=== PATIENT | female | born 1985 | race Caucasian/White ===

== ENCOUNTER 2018-07-31 02:51 | Emergency (ER) | payer MEDICAID, SELFPAY ==
[2018-07-31] VITALS (81 sets, daily range): BP systolic 95–158; BP diastolic 58–122; PULSE 67–118; RESP 7–23; TEMP 36.3; O2SAT 89–100
[2018-07-31] MEDS: Normal Saline Flush 10 ML SYR IVP (03:05)
[2018-07-31] MEDS: Normal Saline 1,000 ML 1000 ML IV (03:05)
[2018-07-31] MEDS: Ondansetron 4 MG/2 ML VIAL (03:06)
--- NOTE | 2018-07-31 03:06 | W.ED.GENAD ---
Discharge Plan Disposition Patient Disposition: HOME Condition: Good Discharge Details Chief Complaint: AMS/LOC Clinical Impression: Opiate overdose, Polysubstance abuse Reason For Visit: SANDRA Primary Care Provider: Alex Hong ED Provider: Stuart Hines Home Meds and New Rx's Prescriptions: Continued Nexplanon 68 mg Implant 1 implant SUBDERMAL ONCE RF: 0 Discharge Instructions Additional Instructions: Avoid drugs in the future. Rest and stay hydrated today. Follow-up with primary care next week as needed. Return to ED for any problems or concerns. Referrals: Alex Hong MD [Primary Care Provider] - Discharge Data Discharge Date/Time-TO BE ENTERED AT DEPARTURE: 07/31/18 13:21 Medical Decision Making <Adan Guerra MD - Last Filed: 07/31/18 19:58> Patient arrives status post unresponsive event with minimal respirations. She responded to Narcan is now awake and alert but does appear intoxicated. Admits to alcohol and marijuana. Denies other drug use by saying she does not recall. IV established here by nursing staff using ultrasound guidance. Patient started on a fluid bolus. Laboratory studies sent. Urine drug screen ordered. Will observe over the next few hours. 7:30 AM -patient laboratory studies significant for white count of 19 and a glucose of 277. Both, I suspect are related to stress reaction/adrenaline taylor from her near experience. Alcohol level actually only 47. Drug screen positive for cocaine, opiates, marijuana. Tylenol and aspirin negative. Around 5 AM patient required a half dose of Narcan IV for somnolence and decreased respiratory rat. Currently easily aroused and stays awake. Normal vital signs. Still complaining of significant nausea and dizziness although is drinking water. We will continue fluids for another couple of hours and plan on discharge home. She continues to denies drug use saying she does not remember anything. No suicidal intent. Signed over to Dr. Hines pending observation/discharge. Lab Data Lab results reviewed: Yes I reviewed the patient's lab results. ECG Data Attestation: I personally reviewed and interpreted this ECG (s) as follows: Prior ECG tracings: not available for review Interpretation: Sinus tachycardia at 117. Normal intervals and axis. Fair amount of artifact. Nonspecific ST changes but no acute depression or elevation. <Stuart Hines MD - Last Filed: 07/31/18 12:58> Received signout from Dr. Guerra. Patient observed over 4 hours time and slowly woke up and was appropriate. She is ambulatory, ate a lunch tray, and subsequent discharge in the company of her mother per HPI <Adan Guerra MD - Last Filed: 07/31/18 19:58> General Mode of arrival: EMS. Date/Time Provider Initiated Documentation: 07/31/18 03:05. Limitations to Documentation: no limitations. Information obtained by: patient and EMS. HPI Narrative: Patient presents to ED by ambulance status post unresponsive event. Family called EMS for unresponsive person not breathing. Dispatch instructed family to do CPR. EMS arrived on scene. They did not know whether compressions were done or just [id number] breathing. She was unresponsive with a radial pulse but no respiratory effort. She was given intranasal Narcan and woke up. They were unable to obtain access. She arrives here awake and alert complaining of nausea. She admits to drinking and using pot but denies other drugs. States that she does not recall using anything else. She does have a prior history of drug abuse. Related Data Home Medications Medication Instructions Recorded Confirmed Nexplanon 1 implant SUBDERMAL ONCE 07/31/18 07/31/18 Allergies Allergy/AdvReac Type Severity Reaction Status Date / Time No Known Allergies Allergy Unverified 09/26/17 21:48 Review of Systems <Adan Guerra MD - Last Filed: 07/31/18 19:58> Review of Systems Unobtainable due to mental status [facility] <Adan Guerra MD - Last Filed: 07/31/18 19:58> Medical History Abnormal Pap/HPV Depression affecting Hepatitis C antibody positive in blood Methadone maintenance therapy patient Substance abuse Tobacco use disorder Surgical History Cervical Procedure Social History Smoking/Tobacco Use Status: Current every day Exam <Adan Guerra MD - Last Filed: 07/31/18 19:58> Const General: cooperative, no acute distress and intoxicated appearing Orientation: alert and awake HENMT Head: normocephalic and atraumatic Neck Neck: trachea midline and supple Chest Chest: normal palpation of entire chest wall Resp Effort & Inspection: normal respiratory effort Auscultation: clear to auscultation bilaterally Cardio Rate: regular rate Rhythm: regular rhythm Heart Sounds: S1 normal and S2 normal Pulses: normal peripheral pulses GI Palpation: soft, not firm and nontender Skin General skin exam: no rashes or lesions noted and no erythema Neuro General: alert, awake, no focal motor deficits and CN's II-XI intact bilaterally Extrem General: no clubbing, cyanosis or edema Sign Out <Adan Guerra MD - Last Filed: 07/31/18 19:58> Sign Out Data: Sign Out Comment: Discussed with Dr. Hines who will reassess and plan discharge. Last updated by Adan Guerra MD at 07/31/18 08:06
[2018-07-31 03:18] LABS: Abs Immature Grans 0.07 k/cumm (0.0-0.09); Absolute Basophil Count 0.04 k/cumm (0.0-0.2); Absolute Eosinophil Count 0.02 k/cumm (0.0-0.7); Absolute Lymphocyte Count 2.93 k/cumm (1.2-3.4); Absolute Monocyte Count 0.84 k/cumm (0.11-0.7); Absolute Neutrophil Count 15.24 k/cumm (1.2-6.7); Basophils % 0.2; Eosinophils % 0.1; HCT 43.4 % (36.0-46.0); HGB 15.6 g/dL (12.0-15.5); Immature Grans % 0.4; Lymphocytes % 15.3; Mean Corp. HGB Concentration 35.9 g/dL (32.0-36.0); Mean Corpuscular Volume 86.3 fL (80-95); Mean Platelet Volume 11.1 fL (8.0-11.0); Monocytes % 4.4; Neutrophils % 79.6; Platelet Count 358 x1000/uL (130-400); RBC 5.03 m/cumm (4.00-5.20); RBC Distribution Width 12.5 % (11.7-14.6); White Blood Cell Count 19.14 k/cumm (4.4-10.8)
[2018-07-31 03:30] LABS: ALT 33 U/L (12-78); AST 23 U/L (15-37); Alkaline Phosphatase 88 U/L (46-116); Anion Gap 15.9 mmol/L (3-11); BUN 11 mg/dL (7-18); Bilirubin, Total 0.1 mg/dL (0.2-1.0); CO2 22.1 mmol/L (21.0-32.0); CREATININE 0.94 mg/dL (0.55-1.02); Calcium 8.1 mg/dL (8.5-10.1); Chloride 102 mmol/L (98-107); ETHANOL BLOOD 47.4 mg/dL (<3); Glucose 277 mg/dL (70-100); Magnesium 1.9 mg/dL (1.8-2.4); Potassium 3.3 mmol/L (3.5-5.1); Sodium 140 mmol/L (136-145); Total Protein 7.5 g/dL (6.4-8.2)
[2018-07-31 03:35] LABS: *AMPHETAMINES SCREEN URINE Negative (Negative); *BARBITURATES SCREEN URINE Negative (Negative); *BENZODIAZEPINES SCREEN URINE Negative (Negative); Cannabinoids THC POSITIVE (Negative); Cocaine Screen,Urine POSITIVE (Negative); METHADONE URINE SCREEN Negative (Negative); OPIATES URINE SCREEN POSITIVE (Negative)
[2018-07-31 03:36] LABS: Tricyclic Antidepressants Negative (Negative)
[2018-07-31 03:59] LABS: Acetaminophen < 2 ug/mL (10-30)
[2018-07-31] MEDS: Normal Saline 1,000 ML 200 ML IV (04:10)
[2018-07-31] MEDS: Naloxone 0.4 MG/ML VIAL (05:43)
--- NOTE | 2018-07-31 07:04 | NUR.NOTE ---
Nursing Note: Assisted patient oob to commode, pt with unsteady gait. voided without difficulty.Report from Kristina MURO. Pt requesting po liquid. no acute distress, will continue to monitor.
--- NOTE | 2018-07-31 07:28 | NUR.NOTE ---
Nursing Note: This RN and Charlie in room speaking with patient. Pt awake to soft voice, does not remember much of last night she states. c/o nmild nausea and dizziness but able to take po fluids without difficulty. will continue to rest for now.
--- NOTE | 2018-07-31 07:42 | NUR.NOTE ---
Nursing Note: Resp rate 8-10 sleeping and 14-16 while awake. appears in no acute distress
--- NOTE | 2018-07-31 08:30 | NUR.NOTE ---
Nursing Note:Assited patient to commode, HR increases to 110's when oob. titrated oxygen down to 0.5L, sat 90-93%, pt placed back on 1.5L NC. Remains easily aroused to voice. Will continue to monitor for a few more hours.
--- NOTE | 2018-07-31 09:31 | NUR.NOTE ---
Nursing Note: Pt talking on phone, will continue to monitor vital signs.
--- NOTE | 2018-07-31 09:51 | NUR.NOTE ---
Nursing Note: Pt still requring oxygen to keep sats > 90%, updated patient that her PCP is aware she will not make her appt. toast and gingerale ordered per request. will continue to monitor.
--- NOTE | 2018-07-31 10:53 | NUR.NOTE ---
Nursing Note: No changes, continues to require oxygen. tolerated toast with butter and jelly. on/off sleeping and getting oob to commode. RR remain 7-10 while sleeping and greater than 14 while awake. no acute changes, will continue to monitor.
== END 2018-07-31 13:21 | disposition home or self-care (01) ==
PROVIDERS: Emergency Medicine; Emergency Provider Emergency Medicine; PCP Family Medicine
DX: T40.601A Poisoning by unspecified narcotics, accidental (unintentional), initial encounter (principal); F14.19 Cocaine abuse with unspecified cocaine-induced disorder; F12.19 Cannabis abuse with unspecified cannabis-induced disorder; F10.120 Alcohol abuse with intoxication, uncomplicated; Y90.2 Blood alcohol level of 40-59 mg/100 ml; R11.0 Nausea; R42 Dizziness and giddiness
CPT/HCPCS: 36415; 80053; 80307; 81025; 96361; 96374; 96375; 99284; 80320; 80329; 83735; 84703; 85025; 99285; J2310; J2405

== ENCOUNTER 2018-09-02 01:16 | Outpatient (CLI) | payer MEDICAID, SELFPAY ==
[2018-09-02] MEDS: Omnipaque 350 MG/ML 100 ML BTL IJ (09:56)
[2018-09-02] MEDS: Omnipaque 350 MG/ML 50 ML BTL PO (09:57)
[2018-09-02] MEDS: Breeza Beverage 473 ML BTL PO (09:57)
--- NOTE | 2018-09-02 10:00 | DI.CT_ITS ---
SYMPTOM/DIAGNOSIS: GENERALIZED ABD PAIN, N/V/D, IBS R10.84 CT ABDOMEN AND PELVIS: Comparison is made with 13 May 2017. Images were performed from the lung bases through the ischial tuberosities after IV and oral contrast. The lung bases are clear. The heart size is normal. The liver, gallbladder, spleen, pancreas, adrenals and kidneys as well as uterus, ovaries and urinary bladder are unremarkable. There is no bowel dilatation or inflammatory change. The appendix appears normal. There is a normal quantity of stool. No adenopathy, free air or free fluid is seen in the abdomen or pelvis. IMPRESSION: Negative CT of the abdomen and pelvis. No bowel inflammation is demonstrated.
== END 2018-09-02 01:36 ==
PROVIDERS: PCP Family Medicine; Visit Provider Nurse Practitioner Family
DX: R10.84 Generalized abdominal pain (principal); R11.2 Nausea with vomiting, unspecified; R19.7 Diarrhea, unspecified
CPT/HCPCS: 80053; 82784; 83516; 83690; 74177; 82150; 84439; 84443; 85025; J3490; Q9967

== ENCOUNTER 2018-09-03 12:37 | Outpatient (CLI) | payer MEDICAID, SELFPAY ==
[2018-09-03 13:49] LABS: Abs Immature Grans 0.02 k/cumm (0.0-0.09); Absolute Basophil Count 0.01 k/cumm (0.0-0.2); Absolute Eosinophil Count 0.07 k/cumm (0.0-0.7); Absolute Lymphocyte Count 4.05 k/cumm (1.2-3.4); Basophils % 0.1; Eosinophils % 0.6; HCT 45.5 % (36.0-46.0); HGB 16.2 g/dL (12.0-15.5); Immature Grans % 0.2; Lymphocytes % 36.1; Mean Corp. HGB Concentration 35.6 g/dL (32.0-36.0); Mean Corpuscular Hemoglobin 29.8 pg (27.0-33.0); Mean Corpuscular Volume 83.8 fL (80-95); Mean Platelet Volume 11.2 fL (8.0-11.0); Monocytes % 6.1; Neutrophils % 56.9; Platelet Count 211 x1000/uL (130-400); RBC 5.43 m/cumm (4.00-5.20); RBC Distribution Width 12.5 % (11.7-14.6); White Blood Cell Count 11.23 k/cumm (4.4-10.8)
[2018-09-03 14:00] LABS: Absolute Monocyte Count 0.69 k/cumm (0.11-0.7); Absolute Neutrophil Count 6.39 k/cumm (1.2-6.7)
[2018-09-03 14:25] LABS: ALT 20 U/L (12-78); AST 15 U/L (15-37); Albumin 4.1 g/dL (3.4-5.0); Alkaline Phosphatase 91 U/L (46-116); Amylase 58 U/L (25-115); Anion Gap 11.4 mmol/L (3-11); BUN 13 mg/dL (7-18); Bilirubin, Total 0.5 mg/dL (0.2-1.0); CO2 26.6 mmol/L (21.0-32.0); CREATININE 0.67 mg/dL (0.55-1.02); Calcium 9.3 mg/dL (8.5-10.1); Chloride 103 mmol/L (98-107); FREE T4 1.08 ng/dL (0.76-1.46); Glucose 86 mg/dL (70-100); Lipase 124 U/L (73-393); Potassium 3.7 mmol/L (3.5-5.1); Sodium 141 mmol/L (136-145); TSH 1.85 uIU/mL (0.358-3.74); Total Protein 7.4 g/dL (6.4-8.2)
[2018-09-05 10:28] LABS: IgA 114 mg/dL (85-499); Interpretation SEE COMMENTS; Tissue Transglutaminase IgA <1.2 U/mL (<4.0)
== END 2018-09-03 12:57 ==
PROVIDERS: PCP Family Medicine; Visit Provider Nurse Practitioner Family
DX: R10.84 Generalized abdominal pain (principal)
CPT/HCPCS: 36415; 80053; 82784; 83516; 83690; 82150; 84439; 84443; 85025

== ENCOUNTER 2018-09-27 09:07 | Emergency (ER) | payer MEDICAID, SELFPAY ==
[2018-09-27] VITALS (24 sets, daily range): BP systolic 116–170; BP diastolic 71–96; PULSE 101–162; RESP 16; TEMP 37–37.7; O2SAT 92–97
[2018-09-27 09:27] LABS: Bilirubin Small (Negative); Blood Negative (Negative); Clarity Sl Cloudy; Glucose Negative (Negative); Ketones Trace mg/dL (Negative); Leukocyte Esterase Moderate (Negative); Nitrite Negative (Negative); Urobilinogen 0.2 EU/dL (Up TO 0.2); pH 7.5 (5-8)
[2018-09-27 09:36] LABS: Bacteria Moderate HPF (Negative); C & S Indicated? No/Sq. Contamination; Casts Negative LPF (Negative); Crystals Negative HPF (Negative); Epithelial Cells Many HPF (Negative); Mucus Negative (Negative); RBC Negative (0-2)
--- NOTE | 2018-09-27 09:39 | W.ED.GENAD ---
Discharge Plan Disposition Patient Disposition: HOME Condition: Improving Discharge Details Chief Complaint: Nausea/Vomit/Diar Clinical Impression: Acute dehydration Primary Care Provider: Alex Hong ED Provider: Stuart Hines Home Meds and New Rx's Prescriptions: New ondansetron HCl [Zofran] 4 mg tablet 4 mg PO QID PRN (Reason: Nausea) Qty: 10 RF: 0 Continued omeprazole magnesium [Acid [employer] (omeprazole)] 20 mg capsule,delayed release(DR/EC) 20 mg PO DAILY Qty: 90 RF: 0 Nexplanon 68 mg Implant 1 implant SUBDERMAL ONCE RF: 0 Discharge Instructions Instructions: Dehydration (ED) Additional Instructions: Home to rest today. Small, frequent sips of fluids to maintain hydration. Continue your regular medications. Continue with your plans to follow-up for outpatient consultation. May use Zofran, as prescribed, as needed for nausea. Return for worsening or any acute concern Medical Decision Making 32-year-old female who has struggled with intermittent episodes of cyclic vomiting over weeks to months time since being released from prison in May. She has pre-standing outpatient follow-up plans for upper endoscopy and has had a recent imaging and laboratory. This included CT scan of the abdomen and pelvis on September 02 which was unremarkable. She arrives afebrile, tachycardic, dehydrated in appearance. Differential diagnosis includes cyclic vomiting, gastritis, consideration of pancreatitis. Given her clinical level of dehydration she is at risk for left foot abnormalities as well. IV access obtained, screening labs obtained, patient given fluid bolus x2L. She has previous leukocytosis which is somewhat improved today with white count of 14. Lipase and TSH are reassuring. After antiemetics and fluid, the patient had correction of her pulse. She may have a component of cyclic vomiting results in the profound dehydration. Do not find indication to pursue further workup at this time. WIll offer antiemeticfs for home, she is to continue with prearranged outpatient consultations. Note: Patient stated her insurance had lapsed and would begin again on Saturday. Discussed with case management and patient dispensed Zofran tablets for home. Lab Data Lab results reviewed: Yes I reviewed the patient's lab results. Laboratory Results - last 24 hr 09/27/18 09/27/18 09/27/18 09:21 09:45 09:49 WBC RBC Hgb Hct MCV MCH MCHC RDW Plt Count MPV Immature Gran % Neutrophils % Lymphocytes % Monocytes % Eosinophils % Basophils % Absolute Neutrophils Absolute Lymphocytes Absolute Monocytes Absolute Eosinophils Absolute Basophils Sodium 140 Potassium 3.7 Chloride 101 Carbon Dioxide 27.5 Anion Gap 11.5 H BUN 17 Creatinine 0.94 Estimated GFR/1.73 m2 >= 60.00 Glucose 184 H Calcium 8.8 Magnesium Cancelled Cancelled Total Bilirubin 0.3 AST 17 ALT 24 Alkaline Phosphatase 83 Total Protein 8.3 H Albumin 3.9 Lipase 83 TSH 1.48 Urine Color Yellow Urine Clarity Sl cloudy Urine pH 7.5 Ur Specific [place] 1.020 Urine Protein 30 H Urine Ketones Trace H Urine Blood Negative Urine Nitrite Negative Urine Bilirubin Small H Urine Urobilinogen 0.2 Ur Leukocyte Esterase Moderate H Urine RBC Negative Urine WBC 10-20 Ur Epithelial Cells Many Urine Crystals Negative Urine Bacteria Moderate Urine Casts Negative Urine Mucus Negative Ur Culture Indicated? No/sq. contamination Urine Glucose Negative 09/27/18 09/27/18 09/27/18 09:49 09:49 09:50 WBC 14.13 H RBC 5.83 H Hgb 17.2 H Hct 48.6 H MCV 83.4 MCH 29.5 MCHC 35.4 RDW 13.2 Plt Count 322 D MPV 11.0 Immature Gran % 0.2 Neutrophils % 78.8 Lymphocytes % 16.3 Monocytes % 4.0 Eosinophils % 0.3 Basophils % 0.4 Absolute Neutrophils 11.13 H Absolute Lymphocytes 2.30 Absolute Monocytes 0.57 Absolute Eosinophils 0.04 Absolute Basophils 0.06 Sodium Potassium Chloride Carbon Dioxide Anion Gap BUN Creatinine Estimated GFR/1.73 m2 Glucose Calcium Magnesium Total Bilirubin AST ALT Alkaline Phosphatase Total Protein Albumin Lipase Cancelled TSH Cancelled Urine Color Urine Clarity Urine pH Ur Specific [place] Urine Protein Urine Ketones Urine Blood Urine Nitrite Urine Bilirubin Urine Urobilinogen Ur Leukocyte Esterase Urine RBC Urine WBC Ur Epithelial Cells Urine Crystals Urine Bacteria Urine Casts Urine Mucus Ur Culture Indicated? Urine Glucose HPI General Mode of arrival: ambulatory. Date/Time Provider Initiated Documentation: 09/27/18 09:28. Limitations to Documentation: no limitations. Information obtained by: patient. History of Present Illness 32 year old F presents to the emergency department with the chief complaint of Nausea, vomiting, recurrent over weeks, described as moderate, Quality is described as constant, and is localized to the abdomen. Patient abdomen. Patient started experiencing this week(s) and it has been intermittent. No relieving factors improve symptom(s), Eating worsens symptoms . Patient notes no other symptoms. and loss of appetite. Patient did receive the following treatments prior to arrival, none Related Data Home Medications Medication Instructions Recorded Confirmed Nexplanon 1 implant SUBDERMAL ONCE 07/31/18 09/27/18 omeprazole magnesium 20 mg 20 mg PO DAILY #90 cap 08/28/18 09/27/18 capsule,delayed release ondansetron HCl [Zofran] 4 mg PO QID PRN #10 tab 09/27/18 Previous Rx's Medication Instructions Recorded omeprazole magnesium 20 mg 20 mg PO DAILY #90 cap 08/28/18 capsule,delayed release ondansetron HCl [Zofran] 4 mg PO QID PRN #10 tab 09/27/18 Allergies Allergy/AdvReac Type Severity Reaction Status Date / Time No Known Allergies Allergy Unverified 09/27/18 09:20 General Stated Complaint: Nausea/Vomit/Diar [place]: 2 Review of Systems Review of Systems 8 systems reviewed and otherwise negative. Denies recent drug use. No fever PFSH Medical History Abnormal Pap/HPV Depression affecting Hepatitis C antibody positive in blood Methadone maintenance therapy patient Substance abuse Tobacco use disorder Surgical History Cervical Procedure Social History Smoking and Tabacco status: Current every day Exam Narrative Exam Narrative: GEN: awake, alert, oriented 3. Pleasant, well groomed, interactive. HEAD: Normocephalic, atraumatic ENT: Mucous membranes dry, oropharynx unremarkable, External ear exam unremarkable EYES: PERRL, EOMI NECK: Full ROM, no TRIPP, no menigismus CHEST/RESP: Nontender, clear to auscultation bilateral, no wheeze/rhonchi/rales CARDIOVASCULAR: Regular and tachycardic, no murmur, rub lory. 2+ Rad pulse bilateral ABDOMEN: Soft, nontender, no mass. +Bowel sounds EXT: Full ROM, no edema, no rash Neuro: Grossly normal neurologic exam, conversant, interactive. Psych: Speech fluent, thoughts congruent, affect normal Course Vital Signs Temperature 37 C 09/27/18 09:14 Pulse 162 H 09/27/18 09:14 Respiratory Rate 16 09/27/18 09:14 Blood Pressure 151/96 H 09/27/18 09:14 Pulse Oximetry 93 L 09/27/18 09:14 Temperature 37 C 09/27/18 09:14 Temperature Source Skin 09/27/18 09:14 Pulse 162 H 09/27/18 09:14 Respiratory Rate 16 09/27/18 09:14 Respiratory Effort 09/27/18 09:14 Blood Pressure 151/96 H 09/27/18 09:14 Blood Pressure Position Sitting 09/27/18 09:14 Pulse Oximetry 93 L 09/27/18 09:14 Oxygen Delivery Method Room Air 09/27/18 09:14 Oxygen Flow Rate 0 09/27/18 09:14 Pain Level 7 09/27/18 09:14 Lab/Test Results Lab/Test Results: Laboratory Tests Range/Units 09/27/18 09:21 Urine Color (Yellow) Yellow Urine Clarity Sl cloudy Urine pH (5-8) 7.5 Ur Specific [place] (1.005-1.025) 1.020 Urine Protein (Negative) mg/dL 30 H Urine Ketones (Negative) mg/dL Trace H Urine Blood (Negative) Negative Urine Nitrite (Negative) Negative Urine Bilirubin (Negative) Small H Urine Urobilinogen (Up TO 0.2) EU/dL 0.2 Ur Leukocyte Esterase (Negative) Moderate H Urine RBC (0-2) Negative Urine WBC (0-5) HPF 10-20 Ur Epithelial Cells (Negative) HPF Many Urine Crystals (Negative) HPF Negative Urine Bacteria (Negative) HPF Moderate Urine Casts (Negative) LPF Negative Urine Mucus (Negative) Negative Ur Culture Indicated? No/sq. contamination Urine Glucose (Negative) mg/dL Negative
--- NOTE | 2018-09-27 09:43 | ED.GENADUL_ITS ---
Discharge Plan Disposition Patient Disposition: HOME Condition: Improving Discharge Details Chief Complaint: Nausea/Vomit/Diar Clinical Impression: Acute dehydration Primary Care Provider: Alex Hong ED Provider: Stuart Hines Home Meds and New Rx's Prescriptions: New ondansetron HCl [Zofran] 4 mg tablet 4 mg PO QID PRN (Reason: Nausea) Qty: 10 RF: 0 Continued omeprazole magnesium [Acid [employer] (omeprazole)] 20 mg capsule,delayed release(DR/EC) 20 mg PO DAILY Qty: 90 RF: 0 Nexplanon 68 mg Implant 1 implant SUBDERMAL ONCE RF: 0 Discharge Instructions Instructions: Dehydration (ED) Additional Instructions: Home to rest today. Small, frequent sips of fluids to maintain hydration. Continue your regular medications. Continue with your plans to follow-up for outpatient consultation. May use Zofran, as prescribed, as needed for nausea. Return for worsening or any acute concern Medical Decision Making 32-year-old female who has struggled with intermittent episodes of cyclic vomiting over weeks to months time since being released from senior care in May. She has pre-standing outpatient follow-up plans for upper endoscopy and has had a recent imaging and laboratory. This included CT scan of the abdomen and pelvis on September 02 which was unremarkable. She arrives afebrile, tachycardic, dehydrated in appearance. Differential diagnosis includes cyclic vomiting, gastritis, consideration of pancreatitis. Given her clinical level of dehydration she is at risk for left foot abnormalities as well. IV access obtained, screening labs obtained, patient given fluid bolus x2L. She has previous leukocytosis which is somewhat improved today with white count of 14. Lipase and TSH are reassuring. After antiemetics and fluid, the patient had correction of her pulse. She may have a component of cyclic vomiting results in the profound dehydration. Do not find indication to pursue further workup at this time. WIll offer antiemeticfs for home, she is to continue with prearranged outpatient consultations. Note: Patient stated her insurance had lapsed and would begin again on Saturday. Discussed with case management and patient dispensed Zofran tablets for home. Lab Data Lab results reviewed: Yes I reviewed the patient's lab results. Laboratory Results - last 24 hr 09/27/18 09/27/18 09/27/18 09:21 09:45 09:49 WBC RBC Hgb Hct MCV MCH MCHC RDW Plt Count MPV Immature Gran % Neutrophils % Lymphocytes % Monocytes % Eosinophils % Basophils % Absolute Neutrophils Absolute Lymphocytes Absolute Monocytes Absolute Eosinophils Absolute Basophils Sodium 140 Potassium 3.7 Chloride 101 Carbon Dioxide 27.5 Anion Gap 11.5 H BUN 17 Creatinine 0.94 Estimated GFR/1.73 m2 >= 60.00 Glucose 184 H Calcium 8.8 Magnesium Cancelled Cancelled Total Bilirubin 0.3 AST 17 ALT 24 Alkaline Phosphatase 83 Total Protein 8.3 H Albumin 3.9 Lipase 83 TSH 1.48 Urine Color Yellow Urine Clarity Sl cloudy Urine pH 7.5 Ur Specific [place] 1.020 Urine Protein 30 H Urine Ketones Trace H Urine Blood Negative Urine Nitrite Negative Urine Bilirubin Small H Urine Urobilinogen 0.2 Ur Leukocyte Esterase Moderate H Urine RBC Negative Urine WBC 10-20 Ur Epithelial Cells Many Urine Crystals Negative Urine Bacteria Moderate Urine Casts Negative Urine Mucus Negative Ur Culture Indicated? No/sq. contamination Urine Glucose Negative 09/27/18 09/27/18 09/27/18 09:49 09:49 09:50 WBC 14.13 H RBC 5.83 H Hgb 17.2 H Hct 48.6 H MCV 83.4 MCH 29.5 MCHC 35.4 RDW 13.2 Plt Count 322 D MPV 11.0 Immature Gran % 0.2 Neutrophils % 78.8 Lymphocytes % 16.3 Monocytes % 4.0 Eosinophils % 0.3 Basophils % 0.4 Absolute Neutrophils 11.13 H Absolute Lymphocytes 2.30 Absolute Monocytes 0.57 Absolute Eosinophils 0.04 Absolute Basophils 0.06 Sodium Potassium Chloride Carbon Dioxide Anion Gap BUN Creatinine Estimated GFR/1.73 m2 Glucose Calcium Magnesium Total Bilirubin AST ALT Alkaline Phosphatase Total Protein Albumin Lipase Cancelled TSH Cancelled Urine Color Urine Clarity Urine pH Ur Specific [place] Urine Protein Urine Ketones Urine Blood Urine Nitrite Urine Bilirubin Urine Urobilinogen Ur Leukocyte Esterase Urine RBC Urine WBC Ur Epithelial Cells Urine Crystals Urine Bacteria Urine Casts Urine Mucus Ur Culture Indicated? Urine Glucose HPI General Mode of arrival: ambulatory . Date/Time Provider Initiated Documentation: 09/27/18 09:28 . Limitations to Documentation: no limitations . Information obtained by: patient . History of Present Illness 32 year old F presents to the emergency department with the chief complaint of Nausea, vomiting, recurrent over weeks, described as moderate, Quality is described as constant, and is localized to the abdomen. Patient abdomen. Patient started experiencing this week(s) and it has been intermittent. No relieving factors improve symptom(s), Eating worsens symptoms . Patient notes no other symptoms. and loss of appetite. Patient did receive the following treatments prior to arrival, none Related Data Home Medications Medication Instructions Recorded Confirmed Nexplanon 1 implant SUBDERMAL ONCE 07/31/18 09/27/18 omeprazole magnesium 20 mg 20 mg PO DAILY #90 cap 08/28/18 09/27/18 capsule,delayed release ondansetron HCl [Zofran] 4 mg PO QID PRN #10 tab 09/27/18 Previous Rx's Medication Instructions Recorded omeprazole magnesium 20 mg 20 mg PO DAILY #90 cap 08/28/18 capsule,delayed release ondansetron HCl [Zofran] 4 mg PO QID PRN #10 tab 09/27/18 Allergies Allergy/AdvReac Type Severity Reaction Status Date / Time No Known Allergies Allergy Unverified 09/27/18 09:20 General Stated Complaint: Nausea/Vomit/Diar [place]: 2 Review of Systems Review of Systems 8 systems reviewed and otherwise negative. Denies recent drug use. No fever PFSH Medical History Abnormal Pap/HPV Depression affecting Hepatitis C antibody positive in blood Methadone maintenance therapy patient Substance abuse Tobacco use disorder Surgical History Cervical Procedure Social History Smoking and Tabacco status: Current every day Exam Narrative Exam Narrative: GEN: awake, alert, oriented 3. Pleasant, well groomed, interactive. HEAD: Normocephalic, atraumatic ENT: Mucous membranes dry, oropharynx unremarkable, External ear exam unremarkable EYES: PERRL, EOMI NECK: Full ROM, no TRIPP, no menigismus CHEST/RESP: Nontender, clear to auscultation bilateral, no wheeze/rhonchi/rales CARDIOVASCULAR: Regular and tachycardic, no murmur, rub lory. 2+ Rad pulse bilateral ABDOMEN: Soft, nontender, no mass. +Bowel sounds EXT: Full ROM, no edema, no rash Neuro: Grossly normal neurologic exam, conversant, interactive. Psych: Speech fluent, thoughts congruent, affect normal Course Vital Signs Temperature 37 C 09/27/18 09:14 Pulse 162 H 09/27/18 09:14 Respiratory Rate 16 09/27/18 09:14 Blood Pressure 151/96 H 09/27/18 09:14 Pulse Oximetry 93 L 09/27/18 09:14 Temperature 37 C 09/27/18 09:14 Temperature Source Skin 09/27/18 09:14 Pulse 162 H 09/27/18 09:14 Respiratory Rate 16 09/27/18 09:14 Respiratory Effort 09/27/18 09:14 Blood Pressure 151/96 H 09/27/18 09:14 Blood Pressure Position Sitting 09/27/18 09:14 Pulse Oximetry 93 L 09/27/18 09:14 Oxygen Delivery Method Room Air 09/27/18 09:14 Oxygen Flow Rate 0 09/27/18 09:14 Pain Level 7 09/27/18 09:14 Lab/Test Results Lab/Test Results: Laboratory Tests Range/Units 09/27/18 09:21 Urine Color (Yellow) Yellow Urine Clarity Sl cloudy Urine pH (5-8) 7.5 Ur Specific [place] (1.005-1.025) 1.020 Urine Protein (Negative) mg/dL 30 H Urine Ketones (Negative) mg/dL Trace H Urine Blood (Negative) Negative Urine Nitrite (Negative) Negative Urine Bilirubin (Negative) Small H Urine Urobilinogen (Up TO 0.2) EU/dL 0.2 Ur Leukocyte Esterase (Negative) Moderate H Urine RBC (0-2) Negative Urine WBC (0-5) HPF 10-20 Ur Epithelial Cells (Negative) HPF Many Urine Crystals (Negative) HPF Negative Urine Bacteria (Negative) HPF Moderate Urine Casts (Negative) LPF Negative Urine Mucus (Negative) Negative Ur Culture Indicated? No/sq. contamination Urine Glucose (Negative) mg/dL Negative
[2018-09-27] MEDS: Ondansetron O.D.T. 4 MG TABEF (09:51)
[2018-09-27 10:05] LABS: Abs Immature Grans 0.03 k/cumm (0.0-0.09); Absolute Eosinophil Count 0.04 k/cumm (0.0-0.7); Basophils % 0.4; Eosinophils % 0.3; HCT 48.6 % (36.0-46.0); HGB 17.2 g/dL (12.0-15.5); Immature Grans % 0.2; Lymphocytes % 16.3; Mean Corp. HGB Concentration 35.4 g/dL (32.0-36.0); Mean Corpuscular Hemoglobin 29.5 pg (27.0-33.0); Mean Corpuscular Volume 83.4 fL (80-95); Neutrophils % 78.8; Platelet Count 322 x1000/uL (130-400); RBC 5.83 m/cumm (4.00-5.20); RBC Distribution Width 13.2 % (11.7-14.6); White Blood Cell Count 14.13 k/cumm (4.4-10.8)
[2018-09-27] MEDS: Lactated Ringers 1,000 ML 1000 ML IV ×2 (10:06→10:56)
[2018-09-27] MEDS: Pantoprazole 40 MG VIAL IVP (10:06)
[2018-09-27 10:11] LABS: Absolute Basophil Count 0.06 k/cumm (0.0-0.2); Absolute Monocyte Count 0.57 k/cumm (0.11-0.7); Absolute Neutrophil Count 11.13 k/cumm (1.2-6.7)
[2018-09-27 10:22] LABS: ALT 24 U/L (12-78); AST 17 U/L (15-37); Albumin 3.9 g/dL (3.4-5.0); Alkaline Phosphatase 83 U/L (46-116); Anion Gap 11.5 mmol/L (3-11); BUN 17 mg/dL (7-18); Bilirubin, Total 0.3 mg/dL (0.2-1.0); CO2 27.5 mmol/L (21.0-32.0); CREATININE 0.94 mg/dL (0.55-1.02); Chloride 101 mmol/L (98-107); Glucose 184 mg/dL (70-100); Lipase 83 U/L (73-393); Potassium 3.7 mmol/L (3.5-5.1); Sodium 140 mmol/L (136-145); TSH 1.48 uIU/mL (0.358-3.74); Total Protein 8.3 g/dL (6.4-8.2)
[2018-09-27 10:27] LABS: Calcium 8.8 mg/dL (8.5-10.1)
[2018-09-27] MEDS: LORazepam 2 MG/ML VIAL (10:57)
[2018-09-27] MEDS: Ondansetron 4 MG/2 ML VIAL (10:57)
[2018-09-27] MEDS: Ondansetron O.D.T. 4 MG TABEF 32 MG PO (12:23)
== END 2018-09-27 12:29 | disposition home or self-care (01) ==
PROVIDERS: Emergency Provider Emergency Medicine; PCP Family Medicine
DX: E86.0 Dehydration (principal); G43.A0 Cyclical vomiting, in migraine, not intractable
CPT/HCPCS: 80053; 83690; 99283; 81003; 81015; 83735; 84443; 85025; J2060; J2405

== ENCOUNTER 2018-10-10 07:59 | Day surgery (SDC) | payer MEDICAID, SELFPAY ==
[2018-10-10 08:09] VITALS: BP 129/91; PULSE 93; RESP 16; TEMP 35.8; O2SAT 94
[2018-10-10] MEDS: Lactated Ringers 1,000 ML 80 ML IV (08:33)
[2018-10-10] MEDS: Lidocaine 2% Viscous 15 ML CUP 20 ML PO (10:35)
--- NOTE | 2018-10-10 10:43 | STOM_PTH ---
PATIENT: Chencho Barrett LOC: [facility] U#:[id number] AGE/SX: 32/F ROOM: RE10/10/[address]: Salma Salgado : 1985 BED: DIS: 10/10/2018 SPEC #: [id number] RECD: 10/10/18 12:59 STATUS: MALIK BALL #: [id number] CASPER: 10/10/18 10:[address]: Salma Salgado DEPT: Surgical Specimen RECD BY: Nehal Lockett ENTERED: 10/10/18 13:02 SP TYPE: STOMACH OTHR DR: Alex Hong MD Tissues: 1 - BIOPSY BOWEL 2 - STOMACH BIOPSY 3 - STOMACH BIOPSY 4 - ESOPHAGUS BIOPSY 5 - ESOPHAGUS BIOPSY Procedures: GROSS AND MICRO LEVEL 4 Comments: [id number]
--- NOTE | 2018-10-10 10:53 | W.PM.DSUDISC ---
Discharge Plan Disposition Patient Disposition: HOME Condition: Good Discharge Details Reason For Visit: egd Attending Provider: Salma Salgado Primary Care Provider: Alex Hong Home Meds and New Rx's Prescriptions: New metoclopramide HCl [Reglan] 10 mg tablet 10 mg PO Q6H Qty: 90 RF: 2 scopolamine base 1 mg over 3 days patch 3 day 1 patch TD Q72H Qty: 10 RF: 0 Continued ondansetron HCl [Zofran] 4 mg tablet 4 mg PO QID PRN (Reason: Nausea) Qty: 10 RF: 0 Nexplanon 68 mg Implant 1 implant SUBDERMAL ONCE RF: 0 Discontinued omeprazole magnesium [Acid Hop Separator (omeprazole)] 20 mg capsule,delayed release(DR/EC) 20 mg PO DAILY Qty: 90 RF: 0 Discharge Instructions Additional Instructions: F/u w/ Dr. Salgado in 2 wks time Stand Alone Forms: DSU Post EGD Instructions, Kenn Eason (DSU) Activity:: Activity as Tolerated Shower/Bathe:: 24 hours Diet:: As Tolerated Discharge Orders Other Ambulatory Orders: US abdomen (Routine) Location: Determined by Patient Ordered By: Salma Salgado DS: Diagnosis Discharge Diagnosis (1) Opiate addiction: Status: Acute (2) Panic attack: Status: Acute (3) History of tobacco use: Status: Acute (4) Hepatitis C antibody test positive: Status: Acute (5) Intractable nausea and vomiting: Status: Acute
--- NOTE | 2018-10-10 11:01 | W.PM.ENDDOP ---
Date of service: 10/10/18 Time of Service: 11:01 Endoscopy Report DATE OF PROCEDURE: 10/10/18 PRE-OP DIAGNOSIS: intractible N/V POST-OP DIAGNOSIS: same PROCEDURE: EGD w/ Bx SURGEON: Salma Salgado ANESTHESIA: GETA ESTIMATED BLOOD LOSS: 2 PATHOLOGY: other COMPLICATIONS: None DISPOSITION: PACU INDICATIONS: see preop FINDINGS: normal. maybe some minimal bile reflux PROCEDURE DESCRIPTION: dictated
--- NOTE | 2018-10-10 11:04 | PDOC.DSDIS_ITS ---
Discharge Plan Disposition Patient Disposition: HOME Condition: Good Discharge Details Reason For Visit: egd Attending Provider: Salma Salgado Primary Care Provider: Alex Hong Home Meds and New Rx's Prescriptions: New metoclopramide HCl [Reglan] 10 mg tablet 10 mg PO Q6H Qty: 90 RF: 2 scopolamine base 1 mg over 3 days patch 3 day 1 patch TD Q72H Qty: 10 RF: 0 sucralfate [Carafate] 1 gram tablet 1 gm PO QACHS Qty: 120 RF: 8 Continued ondansetron HCl [Zofran] 4 mg tablet 4 mg PO QID PRN (Reason: Nausea) Qty: 10 RF: 0 Nexplanon 68 mg Implant 1 implant SUBDERMAL ONCE RF: 0 Discontinued omeprazole magnesium [Acid Industrial Truck Operator (omeprazole)] 20 mg capsule,delayed release(DR/EC) 20 mg PO DAILY Qty: 90 RF: 0 Discharge Instructions Additional Instructions: F/u w/ Dr. Salgado in 2 wks time Stand Alone Forms: DSU Post EGD Instructions, Kenn Eason (DSU) Activity:: Activity as Tolerated Shower/Bathe:: 24 hours Diet:: As Tolerated Discharge Orders Discharge Orders: Discharge Order (Routine); Ordered 10/10/18 Ordered By: Salma Salgado Other Ambulatory Orders: US abdomen (Routine) Location: Determined by Patient Ordered By: Salma Salgado
[2018-10-10 11:26] VITALS: BP 109/65; PULSE 85; RESP 16; TEMP 36.5; O2SAT 100
[2018-10-10] MEDS: Scopolamine 1 MG/3 DAYS PATCH TD (12:10)
--- NOTE | 2018-10-14 17:01 | ROE_ITS ---
DATE OF PROCEDURE: October 10, 2018 PREOPERATIVE DIAGNOSIS: Intractable nausea and vomiting. POSTOPERATIVE DIAGNOSIS: Intractable nausea and vomiting; minimal bile reflux. PROCEDURE: EGD with biopsy. SURGEON: Salma Salgado D.O. ANESTHESIA: MAC ESTIMATED BLOOD LOSS: <2 cc Biopsies were taken. Patient tolerated the procedure well without complication. HISTORY: Ms. Barrett is 42-year-old female seen at the request of Dr. Paige and is here today for EGD. Informed consent was obtained. I explained the risks and benefits of the procedure to include, but not limited to, bleeding, infection, perforation, aspiration, and complications from the anesthesia. PROCEDURE: The patient was brought to the Endoscopy Suite and placed in the left lateral decubitus position. IV sedation was administered per the Department of Anesthesia. The previously lubricated Olympus scope was easily inserted in the oropharynx and passed down the esophagus. There were no esophageal erosions, varices, diverticula, or stricture apparent. The scope was passed through the GE junction into the stomach. There was no hiatal hernia. The stomach appeared grossly normal. There were no signs of any gastritis. There were no anatomic abnormalities. There was minimal bile reflux. Antrum was freely patent. The scope was passed through into the first and second portions of the duodenum. There was no duodenitis. Biopsies were taken of the duodenal bulb, antrum, greater curvature of the GI junction, and the distal esophagus. All specimens were retrieved. There was no bleeding noted. Air was then removed. The patient tolerated the procedure well without complication. Transferred to the recovery room in stable condition.She will sent home with a scopolamine patch and a prescription for scopolamine. She had a CT scan in the Emergency Room which was unremarkable. We will obtain an ultrasound of the gallbladder for completeness. Her test was negative prior to getting the procedure. Essentially this was a normal EGD. cc: Alex Hong M.D.
== END 2018-10-10 12:15 | disposition home or self-care (01) ==
PROVIDERS: PCP Family Medicine; Visit Provider Surgery
PROC: 0DJ68ZZ Inspection of Stomach, Via Natural or Artificial Opening Endoscopic (ICD-10-PCS; CPT 43235; principal; 2018-10-10 08:30)
DX: R11.2 Nausea with vomiting, unspecified (principal); K31.89 Other diseases of stomach and duodenum; F17.210 Nicotine dependence, cigarettes, uncomplicated
CPT/HCPCS: 43239; 81025; 88305

== ENCOUNTER 2019-04-07 16:04 | Outpatient (REF) | payer MEDICAID, SELFPAY ==
--- NOTE | 2019-04-07 15:30 | PAPFT_PTH ---
PATIENT: Chencho Barrett LOC: [facility] U#:[id number] AGE/SX: 33/F ROOM: RE04/07/[address]: David Bauer MD : 1985 BED: DIS: 04/07/2019 SPEC #: [id number] RECD: 04/08/19 12:48 STATUS: FELICITATirso REQ #: [id number] CASPER: 04/07/19 15:[address]: David Bauer DEPT: [facility] Cytology RECD BY: Nehal Lockett ENTERED: 04/08/19 12:49 SP TYPE: PAPFT OTHR DR: Alex Hong MD Tissues: 1 - CX/ENDOCX FOR PAP SMEARS Procedures: PAP THIN PREP/UVM Screening Comments: [id number] (CHLAMYDIA/GC) (UNSATISFACTORY FOR EVALUATION)
[2019-04-09 13:09] LABS: Chlamydia Result Negative; GC Result Negative; Specimen Description SEE COMMENTS
== END 2019-04-07 16:24 ==
LOC: LBN 16:04
PROVIDERS: PCP Family Medicine; Visit Provider Obstetrics & Gynecology
DX: Z12.4 Encounter for screening for malignant neoplasm of cervix (principal); R87.612 Low grade squamous intraepithelial lesion on cytologic smear of cervix (LGSIL); R87.615 Unsatisfactory cytologic smear of cervix
CPT/HCPCS: 87491; 87591; 88142; 87624

== ENCOUNTER 2019-04-23 19:20 | Outpatient (REF) | payer MEDICAID, SELFPAY | END 2019-04-23 19:40 | LOC: LBN 19:20 | PROVIDERS: PCP Family Medicine; Visit Provider Obstetrics & Gynecology | DX: L73.2 Hidradenitis suppurativa (principal) | CPT/HCPCS: 87070; 87205 ==

== ENCOUNTER 2019-07-01 12:14 | Emergency (ER) | payer MEDICAID, SELFPAY ==
--- NOTE | 2019-07-01 12:20 | ED.GENADUL_ITS ---
Discharge Plan Disposition Patient Disposition: HOME Condition: Improving Discharge Details Chief Complaint: Chest/Rib Clinical Impression: Contusion of rib on left side Primary Care Provider: Alex Hong ED Provider: Bing Dougherty Home Meds and New Rx's Prescriptions: New lidocaine [Lidoderm] 5 % adhesive patch,medicated 1 patch TP DAILY PRN (Reason: pain) Qty: 15 RF: 0 methocarbamol 750 mg tablet 750 mg PO QID PRN (Reason: pain) Qty: 14 RF: 0 Continued spironolactone 50 mg tablet 50 mg PO DAILY Qty: 60 RF: 1 minocycline 50 mg capsule 50 mg PO DAILY Qty: 60 RF: 1 clindamycin HCl 150 mg capsule 150 mg PO BID Qty: 20 RF: 0 clindamycin phosphate 1 % gel 1 applic TP BID Qty: 60 RF: 1 methadone 10 mg/5 mL solution 85 mg PO DAILY RF: 0 paroxetine HCl 20 mg tablet 20 mg PO DAILY Qty: 30 RF: 2 ropinirole 1 mg tablet 1 mg PO QHS Qty: 30 RF: 1 Nexplanon 68 mg Implant 1 implant SUBDERMAL ONCE RF: 0 Discharge Instructions Instructions: Rib Contusion (ED) Additional Instructions: Alternate Tylenol and Motrin as needed and directed for pain. Alternate ice and heat to the affected area several times daily for 20 minutes at a time. Use the Lidoderm patch and muscle relaxers as needed and directed. Follow-up with your primary care doctor within the next week for reevaluation. Return to the emergency department if you develop any worsening or new concerning symptoms. Discharge Data Discharge Date/Time-TO BE ENTERED AT DEPARTURE: 07/01/19 13:56 Discharge Physician: Bing Dougherty Medical Decision Making 1230 -- 33-year-old female presents with left rib and chest pain for the past 9 days after fall downstairs. Patient states she fell down 15 stairs at home when she tripped over her cat approximately 2 weeks ago. She states that few days after she developed left rib and chest pain that is significantly tender to touch, worse with sniffing, sneezing, coughing or any movement of her bilateral arms, specifically her left arm. She denies any fever, shortness of breath, abdominal pain or vomiting. She quit smoking 3 months ago and does vape and admits to coughing with brown sputum occasionally. EKG done on arrival due to patient's complaint of chest pain. EKG notes a rate of 66, sinus with no acute ST-T wave ischemic changes. Patient has significant tenderness to palpation of her left anterior chest. She has full range of motion of her arms bilaterally but with significant reproducible pain in the left chest. She specifically denies any arm pain and states it is only in her left anterior ribs. Neurovascularly intact. Lungs clear. Any movement of patient on stretcher reproduces left chest pain. History and presentation not consistent with PE. Appears musculoskeletal. Will place a Lidoderm patch and give a IM Toradol and p.o. Valium. Will obtain a left ribs and PA lateral chest and reassess. test negative. 1340 --x-ray negative. Patient feels better after meds and feels good to go home. She is advised to continue Tylenol and Motrin, ice and heat. We will send with a prescription for methocarbamol and Lidoderm patch. Patient requested a note for the [facility] clinic stating she received valium today because she is taking methadone. She is advised to follow-up with her primary care doctor for reevaluation and to return here with any concerns. Medical Records Medical records reviewed: Yes I reviewed the patient's medical records. Imaging Data Radiologic Study: Radiologist's impression: XR RIBS LT W PA LAT CHEST CLINICAL HISTORY: s/p fall down stairs, r/o acute fracture TECHNIQUE: COMPARISON: CHEST 2 VIEWS PA,LAT from 12/08/2011 FINDINGS: PA and lateral views of the chest and 4 additional views of left ribs were obtained. Heart is not enlarged and the lungs are clear. No pleural effusion or pneumothorax seen. No rib abnormality is seen. IMPRESSION: ECG Data Attestation: I personally reviewed and interpreted this ECG (s) as follows: Interpretation: rate of 66, sinus, no acute ST elevation or depression. IN 156. QTc 427. QRS 94. HPI General Mode of arrival: ambulatory . Date/Time Provider Initiated Documentation: 07/01/19 12:19 . Limitations to Documentation: no limitations . Information obtained by: patient . History of Present Illness 33 year old F presents to the emergency department with the chief complaint of L chest/rib pain, with intensity rated at 8. Quality is described as aching and sharp, and is localized to the chest (L ribs). Patient reports radiation to back. Patient started experiencing this day(s) (9) and it has been constant. No relieving factors improve symptom(s), Movement worsens symptoms and Other factors that worsen symptoms (sniffing, sneezing, coughing, movement of arms, deep breath) . Patient notes cough (occasional brown sputum); denies confusion, diaphoresis, fever/chills, loss of appetite, malaise, nausea/vomiting, rash, seizure, shortness of breath, syncope and weakness. Patient did receive the following treatments prior to arrival, none and other (takes methadone every morning ) Related Data Home Medications Medication Instructions Recorded Confirmed Nexplanon 1 implant SUBDERMAL ONCE 07/31/18 04/23/19 clindamycin HCl 150 mg capsule 150 mg PO BID #20 cap 04/07/19 04/23/19 clindamycin phosphate 1 % topical 1 applic TP BID #60 gm 04/07/19 04/23/19 gel methadone 10 mg/5 mL oral solution 85 mg PO DAILY ml 04/16/19 04/23/19 minocycline 50 mg capsule 50 mg PO DAILY #60 cap 04/23/19 04/23/19 spironolactone 50 mg tablet 50 mg PO DAILY #60 tab 04/23/19 04/23/19 paroxetine HCl 20 mg tablet 20 mg PO DAILY #30 tab 05/01/19 05/01/19 ropinirole 1 mg tablet 1 mg PO QHS #30 tab 05/01/19 05/01/19 lidocaine [Lidoderm] 1 patch TP DAILY PRN #15 each 07/01/19 methocarbamol 750 mg PO QID PRN #14 tab 07/01/19 Previous Rx's Medication Instructions Recorded clindamycin HCl 150 mg capsule 150 mg PO BID #20 cap 04/07/19 clindamycin phosphate 1 % topical 1 applic TP BID #60 gm 04/07/19 gel minocycline 50 mg capsule 50 mg PO DAILY #60 cap 04/23/19 spironolactone 50 mg tablet 50 mg PO DAILY #60 tab 04/23/19 paroxetine HCl 20 mg tablet 20 mg PO DAILY #30 tab 05/01/19 ropinirole 1 mg tablet 1 mg PO QHS #30 tab 05/01/19 lidocaine [Lidoderm] 1 patch TP DAILY PRN #15 each 07/01/19 methocarbamol 750 mg PO QID PRN #14 tab 07/01/19 Allergies Allergy/AdvReac Type Severity Reaction Status Date / Time No Known Allergies Allergy Unverified 04/23/19 09:42 General L[place]ON: 2 Review of Systems All systems reviewed & are unremarkable except as noted in HPI and below Constitutional Constitutional: Reports as per HPI, Denies chills and Denies fever(s) Eyes Eyes: Denies blurry vision ENT Ears, Nose, Mouth, and Throat: Denies dizziness, Denies sore throat and Denies throat swelling Cardiovascular Cardiovascular: Reports chest pain and Denies dyspnea Respiratory Respiratory: Denies cough and Denies dyspnea Gastrointestinal Gastrointestinal: Denies abdominal pain, Denies diarrhea and Denies vomiting Genitourinary Genitourinary: Denies hematuria and Denies dysuria Musculoskeletal Musculoskeletal: Denies back pain, Denies numbness and Reports other (L rib pain) Integumentary/Breasts Skin/Breast: Denies lesions and Denies rash Neurologic Neurologic: Denies dizziness, Denies focal weakness and Denies numbness Allergic/Immunologic Allergic/Immunologic: Denies throat swelling [facility] Medical History Abnormal Pap/HPV Bacterial vaginosis (Inactive) Depression affecting Encounter for screening for bacterial sexually transmitted disease (Inactive) Folliculitis (Inactive 01/27/13) Hepatitis C antibody positive in blood Methadone maintenance therapy patient Substance abuse Supervision of normal (Inactive 11/11/14) Tobacco use disorder Tonsillitis (Inactive) Surgical History Cervical Procedure 11/2010 LEEP secondary to CIN11 Pathology of Bx HSIL/LSIL History of esophagogastroduodenoscopy (EGD) (Resolved ~10/2018) Social History Smoking/Tobacco Use Status: Current every day Smokeless tobacco user: other (vaping) Alcohol Intake: current Alcohol Intake frequency: a few times a week Drug use: Daily Substance use type: marijuana Details: On methadone Do you feel safe in your relationship?: Yes Exam Const General: cooperative, healthy appearing and no acute distress HENMT Head: normal to inspection Face and sinus: normal facial exam Eyes General: appearance normal, both eyes and all related structures EOM: EOM intact bilaterally Neck Neck: normal visual inspection and No submandibular swelling Lymphatic: no lymphadenopathy noted Chest Chest: normal inspection of the chest and no tenderness Chest/axillae images: 1. Significant tenderness to palpation. No step off, erythema, edema, ecchymoses, rash or lesions. Resp Effort & Inspection: normal respiratory effort and able to speak in complete sentences Auscultation: clear to auscultation bilaterally Cardio Rate: regular rate Rhythm: regular rhythm GI Inspection: normal to inspection Palpation: soft, not firm, not rigid and nontender Auscultation: normal bowel sounds Back/Spine/Pelvis Thoracic/Lumbar Spine: thoracic and lumbar spine normal to inspection Skin General skin exam: no rashes or lesions noted Neuro General: alert, awake and oriented x3 Cognition: normal cognition Speech: speech normal Motor: muscle tone normal throughout Sensory Exam: no sensory deficits noted Extrem General: normal to inspection, full ROM, normal capillary refill, no calf tenderness bilaterally and no edema Other: B/l radial pulses intact. Full ROM of b/l upper extremities. Reproducible pain in L chest with movement of R arm. Psych Appearance: grossly normal Mental Status: mental status grossly normal Speech and Movement: speech and movement normal Affect: normal affect
[2019-07-01 12:23] VITALS: BP 134/101; PULSE 76; RESP 13; TEMP 36; O2SAT 96
[2019-07-01] MEDS: diazePAM 5 MG TAB PO (12:53)
[2019-07-01] MEDS: Ketorolac 60 MG/2 ML VIAL IM (12:53)
[2019-07-01] MEDS: Lidocaine 5% Patch 1 PATCH TP (12:58)
--- NOTE | 2019-07-01 13:16 | DI.RAD_ITS ---
EXAM: XR RIBS LT W PA LAT CHEST CLINICAL HISTORY: s/p fall down stairs, r/o acute fracture TECHNIQUE: COMPARISON: CHEST 2 VIEWS PA,LAT from 12/08/2011 FINDINGS: PA and lateral views of the chest and 4 additional views of left ribs were obtained. Heart is not enlarged and the lungs are clear. No pleural effusion or pneumothorax seen. No rib abn ormality is seen. IMPRESSION:
== END 2019-07-01 13:56 | disposition home or self-care (01) ==
PROVIDERS: Emergency Provider Physician Assistant; PCP Family Medicine
DX: S20.212A Contusion of left front wall of thorax, initial encounter (principal); W10.8XXA Fall (on) (from) other stairs and steps, initial encounter
CPT/HCPCS: 81025; 93005; 96372; 99284; 71046; 71100; 93010; J1885

== ENCOUNTER 2020-10-26 10:05 | Emergency (ER) | payer MEDICAID, SELFPAY ==
[2020-10-26] VITALS (19 sets, daily range): BP systolic 101–134; BP diastolic 72–77; PULSE 57–77; RESP 6–19; TEMP 37.2; O2SAT 96–99
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
[2020-10-26 11:13] LABS: Abs Immature Grans 0.03 10^3/uL (0.0-0.06); Absolute Basophil Count 0.03 10^3/uL (0.0-0.2); Absolute Lymphocyte Count 2.85 10^3/uL (1.2-3.4); Absolute Neutrophil Count 5.68 10^3/uL (1.2-6.7); Basophils % 0.3; Eosinophils % 2.1; HGB 13.8 g/dL (11.2-15.7); Immature Grans % 0.3; Lymphocytes % 30.4; MCH 29.7 pg (27.0-33.0); MCHC 34.5 % (32.0-36.0); MCV 86.2 fL (80-95); MPV 10.7 fL (8.0-11.0); Monocytes % 6.4; Neutrophils % 60.5; Nucleated RBC 0 %; Platelet Count 226 10^3/uL (130-400); RBC 4.64 10^6/uL (3.93-5.22); RDW 13.2 % (11.7-14.6); RDW-SD 41.1 fL; WBC 9.39 10^3/uL (4.4-10.8)
--- NOTE | 2020-10-26 11:30 | DI.CT_ITS ---
EXAM: CT CHEST/ABD/PEL W CLINICAL HISTORY: pain r chest wall and abd pain and llq pain post. TECHNIQUE: Imaging Protocol: Axial computed tomography images with coronal and sagittal reformatted images were created and reviewed CONTRAST MATERIAL: Intravenous: Omnipaque 350 Contrast volume:100 ml Oral: None FINDINGS: CHEST: LUNGS: No infiltrates nor pleural effusions. No significant nodules.. MEDIASTINUM: There is no hilar nor mediastinal adenopathy. Partially visualized thyroid appears unrem arkable.Tissue in the anterior mediastinum is probably thymus remnant. No sternal fracture. No evid ence of mediastinal hematoma. CARDIAC: Heart size is normal. There is no pericardial effusion.Caliber of the thoracic aorta is wit hin normal limits. No evidence of significant aortic trauma. No dissection. OSSEOUS: No obvious fractures.. ABDOMEN: There is no ascites. LIVER: No evidence of a patent laceration nor other incidental findings in the liver. GALLBLADDER/BILIARY: No obvious gallbladder pathology. CBD is not dilated. PANCREAS: No evidence of pancreatic mass nor dilatation of the pancreatic duct. SPLEEN: Spleen size is normal. There is no evidence of splenic laceration nor perisplenic fluid. Sp lenic and portal veins are patent. ADRENALS: There are no significant adrenal masses. KIDNEYS: No significant renal trauma. No laceration or subcapsular hematoma. No streaking the perin ephric tissue.. No incidental cyst or calculi nor solid lesions. ABDOMINAL AORTA: Nominal aorta appears intact. LYMPH NODES: There is no retroperitoneal nor paraaortic adenopathy. ABDOMINAL WALL/GI: No evidence of significant anterior abdominal wall hernia. No evidence of mesente dionne nor bowel wall hematoma. There is some subcutaneous streaking over the left flank including a sm all nodule at this level. This measures 8 x 7 millimeters. PELVIS: LYMPH NODES: There is no intrapelvic nor inguinal adenopathy. GI: No evidence of appendicitis.No evidence of sigmoid diverticulitis. URINARY BLADDER: Not distended. No extravasation. REPRODUCTIVE: Slightly prominent right ovary. Left ovary unremarkable. Uterus age-appropriate. No free fluid in the pelvis. OSSEOUS: No significant osseous lesions. IMPRESSION: 1. There is increased density in the subcutaneous fat of the left flank. Given the trauma history th is is probably small hematoma. There is no evidence of abnormal fluid-blood within the peritoneal ca vity. Also no significant trauma sequelae in the chest. 2. No evidence of mesenteric nor bowel wall hematoma. No free air. Report called by myself to ER provider RADIATION DOSE DELIVERED: 1,349.51mGy.cm Total DLP DATA REPOSITORY: All CT scans at this facility are submitted to the National Radiology Data Registry (NRDR) Dose Index Registry (DIR) with the [employer] ([employer]). RADIATION OPTIMIZATION: All CT scans at this facility use at least one of these dose optimization te chniques: automated exposure control; mA and/or kV adjustment per patient size (includes targeted exa ms where dose is matched to clinical indication); or iterative reconstruction.
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
[2020-10-26 11:32] LABS: ALT 24 U/L (14-59); AST 17 U/L (15-37); Albumin 3.3 g/dL (3.4-5.0); Alkaline Phosphatase 85 U/L (46-116); Anion Gap 7.2 mmol/L (3-11); BUN 15 mg/dL (7-18); Bilirubin, Total 0.2 mg/dL (0.2-1.0); CO2 27.8 mmol/L (21.0-32.0); CREATININE 0.8 mg/dL (0.55-1.02); Calcium 8.5 mg/dL (8.5-10.1); Chloride 104 mmol/L (98-107); Glucose 109 mg/dL (74-106); Potassium 4.3 mmol/L (3.5-5.1); Sodium 139 mmol/L (136-145); Total Protein 6.9 g/dL (6.4-8.2)
[2020-10-26] MEDS: Omnipaque 350 MG/ML 100 ML BTL IJ (11:35)
[2020-10-26] MEDS: Normal Saline - Diluent 50 ML VIAL IV (11:36)
[2020-10-26] MEDS: fentaNYL 100 MCG/2 ML VIAL 50 MCG IVP (11:53)
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
--- NOTE | 2020-10-27 07:10 | NUR.NOTE ---
Nursing Note: Referral faxed to [facility] for follow up for nasal fx. Emma Cunha
== END 2020-10-26 12:27 | disposition home or self-care (01) ==
PROVIDERS: Emergency Provider Physician Assistant; PCP Nurse Practitioner
DX: S02.2XXA Fracture of nasal bones, initial encounter for closed fracture (principal); V89.2XXA Person injured in unspecified motor-vehicle accident, traffic, initial encounter; Z53.29 Procedure and treatment not carried out because of patient's decision for other reasons
CPT/HCPCS: 74177; 80053; 86850; 86900; 86901; 99285; 70450; 70486; 71260; 72125; 85025; 99283; J3010; J3490

== ENCOUNTER 2020-11-22 02:56 | Outpatient (CLI) | payer MEDICAID, SELFPAY ==
--- NOTE | 2020-11-22 08:15 | RT.EKG_ITS ---
APPROVED REPORT Exam: Resting ECG Patient Location: O HR:73 bpm ECG Measurements Heart Rate 73 AXIS AR 168 P 48 QRSd 96 QRS 81 QT 421 T 40 QTc 466 Conclusion Sinus rhythm...normal P axis, V-rate 60- 99 Normal Electrocardiogram
== END 2020-11-22 02:57 | disposition home or self-care (01) ==
PROVIDERS: PCP Nurse Practitioner; Visit Provider Family Medicine
DX: Z79.899 Other long term (current) drug therapy (principal)
CPT/HCPCS: 93005; 93010

== ENCOUNTER 2021-05-04 11:25 | Emergency (ER) | payer MEDICAID, SELFPAY ==
--- NOTE | 2021-05-04 11:30 | RT.EKG_ITS ---
APPROVED REPORT Exam: Resting ECG Reason for Exam: sob Patient Location: E HR:91 bpm ECG Measurements Heart Rate 91 AXIS IA 61 P 0 QRSd 106 QRS 54 QT 399 T 38 QTc 491 Conclusion Sinus rhythm...normal P axis, V-rate 60- 99 significant motion artifact, no obvious st elevation
[2021-05-04 11:35] VITALS: BP 142/124; PULSE 90; RESP 18; TEMP 36.5; O2SAT 95
--- NOTE | 2021-05-04 11:44 | ED.GENADUL_ITS ---
Discharge Plan Disposition Patient Disposition: HOME Condition: Stable Discharge Details Clinical Impression: Polysubstance abuse, Cough, Depression Primary Care Provider: Shweta Sykes ED Provider: Reynaldo Ceron Home Meds and New Rx's Prescriptions: Continued hydroxyzine HCl 50 mg tablet 50 mg PO BID PRN (Reason: itching) Qty: 10 RF: 0 Nexplanon 68 mg Implant 1 implant SUBDERMAL ONCE RF: 0 Discharge Instructions Instructions: Acute Cough (ED), Depression (ED), Polysubstance Abuse (ED) Additional Instructions: Laboratory values today do not reveal any obvious emergent process. No clear indication for antibiotic therapy. Please follow the instructions given to you by the [facility] human services team. They will be calling you tonight for a safety check. Please follow-up with your outpatient clinic tomorrow for your ongoing opiate withdrawal and need for therapy. Please watch for new or worsening symptoms and return to the ER for any concerns. Covid test was negative. Please treat your symptoms with [id number] medications as directed Medical Decision Making 35-year-old female presenting to the ER stating that she was kicked out of her methadone program approximately 2 weeks ago, has subsequently been drinking alcohol and taking benzodiazepines, feeling vaguely suicidal without a specific plan, complaining of opiate withdrawal, restlessness, anxious, nausea, vomiting, concern for dehydration, and now with URI-like symptoms, chest pressure and cough over the past few days. Clinically she is anxious but appears well, nontoxic, pulse in the 90s, afebrile, O2 sat 95% on room air and lungs are clear to auscultation. I will initiate a cardiac work-up given her complaint of shortness of breath and chest pressure including a D-dimer, no clear indication for neb treatment at this time. I will also obtain laboratory values for a medical screening exam so that psychiatric services can evaluate her once she is cleared. Currently she is without tachycardia, sweats, reproduce abdominal pain, etc., no clear severe withdrawal at this moment. Given that she last used methadone at least 2 weeks ago, low suspicion for acute narcotic withdrawal. Will obtain IV access and provide IV fluids as well as Zofran. We will also obtain a Covid swab. Laboratory values do not reveal any obvious emergent process. No evidence of severe infection, chest x-ray unremarkable. No clear indication for antibiotic therapy. D-dimer 309, no indication for CTA. Chemistries reveal glucose of 108 otherwise unremarkable, no electrolyte abnormality. Normal renal function. Magnesium 2.1 troponin less than 0.05. TSH 0.17 with a free T4 of 1.15. Covid negative Urinalysis without signs of infection or hematuria. Tox screen positive for methadone, benzodiazepines, cocaine and THC Medically cleared, mental health evaluation requested. Please see [facility] human services evaluation. Patient can be safely discharged, safety plan home with her mother and she will have a safety call this evening and follow-up with her new outpatient clinic tomorrow. Patient is comfortable with this plan and has no additional questions or concerns. She responded nicely to IV hydration and Zofran. Tolerating p.o. intake. No obvious signs of withdraw al under my care. No clear indication to initiate any other medication at this time. Standard discharge and return precautions provided. This documentation was generated using Minus dictation system, please disregard any oddities of phrase or misspellings. Medical Records Medical records reviewed: Yes I reviewed the patient's medical records. Imaging Data Radiologic Study: Attestation: I personally reviewed and interpreted this imaging study as follows: Imaging: X-Ray Radiologist's impression: XR PORTABLE CHEST AP CLINICAL HISTORY cp/sob TECHNIQUE 2D digital imaging was performed of the chest. [One image] was obtained. [An AP view] was obtained. COMPARISON [No exams were available for comparison] [] FINDINGS MEDIASTINUM: [Normal.] [] HEART: [Normal.] [] PULMONARY VASCULATURE: [Normal.] [] LUNGS: [Clear.] [] PLEURAL SPACE: [No pleural effusion or pneumothorax.] [] BONE:[Within normal limits for the patient's age.] [] OTHER FINDINGS:[Normal.] [] IMPRESSION [No acute pulmonary findings Lab Data Lab results reviewed: Yes I reviewed the patient's lab results. Labs: Laboratory Tests Range/Units 05/04/21 05/04/21 05/04/21 12:20 12:20 12:20 WBC (4.4-10.8) 10^3/uL RBC (3.93-5.22) 10^6/uL Hgb (11.2-15.7) g/dL Hct (36.0-46.0) % MCV (80-95) fL MCH (27.0-33.0) pg MCHC (32.0-36.0) % RDW (11.7-14.6) % Plt Count (130-400) 10^3/uL MPV (8.0-11.0) fL Immature Gran % Neutrophils % Lymphocytes % Monocytes % Eosinophils % Basophils % Nucleated RBC % % Absolute Neutrophils (1.2-6.7) 10^3/uL Absolute Lymphocytes (1.2-3.4) 10^3/uL Absolute Monocytes (0.1-0.8) 10^3/uL Absolute Eosinophils (0.0-0.7) 10^3/uL Absolute Basophils (0.0-0.2) 10^3/uL D-Dimer (<500) ng/mlFEU Sodium (136-145) mmol/L Potassium (3.5-5.1) mmol/L Chloride (98-107) mmol/L Carbon Dioxide (21.0-32.0) mmol/L Anion Gap (3-11) mmol/L BUN (7-18) mg/dL Creatinine (0.55-1.02) mg/dL Estimated GFR/1.73 m2 (mL/min/1.73m2) Glucose (74-106) mg/dL Calcium (8.5-10.1) mg/dL Magnesium (1.8-2.4) mg/dL Total Bilirubin (0.2-1.0) mg/dL AST (15-37) U/L ALT (14-59) U/L Alkaline Phosphatase (46-116) U/L Troponin I (<0.06) ng/mL Total Protein (6.4-8.2) g/dL Albumin (3.4-5.0) g/dL TSH (0.36-3.74) uIU/mL Free T4 (0.76-1.46) ng/dL Urine Color (Yellow) Yellow Urine Clarity (Clear) Sl Cloudy Urine pH (5-8) 7.0 Ur Specific [place] (1.005-1.025) 1.025 Urine Protein (Negative) mg/dL Negative Urine Ketones (Negative) mg/dL Negative Urine Blood (Negative) Small H Urine Nitrite (Negative) Negative Urine Bilirubin (Negative) Negative Urine Urobilinogen (Up TO 0.2) EU/dL 0.2 Ur Leukocyte Esterase (Negative) Negative Urine RBC (0-2) HPF 0-2 Urine WBC (0-5) HPF 0-2 Ur Epithelial Cells (Negative) HPF Many Urine Crystals (Negative) HPF Negative Urine Bacteria (Negative) HPF Moderate Urine Casts (Negative) LPF Negative Urine Mucus (Negative) Moderate Ur Culture Indicated? No/Sq. Contamination Urine Glucose (Negative) mg/dL Negative Urine Opiates Screen (Negative) Negative Urine Methadone Screen (Negative) Positive A Ur Barbiturates Screen (Negative) Negative Ur Tricyclics Screen (Negative) Negative Ur Amphetamines Screen (Negative) Negative U Benzodiazepines Scrn (Negative) Positive A Urine Cocaine Screen (Negative) Positive A Ur THC Screen (Negative) Positive A Ethyl Alcohol (<3) mg/dL COVID-19 Source Nasal/Nares SARS-CoV-2 (PCR) (Negative) Negative Range/Units 05/04/21 05/04/21 05/04/21 13:30 13:30 13:30 WBC (4.4-10.8) 10^3/uL 11.08 H RBC (3.93-5.22) 10^6/uL 5.05 Hgb (11.2-15.7) g/dL 14.6 Hct (36.0-46.0) % 42.1 MCV (80-95) fL 83.4 MCH (27.0-33.0) pg 28.9 MCHC (32.0-36.0) % 34.7 RDW (11.7-14.6) % 12.5 Plt Count (130-400) 10^3/uL 305 MPV (8.0-11.0) fL 10.7 Immature Gran % 0.3 Neutrophils % 77.4 Lymphocytes % 16.5 Monocytes % 5.1 Eosinophils % 0.5 Basophils % 0.2 Nucleated RBC % % 0 Absolute Neutrophils (1.2-6.7) 10^3/uL 8.58 H Absolute Lymphocytes (1.2-3.4) 10^3/uL 1.83 Absolute Monocytes (0.1-0.8) 10^3/uL 0.57 Absolute Eosinophils (0.0-0.7) 10^3/uL 0.06 Absolute Basophils (0.0-0.2) 10^3/uL 0.02 D-Dimer (<500) ng/mlFEU 309 Sodium (136-145) mmol/L 144 Potassium (3.5-5.1) mmol/L 4.0 Chloride (98-107) mmol/L 107 Carbon Dioxide (21.0-32.0) mmol/L 26.7 Anion Gap (3-11) mmol/L 10.3 BUN (7-18) mg/dL 8 Creatinine (0.55-1.02) mg/dL 0.7 Estimated GFR/1.73 m2 (mL/min/1.73m2) >= 60.00 Glucose (74-106) mg/dL 108 H Calcium (8.5-10.1) mg/dL 9.0 Magnesium (1.8-2.4) mg/dL Total Bilirubin (0.2-1.0) mg/dL 0.4 AST (15-37) U/L 16 ALT (14-59) U/L 20 Alkaline Phosphatase (46-116) U/L 85 Troponin I (<0.06) ng/mL Total Protein (6.4-8.2) g/dL 7.8 Albumin (3.4-5.0) g/dL 4.0 TSH (0.36-3.74) uIU/mL 0.17 L Free T4 (0.76-1.46) ng/dL 1.15 Urine Color (Yellow) Urine Clarity (Clear) Urine pH (5-8) Ur Specific [place] (1.005-1.025) Urine Protein (Negative) mg/dL Urine Ketones (Negative) mg/dL Urine Blood (Negative) Urine Nitrite (Negative) Urine Bilirubin (Negative) Urine Urobilinogen (Up TO 0.2) EU/dL Ur Leukocyte Esterase (Negative) Urine RBC (0-2) HPF Urine WBC (0-5) HPF Ur Epithelial Cells (Negative) HPF Urine Crystals (Negative) HPF Urine Bacteria (Negative) HPF Urine Casts (Negative) LPF Urine Mucus (Negative) Ur Culture Indicated? Urine Glucose (Negative) mg/dL Urine Opiates Screen (Negative) Urine Methadone Screen (Negative) Ur Barbiturates Screen (Negative) Ur Tricyclics Screen (Negative) Ur Amphetamines Screen (Negative) U Benzodiazepines Scrn (Negative) Urine Cocaine Screen (Negative) Ur THC Screen (Negative) Ethyl Alcohol (<3) mg/dL < 3.0 COVID-19 Source SARS-CoV-2 (PCR) (Negative) Range/Units 05/04/21 13:30 WBC (4.4-10.8) 10^3/uL RBC (3.93-5.22) 10^6/uL Hgb (11.2-15.7) g/dL Hct (36.0-46.0) % MCV (80-95) fL MCH (27.0-33.0) pg MCHC (32.0-36.0) % RDW (11.7-14.6) % Plt Count (130-400) 10^3/uL MPV (8.0-11.0) fL Immature Gran % Neutrophils % Lymphocytes % Monocytes % Eosinophils % Basophils % Nucleated RBC % % Absolute Neutrophils (1.2-6.7) 10^3/uL Absolute Lymphocytes (1.2-3.4) 10^3/uL Absolute Monocytes (0.1-0.8) 10^3/uL Absolute Eosinophils (0.0-0.7) 10^3/uL Absolute Basophils (0.0-0.2) 10^3/uL D-Dimer (<500) ng/mlFEU Sodium (136-145) mmol/L Potassium (3.5-5.1) mmol/L Chloride (98-107) mmol/L Carbon Dioxide (21.0-32.0) mmol/L Anion Gap (3-11) mmol/L BUN (7-18) mg/dL Creatinine (0.55-1.02) mg/dL Estimated GFR/1.73 m2 (mL/min/1.73m2) Glucose (74-106) mg/dL Calcium (8.5-10.1) mg/dL Magnesium (1.8-2.4) mg/dL 2.1 Total Bilirubin (0.2-1.0) mg/dL AST (15-37) U/L ALT (14-59) U/L Alkaline Phosphatase (46-116) U/L Troponin I (<0.06) ng/mL < 0.05 Total Protein (6.4-8.2) g/dL Albumin (3.4-5.0) g/dL TSH (0.36-3.74) uIU/mL Free T4 (0.76-1.46) ng/dL Urine Color (Yellow) Urine Clarity (Clear) Urine pH (5-8) Ur Specific [place] (1.005-1.025) Urine Protein (Negative) mg/dL Urine Ketones (Negative) mg/dL Urine Blood (Negative) Urine Nitrite (Negative) Urine Bilirubin (Negative) Urine Urobilinogen (Up TO 0.2) EU/dL Ur Leukocyte Esterase (Negative) Urine RBC (0-2) HPF Urine WBC (0-5) HPF Ur Epithelial Cells (Negative) HPF Urine Crystals (Negative) HPF Urine Bacteria (Negative) HPF Urine Casts (Negative) LPF Urine Mucus (Negative) Ur Culture Indicated? Urine Glucose (Negative) mg/dL Urine Opiates Screen (Negative) Urine Methadone Screen (Negative) Ur Barbiturates Screen (Negative) Ur Tricyclics Screen (Negative) Ur Amphetamines Screen (Negative) U Benzodiazepines Scrn (Negative) Urine Cocaine Screen (Negative) Ur THC Screen (Negative) Ethyl Alcohol (<3) mg/dL COVID-19 Source SARS-CoV-2 (PCR) (Negative) ECG Data Attestation: I personally reviewed and interpreted this ECG (s) as follows: Interpretation: Please see official report by Dr. Mcmahan. Sinus rhythm, ventricular of 91. No STEMI. HPI General Mode of arrival: ambulatory . Date/Time Provider Initiated Documentation: 05/04/21 11:26 . Limitations to Documentation: no limitations . Information obtained by: patient . HPI Narrative: This is a 35-year-old female, past medical history of anxiety, restless leg syndrome, insomnia, polysubstance abuse, depression, presents to the ER with multiple complaints, complaining of detox from methadone, nausea, vomiting, depression with vague SI, chest pain and shortness of breath, concern about Covid. Patient reports that she was on methadone for over 3-1/2 years but because of the recent , she failed a drug test at her clinic and tested positive for benzos. She states that she was on 160 mg, they decreased her to 80 mg and then back up to 160 and then she was kicked out between 2-3 weeks ago. She states that since that time she has been drinking a bottle of wine every night or 2 and taking upward of 4 mg of Klonopin daily. She states that she does not typically drink alcohol. She denies any other drug use currently. Patient reports nausea, vomiting, intermittent diffuse abdominal cramping, concern for dehydration. She also reports chest tightness, dry cough, shortness of breath for at least 4 days, denies obvious sick contacts but concerned that she could have Covid. She is not vaccinated. She denies pain or swelling in her legs. She does vape daily. Patient also reports that given everything that is going on in her life that she is feeling suicidal, but does not have a specific plan. Patient is unsure of the name of the program but states that she is entering a program tomorrow to initiate treatment for her methadone withdrawal. She denies headache, fever, neck pain, back pain, skin rash, numbness, tingling, weakness. Related Data Home Medications Medication Instructions Recorded Confirmed Nexplanon 1 implant SUBDERMAL ONCE 07/31/18 05/04/21 hydroxyzine HCl 50 mg tablet 50 mg PO BID PRN #10 tab 04/19/21 05/04/21 Previous Rx's Medication Instructions Recorded hydroxyzine HCl 50 mg tablet 50 mg PO BID PRN #10 tab 04/19/21 Allergies Allergy/AdvReac Type Severity Reaction Status Date / Time No Known Allergies Allergy Verified 05/04/21 11:38 General Stated Complaint: DrugWithdr/MAT [place]: 3 Review of Systems Constitutional Constitutional: Reports fatigue, Denies fever(s) and Denies headache(s) Eyes Eyes: Denies change in vision ENT Ears, Nose, Mouth, and Throat: Denies headache(s) and Denies neck pain Cardiovascular Cardiovascular: Reports chest pain and Reports dyspnea Respiratory Respiratory: Reports cough and Reports dyspnea Gastrointestinal Gastrointestinal: Reports abdominal pain, Denies diarrhea, Reports nausea and Reports vomiting Genitourinary Genitourinary: Denies dysuria Musculoskeletal Musculoskeletal: Denies back pain and Denies neck pain Integumentary/Breasts Skin/Breast: Denies rash Neurologic Neurologic: Denies headache(s) Psychiatric Psychiatric: Reports anxiety, Reports depression, Denies homicidal ideation and Reports suicidal ideation Endocrine Endocrine: Reports fatigue Hematologic/Lymphatic Hematologic/Lymphatic: Denies easy bleeding and Denies easy bruising [facility] Medical History Abnormal Pap/HPV Bacterial vaginosis Depression affecting Encounter for screening for bacterial sexually transmitted disease Folliculitis (01/27/13) Hepatitis C antibody positive in blood Methadone maintenance therapy patient Tapered rapidly when discontinued from 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 Pathology of Bx HSIL/LSIL History of esophagogastroduodenoscopy (EGD) (~10/2018) Social History Smoking/Tobacco Use Status: Current every day Tobacco Type: e-cigarettes Smokeless tobacco user: other (vaping) Smoking risk assessment performed?: Yes Alcohol Intake: current Alcohol Intake frequency: a few times a week Drug use: Daily Substance use type: marijuana Details: On methadone Do you feel safe at home: Yes Do you feel safe in your relationship?: Yes Exam Const General: cooperative, healthy appearing, comfortable, no acute distress and anxious Orientation: alert, awake and oriented x3 HENMT Head: normal to inspection, normocephalic and atraumatic Face and sinus: normal facial exam Mouth: moist mucous membranes Throat: posterior oropharynx normal Eyes General: appearance normal, both eyes and all related structures Conjunctivae: conjunctivae normal Neck Neck: normal visual inspection, full ROM, trachea midline, supple and nontender Resp Effort & Inspection: normal respiratory effort, able to speak in complete sentences and cough Quality of cough: dry (Mild) Auscultation: clear to auscultation bilaterally Cardio Rate: regular rate Rhythm: regular rhythm GI Inspection: normal to inspection Palpation: not firm, no guarding, no pulsatile masses and nontender Auscultation: normal bowel sounds Back/Spine/Pelvis Back: No back tenderness Skin General skin exam: no rashes or lesions noted Neuro General: patient alert, patient awake, moves all extremities and no focal motor deficits Cognition: normal cognition Speech: speech normal Gait: normal gait Motor: muscle tone normal throughout Sensory Exam: no sensory deficits noted Extrem General: normal to inspection, full ROM, capillary refill normal, no pedal edema and no calf tenderness Psych Appearance: grossly normal Mental Status: mental status grossly normal Speech and Movement: agitated Mood: anxious mood Affect: labile affect Attitude: cooperative Thought Process: normal Thought Content: suicidality Insight: fair Judgment: fair Course Vital Signs Vital signs: Vital Signs Temperature 36.5 C 05/04/21 11:35 Pulse 90 05/04/21 11:35 Respiratory Rate 18 05/04/21 11:35 Blood Pressure 142/124 H 05/04/21 11:35 Pulse Oximetry 95 05/04/21 11:35 Temperature 36.5 C 05/04/21 11:35 Temperature Source Temporal Artery Scan 05/04/21 11:35 Pulse 90 05/04/21 11:35 Respiratory Rate 18 05/04/21 11:35 Respiratory Effort Non-Labored 05/04/21 11:39 Blood Pressure 142/124 H 05/04/21 11:35 Pulse Oximetry 95 05/04/21 11:35 Oxygen Delivery Method Room Air 05/04/21 11:35 Oxygen Flow Rate 0 05/04/21 11:35 PAWSS Have you Been Recently Intoxicated or Drunk Within the Last 30 days?: No Have you Ever Experienced Previous Episodes of Alcohol Withdrawal?: Yes Have you ever Experienced Withdrawal Seizures?: No Have you ever Experienced Delirium Tremens(DT)s?: Yes Have you ever undergone Alcohol Rehabilitation Treatment (i.e, inpt ot outpatient treatment programs)?: Yes Have you ever Experienced Blackouts?: Yes Have you ever Combined Alcohol with other Downers within the last 90 days?: Yes Have you ever Combined Alcohol with any other Substance of Abuse during the last 90 days?: Yes Result: 6
--- NOTE | 2021-05-04 12:00 | DI.RAD_ITS ---
Exam(s) XR PORTABLE CHEST AP EXAM: XR PORTABLE CHEST AP CLINICAL HISTORY: cp/sob TECHNIQUE: 2D digital imaging was performed of the chest. One image was obtained. An AP view was ob tained. COMPARISON: No exams were available for comparison FINDINGS: MEDIASTINUM: Normal. HEART: Normal. PULMONARY VASCULATURE: Normal. LUNGS: Clear. PLEURAL SPACE: No pleural effusion or pneumothorax. BONE:Within normal limits for the patient's age. OTHER FINDINGS:Normal. IMPRESSION: No acute pulmonary findings. DATA REPOSITORY: RADIATION DOSE DELIVERED:
[2021-05-04 12:30] LABS: Bilirubin Negative (Negative); Blood Small (Negative); Clarity Sl Cloudy (Clear); Glucose Negative (Negative); Ketones Negative (Negative); Leukocyte Esterase Negative (Negative); Nitrite Negative (Negative); Specific Gravity 1.025 (1.005-1.025); Urobilinogen 0.2 EU/dL (Up TO 0.2)
[2021-05-04 12:42] LABS: Bacteria Moderate HPF (Negative); C & S Indicated? No/Sq. Contamination; Casts Negative LPF (Negative); Crystals Negative HPF (Negative); Epithelial Cells Many HPF (Negative); Mucus Moderate (Negative); RBC 0-2 HPF (0-2); WBC 0-2 HPF (0-5)
[2021-05-04 12:44] LABS: Source Nasal/Nares
[2021-05-04 13:03] LABS: *AMPHETAMINES SCREEN URINE Negative (Negative); *BARBITURATES SCREEN URINE Negative (Negative); *BENZODIAZEPINES SCREEN URINE Positive (Negative); Cannabinoids THC Positive (Negative); Cocaine Screen,Urine Positive (Negative); METHADONE URINE SCREEN Positive (Negative); OPIATES URINE SCREEN Negative (Negative)
[2021-05-04 13:11] LABS: Tricyclic Antidepressants Negative (Negative)
[2021-05-04 13:20] VITALS: BP 127/67; PULSE 69; RESP 16; O2SAT 94
[2021-05-04 13:41] LABS: Abs Immature Grans 0.03 10^3/uL (0.0-0.06); Absolute Basophil Count 0.02 10^3/uL (0.0-0.2); Absolute Eosinophil Count 0.06 10^3/uL (0.0-0.7); Absolute Lymphocyte Count 1.83 10^3/uL (1.2-3.4); Absolute Monocyte Count 0.57 10^3/uL (0.1-0.8); Basophils % 0.2; Eosinophils % 0.5; HCT 42.1 % (36.0-46.0); HGB 14.6 g/dL (11.2-15.7); Immature Grans % 0.3; Lymphocytes % 16.5; MCH 28.9 pg (27.0-33.0); MCHC 34.7 % (32.0-36.0); MCV 83.4 fL (80-95); MPV 10.7 fL (8.0-11.0); Monocytes % 5.1; Neutrophils % 77.4; Nucleated RBC 0 %; Platelet Count 305 10^3/uL (130-400); RBC 5.05 10^6/uL (3.93-5.22); RDW 12.5 % (11.7-14.6); WBC 11.08 10^3/uL (4.4-10.8)
[2021-05-04 13:42] LABS: Absolute Neutrophil Count 8.58 10^3/uL (1.2-6.7)
[2021-05-04 14:07] LABS: COVID-19 PCR Negative (Negative)
[2021-05-04 14:08] LABS: ALT 20 U/L (14-59); AST 16 U/L (15-37); Alkaline Phosphatase 85 U/L (46-116); Anion Gap 10.3 mmol/L (3-11); BUN 8 mg/dL (7-18); Bilirubin, Total 0.4 mg/dL (0.2-1.0); CO2 26.7 mmol/L (21.0-32.0); CREATININE 0.7 mg/dL (0.55-1.02); Chloride 107 mmol/L (98-107); Glucose 108 mg/dL (74-106); Sodium 144 mmol/L (136-145); TSH (W/Ref FT4) 0.17 uIU/mL (0.36-3.74); Total Protein 7.8 g/dL (6.4-8.2)
[2021-05-04 14:09] LABS: ETHANOL BLOOD < 3.0 mg/dL (<3)
[2021-05-04 14:13] LABS: Magnesium 2.1 mg/dL (1.8-2.4)
[2021-05-04 14:17] LABS: D-Dimer 309 ng/mlFEU (<500)
[2021-05-04 14:27] LABS: FREE T4 1.15 ng/dL (0.76-1.46); Troponin I < 0.05 ng/mL (<0.06)
[2021-05-04 16:09] VITALS: BP 127/67; PULSE 69; RESP 16; TEMP 36.5; O2SAT 94
== END 2021-05-04 16:09 | disposition home or self-care (01) ==
PROVIDERS: Emergency Provider Physician Assistant; PCP Nurse Practitioner
DX: R05 Cough (principal); F32.9 Major depressive disorder, single episode, unspecified; R06.02 Shortness of breath; F13.10 Sedative, hypnotic or anxiolytic abuse, uncomplicated; Z20.822 Contact with and (suspected) exposure to COVID-19
CPT/HCPCS: 80053; 80307; 87635; 93005; 99284; 71045; 80320; 81003; 81015; 83735; 84439; 84443; 84484; 85025; 85379; 93010; 99283

== ENCOUNTER 2021-05-23 01:31 | Outpatient (CLI) | payer MEDICAID, SELFPAY ==
--- NOTE | 2021-05-23 07:30 | DI.RAD_ITS ---
Exam(s) XR THORACIC SPINE COMPLETE EXAM: XR THORACIC SPINE COMPLETE CLINICAL HISTORY: THORACIC/LUMBAR BACK PAIN,m54.6. TECHNIQUE: 2D digital imaging was performed of the thoracic spine. Three views were obtained. AP, swimmer's and lateral views were obtained. COMPARISON: CR XR RIBS LT W PA LAT CHEST from 07/01/2019 CR XR PORTABLE CHEST AP from 05/04/2021 CR XR PORTABLE CHEST AP from 05/04/2021 FINDINGS: BONES: There is no acute fracture or destructive lesion. The vertebral bodies and posterior elements are unremarkable. Small endplate osteophytes are seen throughout the upper thoracic spine. There is m ild anterior wedging of the T5 vertebral body which is unchanged. DISKS:Alignment is within normal limits. Interverebral disc spaces are maintained. SOFT TISSUE: Visualized lungs are clear. IMPRESSION: Mild degenerative changes in the thoracic spine. DATA REPOSITORY: RADIATION DOSE DELIVERED:
--- NOTE | 2021-05-23 07:30 | DI.RAD_ITS ---
Exam(s) XR LUMBAR SPINE COMPLETE EXAM: XR LUMBAR SPINE COMPLETE CLINICAL HISTORY: LOWER BACK PAIN,m54.50. TECHNIQUE: 2D digital imaging was performed of the lumbar spine. Images were obtained. AP, later al, right oblique, left oblique and L5-S1 spot views were obtained. COMPARISON: CT CT CHEST/ABD/PEL W from 10/26/2020 CR XR PORTABLE CHEST AP from 05/04/2021 CR XR PORTABLE CHEST AP from 05/04/2021 FINDINGS: BONES: No fracture or destructive lesion. Vertebral bodies are unremarkable. No facet hypertrophy noemi ntified. There is unchanged mild depression of the superior endplate of L1 and L2. DISKS: Mild disc space narrowing is again seen at T12-L1 with small endplate osteophytes. ALIGNMENT: Lumbar spinal alignment is within normal limits. No spondylolysis or spondylolisthesis. SOFT TISSUE: Normal. IMPRESSION: Mild degenerative changes in the lumbar spine. DATA REPOSITORY: RADIATION DOSE DELIVERED:
== END 2021-05-23 01:51 ==
PROVIDERS: PCP Family Medicine; Visit Provider Family Medicine
DX: M54.50 Low back pain, unspecified (principal); M54.6 Pain in thoracic spine; R10.9 Unspecified abdominal pain; M47.814 Spondylosis without myelopathy or radiculopathy, thoracic region
CPT/HCPCS: 72072; 72110

== ENCOUNTER 2021-05-23 02:36 | Outpatient (CLI) | payer MEDICAID, SELFPAY ==
[2021-05-23 11:53] LABS: Bilirubin Negative (Negative); Blood Negative (Negative); Clarity Clear (Clear); Glucose Negative (Negative); Ketones Negative (Negative); Leukocyte Esterase Negative (Negative); Nitrite Negative (Negative); Specific Gravity 1.025 (1.005-1.025); Urobilinogen 0.2 EU/dL (Up TO 0.2)
[2021-05-23 11:54] LABS: Abs Immature Grans 0.04 10^3/uL (0.0-0.06); Absolute Basophil Count 0.03 10^3/uL (0.0-0.2); Absolute Eosinophil Count 0.03 10^3/uL (0.0-0.7); Absolute Lymphocyte Count 2.54 10^3/uL (1.2-3.4); Absolute Monocyte Count 0.56 10^3/uL (0.1-0.8); Absolute Neutrophil Count 9.33 10^3/uL (1.2-6.7); Basophils % 0.2; Eosinophils % 0.2; HCT 42.3 % (36.0-46.0); HGB 14.6 g/dL (11.2-15.7); Immature Grans % 0.3; Lymphocytes % 20.3; MCH 28.7 pg (27.0-33.0); MCHC 34.5 % (32.0-36.0); MCV 83.3 fL (80-95); MPV 10.9 fL (8.0-11.0); Monocytes % 4.5; Neutrophils % 74.5; Nucleated RBC 0 %; Platelet Count 276 10^3/uL (130-400); RBC 5.08 10^6/uL (3.93-5.22); RDW 12.9 % (11.7-14.6); RDW-SD 39.4 fL; WBC 12.53 10^3/uL (4.4-10.8)
[2021-05-23 12:49] LABS: GGT 22 U/L (5-55)
[2021-05-23 13:02] LABS: ALT 27 U/L (14-59); AST 14 U/L (15-37); Alkaline Phosphatase 74 U/L (46-116); Anion Gap 12.7 mmol/L (3-11); BUN 11 mg/dL (7-18); Bilirubin, Total 0.3 mg/dL (0.2-1.0); CO2 24.3 mmol/L (21.0-32.0); CREATININE 0.8 mg/dL (0.55-1.02); Chloride 105 mmol/L (98-107); Glucose 120 mg/dL (74-106); Lipase 104 U/L (73-393); Potassium 4.4 mmol/L (3.5-5.1); Sodium 142 mmol/L (136-145); TSH (W/Ref FT4) 0.68 uIU/mL (0.36-3.74); Total Protein 7.2 g/dL (6.4-8.2)
[2021-05-24 10:59] LABS: HBs Antibody, Quant 18.4 mIU/mL (See Note); Hepatitis B Surface Ab Positive (See Note)
[2021-05-24 11:05] LABS: Hepatitis B Surface Ag Negative (Negative)
[2021-05-24 11:17] LABS: Hepatitis C Ab w Rflx HCV PCR Reactive (Negative)
[2021-05-24 11:53] LABS: HIV-1/2 Ag & Ab Screen Negative (Negative)
[2021-05-24 12:04] LABS: Hep A Total Ab w Rflx IgM Negative (Negative)
[2021-05-24 12:09] LABS: Hep B Core Antibody Negative (Negative)
[2021-05-24 13:19] LABS: IgA 127 mg/dL (85-499); Interpretation (See Note); Tissue Transglutaminase IgA <1.2 U/mL (<4.0)
[2021-05-25 14:49] LABS: HCV RNA Qualitative Undetected (Undetected)
== END 2021-05-23 02:37 | disposition home or self-care (01) ==
LOC: LBO 02:36
PROVIDERS: PCP Family Medicine; Visit Provider Family Medicine
DX: R10.9 Unspecified abdominal pain (principal); I10 Essential (primary) hypertension
CPT/HCPCS: 36415; 80053; 82784; 83516; 83690; 86704; 86706; 86709; 86803; 87340; 87389; 87522; 81003; 82977; 84443; 85025

== ENCOUNTER 2022-04-03 19:13 | Outpatient (REF) | payer MEDICAID, SELFPAY | END 2022-04-03 19:14 | disposition home or self-care (01) | LOC: LBN 19:13 | PROVIDERS: Visit Provider Nurse Practitioner Family | DX: L98.8 Other specified disorders of the skin and subcutaneous tissue (principal) | CPT/HCPCS: 87070; 87205 ==

== ENCOUNTER → 2022-04-04 10:32 | Outpatient (CLI) | payer MEDICAID, SELFPAY ==
--- NOTE | 2022-04-04 07:45 | DI.US_ITS ---
Exam(s) US SOFT TISSUE HEAD OR NECK EXAM: US SOFT TISSUE HEAD OR NECK CLINICAL HISTORY: evaluate for abscess MASS OF CHIN R22.0. TECHNIQUE: Ultrasound was performed using standard protocol. COMPARISON: No exams were available for comparison FINDINGS: Ultrasound images of an area of clinical concern in the submental region are submitted for interpreta tion. Images reveal a mass in the submental region corresponding to the apparently visible and palpable abn ormality. This mass appears to contain 3 cystic areas, the largest measuring 5 x 5 millimeters. No shadowing calcifications evident within this mass. Also noted are multiple slightly prominent lymph nodes in both sides the neck. IMPRESSION: As above. Recommend contrast infused CT scan of the soft tissues of the neck for added specificity. Patient apparently also claimed that she has difficulty swallowing. CT scan will also determine any pathology in the oropharynx and hypopharynx. DATA REPOSITORY:
== END ==
PROVIDERS: Visit Provider Nurse Practitioner Family
DX: R22.0 Localized swelling, mass and lump, head (principal); R59.0 Localized enlarged lymph nodes
CPT/HCPCS: 76536

== ENCOUNTER → 2022-04-06 00:40 | Outpatient (CLI) | payer MEDICAID, SELFPAY ==
--- NOTE | 2022-04-06 07:08 | DI.CT_ITS ---
Exam(s) CT NECK W EXAM: CT NECK W CLINICAL HISTORY: neck mass on US, R22.1 please characterize TECHNIQUE: COMPARISON: No exams were available for comparison FINDINGS: CT examination was performed with intravenous infusion of 100 cc of Omnipaque 350. Recent ultrasound examination showed multiple rounded hypoechoic foci in left submental region, these were not well ch aracterized by ultrasound but may represent cysts and/or lymph nodes. The largest measured about 17 millimeters in diameter. Today's CT examination shows nonspecific small nodules in the submental reg ions bilaterally, with a fairly symmetrical appearance. Left submandibular gland appears slightly la rger in comparison with the right. No gross cervical adenopathy. Tracheolaryngeal structures appear intact. No additional cervical mass seen. Images obtained through the lung apices are unremarkable. Visualized portions of the brain and orbit s appear normal. IMPRESSION: Nonspecific findings, no gross mass in submental region by CT criteria. Considering the patient's co mplaint of a palpable mass and the incomplete characterization by ultrasound and CT, additional evalu ation with MR of the cervical region including post contrast imaging may be obtained. RADIATION DOSE DELIVERED: 445.07mGy.cm Total DLP !Error CTDIvol DATA REPOSITORY: All CT scans at this facility are submitted to the National Radiology Data Registry (NRDR) Dose Index Registry (DIR) with the [employer] (A[employer]). RADIATION OPTIMIZATION: All CT scans at this facility use at least one of these dose optimization te chniques: automated exposure control; mA and/or kV adjustment per patient size (includes targeted exa ms where dose is matched to clinical indication); or iterative reconstruction.
== END ==
PROVIDERS: Visit Provider Physician Assistant
DX: R22.1 Localized swelling, mass and lump, neck (principal)
CPT/HCPCS: 70491

== ENCOUNTER → 2022-04-20 00:51 | Outpatient (CLI) | payer MEDICAID, SELFPAY ==
[2022-04-20 09:53] LABS: Abs Immature Grans 0.03 10^3/uL (0.0-0.06); Absolute Basophil Count 0.05 10^3/uL (0.0-0.2); Absolute Eosinophil Count 0.06 10^3/uL (0.0-0.7); Absolute Monocyte Count 0.47 10^3/uL (0.1-0.8); Absolute Neutrophil Count 5.92 10^3/uL (1.2-6.7); Basophils % 0.6; Eosinophils % 0.7; HCT 40.4 % (36.0-46.0); HGB 13.7 g/dL (11.2-15.7); Immature Grans % 0.3; Lymphocytes % 25.2; MCH 29.2 pg (27.0-33.0); MCHC 33.9 % (32.0-36.0); MCV 86 fL (80-95); MPV 10.6 fL (8.0-11.0); Monocytes % 5.4; Neutrophils % 67.8; Platelet Count 256 10^3/uL (130-400); RBC 4.69 10^6/uL (3.93-5.22); RDW 12.7 % (11.7-14.6); RDW-SD 39.7 fL; WBC 8.73 10^3/uL (4.4-10.8)
--- NOTE | 2022-04-20 10:45 | DI.MRI_ITS ---
Exam(s) MR ORBIT FACIAL NECK WO/W EXAM: MR ORBIT FACIAL NECK WO/W CLINICAL HISTORY: differential mass,submental,r22.1 TECHNIQUE: Multiplanar multisequence MRI was performed. CONTRAST MATERIAL: IV Contrast: 15 mL of Dotarem contrast administered. COMPARISON: No exams were available for comparison FINDINGS: ANTONIA submental skin marker: There is a small deep subcutaneous nodule at this level which measures nadiya roximately 5 x 4 millimeters is probably a submental lymph node few other small benign-appearing subp leural dismal lymph nodes are noted on both sides. No gross adenopathy evident. No abnormal fluid c ollections. Floor of the mouth: Unremarkable Mandible: Unremarkable Visualized maxillary and sphenoid sinuses: Unremarkable. No fluid levels. Nasopharynx: Unremarkable. Oropharynx: Enlarged palatine tonsils. No abscess. No significant swelling the retropharyngeal spac e. Hypopharynx: Valleculae and epiglottis unremarkable. Aryepiglottic folds unremarkable. Vocal cords-subglottic airway: Unremarkable. Thyroid gland: Normal size. No obvious nodules. Lymph nodes: Small benign-appearing lymph nodes both sides the neck and submental-sub platysmal. All measure less than 1 cm. Benign-appearing lymph nodes are noted in both jugular chains. Salivary glands: Parotid and submandibular glands appear unremarkable. Osseous: No significant osseous lesions. Incidentally noted is a significant disc herniation at C5-6 level. IMPRESSION: No significant mass nor fluid collection nor lymphadenopathy. In the submental region of interest there is a small 5 x 4 millimeter nodule which is probably a smal l benign submental lymph node. There are multiple similar benign appearing sub mental and sub platys ma lymph nodes evident. No gross lymphadenopathy. Apparently this patient states that the finding in her submental region is presently significantly sm aller than previous since starting antibiotics. If clinically indicated repeat imaging can be perfor med if this finding becomes more palpable. DATA REPOSITORY:
--- NOTE | 2022-04-20 16:35 | DI.VRAD_ITS ---
PROCEDURE INFORMATION: Exam: MR Face Without and With Contrast Exam date and time: 04/20/2022 9:45 AM Age: 36 years old Clinical indication: Other: Submental mass TECHNIQUE: Imaging protocol: Magnetic resonance imaging of the face without and with contrast. COMPARISON: CT NECK W 04/06/2022 8:55 AM FINDINGS: Paranasal sinuses: No fluid levels. Orbital cavities: Orbits are normal. Globes are unremarkable. Nasopharynx: Pharynx: Unremarkable. Larynx: Visualized larynx is unremarkable. Salivary glands: Visualized submandibular and parotid glands are unremarkable. Lymph nodes: Multiple lymph nodes in the submental and submandibular region measuring less than 1 cm. Soft tissues: Unremarkable. Bones/joints: Unremarkable. IMPRESSION: No acute abnormality. Dictated and Authenticated by: Agustin López MD. Ordering:GALO Saini MD
[2022-04-22 13:59] LABS: HIV-1/2 Ag & Ab Screen Negative (Negative)
[2022-04-23 09:47] LABS: HBs Antibody, Quant 12.6 mIU/mL (See Note); Hepatitis B Surface Ab Positive (See Note)
[2022-04-23 09:49] LABS: Hepatitis B Surface Ag Negative (Negative)
[2022-04-23 09:57] LABS: Hepatitis C Ab w Rflx HCV PCR Reactive (Negative)
[2022-04-23 10:16] LABS: Hep A Total Ab w Rflx IgM Negative (Negative)
[2022-04-23 10:23] LABS: Hep B Core Antibody Negative (Negative)
[2022-04-23 13:51] LABS: HCV RNA Qualitative Undetected (Undetected)
[2022-04-23 19:16] LABS: HCV Genotype Undetected (Undetected)
== END ==
PROVIDERS: Visit Provider Nurse Practitioner Family
DX: R22.1 Localized swelling, mass and lump, neck (principal); B00.2 Herpesviral gingivostomatitis and pharyngotonsillitis
CPT/HCPCS: 80053; 86704; 86706; 86709; 86803; 87340; 87389; 87522; 70543; 82977; 85025; 87521

== ENCOUNTER 2022-05-31 10:36 | Outpatient (CLI) | payer MEDICAID, SELFPAY ==
[2022-05-31 11:02] LABS: CREATININE 0.9 mg/dL (0.55-1.02); Estimated GFR 84.97 (mL/min/1.73m2)
[2022-05-31 11:18] LABS: HCG Quant, Pregnancy 332 mIU/mL (1-3)
== END 2022-05-31 10:37 | disposition home or self-care (01) ==
LOC: LBO 10:36
PROVIDERS: Physician Assistant; Visit Provider Obstetrics & Gynecology
DX: O20.0 Threatened abortion (principal); R22.1 Localized swelling, mass and lump, neck
CPT/HCPCS: 36415; 82565; 84702

== ENCOUNTER 2022-06-04 03:24 | Outpatient (CLI) | payer MEDICAID, SELFPAY ==
[2022-06-04 14:20] LABS: HCG Quant, Pregnancy 35 mIU/mL (1-3)
== END 2022-06-04 03:25 | disposition home or self-care (01) ==
LOC: LBO 03:24
PROVIDERS: Visit Provider Obstetrics & Gynecology
DX: O20.0 Threatened abortion (principal)
CPT/HCPCS: 36415; 84702

== ENCOUNTER 2022-10-25 12:32 | Outpatient (CLI) | payer MEDICAID, SELFPAY ==
[2022-10-25 15:45] LABS: HCG Quant, Pregnancy 1 mIU/mL (1-3)
== END 2022-10-25 12:33 | disposition home or self-care (01) ==
LOC: LBO 12:33
PROVIDERS: PCP Nurse Practitioner Family; Visit Provider Obstetrics & Gynecology
DX: N91.0 Primary amenorrhea (principal)
CPT/HCPCS: 36415; 84702

== ENCOUNTER 2022-11-08 03:23 | Outpatient (CLI) | payer MEDICAID, SELFPAY ==
[2022-11-08 14:09] LABS: Abs Immature Grans 0.02 10^3/uL (0.0-0.06); Absolute Basophil Count 0.03 10^3/uL (0.0-0.2); Absolute Eosinophil Count 0.14 10^3/uL (0.0-0.7); Absolute Lymphocyte Count 3.08 10^3/uL (1.2-3.4); Absolute Monocyte Count 0.55 10^3/uL (0.1-0.8); Absolute Neutrophil Count 5.12 10^3/uL (1.2-6.7); Basophils % 0.3; Eosinophils % 1.6; HCT 40.7 % (36.0-46.0); HGB 14.1 g/dL (11.2-15.7); Immature Grans % 0.2; Lymphocytes % 34.5; MCH 28.8 pg (27.0-33.0); MCHC 34.6 % (32.0-36.0); MCV 83 fL (80-95); MPV 10.5 fL (8.0-11.0); Monocytes % 6.2; Neutrophils % 57.2; Platelet Count 238 10^3/uL (130-400); RDW 12.2 % (11.7-14.6); RDW-SD 37.2 fL; WBC 8.94 10^3/uL (4.4-10.8)
[2022-11-08 15:13] LABS: ALT 24 U/L (14-59); AST 15 U/L (15-37); Albumin 3.8 g/dL (3.4-5.0); Alkaline Phosphatase 80 U/L (46-116); Anion Gap 9.9 mmol/L (3-11); BUN 21 mg/dL (7-18); Bilirubin, Total 0.2 mg/dL (0.2-1.0); CO2 27.1 mmol/L (21.0-32.0); CREATININE 0.7 mg/dL (0.55-1.02); Calcium 9.3 mg/dL (8.5-10.1); Chloride 106 mmol/L (98-107); Estimated GFR 114.88 (mL/min/1.73m2); Glucose 95 mg/dL (74-106); Potassium 4.3 mmol/L (3.5-5.1); Sodium 143 mmol/L (136-145); TSH (W/Ref FT4) 2.08 uIU/mL (0.36-3.74); Total Protein 7.6 g/dL (6.4-8.2)
[2022-11-13 11:44] LABS: IgA 168 mg/dL (85-499); Interpretation (See Note); Tissue Transglutaminase IgA <1.2 U/mL (<4.0)
== END 2022-11-08 03:24 | disposition home or self-care (01) ==
LOC: LBO 03:25
PROVIDERS: PCP Nurse Practitioner Family; Visit Provider Nurse Practitioner Family
DX: G89.29 Other chronic pain (principal); R10.9 Unspecified abdominal pain
CPT/HCPCS: 36415; 80053; 82784; 83516; 84443; 85025

== ENCOUNTER 2022-12-19 01:51 | Outpatient (CLI) | payer MEDICAID, SELFPAY ==
--- NOTE | 2022-12-19 06:45 | DI.US_ITS ---
Exam(s) US PELVIS TRANSVAGINAL EXAM: US PELVIS TRANSVAGINAL CLINICAL HISTORY: anatomy,PELVIC PAIN, R10.2 TECHNIQUE: Transabdominal and transvaginal imaging was performed using standard protocol. COMPARISON: CT CT CHEST/ABD/PEL W from 10/26/2020 FINDINGS: Transabdominal images limited by lack of bladder distension. UTERUS: Anteverted. 5.9 x 3.4 x 3.8 cm Endometrium: 7 mm Myometrium: Unremarkable. Cervix: Unremarkable. OVARIES: Right: Cyst or mass: None. Left: Not visualized. DOPPLER: Color: Symmetric and uniform flow to both ovaries. No hyperemia. CUL-DE-SAC: Free fluid: Small amount of fluid left adnexal region. IMPRESSION: 1. Normal-appearing uterus with endometrial stripe within normal limits. 2. Unremarkable right ovary. Left ovary not visualized. DATA REPOSITORY:
== END 2022-12-19 02:11 ==
LOC: DI 01:51
PROVIDERS: PCP Nurse Practitioner Family; Visit Provider Obstetrics & Gynecology
DX: R10.2 Pelvic and perineal pain (principal)
CPT/HCPCS: 76830; 76856

== ENCOUNTER 2023-01-03 14:37 | Emergency (ER) | payer MEDICAID, SELFPAY ==
--- NOTE | 2023-01-03 14:30 | RT.EKG_ITS ---
APPROVED REPORT Exam: Resting ECG Reason for Exam: possible stroke Patient Location: E HR:88 bpm ECG Measurements Heart Rate 88 AXIS CO 151 P 60 QRSd 83 QRS 46 QT 353 T 22 QTc 428 Conclusion Sinus rhythm...normal P axis, V-rate 60- 99 Low voltage, precordial leads...precordial leads <1.0mV nsr
[2023-01-03 14:40] VITALS: BP 134/92; PULSE 107; RESP 18; O2SAT 97
--- NOTE | 2023-01-03 14:45 | DI.CT_ITS ---
Exam(s) CT HEAD WO EXAM: CT HEAD WO CLINICAL HISTORY: MONTOYA. TECHNIQUE: Imaging Protocol: Axial computed tomography images with coronal and sagittal reformatted images were created and reviewed COMPARISON: CT CT HEAD CERV SPINE FACIAL WO from 10/26/2020 FINDINGS: There are no skull fractures. There is no fluid in the visualized paranasal sinuses. There is no evidence of intracranial hemorrhage, mass effect, or shift of midline structures. There are no extra-axial fluid collections. The ventricles are not enlarged or shifted and there is no blo od within the ventricular system nor within the basal cisterns. IMPRESSION: No acute intracranial findings on this noninfused CT scan of the brain. RADIATION DOSE DELIVERED: 861.45mGy.cm Total DLP DATA REPOSITORY: All CT scans at this facility are submitted to the National Radiology Data Registry (NRDR) Dose Index Registry (DIR) with the [employer] ([employer]). RADIATION OPTIMIZATION: All CT scans at this facility use at least one of these dose optimization te chniques: automated exposure control; mA and/or kV adjustment per patient size (includes targeted exa ms where dose is matched to clinical indication); or iterative reconstruction.
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
[2023-01-03 15:11] VITALS: BP 123/93; PULSE 86; RESP 18; O2SAT 99
[2023-01-03 15:13] LABS: HCT 41.5 % (36.0-46.0); HGB 14.5 g/dL (11.2-15.7); MCH 28.8 pg (27.0-33.0); MCHC 34.9 % (32.0-36.0); MCV 83 fL (80-95); MPV 10.5 fL (8.0-11.0); Platelet Count 289 10^3/uL (130-400); RBC 5.03 10^6/uL (3.93-5.22); RDW 12.2 % (11.7-14.6); RDW-SD 36.8 fL; WBC 8.77 10^3/uL (4.4-10.8)
[2023-01-03] MEDS: Normal Saline 1,000 ML 1000 ML IV (15:19)
[2023-01-03] MEDS: Ketorolac 30 MG/ML VIAL IVP (15:19)
[2023-01-03] MEDS: Prochlorperazine 10 MG/2 ML VIAL 5 MG IVP (15:20)
[2023-01-03] MEDS: diphenhydrAMINE 50 MG/ML VIAL 25 MG IVP (15:20)
[2023-01-03 15:41] LABS: ALT 33 U/L (14-59); AST 24 U/L (15-37); Albumin 4.2 g/dL (3.4-5.0); Alkaline Phosphatase 81 U/L (46-116); Anion Gap 9.2 mmol/L (3-11); BUN 25 mg/dL (7-18); Bilirubin, Total 0.4 mg/dL (0.2-1.0); CO2 27.8 mmol/L (21.0-32.0); CREATININE 0.8 mg/dL (0.55-1.02); Calcium 9.3 mg/dL (8.5-10.1); Chloride 103 mmol/L (98-107); Estimated GFR 97.26 (mL/min/1.73m2); Glucose 109 mg/dL (74-106); Potassium 4.1 mmol/L (3.5-5.1); Sodium 140 mmol/L (136-145)
--- NOTE | 2023-01-03 15:51 | NUR.NOTE ---
Nursing Note: Pt back from CT and thoroughly updated with care. Pt understands next steps. Pt thanked this nurse for care.
[2023-01-03 16:27] VITALS: BP 103/59; PULSE 90; RESP 20; O2SAT 99
--- NOTE | 2023-01-03 16:31 | NUR.NOTE ---
Nursing Note: Pt given discharge instructions. Pt thanked this RN for being so nice. Pt upset regarding number of tests conducted and lack of results. Pt stated, this always happens and no one ever finds out what's wrong.
== END 2023-01-03 16:26 | disposition home or self-care (01) ==
PROVIDERS: Emergency Provider Emergency Medicine; PCP Nurse Practitioner Family
DX: R51.9 Headache, unspecified (principal); F41.9 Anxiety disorder, unspecified; Z73.3 Stress, not elsewhere classified
CPT/HCPCS: 80053; 81025; 85027; 93005; 96361; 96374; 96375; 99285; 70450; 93010; 99284; J0780; J1200; J1885

== ENCOUNTER 2023-05-12 15:47 | Emergency (ER) | payer MEDICAID, SELFPAY ==
[2023-05-12 15:54] VITALS: BP 128/90; PULSE 90; RESP 20; TEMP 36.8; O2SAT 95
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
== END 2023-05-12 16:49 | disposition home or self-care (01) ==
PROVIDERS: Emergency Provider Emergency Medicine; PCP Nurse Practitioner Family
DX: R23.8 Other skin changes (principal); H72.91 Unspecified perforation of tympanic membrane, right ear
CPT/HCPCS: 99283

== ENCOUNTER 2024-03-23 07:48 | Emergency (ER) | payer MEDICAID, SELFPAY ==
[2024-03-23 07:52] VITALS: BP 120/82; PULSE 92; RESP 16; TEMP 36.9; O2SAT 96
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
[2024-03-23 08:35] VITALS: BP 120/82; PULSE 74; RESP 16; TEMP 36.9; O2SAT 96
--- OUTSIDE RECORDS SUMMARY | 2024-03-23 08:41 | XMS_ITS | Encounter Summary ---
Author Organization [facility] Address [address] [place] [address] Care Team Providers Care Ocular Care Technologist Name Role Phone Barrington Bhatia MD Primary Care Provider [phone] Encounter Details Date Type Department Care Team (Late st Contact Info) Description 11/01/[address] [facility] Laboratory Services - [facility] ([facility]) [address], [place] [id number] Saran Reece CNM [address] [place] [address] Social History Tobacco Use Types Packs/Day Years Used Date Smoking Tobacco: Never Assessed Sex and Gender Information Value Date Recorded Sex Assigned at Not on file Gender Identity Not on file Sexual Orientation Not on file documented as of this encounter Plan of Treatment Not on file documented as of this encounter Procedures Procedure Name Priority Date/Time Associated Diagnosis Comments PAP TEST- RESULT ONLY Routine 11/01/2014 0:00 EDT documented in this encounter Results * PAP TEST- RESULT ONLY (11/01/2014 0:00 EDT) Pathology Report: CYTOPATHOLOGY REPORT Reports generated via electronic interface contain original data; however they are lacking the format of the original report. Caution should be taken when reading/interpreti ng unformatted reports. Name: ? TR JULIAN ? Accession #: ? [id number] : ? 1985 (Age: 28) ??F ?Collect Date: ? 11/01/2014 Location: ? [facility] ? Receive Date: ? 11/02/2014 Provider: ?SARAN REECE CNM Copy to: ?BARRINGTON BHATIA MD ? Specimen/Source: ?Pap Test, Cervix/Endocervix, ThinPrep Imaging System with manual evaluation Last Menstrual Period: ? 06/19/2014 Menstrual/Pregnanc y Status: ? Previous Gynecologic Pathology: ? LSIL: 12/14 HSIL: 12/14 Treatment History: ? Miscellaneous treatment: ECC Benign Other: ? Additional clinical information: neg HPV 02/11/13 ? SPECIMEN ADEQUACY ? Satisfactory for Evaluation - transformation zone component present GENERAL CATEGORIZATION ? Negative for Intraepithelial Lesion or Malignancy INTERPRETATION ? Fungal organisms present morphologically consistent with Clemencia species. ? Document reviewed and electronically signed by: ? Colleen Cabral, CT(ASCP)(IAC) ? Report Date: ??11/10/2014 09:45 End of Report [facility] 11/01/2014 11/02/2014 Anestephy Reece CNM PATHOLOGY ORDERABLES [facility] [address] [place] [address] documented in this encounter Visit Diagnoses Not on filedocumented in this encounter Care Teams Ocular Care Technologist Relationship Specialty Start Date End Date Barrington Bhatia MD PCP - General 12/04/10 documented as of this encounter
--- OUTSIDE RECORDS SUMMARY | 2024-03-23 08:41 | XMS_ITS | Encounter Summary ---
Author Organization [facility] Address [address] [place] [address] Care Team Providers Care Lift Driver Name Role Phone Alex Hong MD Primary Care Provider [phone] Encounter Details Date Type Department Care Team (Latest Contact Info) Description 10/10/2018 15:23 EST - 10/10/2018 23:59 EST Hospital Encounter [address] [address] Unknown, Provider, Discharge Disposition: Home or Self Care Social History Tobacco Use Types Packs/Day Years Used Date Smoking Tobacco: Never Assessed Sex and Gender Information Value Date Recorded Sex Assigned at Not on file Gender Identity Not on file Sexual Orientation Not on file documented as of this encounter Discharge Disposition Disposition Code Departure Means Destination Home or Self Fdc documented in this encounter Plan of Treatment Not on file documented as of this encounter Visit Diagnoses Not on filedocumented in this encounter Care Teams Lift Driver Relationship Specialty Start Date End Date Alex Hong MD PCP - General 12/04/10 documented as of this encounter
--- OUTSIDE RECORDS SUMMARY | 2024-03-23 08:41 | XMS_ITS | Encounter Summary ---
Author Organization [facility] Address [address] [place] [address] Care Team Providers Care Sharepoint Specialist Name Role Phone Unavailable Primary Care Provider Unavailabl e Encounter Details Date Type Department Care Team (Late st Contact Info) Description 06/27/2010 Results Only [facility] Laboratory Services - [facility] ([facility]) [address] [place], [place] [id number] Chacha Avila, [facility] [address] [place] [address] [place] [address] Social History Tobacco Use Types Packs/Day Years Used Date Smoking Tobacco: Never Assessed Sex and Gender Information Value Date Recorded Sex Assigned at Not on file Gender Identity Not on file Sexual Orientation Not on file documented as of this encounter Plan of Treatment Not on file documented as of this encounter Procedures Procedure Name Priority Date/Time Associated Diagnosis Comments CYTOPATHOLOGY Routine 06/27/2010 0:00 EST documented in this encounter Results * CYTOPATHOLOGY (06/27/2010 0:00 EST) Pathology Report: CYTOPATHOLOGY REPORT ? Reports generated via electronic interface contain original data; ? however they are lacking the format of the original report. ? Caution should be taken when reading/interpreti ng unformatted reports. ? Name: ? TR JULIAN ? Accession #: ? [id number] ? : ? 1985 (Age: 24) ??F ?Collect Date: ? 06/27/2010 ? Location: ? [facility] ? Receive Date: ? 06/28/2010 ? Provider: CHACHA SHARRI PERSONAL BANKER ? Copy to: ? Final Report ? SPECIMEN ADEQUACY ? Satisfactory for Evaluation ? - transformation zone component present ? GENERAL CATEGORIZATION ? Epithelial Cell Abnormality ? INTERPRETATION ? Squamous Cell Abnormality - Atypical squamous cells, undetermined ? significance (ASC-US). ? EDUCATIONAL NOTES/RECOMMENDATI ONS ? [facility] recommends following the 2006 Consensus Guidelines for the Management of Women with Abnormal Cervical Cancer Screening Tests (JLGTD, ? 2007;11(4):201-222 ). ??Consensus guidelines are available online at ? www.ASCCP.org. ? Last Menstural Period: 10//10 ? Previous Gynecologic Pathology: ASC-US: 05/07, 06/09, 02/08 ? HPV: + 05/07, 06/09, 02/08 ? FAVIO II: 07/07 ? Treatment History: Colposcopy: bx 07/07 ? Other: Additional clinical information: 12/06, 03/10, 09/12, 11/11 paps negative, ?? 03/10 HPV indetermined ? Specimen/Source: ??Pap Test, Cervix/Endocervix, ThinPrep Imaging System with ? manual evaluation ? Document reviewed and electronically signed by: ? FERNANDA MOUNT MD ? Report ??Date: 07/03/2010 13:49 ? HPV with Pap Test ? Date Ordered: ? 07/03/2010 ? Status: ?? Signed Out ?Date Complete: ? 07/05/2010 ? By: ??System Interface ? Date Reported: ? 07/05/2010 ? Interpretation ? RESULT: Positive for one or more of HPV types 16,18,31,33,35,39, 45, ? 51,52,56,58,59, or 68. These high/intermediate risk HPV ? types are associated with dysplasia and some cervical ? cancers. ? Comments ? Document reviewed and electronically signed by: ? System Interface ? Report date: 07/05/2010 ? By the signature above, the attending physician certifies that he/she has ? personally conducted a gross and/or microscopic examination of the described ? specimens and rendered or confirmed the above diagnosis. ? End of Report ? KEYANA THOMAS 06/27/2010 06/28/2010 Chacha Avila PERSONAL BANKER PATHOLOGY ORDERABLES [facility] THOMAS [address] [place] [address] documented in this encounter Visit Diagnoses Not on filedocumented in this encounter
--- OUTSIDE RECORDS SUMMARY | 2024-03-23 08:41 | XMS_ITS | Encounter Summary ---
Author Organization [facility] Address [address] [place] [address] Care Team Providers Care Real Estate Legal Assistant Name Role Phone Alex Hong MD Primary Care Provider [phone] Encounter Details Date Type Department Care Team (Late st Contact Info) Description 11/18/2023 Lab Requisition [facility] Pathology & Laboratory Medicine - [address] [address] Outr Resulting Lab, Provider Social History Tobacco Use Types Packs/Day Years Used Date Smoking Tobacco: Never Assessed Interpersonal Safety Answer Date Record ed Physically Hurt Never 03/06/2020 Verbally Threaten Not on file 03/06/2020 Sex and Gender Information Value Date Recorded Sex Assigned at Not on file Gender Identity Not on file Sexual Orientation Not on file documented as of this encounter Plan of Treatment Not on file documented as of this encounter Procedures Procedure Name Priority Date/Time Associated Diagnosis Comments FENTANYL AND METABOLITE CONFIRMATION PANEL Routine 11/18/2023 15:09 EDT documented in this encounter Results * FENTANYL AND METABOLITE CONFIRMATION PANEL (11/18/2023 15:09 EDT) Fentanyl Confirmation Negative <2 ng/mL 11/20/2023 12:19 EDT [facility] Norfentanyl Confirmation Negative <10 ng/mL 11/20/2023 12:19 EDT [facility] Urine URINE / Unknown 11/18/2023 1 5:09 EDT 11/18/2023 22:20 EDT Narrative [facility] - 11/20/2023 12:19 EDT Testing performed by: [facility] [address] [facility], [address], [place] [address] Helpdesk Manager: Eamon Patricia MD; CLIA # [id number] Provider Outr Resulting Lab GEN LAB UNIT COLLECT ORDERABLES [facility] [address], [address] [place] [address], [facility] [phone] documented in this encounter Visit Diagnoses Not on filedocumented in this encounter Care Teams Real Estate Legal Assistant Relationship Specialty Start Date End Date Alex Hong MD PCP - General 12/04/10 documented as of this encounter
--- OUTSIDE RECORDS SUMMARY | 2024-03-23 08:41 | XMS_ITS | Encounter Summary ---
Author Organization [facility] Address [address] [place] [address] Care Team Providers Care Field Service Specialist Name Role Phone Barrington Bhatia MD Primary Care Provider Encounter Details Date Type Department Care Team (Late st Contact Info) Description 02/11/2013 Results Only [facility] Laboratory Services - [facility] ([facility]) [address] [place] [id number] Valentina Green, [place] Social History Tobacco Use Types Packs/Day Years [...] Diagnosis Comments PAP TEST- RESULT ONLY Routine 02/11/2013 0:00 EDT documented in this encounter Results * PAP TEST- RESULT ONLY (02/11/2013 0:00 EDT) Pathology Report: CYTOPATHOLOGY REPORT Reports generated via electronic interface contain original data; however they are lacking the format of the original report. Caution should be taken when reading/interpreti ng unformatted reports. Name: ? TR JULIAN ? Accession #: ? [id number] ? : ? 1985 (Age: 27) ??F ?Collect Date: ? 02/11/2013 ? Location: ? [facility] ? Receive Date: ? 02/12/2013 ? Provider: VALENTINA GREEN GAUNTLET PAIRER Copy to: BARRINGTON BHATIA MD ? Final Report SPECIMEN ADEQUACY ? Satisfactory for Evaluation - transformation zone component present GENERAL CATEGORIZATION ? Negative for Intraepithelial Lesion or Malignancy INTERPRETATION ? Reactive cellular changes associated with inflammation present (includes repair). Hormonal/Contracep tive status: Intrauterine device: Mirena Previous Gynecologic Pathology: FAVIO II LSIL: 12/2011 HSIL: 12/2011 Treatment History: LEEP: 11/13 Miscellaneous treatment: ECC: 12/2011 shine Specimen/Source: ??Pap Test, Cervix/Endocervix, ThinPrep Imaging System with manual evaluation Document reviewed and electronically signed by: ? HARSH CRYSTAL MD ? Report ??Date: 02/19/2013 08:05 HPV with Pap Test ? Date Ordered: ? 02/18/2013 ? Status: ?? Signed Out ?Date Complete: ? 02/23/2013 ? By: ??System Interface ? Date Reported: ? 02/23/2013 ? Interpretation RESULT: Negative for HPV. No E6 or E7 mRNA is detected from HPV types 16,18,31,33,35, 39,45,51,52,56,58, 59,66, and 68 by rib matcher and fitter mediated amplification. Comments Document reviewed and electronically signed by: ? System Interface ? Report date: 02/23/2013 By the signature above, the attending physician certifies that he/she has personally conducted a gross and/or microscopic examination of the described specimens and rendered or confirmed the above diagnosis. End of Report [facility] 02/11/2013 02/12/2013 Valentina Green GAUNTLET PAIRER PATHOLOGY ORDERABLES [facility] [address] [address] documented in this encounter Visit Diagnoses Not on filedocumented in this encounter Care Teams Field Service Specialist Relationship Specialty Start Date End Date Barrington Bhatia MD PCP - General 12/04/10 documented as of this encounter
--- OUTSIDE RECORDS SUMMARY | 2024-03-23 08:41 | XMS_ITS | Encounter Summary ---
Author Organization [facility] Address [address] [place] [address] Care Team Providers Care Armature Straightener Name Role Phone Unavailable Primary Care Provider Unavailkadie e Encounter Details Date Type Department Care Team (Late st Contact Info) Description 12/14/2003 Results Only [facility] [address] [place] [address] Chacha Avila, [facility] [address] [place] [address] [place] [address] Social History Tobacco Use Types [...] Priority Date/Time Associated Diagnosis Comments CYTOPATHOLOGY Routine 12/14/2003 0:00 EDT documented in this encounter Results * CYTOPATHOLOGY (12/14/2003 0:00 EDT) Pathology Report: CYTOPATHOLOGY REPORT Reports generated via electronic interface contain original data; however they are lacking the format of the original report. Caution should be taken when reading/interpreti ng unformatted reports. Name: ? TR JULIAN ? Accession #: ? [id number] : ? 1985 (Age: 17) ??F ?Collect Date: ? 12/14/2003 Location: ? [facility] ? Receive Date: ? 12/15/2003 Provider: ?CHACHA AVILA TRANSLATIONAL SPECIALIST Copy to: ? Specimen/Source: ?ThinPrep Pap Test, Cervix/Endocervix Last Menstrual Period: ? 12/03/03 Previous Gynecologic Pathology: ? ASC-US: 05/28/03 HPV: + 05/28/03 FAVIO II: 07/07 Treatment History: ? Colposcopy: 07/07 FAVIO II Cervical biopsy: 07/07 FAVIO II ? SPECIMEN ADEQUACY ? Satisfactory for Evaluation - transformation zone component present - scant squamous epithelial component GENERAL CATEGORIZATION ? Negative for Intraepithelial Lesion or Malignancy ? Document reviewed and electronically signed by: ? NITHYA Preston(ASCP) ? Report Date: ??12/20/2003 14:26 End of Report [facility] THOMAS 12/14/2003 12/15/2003 Chacha Avila TRANSLATIONAL SPECIALIST PATHOLOGY ORDERABLES [facility] [address] [place] [address] documented in this encounter Visit Diagnoses Not on filedocumented in this encounter
--- OUTSIDE RECORDS SUMMARY | 2024-03-23 08:41 | XMS_ITS | Encounter Summary ---
Author Organization [facility] Address [address] [place] [address] Care Team Providers Care Solar Project Manager Name Role Phone Alex Hong MD Primary Care Provider [phone] Encounter Details Date Type Department Care Team (Late st Contact Info) Description 01/01/2024 Lab Requisition [facility] Pathology & Laboratory Medicine - [address] [address] Outr Resulting Lab, Provider Social History Tobacco [...] Procedure Name Priority Date/Time Associated Diagnosis Comments BUPRENORPHINE AND METABOLITE CONFIRMATION PANEL Routine 01/01/2024 11:51 EDT documented in this encounter Results * (ABNORMAL) BUPRENORPHINE AND METABOLITE CONFIRMATION PANEL (01/01/2024 11:51 EDT) Buprenorphine Confirmation 110(A) <10 ng/mL 01/03/2024 12:39 EDT [facility] Norbuprenorphine Confirmation 528(A) <10 ng/mL 01/03/2024 12:39 EDT [facility] Naloxone Confirmation 721(A) <10 ng/mL 01/03/2024 12:39 EDT [facility] Urine URINE / Unknown 01/01/2024 1 1:51 EDT 01/01/2024 21:38 EDT Narrative [facility] - 01/03/2024 12:39 EDT Testing performed by: [facility] [address] [place] [address], [facility] [address] [address] Filler Mixer: Eamon Patricia MD; CLIA # [id number] Provider Outr Resulting Lab GEN LAB UNIT COLLECT ORDERABLES Performing Organization Address City/State/[facility] Co de Phone Number [facility] [address] [place] [address], [facility] [address] [place] [address], [facility] [phone] documented in this encounter Visit Diagnoses Not on filedocumented in this encounter Care Teams Solar Project Manager Relationship Specialty Start Date End Date Alex Hong MD PCP - General 12/04/10 documented as of this encounter
--- OUTSIDE RECORDS SUMMARY | 2024-03-23 08:41 | XMS_ITS | Encounter Summary ---
Author Organization [facility] Address [address] [place] [address] Care Team Providers Care Programming Internship Name Role Phone Unavailable Primary Care Provider Unavailkadie e Encounter Details Date Type Department Care Team (Late st Contact Info) Description 10/02/2007 Results Only [facility] - Maple conversion [address] [place] [address] Chacha Avila, [facility] [address] [place] [address] [place] [address] Social History Tobacco Use Types [...] Priority Date/Time Associated Diagnosis Comments CYTOPATHOLOGY Routine 10/02/2007 0:00 EST documented in this encounter Results * CYTOPATHOLOGY (10/02/2007 0:00 EST) Pathology Report: CYTOPATHOLOGY REPORT Reports generated via electronic interface contain original data; however they are lacking the format of the original report. Caution should be taken when reading/interpreti ng unformatted reports. Name: ? TR JULIAN ? Accession #: ? [id number] : ? 1985 (Age: 21) ??F ?Collect Date: ? 10/02/2007 Location: ? [facility] ? Receive Date: ? 10/02/2007 Provider: ?CHACHA AVILA INTERNATIONAL GUEST COORDINATOR Copy to: ? Specimen/Source: ?ThinPrep Pap Test, Cervix/Endocervix, processed on [email or web address] ThinPrep Imaging System, with manual evaluation Last Menstrual Period: ? 09/02/07 Previous Gynecologic Pathology: ? ASC-US: 05/07, 06/09 & 02/08 HPV: + 05/07, 06/09 & 02/08 FAVIO II: 07/07 Treatment History: ? Colposcopy: 07/07 FAVIO II Cervical biopsy: 07/07 FAVIO II Other: ? Additional clinical information: 12/06 pap neg. 03/10 pap normal HPV indeterminate HPVA - HPV testing requested if ASC-US on the current ThinPrep Pap test. ? SPECIMEN ADEQUACY ? Satisfactory for Evaluation - transformation zone component present GENERAL CATEGORIZATION ? Negative for Intraepithelial Lesion or Malignancy ? Document reviewed and electronically signed by: ? Yohan Pace, NITHYA(ASCP) ? Report Date: ??10/07/2007 10:38 End of Report [facility] 10/02/2007 10/02/2007 Chacha Avila INTERNATIONAL GUEST COORDINATOR PATHOLOGY ORDERABLES [facility] [address] [place] [address] documented in this encounter Visit Diagnoses Not on filedocumented in this encounter
--- OUTSIDE RECORDS SUMMARY | 2024-03-23 08:41 | XMS_ITS | Encounter Summary ---
Author Organization [facility] Address [address] [place] [address] Care Team Providers Care Tugboat Engineer Name Role Phone Alex Hong MD Primary Care Provider [phone] Encounter Details Date Type Department Care Team (Late st Contact Info) Description 01/17/2023 Specialty Pharmacy [facility] - [address] [id number] Chacha Ba RPH Social History Tobacco Use Types Packs/Day Years Used Date Smoking Tobacco: Never Assessed Interpersonal Safety Answer Date Record ed Physically Hurt Never 03/06/2020 Verbally Threaten Not on file 03/06/2020 Sex and Gender Information Value Date Recorded Sex Assigned at Not on file Gender Identity Not on file Sexual Orientation Not on file documented as of this encounter Progress Notes * Chacha Ba RPH - 01/17/2023 1144 EDT 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 Treatment information: Prescriber: Ines Tracy NP Prescriber Contact Info: [place] [facility] [phone] Buprenorphine ER (Sublocade) Initial Dose: 300 mg x1 Transmucosal Buprenorphine Dose: 16mg/day Transmucosal Buprenorphine Dose Sublocade Inj #1 Sublocade Inj #2 Sublocade Inj Maintenance 8-18 mg/day 300 mg 100 mg* 100 mg 20-24 mg/day 300 mg 300 mg 100 mg *For patients still experiencing cravings or withdrawal symptoms after initial 300 mg dose, considering giving 300 mg as second dose The maintenance dose may be increased to 300 mg for patients who tolerate the 100 mg dose but do not demonstrate satisfactory clinical response REMS requirements met: Yes Naloxone prescribed: unknown Medication Management Notes: Patient will be administered the medication at [facility]. To contact the clinic call: [phone] Baseline labs: No labs, outside provider No results found for: CREATININE, AST, ALT, PLT, TBIL, INR, LABALBU Current medications: Suboxone 8mg-2mg SL film- dissolve two films under the tongue daily Hydroxyzine 25 mg tab- take 1 tab by mouth two times daily as needed Allergies: reviewed, need to confirm with clinic on first fill Drug Interactions and Management Plan: ??? DDI with current medication list checked ??? Drug-drug interactions identified: Sublocade-Hydroxyzine- increased DATA SCIENCES DIRECTOR depression; monitor only, patient has been tolerating buprenorphine-hydroxyzine combo Comorbidities: reviewed Assessment: Female of childbearing potential: Yes- pt will be educated by clinic Coinfection/Vaccination Assessment: Vaccine Date Result HCV N/A HBV N/A HIV N/A TB N/A Additional Notes: PA required documented in this encounter Plan of Treatment Not on file documented as of this encounter Visit Diagnoses Not on filedocumented in this encounter Historical Medications * This list may reflect changes made after this encounter. Medication Sig Dispensed Refills Start Date End Date buprenorphine 300 mg/1.5 mL solution, extended rel syringe Inject 1.5 mL into the skin every 28 days. Daily Max: 300 mg hydrOXYzine (ATARAX) 25 mg tablet Take 1 Tablet by mouth 2 times daily as needed. 01/14/2023 added in this encounter Care Teams Tugboat Engineer Relationship Specialty Start Date End Date Alex Hong MD PCP - General 12/04/10 documented as of this encounter
--- OUTSIDE RECORDS SUMMARY | 2024-03-23 08:41 | XMS_ITS | Encounter Summary ---
Author Organization [facility] Address [address] [place] [address] Care Team Providers Care Electric Motor Repair Supervisor Name Role Phone Alex Hong MD Primary Care Provider [phone] Encounter Details Date Type Department Care Team (Late st Contact Info) Description 11/13/2017 Results Only [facility]- PRISM [phone] Blanca Cottrell, AIRCRAFT REFUELLER [address] [place] [address] Social History Tobacco Use Types Packs/Day Years Used Date Smoking Tobacco: Never Assessed Sex and Gender Information Value Date Recorded Sex Assigned at Not on file Gender Identity Not on file Sexual Orientation Not on file documented as of this encounter Plan of Treatment Not on file documented as of this encounter Procedures Procedure Name Priority Date/Time Associated Diagnosis Comments CHLAMYDIA/N. GONORRHOEAE AMPLIFIED RNA, URINE Routine 11/13/2017 16:00 EDT documented in this encounter Results * CHLAMYDIA/N. GONORRHOEAE AMPLIFIED RNA, URINE (11/13/2017 16:00 EDT) Chlamydia Result Negative 11/15/19 18 15:31 EDT [facility] Comment: This test was developed and its performance characteristics determined by [facility]. It has not been cleared or approved by the US Food and Drug Administration. FDA does not require this test to go through premarket FDA review. This test is used for clinical purposes. It should not be regarded as investigational or for research. This laboratory is certified under the Clinical Laboratory Improvement Amendments (CLIA) as qualified to perform high complexity clinical laboratory testing. A first catch urine specimen is acceptable for detection of Gonorrhea and Chlamydia, but might detect up to 10% fewer infections when compared with vaginal and endocervical swab samples. GC Result Negative 11/14/2017 15:31 EDT [facility] Comment: This test was developed and its performance characteristics determined by [facility]. It has not been cleared or approved by the US Food and Drug Administration. FDA does not require this test to go through premarket FDA review. This test is used for clinical purposes. It should not be regarded as investigational or for research. This laboratory is certified under the Clinical Laboratory Improvement Amendments (CLIA) as qualified to perform high complexity clinical laboratory testing. A first catch urine specimen is acceptable for detection of Gonorrhea and Chlamydia, but might detect up to 10% fewer infections when compared with vaginal and endocervical swab samples. URINE / Unknown 11/13/2017 1 6:00 EDT 11/13/2017 21:37 EDT Blanca Cottrell APRN MICROBIOLOGY - GENER AL ORDERABLES Performing Organization Address City/State/[facility] Co de Phone Number [facility] [address] [place] [address] documented in this encounter Visit Diagnoses Not on filedocumented in this encounter Care Teams Electric Motor Repair Supervisor Relationship Specialty Start Date End Date Alex Hong MD PCP - General 12/04/10 documented as of this encounter
--- OUTSIDE RECORDS SUMMARY | 2024-03-23 08:41 | XMS_ITS | Encounter Summary ---
Author Organization [facility] [place] [address] Care Team Providers Care Sharepoint Architect Name Role Phone Kendrick Aranda DNP Primary Care Provider [phone] Encounter Details Date Type Department Care Team (Late st Contact Info) Description 03/26/2023 [place] [id number] Katy Yanez Social History Tobacco Use Types Packs/Day Years Used Date Smoking Tobacco: Former Cigarettes 2017 Smokeless Tobacco: Never Comments:vape nicotine Alcohol Use Standard Drinks/Week Comments No 0 (1 standard drink = 0.6 oz pur e alcohol) Sex and Gender Information Value Date Recorded Sex Assigned at Not on file Gender Identity Not on file Sexual Orientation Not on file documented as of this encounter Miscellaneous Notes * Telephone Encounter - Katy Yanez - 03/26/2023 2:33 PM EDT Patient believes she needs an EGD as well as a COLO. She is having a lot of heartburn & diarrhea. She is going to call her PCP about getting a referral for the EGD. documented in this encounter Plan of Treatment Not on file documented as of this encounter Visit Diagnoses Not on filedocumented in this encounter Care Teams Sharepoint Architect Relationship Specialty Start Date End Date Kendrick Aranda DNP [address] [place] [address] PCP - General Family Medicine 11/02/22 documented as of this encounter
--- OUTSIDE RECORDS SUMMARY | 2024-03-23 08:41 | XMS_ITS | Encounter Summary ---
Author Organization [facility] Address [address] [place] [address] Care Team Providers Care Pump House Technician Name Role Phone Unavailable Primary Care Provider Unavailabl e Encounter Details Date Type Department Care Team (Latest Contact Info) Description 09/18/2005 19:01 EST Hospital Encounter [facility] - Other [address] [place] [address] [place] [address] Discharge Disposition: Home or Self Care Social History Tobacco Use Types Packs/Day Years Used Date Smoking Tobacco: Never Assessed Sex and Gender Information Value Date Recorded Sex Assigned at Not on file Gender Identity Not on file Sexual Orientation Not on file documented as of this encounter Discharge Disposition Disposition Code Departure Means Destination Home or Self Care documented in this encounter Plan of Treatment Not on file documented as of this encounter Visit Diagnoses Not on filedocumented in this encounter
--- OUTSIDE RECORDS SUMMARY | 2024-03-23 08:41 | XMS_ITS | Encounter Summary ---
Author Organization [facility] Address [address] [place] [address] Care Team Providers Care Associate Veterinarian Name Role Phone Unavailable Primary Care Provider Adriana e Encounter Details Date Type Department Care Team (Late st Contact Info) Description 02/06/2007 Results Only [facility] - Maple conversion [address] [place] [address] Chacha Avila, [facility] [address] [place] [address] [place] [address] Social History Tobacco Use Types Packs/Day Years Used Date Smoking Tobacco: Never Assessed Sex and Gender Information Value Date Recorded Sex Assigned at Not on file Gender Identity Not on file Sexual Orientation Not on file documented as of this encounter Plan of Treatment Not on file documented as of this encounter Procedures Procedure Name Priority Date/Time Associated Diagnosis Comments HPV DETECTION, HIGH RISK TYPES Routine 02/06/2007 10:10 EDT CYTOPATHOLOGY Routine 02/06/2007 0:00 EDT documented in this encounter Results * HUMAN PAPILLOMA VIRUS DNA TEST (02/06/2007 10:10 EDT) Specimen Description Cervix, ThinPrep vial [facility] Result Positive for one or more of HPV types 16,18,31,33,35 ,39,45,51,52,5 6,58,59, or 68. These high/intermedi ate risk HPV types are associated with dysplasia and some cervical cancers. [facility] Report Status Final [id number] [facility] 02/06/2007 10:1 0 EDT 02/18/2007 22:05 EDT Chacha Cabello Margarita GRAVITY METER OPERATOR MICROBIOLOGY - GENER AL ORDERABLES [facility] [address] [place] [address] * CYTOPATHOLOGY (02/06/2007 0:00 EDT) Pathology Report: CYTOPATHOLOGY REPORT Reports generated via electronic interface contain original data; however they are lacking the format of the original report. Caution should be taken when reading/interpreti ng unformatted reports. Name: ? TR JULIAN ? Accession #: ? [id number] : ? 1985 (Age: 21) ??F ?Collect Date: ? 02/06/2007 Location: ? [facility] ? Receive Date: ? 02/07/2007 Provider: ?CHACHA AVILA GRAVITY METER OPERATOR Copy to: ? Specimen/Source: ?ThinPrep Pap Test, Cervix/Endocervix, processed on [employer] ThinPrep Imaging System, with manual evaluation Last Menstrual Period: ? 01/27/07 Other: ? HPVA - HPV testing requested if ASC-US on the current ThinPrep Pap test. ? SPECIMEN ADEQUACY ? Satisfactory for Evaluation - transformation zone component present GENERAL CATEGORIZATION ? Epithelial Cell Abnormality INTERPRETATION ? Squamous Cell Abnormality - Atypical squamous cells, undetermined significance (ASC-US). EDUCATIONAL NOTES/RECOMMENDATI ONS ? [facility] recommends following the 2001 Consensus Guidelines for the Management of Women with Cervical Cytological Abnormalities (ERIKA,2002;287:212 0-9). Management algorithms have been distributed by [facility] and are available online at www.[email or web address]. ? Document reviewed and electronically signed by: ? Melissa Stewart MD ? Report Date: ??02/17/2007 16:07 End of Report [facility] TH[facility] 02/06/2007 02/07/2007 Chacha Avila GRAVITY METER OPERATOR PATHOLOGY ORDERABLES Performing Organization Address City/State/[facility] Co de Phone Number [facility] [address] [place] [address] documented in this encounter Visit Diagnoses Not on filedocumented in this encounter
--- OUTSIDE RECORDS SUMMARY | 2024-03-23 08:41 | XMS_ITS ---
Author Organization [facility] Address [address] [place] [address] Care Team Providers Care Personnel Officer Name Role Phone Alex Hong MD Primary Care Provider [phone] Other Conditions Status:Discharged (Closed) Start date:01/17/2023 Enrollment date:01/17/2023 End date:02/21/2023 Continued Care and Services Coordination
--- OUTSIDE RECORDS SUMMARY | 2024-03-23 08:41 | XMS_ITS | Encounter Summary ---
Author Organization [facility] Address [address] [place] [address] Care Team Providers Care Purchasing And Claims Supervisor Name Role Phone Unavailable Primary Care Provider Unavailabl e Encounter Details Date Type Department Care Team (Late st Contact Info) Description 06/26/[address] [facility] - Maple conversion [address] [place] [address] Saran Dow CNM [address] [place], [place] [address] Social History Tobacco Use Types Packs/Day Years Used Date Smoking Tobacco: Never Assessed Sex and Gender Information Value Date Recorded Sex Assigned at Not on file Gender Identity Not on file Sexual Orientation Not on file documented as of this encounter Plan of Treatment Not on file documented as of this encounter Procedures Procedure Name Priority Date/Time Associated Diagnosis Comments CYTOPATHOLOGY Routine 06/26/2005 0:00 EST documented in this encounter Results * CYTOPATHOLOGY (06/26/2005 0:00 EST) Pathology Report: CYTOPATHOLOGY REPORT Reports generated via electronic interface contain original data; however they are lacking the format of the original report. Caution should be taken when reading/interpreti ng unformatted reports. Name: ? TR JULIAN ? Accession #: ? [id number] : ? 1985 (Age: 19) ??F ?Collect Date: ? 06/26/2005 Location: ? [facility] ? Receive Date: ? 06/27/2005 Provider: ?SARAN TINEOM Copy to: ? Specimen/Source: ?ThinPrep Pap Test, Cervix/Endocervix, processed on [employer] ThinPrep Imaging System, with manual evaluation Last Menstrual Period: ? 04/30/05 Menstrual/Pregnanc y Status: ? Previous Gynecologic Pathology: ? ASC-US: 05/28/03 FAVIO II: 07/07 Treatment History: ? Colposcopy Cervical biopsy: 07/07 Other: ? HPVA - HPV testing requested if ASC-US on the current ThinPrep Pap test. ? SPECIMEN ADEQUACY ? Satisfactory for Evaluation - transformation zone component present GENERAL CATEGORIZATION ? Epithelial Cell Abnormality INTERPRETATION ? Squamous Cell Abnormality - Atypical squamous cells, undetermined significance. EDUCATIONAL NOTES/RECOMMENDATI ONS ? [facility] recommends following the 2001 Consensus Guidelines for the Management of Women with Cervical Cytological Abnormalities (ERIKA,2002;287:212 0-9). Management algorithms have been distributed by [facility] and are available online at www.ASCCP.org. ? Document reviewed and electronically signed by: ? BILLY WHITAKER MD ? Report Date: ??07/06/2005 08:16 End of Report [facility] 06/26/2005 06/27/2005 Saran Dow CNM PATHOLOGY ORDERABLES [facility] [address] [place] [address] documented in this encounter Visit Diagnoses Not on filedocumented in this encounter
--- OUTSIDE RECORDS SUMMARY | 2024-03-23 08:41 | XMS_ITS | Encounter Summary ---
Author Organization [facility] Address [address] [place] [address] Care Team Providers Care Nursing Care Attendant Name Role Phone Alex Hong MD Primary Care Provider [phone] Encounter Details Date Type Department Care Team (Late st Contact Info) Description 12/24/2023 Lab Requisition [facility] Pathology & Laboratory Medicine - [address] [address] Outr Resulting Lab, Provider Social History Tobacco [...] Procedure Name Priority Date/Time Associated Diagnosis Comments XYLAZINE CONFIRMATION, U Routine 12/24/2023 12:36 EDT METHADONE AND METABOLITE CONFIRMATION PANEL Routine 12/24/2023 12:36 EDT BUPRENORPHINE AND METABOLITE CONFIRMATION PANEL Routine 12/24/2023 12:36 EDT FENTANYL AND METABOLITE CONFIRMATION PANEL Routine 12/24/2023 12:36 EDT documented in this encounter Results * XYLAZINE CONFIRMATION, U (12/24/2023 12:36 EDT) Xylazine Confirmation Negative <50 ng/mL 12/26/2023 11:34 EDT [facility] Urine URINE / Unknown 12/24/2023 1 2:36 EDT 12/24/2023 22:22 EDT N[facility]ative [facility] - 12/26/2023 11:34 EDT Testing performed by: [facility] [address] [place] [address], [facility] [address] [address] Quality Reviewer: Eamon Patricia MD; CLIA # [id number] Provider Outr Resulting Lab GEN LAB UNIT COLLECT ORDERABLES [facility] [address] [place] [address], [facility] [address] [place] [address], [facility] [phone] * (ABNORMAL) BUPRENORPHINE AND METABOLITE CONFIRMATION PANEL (12/24/2023 12:36 EDT) Buprenorphine Confirmation 148(A) <10 ng/mL 12/26/2023 11:34 EDT [facility] Norbuprenorphine Confirmation 696(A) <10 ng/mL 12/26/2023 11:34 EDT [facility] Naloxone Confirmation > 1000(A) <10 ng/mL 12/26/2023 11:34 EDT [facility] Urine URINE / Unknown 12/24/2023 1 2:36 EDT 12/24/2023 22:22 EDT [facility] 12/26/2023 11:34 EDT Testing performed by: [facility] [address] [place] [address], [facility] [address] [address] Quality Reviewer: Eamon Patricia MD; CLIA # [id number] Provider Outr Resulting Lab GEN LAB UNIT COLLECT ORDERABLES [facility] [address] [place] [address], [facility] [address] [place] [address], [facility] [phone] * METHADONE AND METABOLITE CONFIRMATION PANEL (12/24/2023 12:36 EDT) Methadone Confirmation Negative <100 ng/mL 12/26/2023 11:34 EDT [facility] EDDP Confirmation Negative <100 ng/mL 12/26/2023 11:34 EDT [facility] Urine URINE / Unknown 12/24/2023 1 2:36 EDT 12/24/2023 22:22 EDT Narrative [facility] - 12/26/2023 11:34 EDT Testing performed by: [facility] [address] [place] [address], [facility] [address] [address] Quality Reviewer: Eamon Patricia MD; CLIA # [id number] Provider Outr Resulting Lab GEN LAB UNIT COLLECT ORDERABLES [facility] [address] [place] [address], [facility] [address] [phone] * FENTANYL AND METABOLITE CONFIRMATION PANEL (12/24/2023 12:36 EDT) Fentanyl Confirmation Negative <2 ng/mL 12/26/2023 11:34 EDT [facility] Norfentanyl Confirmation Negative <10 ng/mL 12/26/2023 11:34 EDT [facility] Urine URINE / Unknown 12/24/2023 1 2:36 EDT 12/24/2023 22:22 EDT [facility]ative [facility] - 12/26/2023 11:34 EDT Testing performed by: [facility] [address] [place] [address], [facility] [address] [address] Quality Reviewer: Eamon Patricia MD; CLIA # [id number] Provider Outr Resulting Lab GEN LAB UNIT COLLECT ORDERABLES [facility] [address] [place] [address], [facility] [address] [phone] documented in this encounter Visit Diagnoses Not on filedocumented in this encounter Care Teams Nursing Care Attendant Relationship Specialty Start Date End Date Alex Hong MD PCP - General 12/04/10 documented as of this encounter
--- OUTSIDE RECORDS SUMMARY | 2024-03-23 08:41 | XMS_ITS | Encounter Summary ---
Author Organization [facility] Address [address] [place] [address] Care Team Providers Care Research Lab Assistant Name Role Phone Alex Hong MD Primary Care Provider [phone] Encounter Details Date Type Department Care Team (Late st Contact Info) Description 01/28/2024 Lab Requisition [facility] Pathology & Laboratory Medicine - [address] [address] Outr Resulting Lab, Provider Social History Tobacco [...] Associated Diagnosis Comments XYLAZINE CONFIRMATION, U Routine 01/28/2024 12:11 EDT METHADONE AND METABOLITE CONFIRMATION PANEL Routine 01/28/2024 12:11 EDT BUPRENORPHINE AND METABOLITE CONFIRMATION PANEL Routine 01/28/2024 12:11 EDT FENTANYL AND METABOLITE CONFIRMATION PANEL Routine 01/28/2024 12:11 EDT documented in this encounter Results * XYLAZINE CONFIRMATION, U (01/28/2024 12:11 EDT) Xylazine Confirmation Negative <50 ng/mL 01/30/2024 13:16 EDT [facility] Urine URINE / Unknown 01/28/2024 1 2:11 EDT 01/28/2024 21:45 EDT [facility]ative [facility] - 01/30/2024 13:16 EDT Testing performed by: [facility] [address] [place] [address], [place] [address] Datastage Developer: Eamon Patricia MD; CLIA # [id number] Provider Outr Resulting Lab GEN LAB UNIT COLLECT ORDERABLES Performing Organization Address City/[facility]/ZIP Co de Phone Number [facility] [address] [place] [address] [phone] * FENTANYL AND METABOLITE CONFIRMATION PANEL (01/28/2024 12:11 EDT) Fentanyl Confirmation Negative <2 ng/mL 01/30/2024 13:16 EDT [facility] Norfentanyl Confirmation Negative <10 ng/mL 01/30/2024 13:16 EDT [facility] Urine URINE / Unknown 01/28/2024 1 2:11 EDT 01/28/2024 21:45 EDT Narrative [facility] - 01/30/2024 13:16 EDT Testing performed by: [facility] [address] [place] [address] Datastage Developer: Eamon Patricia MD; CLIA # [id number] Provider Outr Resulting Lab GEN LAB UNIT COLLECT ORDERABLES Performing Organization Address [facility]/ZIP Co de Phone Number [facility] [address] [place] [address] [phone] * (ABNORMAL) BUPRENORPHINE AND METABOLITE CONFIRMATION PANEL (01/28/2024 12:11 EDT) Buprenorphine Confirmation 75(A) <10 ng/mL 01/30/2024 13:16 EDT [facility] Norbuprenorphine Confirmation 106(A) <10 ng/mL 01/30/2024 13:16 EDT [facility] Naloxone Confirmation 623(A) <10 ng/mL 01/30/2024 13:16 EDT [facility] Urine URINE / Unknown 01/28/2024 1 2:11 EDT 01/28/2024 21:45 EDT Narrative [facility] - 01/30/2024 13:16 EDT Testing performed by: [email or web address] [address] [place] [address], [facility] [address] [address] Datastage Developer: Eamon Patricia MD; CLIA # [id number] Provider Outr Resulting Lab GEN LAB UNIT COLLECT ORDERABLES [facility] [address] [place] [address], [facility] [address] [place] [address], [facility] [phone] * METHADONE AND METABOLITE CONFIRMATION PANEL (01/28/2024 12:11 EDT) Methadone Confirmation Negative <100 ng/mL 01/30/2024 13:16 EDT [facility] EDDP Confirmation Negative <100 ng/mL 01/30/2024 13:16 EDT [facility] Urine URINE / Unknown 01/28/2024 1 2:11 EDT 01/28/2024 21:45 EDT Narrative [facility] - 01/30/2024 13:16 EDT Testing performed by: [email or web address] [address] [place] [address], [facility] [address] [address] Datastage Developer: Eamon Patricia MD; CLIA # [id number] Provider Outr Resulting Lab GEN LAB UNIT COLLECT ORDERABLES [facility] [address] [place] [address], [facility] [address] [place] [address], [facility] [phone] documented in this encounter Visit Diagnoses Not on filedocumented in this encounter Care Teams Research Lab Assistant Relationship Specialty Start Date End Date Alex Hong MD PCP - General 12/04/10 documented as of this encounter
--- OUTSIDE RECORDS SUMMARY | 2024-03-23 08:41 | XMS_ITS | Encounter Summary ---
Author Organization [facility] Address [address] [place] [address] Care Team Providers Care Material Mixer Name Role Phone CanyonMary AGRICULTURAL PURCHASING AGENT Primary Care Provider + Encounter Details Date Type Department Care Team (Late st Contact Info) Description 11/30/2010 Results Only [facility] Laboratory Services - [facility] ([facility]) [address] [place], [place] [id number] Roshan Mendez MD [address] [place] [address],[address] [place] [address] Social History Tobacco Use Types Packs/Day Years Used Date Smoking Tobacco: Never Assessed Sex and Gender Information Value Date Recorded Sex Assigned at Not on file Gender Identity Not on file Sexual Orientation Not on file documented as of this encounter Plan of Treatment Not on file documented as of this encounter Procedures Procedure Name Priority Date/Time Associated Diagnosis Comments SURGICAL PATHOLOGY Routine 11/30/2010 0:00 EDT documented in this encounter Results * SURGICAL PATHOLOGY (11/30/2010 0:00 EDT) Pathology Report: SURGICAL PATHOLOGY REPORT ? Reports generated via electronic interface contain original data; ? however they are lacking the format of the original report. ? Caution should be taken when reading/interpreting unformatted reports. ? Name: ? IESHA, TR Monroe ? Accession #: ? [id number] ? : ? 1985 (Age: 24) ??F ? Collect Date: ? 11/30/2010 ? Location: ? [facility] ? Receive Date: ? 11/30/2010 ? Provider: ROSHAN MENDEZ MD ? Copy to: BARRINGTON BHATIA MD ? Final Pathologic Diagnosis: ? A. ?Cervix, posterior, LEEP: ? 1. ?High grade squamous intraepithelial lesion (HSIL) (FAVIO II). ? - High grade squamous intraepithelial lesion is seen at the endocervical ?? mucosal resection ?margin (blocks A1 and A2). ? - Other resection margins are negative for squamous intraepithelial lesion. ? B. ?? Cervix, anterior, LEEP: ? 1. ?? Low grade squamous intraepithelial lesion (LSIL) (FAVIO I). ? - Resection margins are negative for squamous intraepithelial lesion. ? Comment: ? Specimen (A) has been reviewed at the intradepartmental consultation ? conference. ??(Dr. Arechiga)/kmm ? Document reviewed and electronically signed by: ? Dyan Arechiga MD ? Report ??Date: 12/05/2010 14:41 ? By the signature above, the attending physician certifies that he/she has ? personally conducted a gross and/or microscopic examination of the described ? specimens and rendered or confirmed the above diagnosis. ? Specimen(s) Received: ? A. ?Posterior ectocervix ? B. ? Anterior ectocervix ? Clinical History: ? FAVIO II ? Gross Description: ? Received in formalin labelled Iesha, Tr and posterior ectocervix is a moore-stern, rubbery portion of unoriented cervix measuring 2.3 x 1.4 cm and is ?? excised to a depth of 0.5 cm. ??One aspect is surfaced by smooth to wrinkled ? mucosa. ??The endocervical margin is inked black and ectocervical blue. ??The ? specimen is serially sectioned and entirely submitted as (A1) to (A4). ? Received in formalin labelled Iesha, Tr and anterior ectocervix is the ?? unoriented product of a LEEP excision of cervix measuring 3.0 x 2.0 cm and is ?? excised to a depth ranging from 0.3 to 0.6 cm. ??One aspect is ? surfaced by a moore, smooth to wrinkled mucosa and there is an eccentric, 0.8 cm, patent, slit-like os. ??The endocervical margin is inked black and ectocervical ?? blue. ??The specimen is radially sectioned and entirely submitted as (B1) to ? (B8). (Apryl Kuhn)/[facility] ? End of Report ? [facility] 11/30/2010 11/30/2010 18: 47 EDT Roshan Mendez MD PATHOLOGY ORDERABLES [facility] [address] [place] [address] documented in this encounter Visit Diagnoses Not on filedocumented in this encounter Care Teams Material Mixer Relationship Specialty Start Date End Date Mary Phan, AGRICULTURAL PURCHASING AGENT [place] [address] [place] [address] PCP - General 07/04/10 12/03/10 documented as of this encounter
--- OUTSIDE RECORDS SUMMARY | 2024-03-23 08:41 | XMS_ITS | Encounter Summary ---
Author Organization [facility] Address [address] [place] [address] Care Team Providers Care Trim Operator Name Role Phone Barrington Bhatia MD Primary Care Provider [phone] Encounter Details Date Type Department Care Team (Late st Contact Info) Description 04/07/2019 Results Only [facility] [phone] Katrina Kaye MD [address] [place] [address] Social History Tobacco Use Types Packs/Day Years [...] Diagnosis Comments PAP TEST- RESULT ONLY Routine 04/07/2019 0:00 EDT documented in this encounter Results * PAP TEST- RESULT ONLY (04/07/2019 0:00 EDT) Pathology Report: CYTOPATHOLOGY REPORT Reports generated via electronic interface contain original data; however they are lacking the format of the original report. Caution should be taken when reading/interpret ing unformatted reports. Name: ? TR JULIAN ? Accession #: ? [id number] : ? 1985 (Age: 33) ??F ?Collect Date: ? 04/07/2019 Location: ? [facility] ? Receive Date: ? 04/13/2019 Provider: ?KATRINA KAYE MD Copy to: ?BARRINGTON BHATIA MD ? Specimen/Source: ?Pap Test, Cervix/Endocervix , ThinPrep Imaging System with manual evaluation Last Menstrual Period: ? Hormonal/Contrace ptive Status: ? Yes: NEXPLANON Previous Gynecologic Pathology: ? FAVIO II: 11/2010 LSIL: LGSIL 12/14 Treatment History: ? LEEP: 11/2010 ECC: 12/14 No record of any paps since. ? SPECIMEN ADEQUACY ? Unsatisfactory for Evaluation - Insufficient numbers of squamous epithelial cells (less than 10% of expected cellularity) possibly due to lubricant GENERAL CATEGORIZATION ? Specimen processed and examined, but unsatisfactory for evaluation of epithelial abnormality. Recommend Pap test in 2-4 months as stated in ASCCP's 2012 Updated Guidelines. HPV testing will not be performed due to the potential for false negative results. ? Document reviewed and electronically signed by: ? NITHYA Gu([facility]) ? Report Date: ??04/17/2019 13:14 End of Report [facility] 04/07/2019 04/13/2019 Katrina Kaye MD PATHOLOGY ORDERABLES [facility] [address] [place] [address] documented in this encounter Visit Diagnoses Not on filedocumented in this encounter Care Teams Trim Operator Relationship Specialty Start Date End Date Barrington Bhatia MD PCP - General 12/04/10 documented as of this encounter
--- OUTSIDE RECORDS SUMMARY | 2024-03-23 08:41 | XMS_ITS | Encounter Summary ---
Author Organization [facility] Address [address] [place] [address] Care Team Providers Care Car Clerk Pullman Name Role Phone Alex Hong MD Primary Care Provider [phone] Encounter Details Date Type Department Care Team (Late st Contact Info) Description 11/08/2022 Lab Requisition [facility] Pathology & Laboratory Medicine - [address] [address] Outr Resulting Lab, Provider Social History Tobacco [...] Procedure Name Priority Date/Time Associated Diagnosis Comments CELIAC DISEASE PANEL Routine 11/08/2022 14:03 EDT documented in this encounter Results * CELIAC DISEASE PANEL (11/08/2022 14:03 EDT) Tissue Transglutaminase Antibody IGA <1.2 <4.0 U/mL 11/13/2022 11:40 EDT [facility] Comment: A negative result may be due to IgA deficiency and does not rule out celiac disease. ? Negative: ??<4.0 U/mL ? Weak Positive: ??4.0 - 10.0 U/mL ? Positive: ??>10.0 U/mL Results were obtained with the [employer] QUANTA Lite R h-tTG IgA DUSTIN assay on the [employer] DSX. IgA 168 85 - 499 mg/dL 11/13/2022 11:40 EDT [facility] Celiac Disease Interpretation Negative Serology. Celiac disease unlikely. Approximately 10% of patients with celiac disease are seronegative. Patients who are already adhering to a gluten-free diet may also be seronegative. If celiac disease is highly clinically suspected, referral to gastroenterology for additional evaluation is recommended. 11/13/2022 11:40 EDT [facility] Blood VENOUS BLOOD / Unknown 11/08/2022 14:03 EDT 11/08/2022 21:39 EDT Provider Outr Resulting Lab IMMUNOLOGY A ND SEROLOGY ORDERABLES [facility] [address] [place] [address] documented in this encounter Visit Diagnoses Not on filedocumented in this encounter Care Teams Car Clerk Pullman Relationship Specialty Start Date End Date Alex Hong MD PCP - General 12/04/10 documented as of this encounter
--- OUTSIDE RECORDS SUMMARY | 2024-03-23 08:41 | XMS_ITS | Encounter Summary ---
Author Organization [facility] Address [address] [place] [address] Care Team Providers Care Office Automation Clerk Name Role Phone Alex Hong MD Primary Care Provider [phone] Encounter Details Date Type Department Care Team (Late st Contact Info) Description 04/20/2022 Lab Requisition [facility] Pathology & Laboratory Medicine - [address] [address] Outr Resulting Lab, Provider Social History Tobacco [...] Procedure Name Priority Date/Time Associated Diagnosis Comments HIV 1/2 ANTIGEN AND ANTIBODY, 4TH GENERATION Routine 04/20/2022 9:35 EDT documented in this encounter Results * HIV 1/2 ANTIGEN AND ANTIBODY, 4TH GENERATION (04/20/2022 9:35 EDT) HIV 1 and 2 Antibody/p24 Antigen, 4th Generation Negative Negative 04/22/2022 13:55 EDT [facility] Comment:If acute HIV-1 infec tion is suspected in a high risk patient, submit plasma specimen for HIV-1 RNA quantitation test. Blood VENOUS BLOOD / Unknown 04/20/2022 9:35 EDT 04/20/2022 19:01 EDT Narrative [facility] - 04/22/2022 13:55 EDT Fourth Generation assay performed on the Siemens Centaur XPT. Provider Outr Resulting Lab IMMUNOLOGY A ND SEROLOGY ORDERABLES [facility] [address] [place] [address] documented in this encounter Visit Diagnoses Not on filedocumented in this encounter Care Teams Office Automation Clerk Relationship Specialty Start Date End Date Alex Hong MD PCP - General 12/04/10 documented as of this encounter
--- OUTSIDE RECORDS SUMMARY | 2024-03-23 08:41 | XMS_ITS | Encounter Summary ---
Author Organization [facility] Address [address] [place] [address] Care Team Providers Care Sox Analyst Name Role Phone Alex Hong MD Primary Care Provider [phone] Encounter Details Date Type Department Care Team (Late st Contact Info) Description 05/23/2021 Lab Requisition [facility] Pathology & Laboratory Medicine - [address] [id number] Outr Resulting Lab, Provider Social History Tobacco [...] Associated Diagnosis Comments CELIAC DISEASE PANEL Routine 05/23/2021 11:35 EDT documented in this encounter Results * CELIAC DISEASE PANEL (05/23/2021 11:35 EDT) Tissue Transglutaminase Antibody IGA <1.2 <4.0 U/mL 05/24/2021 13:15 EDT [facility] Comment: A negative result may be due to IgA deficiency and does not rule out celiac disease. ? Negative: ??<4.0 U/mL ? Weak Positive: ??4.0 - 10.0 U/mL ? Positive: ??>10.0 U/mL Results were obtained with the [employer] QUANTA Lite R h-tTG IgA DUSTIN assay on the [employer] DSX. IgA 127 85 - 499 mg/dL 05/24/2021 13:15 EDT [facility] Celiac Disease Interpretation Negative Serology. Celiac disease unlikely. Approximately 10% of patients with celiac disease are seronegative. Patients who are already adhering to a gluten-free diet may also be seronegative. If celiac disease is highly clinically suspected, referral to gastroenterology for additional evaluation is recommended. 05/24/2021 13:15 EDT [facility] Blood VENOUS BLOOD / Unknown 05/23/2021 11:35 EDT 05/23/2021 16:51 EDT Provider Outr Resulting Lab IMMUNOLOGY A ND SEROLOGY ORDERABLES [facility] [address] [place] [address] documented in this encounter Visit Diagnoses Not on filedocumented in this encounter Care Teams Sox Analyst Relationship Specialty Start Date End Date Alex Hong MD PCP - General 12/04/10 documented as of this encounter
--- OUTSIDE RECORDS SUMMARY | 2024-03-23 08:41 | XMS_ITS | Encounter Summary ---
Author Organization [facility] Address [address] [place] [address] Care Team Providers Care Rug Cutter Name Role Phone AnchorMary MECHANICAL ENGINEERING INTERN Primary Care Provider + Encounter Details Date Type Department Care Team (Late st Contact Info) Description 09/29/2010 Results Only [facility] Laboratory Services - [facility] ([facility]) [address] [place], [place] [phone] Roshan Mendez MD [address] [place] [address],[address] [place] [address] Social History Tobacco Use Types [...] Priority Date/Time Associated Diagnosis Comments CYTOPATHOLOGY Routine 09/29/2010 0:00 EST SURGICAL PATHOLOGY Routine 09/29/2010 0:00 EST documented in this encounter Results * CYTOPATHOLOGY (09/29/2010 0:00 EST) Pathology Report: CYTOPATHOLOGY REPORT ? Reports generated via electronic interface contain original data; ? however they are lacking the format of the original report. ? Caution should be taken when reading/interpreti ng unformatted reports. ? Name: ? TR JULIAN ? Accession #: ? [id number] ? : ? 1985 (Age: 24) ??F ?Collect Date: ? 09/29/2010 ? Location: ? [facility] ? Receive Date: ? 10/02/2010 ? Provider: ?ROSHAN MENDEZ MD ? Copy to: ? Specimen/Source: ?Pap Test, Cervix/Endocervix, ThinPrep Imaging System ? with manual evaluation ? Last Menstrual Period: ? 09/11/2010 ? SPECIMEN ADEQUACY ? Satisfactory for Evaluation ? - transformation zone component present ? GENERAL CATEGORIZATION ? Epithelial Cell Abnormality ? INTERPRETATION ? Squamous Cell Abnormality - Atypical squamous cells, cannot exclude ? high grade squamous ? intraepithelial lesion (ASC-H). ? EDUCATIONAL NOTES/RECOMMENDATI ONS ? [facility] recommends following the 2006 Consensus Guidelines for the Management of Women with Abnormal Cervical Cancer Screening Tests (JLGTD, ? 2007;11(4):201-222 ). ??Consensus guidelines are available online at ? www.ASCCP.org. ? Document reviewed and electronically signed by: ? TESS MATTHEWS MD ? Report Date: ??10/08/2010 10:37 ? End of Report ? [facility] 09/29/2010 10/02/2010 Roshan Mendez MD PATHOLOGY ORDERABLES [facility] [address] [place] [address] * SURGICAL PATHOLOGY (09/29/2010 0:00 EST) Pathology Report: SURGICAL PATHOLOGY REPORT ? Reports generated via electronic interface contain original data; ? however they are lacking the format of the original report. ? Caution should be taken when reading/interpreting unformatted reports. ? Name: ? TR JULIAN ? Accession #: ? [id number] ? : ? 1985 (Age: 24) ??F ? Collect Date: ? 09/29/2010 ? Location: ? [facility] ? Receive Date: ? 09/30/2010 ? Provider: GAILYN B ALLI MD ? Copy to: BARRINGTON G JANNETTE MD ? Final Pathologic Diagnosis: ? A. ?Cervix, 7 o'clock, biopsies: ? 1. ?High grade squamous intraepithelial lesion (FAVIO II) with ? superimposed reactive changes. ??See comment. ? B. ?Endocervix, curettage: ? 1. ?Fragments of benign endocervical tissue. ? 2. ? Negative for dysplasia. ? Comment: ? Specimen (A) has been reviewed at the intradepartmental consultation conference. (Dr. Lopez)/ljn ? Document reviewed and electronically signed by: ? AMANDA N KALOF MD ? Report ??Date: 10/04/2010 16:37 ? By the signature above, the attending physician certifies that he/she has ? personally conducted a gross and/or microscopic examination of the described ? specimens and rendered or confirmed the above diagnosis. ? Specimen(s) Received: ? A. ?7 o'clock ? B. ? ECC ? Clinical History: ? ASCUS (+)HR HPV 11/10, Pap sent with biopsy ? Gross Description: ? Received in formalin labelled Tr Julian and cervix 7 o'clock are two moore-white, irregular soft tissues, 0.2 x 0.2 x 0.1 cm and 0.3 x 0.2 x 0.1 cm, ?? submitted in [facility] as (A). ? Received in formalin labelled Tr Julian and endocervix is a 0.8 x 0.8 x ?? 0.3 cm aggregate of blood-tinged mucus admixed with scant, moore-red tissue ? fragments. ??The specimen is entirely submitted as (B). (Anisa Lorenzo/[facility] ? End of Report ? KEYANA THOMAS 09/29/2010 09/30/2010 9:1 8 EST Roshan Mendez MD PATHOLOGY ORDERABLES [facility] [address] [place] [address] documented in this encounter Visit Diagnoses Not on filedocumented in this encounter Care Teams Rug Cutter Relationship Specialty Start Date End Date Mary Phan, MECHANICAL ENGINEERING INTERN [address] [place], [place] [id number] PCP - General 07/04/10 12/03/10 documented as of this encounter
--- OUTSIDE RECORDS SUMMARY | 2024-03-23 08:41 | XMS_ITS | Encounter Summary ---
Author Organization [facility] Address [address] [place] [address] Care Team Providers Care Welfare Service Aide Name Role Phone Alex Hong MD Primary Care Provider [phone] Encounter Details Date Type Department Care Team (Late st Contact Info) Description 05/23/[address] [facility] Pathology & Laboratory Medicine - [address] [address] Outr Resulting Lab, Provider Social History Tobacco [...] Procedure Name Priority Date/Time Associated Diagnosis Comments HCV RNA DETECT QUANT Today 05/23/2021 11:35 EDT HEPATITIS C AB W REFLEX TO HCV RNA BY PCR Routine 05/23/2021 11:35 EDT HEPATITIS A TOTAL ANTIBODY W REFLEX Routine 05/23/2021 11:35 EDT HEPATITIS B CORE ANTIBODY (TOTAL) Routine 05/23/2021 11:35 EDT HEPATITIS B SURFACE ANTIBODY Routine 05/23/2021 11:35 EDT HEPATITIS B SURFACE ANTIGEN Routine 05/23/2021 11:35 EDT documented in this encounter Results * HCV RNA DETECT QUANT (05/23/2021 11:35 EDT) [facility] HCV RNA Qualitative Undetected Undetected 05/25/2021 14:44 EDT [facility] Blood VENOUS BLOOD / Unknown 05/23/2021 11:35 EDT 05/23/2021 16:51 EDT Narrative [facility] - 05/25/2021 14:44 EDT New platform in use 02/27/2021 The quantification range of this assay is 15 IU/mL to 100,000,000 IU/mL. Testing was performed using the Alek HCV test ([employer] with the alek [employer] System. Provider Outr Resulting Lab CHEMISTRY & BLOOD GAS ORDERABLES Performing Organization Address [facility] Co de Phone Number [facility] [address] [place] [address] * HEPATITIS B SURFACE ANTIBODY (05/23/2021 11:35 EDT) [facility] Hep B Surface Ab, Quantitative 18.4 See Note mIU/mL 05/24/2021 10:54 EDT [facility] Comment: Reference Range for Hep B Surface Ab, Quant: Positive: >= 10.0 mIU/mL Negative: ??< 10.0 mIU/mL Patient is presumed to be immune to infection with Hepatitis B Virus. Hep B Surface Ab, Qualitative Positive See Note 05/24/2021 10:54 EDT [facility] Comment: Reference Range for Hep B Surface Ab, Qual: Unvaccinated: ??Negative Vaccinated: ??Positive Blood VENOUS BLOOD / Unknown 05/23/2021 11:35 EDT 05/23/2021 16:51 EDT Provider Outr Resulting Lab CHEMISTRY & BLOOD GAS ORDERABLES Performing Organization Address [facility] Co de Phone Number [facility] [address] [place] [address] * HEPATITIS B CORE ANTIBODY (TOTAL) (05/23/2021 11:35 EDT) Hepatitis B Core Ab, Total Negative Negative 05/24/2021 12:05 EDT [facility] Blood VENOUS BLOOD / Unknown 05/23/2021 11:35 EDT 05/23/2021 16:51 EDT Provider Outr Resulting Lab CHEMISTRY & BLOOD GAS ORDERABLES Performing Organization Address [facility]/ZIP Co de Phone Number [facility] [address] [place] [address] * HEPATITIS B SURFACE ANTIGEN (05/23/2021 11:35 EDT) Hep B Surface Ag Negative Negative 05/24/2021 11:00 EDT [facility] Blood VENOUS BLOOD / Unknown 05/23/2021 11:35 EDT 05/23/2021 16:51 EDT Provider Outr Resulting Lab CHEMISTRY & BLOOD GAS ORDERABLES Performing Organization Address [facility] Co de Phone Number [facility] [address] [place] [address] * (ABNORMAL) HEPATITIS C AB W REFLEX TO HCV RNA BY PCR (05/23/2021 11:35 EDT) Pathologist [facility] Hep C Antibody Reactive(A ) Negative 05/24/2021 11:13 EDT [facility] Comment: Supplemental testing for HCV RNA is ordered to rule out active HCV infection. Blood VENOUS BLOOD / Unknown 05/23/2021 11:35 EDT 05/23/2021 16:51 EDT Provider Outr Resulting Lab CHEMISTRY & BLOOD GAS ORDERABLES Performing Organization Address [facility] Co de Phone Number [facility] [address] [place] [address] * HEPATITIS A TOTAL ANTIBODY W REFLEX (05/23/2021 11:35 EDT) Hepatitis A Antibody, Total Negative Negative 05/24/2021 11:59 EDT [facility] Blood VENOUS BLOOD / Unknown 05/23/2021 11:35 EDT 05/23/2021 16:51 EDT Narrative [facility] - 05/24/2021 11:59 EDT The result of this assay can be falsely elevated (Positive) due to the consumption of Biotin. Provider Outr Resulting Lab CHEMISTRY & BLOOD GAS ORDERABLES [facility] [address] [place] [address] documented in this encounter Visit Diagnoses Not on filedocumented in this encounter Care Teams Welfare Service Aide Relationship Specialty Start Date End Date Alex Hong MD PCP - General 12/04/10 documented as of this encounter
--- OUTSIDE RECORDS SUMMARY | 2024-03-23 08:41 | XMS_ITS | Encounter Summary ---
Author Organization [facility] Address [address] [place] [address] Care Team Providers Care Door Fitter Name Role Phone Alex Hong MD Primary Care Provider [phone] Encounter Details Date Type Department Care Team (Late st Contact Info) Description 03/29/2023 Lab Requisition [facility] Pathology & Laboratory Medicine - [address] [address] Outr Resulting Lab, Provider Social History Tobacco [...] 1/2 ANTIGEN AND ANTIBODY, 4TH GENERATION Routine 03/29/2023 13:19 EDT documented in this encounter Results * HIV 1/2 ANTIGEN AND ANTIBODY, 4TH GENERATION (03/29/2023 13:19 EDT) HIV 1 and 2 Antibody/p24 Antigen, 4th Generation Negative Negative 03/30/2023 11:17 EDT [facility] Comment:If acute HIV-1 infec tion is suspected in a high risk patient, submit plasma specimen for HIV-1 RNA quantitation test. Blood VENOUS BLOOD / Unknown 03/29/2023 13:19 EDT 03/29/2023 21:44 EDT Narrative [facility] - 03/30/2023 11:17 EDT Fourth Generation assay performed on the Siemens Centaur XPT. Provider Outr Resulting Lab IMMUNOLOGY A ND SEROLOGY ORDERABLES [facility] [address] [place] [address] documented in this encounter Visit Diagnoses Not on filedocumented in this encounter Care Teams Door Fitter Relationship Specialty Start Date End Date Alex Hong MD PCP - General 12/04/10 documented as of this encounter
--- OUTSIDE RECORDS SUMMARY | 2024-03-23 08:41 | XMS_ITS | Referral Summary ---
Author Organization [facility] Address [address] [place] [address] Care Team Providers Care Asphalt Paving Machine Operator Name Role Phone Alex Hong MD Primary Care Provider [phone] Encounters Date Type Department Care Team Description 01/28/2024 Lab Requisition [facility] Pathology & Laboratory [address] [address] Outr Resulting Lab, Provider 01/01/2024 Lab Requisition [facility] Pathology & Laboratory [address] [address] Outr Resulting Lab, Provider 12/24/2023 Lab Requisition [facility] Pathology & Laboratory [address] [address] Outr Resulting Lab, Provider from Last 3 Months Allergies No known active allergies Medications Medication Sig Dispensed Refills Start Date End Date Status hydrOXYzine (ATARAX) 25 mg tablet Take 1 Tablet by mouth 2 times daily as needed. 01/14/2023 Active buprenorphine 300 mg/1.5 mL solution, extended rel syringe Inject 1.5 mL into the skin every 28 days. Daily Max: 300 mg Active Social History Tobacco Use Types Packs/Day Years Used Date Smoking Tobacco: Never Assessed Interpersonal Safety Answer Date Record ed Physically Hurt Never 03/06/2020 Verbally Threaten Not on file 03/06/2020 Sex and Gender Information Value Date Recorded Sex Assigned at Not on file Gender Identity Not on file Sexual Orientation Not on file Plan of Treatment Not on file Procedures Procedure Name Priority Date/Time Associated Diagnosis Comments XYLAZINE CONFIRMATION, U Routine 01/28/2024 12:11 EDT FENTANYL AND METABOLITE CONFIRMATION PANEL Routine 01/28/2024 12:11 EDT BUPRENORPHINE AND METABOLITE CONFIRMATION PANEL Routine 01/28/2024 12:11 EDT METHADONE AND METABOLITE CONFIRMATION PANEL Routine 01/28/2024 12:11 EDT BUPRENORPHINE AND METABOLITE CONFIRMATION PANEL Routine 01/01/2024 11:51 EDT XYLAZINE CONFIRMATION, U Routine 12/24/2023 12:36 EDT BUPRENORPHINE AND METABOLITE CONFIRMATION PANEL Routine 12/24/2023 12:36 EDT METHADONE AND METABOLITE CONFIRMATION PANEL Routine 12/24/2023 12:36 EDT FENTANYL AND METABOLITE CONFIRMATION PANEL Routine 12/24/2023 12:36 EDT HEPATITIS C AB W REFLEX TO HCV RNA BY PCR Routine 04/20/2022 9:35 EDT from Last 3 Months or Most Recently Relevant to Health Maintenance Results * XYLAZINE CONFIRMATION, U (01/28/2024 12:11 EDT) Only the most recent of2 resultswithin the time period is included. Xylazine Confirmation Negative <50 ng/mL 01/30/2024 13:16 EDT [facility] Urine URINE / Unknown 01/28/2024 1 2:11 EDT 01/28/2024 21:45 EDT Narrative [facility] - 01/30/2024 13:16 EDT Testing performed by: [facility] [address] [place] [address], [address], [place] [address] Chemical Processing Laborer: Eamon Patricia MD; CLIA # [id number] Provider Outr Resulting Lab GEN LAB UNIT COLLECT ORDERABLES [facility] [address], [address] [place] [address], [facility] [phone] * METHADONE AND METABOLITE CONFIRMATION PANEL (01/28/2024 12:11 EDT) Only the most recent of2 resultswithin the time period is included. Methadone Confirmation Negative <100 ng/mL 01/30/2024 13:16 EDT [facility] EDDP Confirmation Negative <100 ng/mL 01/30/2024 13:16 EDT [facility] Urine URINE / Unknown 01/28/2024 1 2:11 EDT 01/28/2024 21:45 EDT Narrative [facility] - 01/30/2024 13:16 EDT Testing performed by: [facility] [address] [place] [address], [facility] [address] [address] Chemical Processing Laborer: Eamon Patricia MD; CLIA # [id number] Provider Outr Resulting Lab GEN LAB UNIT COLLECT ORDERABLES [facility] [address] [place] [address], [facility] [phone] * (ABNORMAL) BUPRENORPHINE AND METABOLITE CONFIRMATION PANEL (01/28/2024 12:11 EDT) Only the most recent of3 resultswithin the time period is included. Buprenorphine Confirmation 75(A) <10 ng/mL 01/30/2024 13:16 EDT [facility] Norbuprenorphine Confirmation 106(A) <10 ng/mL 01/30/2024 13:16 EDT [facility] Naloxone Confirmation 623(A) <10 ng/mL 01/30/2024 13:16 EDT [facility] Urine URINE / Unknown 01/28/2024 1 2:11 EDT 01/28/2024 21:45 EDT Narrative [facility] - 01/30/2024 13:16 EDT Testing performed by: [facility] [address] [place] [address], [place] [address] Chemical Processing Laborer: Eamon Patricia MD; CLIA # [id number] Provider Outr Resulting Lab GEN LAB UNIT COLLECT ORDERABLES [facility] [address] [place] [address], [facility] [address] [phone] * FENTANYL AND METABOLITE CONFIRMATION PANEL (01/28/2024 12:11 EDT) Only the most recent of2 resultswithin the time period is included. Pathologist [facility] Fentanyl Confirmation Negative <2 ng/mL 01/30/2024 13:16 EDT [facility] Norfentanyl Confirmation Negative <10 ng/mL 01/30/2024 13:16 EDT [facility] Urine URINE / Unknown 01/28/2024 1 2:11 EDT 01/28/2024 21:45 EDT Narrative [facility] - 01/30/2024 13:16 EDT Testing performed by: [facility] [address] [place] [address], [facility] [address] [address] Chemical Processing Laborer: Eamon Patricia MD; CLIA # [id number] Provider Outr Resulting Lab GEN LAB UNIT COLLECT ORDERABLES Performing Organization Address [facility] Co de Phone Number [facility] [address] [place] [address], [facility] [address] [phone] * (ABNORMAL) HEPATITIS C AB W REFLEX TO HCV RNA BY PCR (04/20/2022 9:35 EDT) Pathologist [facility] Hep C Antibody Reactive(A ) Negative 04/23/2022 9:51 EDT [facility] Comment: Supplemental testing for HCV RNA is ordered to rule out active HCV infection. Blood VENOUS BLOOD / Unknown 04/20/2022 9:35 EDT 04/20/2022 19:01 EDT Provider Outr Resulting Lab CHEMISTRY & BLOOD GAS ORDERABLES [facility] [address] [place] [address] from Last 3 Months or Most Recently Relevant to Health Maintenance Care Teams Asphalt Paving Machine Operator Relationship Specialty Start Date End Date Alex Hong MD PCP - General 12/04/10
--- OUTSIDE RECORDS SUMMARY | 2024-03-23 08:41 | XMS_ITS | Encounter Summary ---
Author Organization [facility] Address [address] [place] [address] Care Team Providers Care Patent Attorney Name Role Phone Unavailable Primary Care Provider Unavailabl e Encounter Details Date Type Department Care Team (Latest Contact Info) Description 03/06/2006 15:10 EDT Hospital Encounter [facility] [address] [place] [address] Saran Dow CNM [address] [place] [id number] Discharge Disposition: Auto Discharge Social History Tobacco Use Types Packs/Day Years Used Date Smoking Tobacco: Never Assessed Sex and Gender Information Value Date Recorded Sex Assigned at Not on file Gender Identity Not on file Sexual Orientation Not on file documented as of this encounter Discharge Disposition Disposition Code Departure Means Destination Auto Discharge documented in this encounter Plan of Treatment Not on file documented as of this encounter Procedures Procedure Name Priority Date/Time Associated Diagnosis Comments HPV DETECTION, HIGH RISK TYPES Routine 03/06/2006 11:40 EDT documented in this encounter Results * HUMAN PAPILLOMA VIRUS DNA TEST (03/06/2006 11:40 EDT) Specimen Description Cervix, ThinPrep vial [facility] Result Result indeterminate. Suggest repeat if clinically indicated. [facility] Report Status Final [id number] [facility] 03/06/2006 11:4 0 EDT 03/13/2006 14:27 EDT Saran Dow CNM MICROBIOLOGY - GENER AL ORDERABLES [facility] [address] [place] [address] documented in this encounter Visit Diagnoses Not on filedocumented in this encounter
--- OUTSIDE RECORDS SUMMARY | 2024-03-23 08:41 | XMS_ITS | Encounter Summary ---
Author Organization [facility] Address [address] [place] [address] Care Team Providers Care Poultry Scalder Name Role Phone Unavailable Primary Care Provider Unavailabl e Encounter Details Date Type Department Care Team (Late st Contact Info) Description 07/20/2003 Results Only [facility] [address] [place] [address] Sylvia Roque MD [address] [place] [address] [place] [address] Social History Tobacco Use Types Packs/Day Years Used Date Smoking Tobacco: Never Assessed Sex and Gender Information Value Date Recorded Sex Assigned at Not on file Gender Identity Not on file Sexual Orientation Not on file documented as of this encounter Plan of Treatment Not on file documented as of this encounter Procedures Procedure Name Priority Date/Time Associated Diagnosis Comments SURGICAL PATHOLOGY Routine 07/20/2003 0:00 EST documented in this encounter Results * SURGICAL PATHOLOGY (07/20/2003 0:00 EST) Pathology Report: SURGICAL PATHOLOGY REPORT Reports generated via electronic interface contain original data; however they are lacking the format of the original report. Caution should be taken when reading/interpreting unformatted reports. Name: ? TR JULIAN ? Accession #: ? [id number] ? : ? 1985 (Age: 17) ??F ? Collect Date: ? 07/20/2003 ? Location: ? [facility] ? Receive Date: ? 07/22/2003 ? Provider: SYLVIA ROQUE MD Copy to: REE FROST MD ? Final Pathologic Diagnosis: ? Cervix, 11 o' clock, biopsy: 1. ?High grade squamous intraepithelial lesion (FAVIO II). ??See comment. 2. 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 3. ?Transformation zone present. Comment: ? Data Governance Consultant sections have been reviewed at intradepartmental consultation conference. (Dr. Meek) Document reviewed and electronically signed by: DEIDRE MEEK MD Report ??Date: 07/26/2003 14:52 By the signature above, the attending physician certifies that he/she has personally conducted a gross and/or microscopic examination of the described specimens and rendered or confirmed the above diagnosis. Specimen(s) Received: ? Bx cx 11:00 Clinical History: ? ASCUS Pap ([id number]); (+) HPV Gross Description: ? Received in formalin labeled Julian and cervical is a moore-white, 0.5 x 0.3 x 0.2 cm soft tissue fragment. ??The specimen is entirely submitted in one cassette. ??(Apryl Layton/aure End of Report [facility] 07/20/2003 07/22/2003 10: 32 EST Slyvia Roque MD PATHOLOGY ORDERABLES [facility] [address] [place] [address] documented in this encounter Visit Diagnoses Not on filedocumented in this encounter
--- OUTSIDE RECORDS SUMMARY | 2024-03-23 08:41 | XMS_ITS | Clinical Summary ---
Author Organization [facility] Address [address] [place] [address] Care Team Providers Care Draw Frame Tender Name Role Phone Alex Hong MD Primary Care Provider [phone] Allergies No known active allergies Medications Medication Sig Dispensed Refills Start Date End Date Status hydrOXYzine (ATARAX) 25 mg tablet Take 1 Tablet by mouth 2 times daily as needed. 01/14/2023 Active buprenorphine 300 mg/1.5 mL solution, extended rel syringe Inject 1.5 mL into the skin every 28 days. Daily Max: 300 mg Active Encounters Date Type Department Care Team Description 01/28/2024 Lab Requisition [facility] Pathology & Laboratory [address] [address] Outr Resulting Lab, Provider 01/01/2024 Lab Requisition [facility] Pathology & Laboratory [address] [address] Outr Resulting Lab, Provider 12/24/2023 Lab Requisition [facility] Pathology & Laboratory [address] [address] Outr Resulting Lab, Provider from Last 3 Months Social History Tobacco Use Types Packs/Day Years Used Date Smoking Tobacco: Never Assessed Interpersonal Safety Answer Date Record ed Physically Hurt Never 03/06/2020 Verbally Threaten Not on file 03/06/2020 Sex and Gender Information Value Date Recorded Sex Assigned at Not on file Gender Identity Not on file Sexual Orientation Not on file Plan of Treatment Health Maintenance Due Date Last Done Comments Hepatitis B Vaccine (1 of 3 - 19+ 3-dose series) 2004 COVID-19 Vaccine (2022-2 4 season) 2023 Hepatitis C Screen Completed 04/20/2022, 0 04/20/2022, 04/20/2022, Additional history exists Procedures Procedure Name Priority Date/Time Associated Diagnosis [...] Confirmation Negative <50 ng/mL 01/30/2024 13:16 EDT [facility] Urine URINE / Unknown 01/28/2024 1 2:11 EDT 01/28/2024 21:45 EDT Narrative [facility] - 01/30/2024 13:16 EDT Testing performed by: [facility] [address] [place] [address], [facility] [address] [address] Line Maintenance Technician: Eamon Patricia MD; CLIA # [id number] Provider Outr Resulting Lab GEN LAB UNIT COLLECT ORDERABLES Performing Organization Address City/[facility]/ZIP Co de Phone Number [facility] [address] [place] [address] * METHADONE AND METABOLITE CONFIRMATION PANEL (01/28/2024 12:11 EDT) Only the most recent of2 resultswithin the time period is included. Methadone Confirmation Negative <100 ng/mL 01/30/2024 13:16 EDT [facility] EDDP Confirmation Negative <100 ng/mL 01/30/2024 13:16 EDT [facility] Urine URINE / Unknown 01/28/2024 1 2:11 EDT 01/28/2024 21:45 EDT Narrative [facility] - 01/30/2024 13:16 EDT Testing performed by: [facility] [address] [place] [address] Line Maintenance Technician: Eamon Patricia MD; CLIA # [id number] Provider Outr Resulting Lab GEN LAB UNIT COLLECT ORDERABLES Performing Organization Address [facility] Co de Phone Number [facility] [address] [place] [address] * (ABNORMAL) BUPRENORPHINE AND METABOLITE CONFIRMATION PANEL (01/28/2024 12:11 EDT) Only the most recent of3 resultswithin the time period is included. Buprenorphine Confirmation 75(A) <10 ng/mL 01/30/2024 13:16 EDT [facility] Norbuprenorphine Confirmation 106(A) <10 ng/mL 01/30/2024 13:16 EDT [facility] Naloxone Confirmation 623(A) <10 ng/mL 01/30/2024 13:16 EDT [facility] Urine URINE / Unknown 01/28/2024 1 2:11 EDT 01/28/2024 21:45 EDT Narrative [facility] - 01/30/2024 13:16 EDT Testing performed by: [facility] [address] [place] [address], [facility] [address] [address] Line Maintenance Technician: Eamon Patricia MD; CLIA # [id number] Provider Outr Resulting Lab GEN LAB UNIT COLLECT ORDERABLES [facility] [address] [place] [address], [facility] [address] [phone] * FENTANYL AND METABOLITE CONFIRMATION PANEL (01/28/2024 12:11 EDT) Only the most recent of2 resultswithin the time period is included. Pathologist [facility] Fentanyl Confirmation Negative <2 ng/mL 01/30/2024 13:16 EDT [facility] Norfentanyl Confirmation Negative <10 ng/mL 01/30/2024 13:16 EDT [facility] Urine URINE / Unknown 01/28/2024 1 2:11 EDT 01/28/2024 21:45 EDT Narrative [facility] - 01/30/2024 13:16 EDT Testing performed by: [facility] [address] [place] [address], [facility] [address] [address] Line Maintenance Technician: Eamon Patricia MD; CLIA # [id number] Provider Outr Resulting Lab GEN LAB UNIT COLLECT ORDERABLES Performing Organization Address City/[facility]/ZIP Co de Phone Number [facility] [address] [place] [address], [facility] [address] [phone] * (ABNORMAL) HEPATITIS C AB W REFLEX TO HCV RNA BY PCR (04/20/2022 9:35 EDT) Hep C Antibody Reactive(A ) Negative 04/23/2022 9:51 EDT [facility] Comment: Supplemental testing for HCV RNA is ordered to rule out active HCV infection. Blood VENOUS BLOOD / Unknown 04/20/2022 9:35 EDT 04/20/2022 19:01 EDT Provider Outr Resulting Lab CHEMISTRY & BLOOD GAS ORDERABLES [facility] [address] [place] [address] from Last 3 Months or Most Recently Relevant to Health Maintenance Care Teams Draw Frame Tender Relationship Specialty Start Date End Date Alex Hong MD PCP - General 12/04/10
--- OUTSIDE RECORDS SUMMARY | 2024-03-23 08:41 | XMS_ITS | Encounter Summary ---
Author Organization [facility] [place] [address] Care Team Providers Care Irrigator Overhead Name Role Phone Shweta Sykes GERTRUDE Primary Care Provider [phone] Encounter Details Date Type Department Care Team (Late st Contact Info) Description 12/19/2021 1:36 PM EDT Anesthesia [place] [address] Danilo Stanton MD [facility] [address] [place] [address] Pattie Lara CRNA [facility] [address] [place] [address] Anesthesia Record Procedure Summary Procedure Name Responsible Anesthesiologist Anesthesia Start Time Anesthesia Stop Time EGD WITH BIOPSY (WRVU 2.39) Danilo Stanton MD 12/19/21 1336 12/19/21 1401 Events Date Time Event Comment 12/19/2021 1325 1335 AN Verify 1336 Start 1336 An Start Data 1338 An Induction 1341 Anesthesia Ready 1345 Procedure Start 1353 Procedure Stop 1357 an stop data 1400 Recovery or ICU Handoff Zayda ent care was transferred to the destination unit staff after review of the patient's medical history, current anesthetic/surgical status and plan, according to the Provider Handoff Checklist. 1401 Stop Meds Name Total IV Lidocaine 40 mg Propofol 100 mg Propofol INF 289.13 mg Dexmedetomidine 20 mcg lactated ringers infusion 600 mL * Agents Name O2 Auxiliary Flowmeter 1 * Blood No blood administrations on file. Lines, Drains, and Airways Type Details Placement Removal (RETIRED By [email or web address]) Incision 10/15/16; 0048 10/15/16 0048 by Chelsi Pozo RN (RETIRED) Peripheral IV Line - Single Lumen 12/19/21; 1308; median cubital vein (antecubital fossa), right; [id number]-yypvuc catheter system; Anatomical Landmarks; 22 gauge; raji s; tolerated well; 12/19/21; 1438 12/19/21 1308 by Raji Correa RN 12/19/21 1438 by Megha Feng RN documented in this encounter Social History Tobacco Use Types Packs/Day Years Used Date Smoking Tobacco: Former Cigarettes 2017 Smokeless Tobacco: Never Comments:vape nicotine Alcohol Use Standard Drinks/Week Comments No 0 (1 standard drink = 0.6 oz pur e alcohol) Sex and Gender Information Value Date Recorded Sex Assigned at Not on file Gender Identity Not on file Sexual Orientation Not on file documented as of this encounter OR Notes * Anesthesia Postprocedure Evaluation - Danilo Stanton MD - 12/19/2021 3:02 PM EDT Department of Anesthesiology Post-procedure Note Patient: Chencho Barrett Procedure Summary Date: 12/19/21 Room / Location: [facility] ENDO 1 / [facility] ENDOSCOPY Anesthesia Start: 1336 Anesthesia Stop: 1401 Procedures: EGD WITH BIOPSY (WRVU 2.49) (N/A ) HERNANDES PLACEMENT (N/A Esophagus) Diagnosis: Heartburn Gastroesophageal reflux disease, unspecified whether esophagitis present Vomiting, intractability of vomiting not specified, presence of nausea not specified, unspecified vomiting type Chronic nausea Cannabis hyperemesis syndrome concurrent with and due to cannabis dependence Therapeutic opioid-induced constipation (OIC) Chronic idiopathic constipation Irritable bowel syndrome with constipation Functional dyspepsia Avoidant-restrictive food intake disorder (ARFID) Class 1 obesity with body mass index (BMI) of 31.0 to 31.9 in adult, unspecified obesity type, unspecified whether serious comorbidity present BRBPR (bright red blood per rectum) Melena (reported BRBPR and melena) (EGD Hernandes off PPI, symptom: heartburn, RMD: Amelie Berrios, PCP: Shweta Sykes APRN) Surgeons: López Sosa MD Responsible Provider: Danilo Stanton MD Anesthesia Type: MAC ASA Status: 3 All Anesthesia Providers: Anesthesiologist: Danilo Stanton MD BOATBUILDER SUPERVISOR: Pattie Persaud CRNA Vitals Value Taken Time BP 95/58 12/19/21 1410 Temp Pulse Resp 18 12/19/21 1410 SpO2 99 % 12/19/21 1415 Pain Level 0 12/19/21 1415 Patient Location: PACU/[facility] Level of Consciousness: Awake and Alert Pain Management: Satisfactory Analgesia PONV: None Cardiovascular Status: At Baseline and Hemodynamically Stable Respiratory Status: At Baseline and Room Air Postoperative Fluid Status: Intravascular EUvolemia Possible Anesthetic Complications: NONE apparent at time of evaluation Final Primary Anesthesia Type: MAC (The anesthetic type performed was the same as planned.) Comments: DANILO STANTON MD * Anesthesia Preprocedure Evaluation - Danilo Stanton MD - 12/19/2021 1:22 PM EDT Pre-Anesthesia Evaluation for: Chencho Barrett a 35 y.o. female. Procedure(s): EGD, UPPER GI ENDOSCOPY Patient Active Problem List Diagnosis Date Noted ??? Encounter for insertion subdermal contraceptive 10/18/2016 ??? care following delivery 10/15/2016 ??? Cigarette smoker 11/26/2014 ??? Late care 11/26/2014 ??? Rubella non-immune status, antepartum 11/26/2014 ??? Substance abuse ??? Depression ??? Hepatitis C Past Medical History: Diagnosis Date ??? Chlamydia ??? Depression ??? Hepatitis C ??? Panic attacks denies a history of seizures ??? Substance abuse crack cocaine, prior IVDA Past Surgical History: Procedure Laterality Date ??? SECTION 10/15/2016 ??? WISDOM TOOTH EXTRACTION Social History Tobacco Use ??? Smoking status: Former Smoker Packs/day: 1.00 Years: 10.00 Pack years: 10.00 Quit date: 2018 Years since quittin.3 ??? Smokeless tobacco: Never Used ??? Tobacco comment: vape nicotine Substance Use Topics ??? Alcohol use: No Social History Substance and Sexual Activity Drug Use Yes ??? Types: Marijuana Comment: daily THC No Known Allergies Medications: MAR and/or home medications have been reviewed. Physical Exam: Preprocedure Vitals Current as of 12/19/21 1322 BP: 100/75 Pulse: 77 Resp: 16 SpO2: 97 Temp: 36.1 ??C (97 ??F) Height: 162.6 cm (5' 4) (12/19/21) Weight: 77.1 kg (170 lb) (12/19/21) BMI: 29.18 IBW: 54.7 kg (120 lb 10.7 oz) Last edited 12/19/21 1241 by HS Airway Assessment: Mallampati: II TM distance: >3 FB Neck ROM: full Cardiovascular Assessment: system normal Pulmonary Assessment: pulmonary exam normal Dental Assessment: - normal exam Misc Assessment: Patient is wearing No contact(s). IV access: Peripheral line Last Filed Perioperative Cognitive Screening None Anesthesia Plan: ASA 3 MAC, with a(n) intravenous induction 35 year old female for EGD Symptoms of dysphagia, morning vomiting NO anesthesia issues in the past Did not do prep so colo portion of study has been cancelled History of substance abuse Hep C, untreated. Plan propofol sedation Region - Other Informed Consent: Anesthetic plan and risks discussed with patient. Plan discussed with BOATBUILDER SUPERVISOR. Anesthesia Screening documented in this encounter Plan of Treatment Not on file documented as of this encounter Visit Diagnoses Not on filedocumented in this encounter Administered Medications Inactive Administered Medications - up to 3 most recent administrations Medication Order MAR Action Action Date Dose Rate Site dexmedetomidine (Precedex) (4 mcg/mL) bolus injection (Anesthsia) Intravenous, PRN, Starting on Sat12/19/21 at 1338, Until Sat12/19/21 at 1403, Anesthesia Intra-op, Routine Given 12/19/2021 1:44 PM EDT 8 mcg Given 12/19/2021 1:38 PM EDT 12 mcg lactated ringers infusion 100 mL/hr, Intravenous, CONTINUOUS, Starting on Sat12/19/21 at 1300, Until Sat12/19/21 at 1401, Endoscopy (Day of Procedure) New Bag 12/19/2021 1:33 PM EDT lidocaine (pf) (Xylocaine) (20 mg/mL) 2% injection syringe Intravenous, PRN, Starting on 12/19/21 at 1340, Until 12/19/21 at 1403, Anesthesia Intra-op, Routine Given 12/19/2021 1:40 PM EDT 40 mg propofoL (Diprivan) (10 mg/mL) infusion Intravenous, CONTINUOUS PRN, Starting on e 12/19/21 at 1338, Until 12/19/21 at 1403, Anesthesia Intra-op, Routine New Bag 12/19/2021 1:38 PM EDT 250 mcg/kg/min 115.65 mL/hr propofoL (Diprivan) 10 mg/mL bolus injection (Anesthesia) Intravenous, PRN, Starting on 12/19/21 at 1340, Until 12/19/21 at 1403, Anesthesia Intra-op Given 12/19/2021 1:42 PM EDT 20 mg Given 12/19/2021 1:40 PM EDT 80 mg documented in this encounter Care Teams Irrigator Overhead Relationship Specialty Start Date End Date Shweta Sykes APRN [address] [place] [address] [address] [facility] [address] [place] [address] PCP - General Family Medicine 05/28/21 11/01/22 documented as of this encounter
--- OUTSIDE RECORDS SUMMARY | 2024-03-23 08:41 | XMS_ITS | Encounter Summary ---
Author Organization [facility] [place] [address] Care Team Providers Care Parquetry Layer Name Role Phone Shweta Sykes GERTRUDE Primary Care Provider [phone] Reason for Referral * Consultation (Routine) - Closed Specialty Diagnoses / Procedures Referred By Nohemi acevedo Referred To Contact Gastroenterology Diagnoses Chronic hepatitis C without hepatic coma Amelie Berrios [facility] [place] [address] [facility] [address] [place] [address] Referral ID Status Reason Start Date Expiration Date V isits Requested Visits Authorized [id number] Closed Consult, Test & Treat 12/20/2021 12/20/2022 1 1 Encounter Details Date Type Department Care Team (Late st Contact Info) Description 12/20/2021 Orders [place] [address] Amelie Berrios [facility] [place] [address] Chronic hepatitis C without hepatic coma Social History Tobacco Use Types Packs/Day Years Used Date Smoking Tobacco: Former Cigarettes 1 2017 Smokeless Tobacco: Never Comments:vape nicotine Alcohol Use Standard Drinks/Week Comments No 0 (1 standard drink = 0.6 oz pur e alcohol) Sex and Gender Information Value Date Recorded Sex Assigned at Not on file Gender Identity Not on file Sexual Orientation Not on file documented as of this encounter Plan of Treatment Scheduled Referrals Name Type Priority Associated Diagnoses Order Schedule Referral to Gastroenterology Outpatient Referral Routine Chronic hepatitis C without hepatic coma Ordered: 12/20/2021 documented as of this encounter Visit Diagnoses Diagnosis Chronic hepatitis C without hepatic coma documented in this encounter Care Teams Parquetry Layer Relationship Specialty Start Date End Date Shweta Sykes APRN [address] [place] [address] [address] [place] [address] [place] [address] PCP - General Family Medicine 05/28/21 11/01/22 documented as of this encounter
--- OUTSIDE RECORDS SUMMARY | 2024-03-23 08:41 | XMS_ITS | Encounter Summary ---
Author Organization [facility] Address [address] [place] [address] Care Team Providers Care Weaver Tire Cord Name Role Phone Alex Hong MD Primary Care Provider [phone] Encounter Details Date Type Department Care Team (Late st Contact Info) Description 03/29/2023 Lab Requisition [facility] Pathology & Laboratory Medicine - [address] [address] Outr Resulting Lab, Provider Social History Tobacco [...] Associated Diagnosis Comments XYLAZINE CONFIRMATION, U Routine 03/29/2023 13:19 EDT FENTANYL AND METABOLITE CONFIRMATION PANEL Routine 03/29/2023 13:19 EDT documented in this encounter Results * XYLAZINE CONFIRMATION, U (03/29/2023 13:19 EDT) Xylazine Confirmation Negative <50 ng/mL 04/02/2023 12:[address] [facility] Urine URINE / Unknown 03/29/2023 1 3:19 EDT 03/29/2023 21:27 EDT Narrative [facility] - 04/02/2023 12:09 EDT Testing performed by: [facility] [address] [place] [address], [facility] [address], [place] [address] Senior Paralegal: Eamon Patricia MD; CLIA # [id number] Provider Outr Resulting Lab GEN LAB UNIT COLLECT ORDERABLES Performing Organization Address [facility] Co de Phone Number [facility] [address] [place] [address], [facility] [address] [phone] * FENTANYL AND METABOLITE CONFIRMATION PANEL (03/29/2023 13:19 EDT) Fentanyl Confirmation Negative <2 ng/mL 04/02/2023 12:[address] [facility] Norfentanyl Confirmation Negative <10 ng/mL 04/02/2023 12:[address] [facility] Urine URINE / Unknown 03/29/2023 1 3:19 EDT 03/29/2023 21:27 EDT Narrative [facility] - 04/02/2023 12:09 EDT Testing performed by: [facility] [address] [place] [address], [facility] [address] [address] Senior Paralegal: Eamon Patricia MD; CLIA # [id number] Provider Outr Resulting Lab GEN LAB UNIT COLLECT ORDERABLES Performing Organization Address City/[facility] Co de Phone Number [facility] [address] [place] [address], [facility] [address] [phone] documented in this encounter Visit Diagnoses Not on filedocumented in this encounter Care Teams [employer] Cord Relationship Specialty Start Date End Date Alex Hong MD PCP - General 12/04/10 documented as of this encounter
--- OUTSIDE RECORDS SUMMARY | 2024-03-23 08:41 | XMS_ITS | Encounter Summary ---
Author Organization [facility] Address [address] [place] [address] Care Team Providers Care Early Intervention Specialist Name Role Phone Unavailable Primary Care Provider Unavailabl e Encounter Details Date Type Department Care Team (Late st Contact Info) Description 11/29/2008 Orders Only [facility] Laboratory Services - [facility] ([facility] [address] [place], [place] [id number] Chacha Avila, [facility] [address] [place] [address] [place] [address] Social History Tobacco Use Types [...] Priority Date/Time Associated Diagnosis Comments CYTOPATHOLOGY Routine 11/29/2008 0:00 EDT documented in this encounter Results * CYTOPATHOLOGY (11/29/2008 0:00 EDT) Pathology Report: CYTOPATHOLOGY REPORT ? Reports generated via electronic interface contain original data; ? however they are lacking the format of the original report. ? Caution should be taken when reading/interpreti ng unformatted reports. ? Name: ? TR JULIAN ? Accession #: ? [id number] ? : ? 1985 (Age: 22) ??F ?Collect Date: ? 11/29/2008 ? Location: ? [facility] ? Receive Date: ? 11/30/2008 ? Provider: ?CHACHA SHARRI FLIGHT CONTROL MANAGER ? Copy to: ? Specimen/Source: ?Pap Test, Cervix/Endocervix, ThinPrep Imaging System ? with manual evaluation ? Last Menstrual Period: ? 12/15 ? Previous Gynecologic Pathology: ? ASC-US: 10/03, 11/05, 7/07 ? HPV: + 10/03, 11/05, 7/07 ? FAVIO II: 12/03 ? Treatment History: ? Colposcopy: 12/03 FAVIO II ? Cervical biopsy: FAVIO II 12/03 ? Other: ? HPVA - HPV testing requested if ASC-US on the current ThinPrep Pap test. ? SPECIMEN ADEQUACY ? Satisfactory for Evaluation ? - transformation zone component present ? GENERAL CATEGORIZATION ? Negative for Intraepithelial Lesion or Malignancy ? Document reviewed and electronically signed by: ? Shankar Craig, CT(ASCP) ? Report Date: ??12/01/2008 14:25 ? End of Report ? KEYANA THOMAS 11/29/2008 11/30/2008 Chacha Avila FLIGHT CONTROL MANAGER PATHOLOGY ORDERABLES Performing Organization Address City/State/[facility] Co de Phone Number [facility] THOMAS [address] [place] [address] documented in this encounter Visit Diagnoses Not on filedocumented in this encounter
--- OUTSIDE RECORDS SUMMARY | 2024-03-23 08:41 | XMS_ITS | Encounter Summary ---
Author Organization [facility] Address [address] [place] [address] Care Team Providers Care It Sales Executive Name Role Phone Barrington Bhatia MD Primary Care Provider [phone] Encounter Details Date Type Department Care Team (Late st Contact Info) Description 12/10/2011 Results Only [facility] Laboratory Services - [facility] ([facility]) [address] [place] [address] [place] [address] [place] [address],[address] [place] [address] Social History Tobacco Use Types [...] Diagnosis Comments PAP TEST- RESULT ONLY Routine 12/10/2011 0:00 EDT SURGICAL PATHOLOGY Routine 12/10/2011 0:00 EDT documented in this encounter Results * PAP TEST- RESULT ONLY (12/10/2011 0:00 EDT) Pathology Report: CYTOPATHOLOGY REPORT Reports generated via electronic interface contain original data; however they are lacking the format of the original report. Caution should be taken when reading/interpreti ng unformatted reports. Name: ? TR JULIAN ? Accession #: ? [id number] ? : ? 1985 (Age: 25) ??F ?Collect Date: ? 12/10/2011 ? Location: ? [facility] ? Receive Date: ? 12/11/2011 ? Provider: ROSHAN MENDEZ MD Copy to: BARRINGTON BHATIA MD ? Final Report SPECIMEN ADEQUACY ? Satisfactory for Evaluation - transformation zone component present GENERAL CATEGORIZATION ? Negative for Intraepithelial Lesion or Malignancy INTERPRETATION ? Shift in rosaura present suggestive of bacterial vaginosis. Hormonal/Contracep tive status: Intrauterine device: Mirena Previous Gynecologic Pathology: FAVIO II: 11/13 Treatment History: LEEP: 11/13 Other: Additional clinical information: No follow up since 11/13 Specimen/Source: ??Pap Test, Cervix/Endocervix, ThinPrep Imaging System with manual evaluation Document reviewed and electronically signed by: ? Yohan Pace, NITHYA(ASCP) ? Report ??Date: 12/17/2011 11:12 HPV with Pap Test ? Date Ordered: ? 12/17/2011 ? Status: ?? Signed Out ?Date Complete: ? 12/20/2011 ? By: ??System Interface ? Date Reported: ? 12/20/2011 ? Interpretation RESULT: Negative for HPV. No E6 or E7 mRNA is detected from HPV types 16,18,31,33,35, 39,45,51,52,56,58, 59,66, and 68 by reproduction specialist mediated amplification. Comments Document reviewed and electronically signed by: ? System Interface ? Report date: 12/20/2011 By the signature above, the attending physician certifies that he/she has personally conducted a gross and/or microscopic examination of the described specimens and rendered or confirmed the above diagnosis. End of Report KEYANA THOMAS 12/10/2011 12/11/2011 Roshan Mendez MD PATHOLOGY ORDERABLES [facility] THOMAS [address] [place] [address] * SURGICAL PATHOLOGY (12/10/2011 0:00 EDT) Pathology Report: SURGICAL PATHOLOGY REPORT Reports generated via electronic interface contain original data; however they are lacking the format of the original report. Caution should be taken when reading/interpreti ng unformatted reports. Name: ? TR JULIAN ? Accession #: ? [id number] ? : ? 1985 (Age: 25) ??F ? Collect Date: ? 12/10/2011 ? Location: ? [facility] ? Receive Date: ? 12/10/2011 ? Provider: ROSHAN MENDEZ MD Copy to: BARRINGTON BHATIA MD ? Final Pathologic Diagnosis: ? Endocervix, curettage: 1. ?Scant fragments of benign endocervical tissue. 2. ? Fragment of benign ectocervix with acute inflammation and reactive epithelial changes. ? See comment. Comment: ? Deeper levels have been examined. The specimen is paucicellular. Clinical correlation is advised. Document reviewed and electronically signed by: FERNANDA HICKEY MD Report ??Date: 12/13/2011 14:53 By the signature above, the attending physician certifies that he/she has personally conducted a gross and/or microscopic examination of the described specimens and rendered or confirmed the above diagnosis. Specimen(s) Received: ? ECC Clinical History: ? 11/30/2010 ??LEEP, FAVIO II; colpo with no visible lesions; LMP: amenorrheic with Mirena IUD Gross Description: ? Received in formalin labelled Julian, Tr and endocx is a 1.1 x 0.7 x 0.2 cm aggregate of moore-brown and clear mucinous material. ??The specimen is entirely submitted in a single cassette following filtration. ??(Darlene Brown)/sebastian End of Report KEYANA THOMAS 12/10/2011 12/10/2011 8:2 3 EDT Roshan Mendez MD PATHOLOGY ORDERABLES Performing Organization Address City/State/[facility] Co de Phone Number [facility] [address] [place] [address] documented in this encounter Visit Diagnoses Not on filedocumented in this encounter Care Teams It Sales Executive Relationship Specialty Start Date End Date Barrington Bhatia MD PCP - General 12/04/10 documented as of this encounter
--- OUTSIDE RECORDS SUMMARY | 2024-03-23 08:41 | XMS_ITS | Encounter Summary ---
Author Organization [facility] Address [facility] [place] [address] Care Team Providers Care Insurance Agency Sales Manager Name Role Phone Shweta Sykes APRN Primary Care Provider [phone] Encounter Details Date Type Department Care Team (Late st Contact Info) Description 12/19/2021 1:00 PM EDT - 12/19/2021 2:00 PM EDT [place] [id number] López Sosa MD [facility] [place] [address] EGD WITH BIOPSY (WRVU 2.39) Social History Tobacco Use Types Packs/Day Years [...] on file documented as of this encounter Last Filed Vital Signs Vital Sign Reading Time Taken Comments Blood Pressure 93/61 12/19/2021 2:00 PM EDT Pulse 77 12/19/2021 12:41 PM EDT Temperature 36.1 ??C (97 ??F) 12/19/2021 12:41 PM EDT Respiratory Rate 18 12/19/2021 2:00 PM EDT Oxygen Saturation 99% 12/19/2021 2:00 PM EDT Inhaled Oxygen Concentration - - Weight 77.1 kg (170 lb) 12/19/2021 12:47 PM EDT Height 162.6 cm (5' 4) 12/19/2021 12:47 PM EDT Body Mass Index 29.18 12/19/2021 12:47 PM EDT documented in this encounter Discharge Instructions * Discharge Instructions* Megha Feng RN - 12/19/2021 2:01 PM EDT Upper GI Endoscopy: What to Expect at Home Your Recovery You will be able to go home after your doctor or nurse checks to make sure you are not having any problems. You may have to stay overnight if you had treatment during the test. You may have a sore throat fora day or two after the test. This care sheet gives you a general idea about what to expect after the test. How can you care for yourself at home? Activity Rest when you feel tired. You can do your normal activities when it feels okay to do so. Diet Follow your doctor's directions for eating. Unless your doctor has told you not to, drink plenty of fluids. This helps to replace the fluids that were lost during the prep. Do not drink alcohol. Medicines Your doctor will tell you if and when you can restart your medicines. He or she will also give you instructions about taking any new medicines. If you take blood thinners, such as warfarin (Coumadin), clopidogrel (Plavix), or aspirin, be sure to talk to your doctor. He or she will tell you if and when to start taking those medicines again. Make sure that you understand exactly what your doctor wants you to do. If polyps were removed or a biopsy was done during the test, your doctor may tell you not to take aspirin or other anti-inflammatory medicines for a few days. These include ibuprofen (Advil, Motrin) and naproxen (Aleve). If you have a sore throat the day after the procedure, use an hchq-gft-npzsjok spray to numb your throat. Sucking on throat lozenges and gargling with warm salt water may also help relieve your symptoms. Other instructions For your safety, do not drive or operate machinery until the medicine wears off and you can think clearly. Your doctor may tell you not to drive or operate machinery until the day after your test. Do not sign legal documents or make major decisions until the medicine wears off and you can think clearly. The anesthesia can make it hard for you to fully understand what you are agreeing to. Additional Information for Sedation Patients For patients who received sedation: You may have received medications before and/or during your procedure which effects your judgement and reaction time. Do not drive, operate machinery, drink alcoholic beverages or make important decisions for 24 hours. Be careful on stairs as you may be unsteady on your feet. You may eat a regular diet as tolerated. Do not smoke if you are alone. IV site: Slight redness or tenderness is normal, you can use a warm compress if you would like. If tenderness and/or redness increase or if foul drainage occurs, please contact your Doctor. Please call [phone] before 8pm Mon-Fri with problems, questions or concerns. If you call after 8pm or on weekends, call the Hospital at [phone] and ask to speak to the Filter Machine Operator anti air warfare operations officer and the truck crane operator will contact that person for you. When should you call for help? Call 911 anytime you think you may need emergency care. For example, call if: You passed out (lost consciousness). You pass maroon or bloody stools. You have trouble breathing. Call your doctor now or seek immediate medical care if: You have pain that does not get better after you take pain medicine. You are sick to your stomach or cannot drink fluids. You have new or worse belly pain. You have blood in your stools. You have a fever. You cannot pass stools or gas. Watch closely for changes in your health, and be sure to contact your doctor if you have any problems. Where can you learn more? [facility] View your After Visit Summary and more online at [email or web address] If you would like to provide feedback about your hospital experience, please call the Office of Patient and Family Relations at . If you have received this After Visit Summary in error, please immediately return it in person to the department, or notify the [facility] Privacy Office by calling toll free at between the hours of 8AM and 5PM to arrange for our retrieval of the documents at no cost to you. Content Version: 12.2 ?? [id number] [employer]. Care instructions adapted under license by [employer]. If you have questions about a medical condition or this instruction, always ask your healthcare professional. [employer] disclaims any warranty or liability for your use of this information. documented in this encounter Medications at Time of Discharge Medication Sig Dispensed Refills Start Date End Date ondansetron ODT (Zofran-ODT) 4 mg Tablet, Rapid Dissolve Take 1 tablet by mouth every 8 hours as needed for Nausea. 10 tablet 12/19/2021 Vraylar 3 mg Capsule TAKE 1 CAPSULE BY MOUTH EVERY DAY WITH FOOD 06/23/2021 Suboxone 2-0.5 mg Film 16 mg. 05/11/2021 mirtazapine (REMERON) 7.5 mg Tablet TAKE 1 TABLET BY MOUTH AT BEDTIME 06/06/2021 ondansetron (Zofran) 8 mg Tablet TAKE 1 TABLET BY MOUTH THREE TIMES DAILY 05/29/2021 docusate sodium (Colace) 100 mg Capsule Take 100 mg by mouth 2 times daily. naloxegoL (Movantik) 12.5 mg TabletIndications:Heartb urn,Gastroesophageal reflux disease, unspecified whether esophagitis present,Vomiting, intractability of vomiting not specified, presence of nausea not specified, unspecified vomiting type,Chronic nausea,Cannabis hyperemesis syndrome concurrent with and due to cannabis dependence,Therapeutic opioid-induced constipation (OIC),Chronic idiopathic constipation,Irritable bowel syndrome with constipation,Functional dyspepsia,Avoidant-restr ictive food intake disorder (ARFID),Class 1 obesity with body mass index (BMI) of 31.0 to 31.9 in adult, unspecified obesity type, unspecified whether serious comorbidity present Take 12.5 mg by mouth daily. 30 tablet 3 06/28/2021 acetaminophen (TYLENOL) 325 mg Tablet Take 2 tablets by mouth every 6 hours. 30 tablet 1 10/18/2016 oxyCODONE (ROXICODONE) 5 mg Tablet Take 1-3 tablets by mouth every 4 hours as needed for Pain. 20 tablet 10/18/2016 polyethylene glycol (MIRALAX) 17 gram Powder in Packet Take 17 g by mouth daily. 14 each 10/18/2016 Ntxswamzxxtdk-Gx-Xdks-Mi nerals 27-0.4 mg Tablet Take by mouth. ibuprofen (ADVIL;MOTRIN) 200 mg Tablet Take 200 mg by mouth every 6 hours as needed for Pain. omeprazole (PriLOSEC) 20 mg Capsule, Delayed Release(E.C.)Indications :Heartburn,Gastroesophag eal reflux disease, unspecified whether esophagitis present,Vomiting, intractability of vomiting not specified, presence of nausea not specified, unspecified vomiting type,Chronic nausea,Cannabis hyperemesis syndrome concurrent with and due to cannabis dependence,Therapeutic opioid-induced constipation (OIC),Chronic idiopathic constipation,Irritable bowel syndrome with constipation,Functional dyspepsia,Avoidant-restr ictive food intake disorder (ARFID),Class 1 obesity with body mass index (BMI) of 31.0 to 31.9 in adult, unspecified obesity type, unspecified whether serious comorbidity present Take 2 capsules by mouth daily. 60 capsule 11 06/28/2021 06/28/2022 documented as of this encounter H&P Notes * López Sosa MD - 12/19/2021 1:26 PM EDT Patient Name: Chencho Barrett Patient Age: 35 y.o. Birthdate: 1985 Admit date: 12/19/2021 Attending Physician: López Sosa MD Gastroenterology & Hepatology Pre-Procedure History and Physical Planned Procedure: EGD: with HERNANDES Indication: abdominal pain, nausea Patient Active Problem List Diagnosis Code ??? Substance abuse F19.10 ??? Cigarette smoker F17.210 ??? Late care O09.30 ??? Rubella non-immune status, antepartum O09.899, Z28.39 ??? Depression F32.A ??? Hepatitis C B19.20 ??? care following delivery Z39.2 ??? Encounter for insertion subdermal contraceptive Z30.017 Medications: Reviewed in EDH No Known Allergies Social History/Family History: Reviewed in EDH. No changes Exam: Patient Vitals for the past 24 hrs: Temp Pulse Resp BP SpO2 O2 Device 12/19/21 1241 36.1 ??C (97 ??F) 77 16 100/75 97 % -- 12/19/21 1247 -- -- -- -- -- RA GEN: NAD, AAOX3 HEENT: NC/AT dryMM, anicteric Chest: CTAB Heart: RRR, nl s1, s2 Abdomen: normal bowel sounds, soft, non tender Assessment and Plan: Proceed with EGD: and HERNANDES ASA Grade: ASA 3 - Patient with moderate systemic disease with functional limitations Mallampati: II (soft palate, uvula, fauces visible) Sedation plan: MAC Risks and benefits of the procedure were discussed with the patient. Risks discussed including bleeding, infection, reaction to anesthesia, perforation or other intraabdominal trauma, pancreatitis (if applicable), missing a cancer (if applicable) and/or other unforseen complication. Informed Consent signed by patient (or senior sales representative). documented in this encounter Plan of Treatment Not on file documented as of this encounter Procedures Procedure Name Priority Date/Time Associated Diagnosis Comments SURGICAL PATHOLOGY REPORT Routine 12/19/2021 1:54 PM EDT SPECIMEN TO PATHOLOGY Routine 12/19/2021 1:54 PM EDT SPECIMEN TO PATHOLOGY Routine 12/19/2021 1:54 PM EDT HERNANDES PLACEMENT 12/19/2021 1:35 PM EDT Heartburn Gastroesophageal reflux disease, unspecified whether esophagitis [...] BRBPR (bright red blood per rectum) [facility] Upper Gi Endoscopy, Biopsy ([id number]) 12/19/2021 1:35 PM EDT Heartburn Gastroesophageal reflux disease, unspecified whether esophagitis [...] BRBPR (bright red blood per rectum) [facility] UPPER GI ENDOSCOPY Routine 12/19/2021 1: 23 PM EDT documented in this encounter Results * Surgical Pathology Report (12/19/2021 1:54 PM EDT) Final Diagnosis [id number] ? Location: 4T; 06; A The signing pathologist has (i) examined the relevant preparation(s) for the specimen(s) and (ii) rendered or confirmed the diagnosis(es). . ?Surgical Pathology DIAGNOSIS A - Duodenum, biopsy (Multiple): Duodenal mucosa with preserved villous architecture and focal foveolar metaplasia. B - Gastric, biopsy (Multiple): Gastric antral gland mucosa with chronic nonspecific gastritis. Gastric fundic mucosa within normal limits. No H. pylori-like microorganism is seen. Electronically signed by: ?Mary Candelario MD Verified: ??12/22/2021 19:35 ??Pathologist Performed at: ??-[facility] Dept. of [place]ology, [place], [place] SPECIMEN(S) SUBMITTED A - Duodenum, biopsy (Multiple) B - Gastric, biopsy (Multiple) CLINICAL INFORMATION 35-year-old F, Hx abdominal pain, nausea SPECIMEN PROCESSING A - Labeled/Fixative: Duodenum, formalin. Quantity/Size: Five, ranging from 0.4-0.7 cm. Tissue Description: Soft, moore tissues. Sections/Processi ng: Submitted en toto ??in 1 cassette labeled A1. B - Labeled/Fixative: Gastric, formalin. Quantity/Size: Six, ranging from 0.3-0.8 cm. Tissue Description: Soft, moore tissues. Sections/Processi ng: Submitted en toto ??in 2 cassettes labeled B1-B2. ??mnd 12/22/2021 7:35 PM EDT [facility] GI Biopsy 12/19/2021 1:54 PM EDT 12/19/2021 1:54 PM EDT GI Biopsy 12/19/2021 1:54 PM EDT 12/19/2021 1:54 PM EDT López Sosa MD PATHOLOGY/CYTOLOG Y ORDERABLES Performing Organization Address City/[facility]/[place] [address] * Specimen to Pathology (12/19/2021 1:54 PM EDT) AP Specimen 12/19/2021 1:54 PM EDT 12/19/2021 1:54 PM EDT Narrative [facility] - 12/19/2021 1:54 PM EDT Specimen requisition ordered. ??Separate Pathology report to follow López Sosa MD PATHOLOGY/CYTOLOG Y ORDERABLES Performing Organization Address City/[facility]/[place] [address] * Specimen to Pathology (12/19/2021 1:54 PM EDT) AP Specimen 12/19/2021 1:54 PM EDT 12/19/2021 1:54 PM EDT Narrative [facility] - 12/19/2021 1:54 PM EDT Specimen requisition ordered. ??Separate Pathology report to follow López Sosa MD PATHOLOGY/CYTOLOG Y ORDERABLES Performing Organization Address City/[facility]/[place] [address] * UPPER GI ENDOSCOPY (12/19/2021 1:23 PM EDT) UPPER GI ENDOSCOPY [facility] Endoscopy Procedure Date: 12/19/2021 1:23 PM ? Patient Name: Chencho Barrett ? Date of : 1985 ? Age: 35 ? Order #: [id number] ? Instrument Name: [id number] ? Procedure: ? Upper GI endoscopy Indications: ? Epigastric abdominal pain, ? Functional Dyspepsia, Nausea with ? vomiting Patient Profile: ? This is a 35 year old female. Providers: ? López Sosa MD, Mckenzie ? Homer Gordillo, Yarn Conditioner Referring MD: ?Nicholas Ba MD, Shweta Lange ? Imperio Requesting Provider: ?? Amelie Berrios Medicines: ? Monitored Anesthesia Care Complications: ? No immediate complications. Procedure: ? Pre-Anesthesia Assessment: ? - Prior to the procedure, a History ? and Physical was performed, and ? patient medications and allergies ? were reviewed. The patient's ? tolerance of previous anesthesia ? was also reviewed. The risks and ? benefits of the procedure and the ? sedation options and risks were ? discussed with the patient. All ? questions were answered, and ? informed consent was obtained. ? Prior Anticoagulants: The patient ? has taken no anticoagulant or ? antiplatelet agents. ASA Grade ? Assessment: III - A patient with ? severe systemic disease. After ? reviewing the risks and benefits, ? the patient was deemed in ? satisfactory condition to undergo ? the procedure. ? The procedure, indications, ? benefits, risks and alternatives ? were explained to the patient. ? Specifically discussed were ? potential complications including, ? but not limited to, bleeding, ? perforation, infection, missing a ? cancer, and adverse medication ? reactions. The Endoscope was ? introduced through the mouth, and ? advanced to the third part of ? duodenum The upper GI endoscopy was ? accomplished without difficulty. ? The patient tolerated the procedure ? well. ? Findings: ? The examined esophagus was normal. ? The Z-line was regular and was found 38 cm from the ? incisors. ? The stomach was normal. Biopsies were taken with a ? cold forceps for histology. ? The examined duodenum was normal. Biopsies were taken ? with a cold forceps for histology. ? The HERNANDES capsule with delivery system was introduced ? through the mouth and advanced into the esophagus, ? such that the HERNANDES pH capsule was positioned 32 cm ? from the incisors, which was 6 cm proximal to the GE ? junction. The HERNANDES pH capsule was then deployed and ? attached to the esophageal mucosa. The delivery ? system was then withdrawn. Endoscopy was utilized for ? probe placement and diagnostic evaluation. ? Moderate Sedation: ? Not applicable - See Anesthesia documentation Impression: ?- Normal esophagus. ? - Z-line regular, 38 cm from the ? incisors. ? - Normal stomach. Biopsied. ? - Normal examined duodenum. ? Biopsied. ? - The HERNANDES pH capsule was deployed. Recommendation: ?- Await pathology results. ? - Recommend follow-up in GI Clinic ? to discuss ongoing symptoms pending ? the biopsy results and HERNANDES. ? - Recommend Consultation with ? Hepatology to discuss HCV treatment ? options. ? Attending Participation: ? I personally performed the entire procedure. ? Dr. Abraham Sosa ____ López Sosa MD 12/19/2021 2:28:21 PM Number of Addenda: 0 Note Initiated On: 12/19/2021 1:23 PM PROVATION 12/19/2021 1:23 PM EDT Shweta Sykes APRN GENERAL SURGICAL ORDERABLES PROVATION documented in this encounter Visit Diagnoses Diagnosis Heartburn Gastroesophageal reflux disease, unspecified whether esophagitis present Vomiting, intractability of vomiting not specified, presence of nausea not specified, unspecified vomiting type Chronic nausea Nausea alone Cannabis hyperemesis syndrome concurrent with and due to cannabis dependence Therapeutic opioid-induced constipation (OIC) Chronic idiopathic constipation Unspecified constipation Irritable bowel syndrome with constipation Irritable bowel syndrome Functional dyspepsia Dyspepsia and other specified disorders of function of stomach Avoidant-restrictive food intake disorder (ARFID) Class 1 obesity with body mass index (BMI) of 31.0 to 31.9 in adult, unspecified obesity type, unspecified whether serious comorbidity present BRBPR (bright red blood per rectum) Hemorrhage of rectum and anus [facility] Blood in stool documented in this encounter Active and Recently Administered Medications Times are shown in EDT. Continuous Medication Order 12/17/2021 12/18/2021 12/19/2021 lactated ringers infusion (CANCELED) 100 mL/hr, Intravenous, CONTINUOUS, Starting on Sat12/19/21 at 1300, Until Sat12/19/21 at 1401, Endoscopy (Day of Procedure) 1333 (New Bag - Prov ider: Pattie Persaud CRNA)1335 (Anesthesia Volume Adjustment - Provider: Pattie Persaud CRNA) documented in this encounter Care Teams Insurance Agency Sales Manager Relationship Specialty Start Date End Date Shweta Sykes APRN [address] [place] [address] [address] [place] [address] PCP - General Family Medicine 05/28/21 11/01/22 documented as of this encounter
--- OUTSIDE RECORDS SUMMARY | 2024-03-23 08:41 | XMS_ITS | Encounter Summary ---
Author Organization [facility] Address [address] [place] [address] Care Team Providers Care Rpg Developer Name Role Phone Alex Hong MD Primary Care Provider [phone] Encounter Details Date Type Department Care Team (Latest Contact Info) Description 11/13/2017 19:32 EDT - 11/13/2017 23:59 EDT Hospital Encounter [facility] [address] [place] [address] Blanca Cottrell, GERTRUDE [address] [place] [address] Discharge Disposition: Home or Self Care Social History Tobacco Use Types Packs/Day Years Used Date Smoking Tobacco: Never Assessed Sex and Gender Information Value Date Recorded Sex Assigned at Not on file Gender Identity Not on file Sexual Orientation Not on file documented as of this encounter Discharge Diagnoses Diagnosis Z11.3 Encounter for screening for infections with a predominantly sexual mode of transmission-Z11.3[ICD-10-CM] Z11.8 Encounter for screening for other infectious and parasitic diseases-Z11.8[ICD-10-CM] documented in this encounter Discharge Disposition Disposition Code Departure Means Destination Home or Self Care documented in this encounter Plan of Treatment Not on file documented as of this encounter Visit Diagnoses Not on filedocumented in this encounter Care Teams Rpg Developer Relationship Specialty Start Date End Date Alex Hong MD PCP - General 12/04/10 documented as of this encounter
--- OUTSIDE RECORDS SUMMARY | 2024-03-23 08:41 | XMS_ITS | Encounter Summary ---
Author Organization [facility] [place] [address] Care Team Providers Care Economic Consultant Name Role Phone Shweta Sykes GERTRUDE Primary Care Provider [phone] Encounter Details Date Type Department Care Team (Late st Contact Info) Description 12/19/2021 1:00 PM EDT Procedure visit Gastroenterology at [facility] [place] [address] Heartburn Social History Tobacco Use Types Packs/Day Years [...] as of this encounter Progress Notes * Cecy Hannon RN - 12/19/2021 1:00 PM EDT Prior to placement of the Williamson pH capsule, a description of the procedure was provided to the patient. All questions were answered and the patient verbalized understanding. Written instructions weregiven to the patient as well. At 1350 the Williamson device was inserted without the endoscope in place. Following the EGD procedure, the Williamson pH capsule was deployed with and myself present at the patient's bedside. The capsule was placed 32cm from the incisors without difficulty and was visualized via the endoscope with good attachment to the esophageal wall. This study is being performed off acid suppressants. First pH: 4.9 * Jad Kerr MD - 12/19/2021 1:00 PM EDT Wireless pH-metry (Williamson) procedure report Patient: Chencho Barrett Address: [address] [address] : 1985 Referring provider: Shweta Sykes Date of service: 12/29/2021 Indication: Heartburn Procedure: The Williamson probe was placed in the usual fashion 6cm above the gastroesophageal junction. The patient was instructed to keep a diary of symptoms, and returned 2 days later for downloading the data. Testing performed OFF acid-suppressive therapy. Analysis Duration Total (HH:MM): 40:55 Analysis Duration Upright (HH:MM): 14:31 Analysis Duration Supine (HH:MM): 26:24 Acid exposure time (AET): Day 1 Day 2 Overall Total distal esophageal acid exposure time % of testing period 16.5 1.4 8.3 Upright distal esophageal acid exposure time % of testing period 7.4 1.0 4.1 Supine distal esophageal acid exposure time % of testing period 22.1 1.6 10.5 DeMeester Score: 32.9 (normal: <14.7) Normal values for total 48-hour average-day acid exposure time (AET) defined as the % of time with a pH <4 Evidence for pathologic reflux: AET ?5.1% No convincing evidence of pathologic reflux: AET <5.1% Normal values for worst-day acid exposure time (AET) defined as the % of time with a pH <4 Conclusive evidence for pathologic reflux: AET >7.0% Borderline or inconclusive evidence for pathologic reflux: AET 4.0% to 7.0% Evidence against pathologic reflux: AET <4.0% Reflux symptom association (RSA): No symptoms recorded to evaluate reflux- symptom association. Impression based on the Lopez classification: Evidence for pathologic acid reflux as measured by the total average-day acid exposure time The aggregate DeMeester composite score was high at 32.9. No symptoms recorded to evaluate reflux-symptom association. References: 1) Modern diagnosis of GERD: the Lopez Consensus. Gut. 2018 Feb; 67(7): 8848-3301. 2) Validation of the Lopez classification for GORD diagnosis: acid exposure time assessed by prolonged wireless pH monitoring in healthy controls and patients with erosive oesophagitis. Gut. 2020. doi10.1136/hpophi-9670-374623. Jad Kerr MD, FRCPC Section of Gastroenterology and Hepatology [facility] [place] [address] [address] V: [phone] F: [phone] CC/ETC: Shweta Sykes APRN [address] [place] [address] documented in this encounter Plan of Treatment Not on file documented as of this encounter Visit Diagnoses Diagnosis Heartburn documented in this encounter Care Teams Economic Consultant Relationship Specialty Start Date End Date Shweta Sykes APRN [address] [place] [address] PCP - General Family Medicine 05/28/21 11/01/22 documented as of this encounter
--- OUTSIDE RECORDS SUMMARY | 2024-03-23 08:41 | XMS_ITS | Encounter Summary ---
Author Organization [facility] Address [address] [place] [address] Care Team Providers Care Computer Programmer Chief Name Role Phone Alex Hong MD Primary Care Provider [phone] Encounter Details Date Type Department Care Team (Late st Contact Info) Description 01/17/2023 Telephone [facility] - [address] [id number] Chacha Ba RPH Social History Tobacco Use [...] encounter Miscellaneous Notes * Telephone Encounter - Tania Mendez - 01/17/2023 0858 EDT Prescription Receipt by [facility] Date Received: 01/15/23 Medication: Sublocade 300mg / 1.5ml syringe Sent by: [facility]: [place] Provider: [facility] Phone number: [phone] Benefits Investigation Results: PA needed Comments: Request faxed Prescription copy available in scans: YES Relevant clinical documents in scans (if applicable): Routed to appropriate Pharmacist: YES [facility]: [phone] documented in this encounter Plan of Treatment Not on file documented as of this encounter Visit Diagnoses Not on filedocumented in this encounter Care Teams Computer Programmer Chief Relationship Specialty Start Date End Date Alex Hong MD PCP - General 12/04/10 documented as of this encounter
--- OUTSIDE RECORDS SUMMARY | 2024-03-23 08:41 | XMS_ITS | Encounter Summary ---
Author Organization [facility] Address [address] [place] [address] Care Team Providers Care Bin Packer Name Role Phone Alex Hong MD Primary Care Provider [phone] Encounter Details Date Type Department Care Team (Late st Contact Info) Description 04/20/2022 Lab Requisition [facility] Pathology & Laboratory Medicine - [address] [address] Outr Resulting Lab, Provider Social History Tobacco [...] Diagnosis Comments HCV RNA DETECT QUANT Today 04/20/2022 9:35 EDT HCV RNA DETECT QUANT Routine 04/20/2022 9:35 EDT HEPATITIS C AB W REFLEX TO HCV RNA BY PCR Routine 04/20/2022 9:35 EDT HEPATITIS A TOTAL ANTIBODY W REFLEX Routine 04/20/2022 9:35 EDT HEPATITIS B CORE ANTIBODY (TOTAL) Routine 04/20/2022 9:35 EDT HEPATITIS B SURFACE ANTIBODY Routine 04/20/2022 9:35 EDT HEPATITIS B SURFACE ANTIGEN Routine 04/20/2022 9:35 EDT documented in this encounter Results * HCV RNA DETECT QUANT (04/20/2022 9:35 EDT) [facility] HCV RNA Qualitative Undetected Undetected 04/23/2022 13:45 EDT [facility] Blood VENOUS BLOOD / Unknown 04/20/2022 9:35 EDT 04/20/2022 19:01 EDT [facility] - 04/23/2022 13:45 EDT The quantification range of this assay is 15 IU/mL to 100,000,000 IU/mL. Testing was performed using the Alek HCV test ([employer] with the alek 6800 System. Provider Outr Resulting Lab CHEMISTRY & BLOOD GAS ORDERABLES Performing Organization Address [facility] Co de Phone Number [facility] [address] [place] [address] * HCV RNA DETECT QUANT (04/20/2022 9:35 EDT) [facility] HCV RNA Qualitative Undetected Undetected 04/23/2022 13:45 EDT [facility] Blood VENOUS BLOOD / Unknown 04/20/2022 9:35 EDT 04/20/2022 18:56 EDT [facility] - 04/23/2022 13:45 EDT The quantification range of this assay is 15 IU/mL to 100,000,000 IU/mL. Testing was performed using the Alek HCV test ([employer] with the alek 6800 System. Provider Outr Resulting Lab CHEMISTRY & BLOOD GAS ORDERABLES Performing Organization Address [facility] Co de Phone Number [facility] [address] [place] [phone] * HEPATITIS B SURFACE ANTIBODY (04/20/2022 9:35 EDT) [facility] Hep B Surface Ab, Quantitative 12.6 See Note mIU/mL 04/23/2022 9:42 EDT [facility] Comment: Reference Range for Hep B Surface Ab, Quant: Positive: >= 10.0 mIU/mL Negative: ??< 10.0 mIU/mL Patient is presumed to be immune to infection with Hepatitis B Virus. Hep B Surface Ab, Qualitative Positive See Note 04/23/2022 9:42 EDT [facility] Comment: Reference Range for Hep B Surface Ab, Qual: Unvaccinated: ??Negative Vaccinated: ??Positive Blood VENOUS BLOOD / Unknown 04/20/2022 9:35 EDT 04/20/2022 19:01 EDT Provider Outr Resulting Lab CHEMISTRY & BLOOD GAS ORDERABLES Performing Organization Address [facility]/ZIP Co de Phone Number [facility] [address] [place] [address] * HEPATITIS B CORE ANTIBODY (TOTAL) (04/20/2022 9:35 EDT) Hepatitis B Core Ab, Total Negative Negative 04/23/2022 10:19 EDT [facility] Blood VENOUS BLOOD / Unknown 04/20/2022 9:35 EDT 04/20/2022 19:01 EDT Provider Outr Resulting Lab CHEMISTRY & BLOOD GAS ORDERABLES Performing Organization Address [facility] Co de Phone Number [facility] [address] [place] [address] * HEPATITIS B SURFACE ANTIGEN (04/20/2022 9:35 EDT) Hep B Surface Ag Negative Negative 04/23/2022 9:46 EDT [facility] Blood VENOUS BLOOD / Unknown 04/20/2022 9:35 EDT 04/20/2022 18:56 EDT Provider Outr Resulting Lab CHEMISTRY & BLOOD GAS ORDERABLES Performing Organization Address [facility] Co de Phone Number [facility] [address] [place] [address] * (ABNORMAL) HEPATITIS C AB W REFLEX TO HCV RNA BY PCR (04/20/2022 9:35 EDT) Hep C Antibody Reactive(A ) Negative 04/23/2022 9:51 EDT [facility] Comment: Supplemental testing for HCV RNA is ordered to rule out active HCV infection. Blood VENOUS BLOOD / Unknown 04/20/2022 9:35 EDT 04/20/2022 19:01 EDT Provider Outr Resulting Lab CHEMISTRY & BLOOD GAS ORDERABLES Performing Organization Address City/[facility] Co de Phone Number [facility] [address] [place] [address] * HEPATITIS A TOTAL ANTIBODY W REFLEX (04/20/2022 9:35 EDT) Hepatitis A Antibody, Total Negative Negative 04/23/2022 10:12 EDT [facility] Blood VENOUS BLOOD / Unknown 04/20/2022 9:35 EDT 04/20/2022 19:01 EDT Narrative [facility] - 04/23/2022 10:12 EDT The result of this assay can be falsely elevated (Positive) due to the consumption of Biotin. Provider Outr Resulting Lab CHEMISTRY & BLOOD GAS ORDERABLES Performing Organization Address [facility] Co de Phone Number [facility] [address] [place] [address] documented in this encounter Visit Diagnoses Not on filedocumented in this encounter Care Teams Bin Packer Relationship Specialty Start Date End Date Alex Hong MD PCP - General 12/04/10 documented as of this encounter
--- OUTSIDE RECORDS SUMMARY | 2024-03-23 08:41 | XMS_ITS | Encounter Summary ---
Author Organization [facility] Address [address] [place] [address] Care Team Providers Care Decal Decorator Name Role Phone Unavailable Primary Care Provider Adriana e Encounter Details Date Type Department Care Team (Late st Contact Info) Description 05/28/2003 Results Only [facility] - Maple conversion [address] [place] [address] Chacha Avila, [facility] [address] [place] [address] [place] [address] Social History Tobacco Use Types [...] Comments HPV DETECTION, HIGH RISK TYPES Routine 05/28/2003 13:43 EDT CYTOPATHOLOGY Routine 05/28/2003 0:00 EDT documented in this encounter Results * HUMAN PAPILLOMA VIRUS DNA TEST (05/28/2003 13:43 EDT) Specimen Description Cervix, ThinPrep vial [facility] Result Positive for one or more of HPV types 16,18,31,33,35 ,39,45,51,52,5 6,58,59, or 68. These high/intermedi ate risk HPV types are associated with dysplasia and some cervical cancers. [facility] Report Status Final [id number] [facility] 05/28/2003 13:4 3 EDT 06/08/2003 13:43 EST Chacha Cabello Margarita FLEXOGRAPHIC PRESS HELPER MICROBIOLOGY - GENER AL ORDERABLES [facility] [address] [place] [address] * CYTOPATHOLOGY (05/28/2003 0:00 EDT) Pathology Report: CYTOPATHOLOGY REPORT Reports generated via electronic interface contain original data; however they are lacking the format of the original report. Caution should be taken when reading/interpreti ng unformatted reports. Name: ? TR JULIAN ? Accession #: ? [id number] : ? 1985 (Age: 17) ??F ?Collect Date: ? 05/28/2003 Location: ? [facility] ? Receive Date: ? 06/01/2003 Provider: ?CHACHA AVILA FLEXOGRAPHIC PRESS HELPER Copy to: ? Specimen/Source: ?ThinPrep Pap Test, Cervix/Endocervix Last Menstrual Period: ? 05/17/03 Other: ? HPVA - HPV testing requested if ASC-US on the current ThinPrep Pap test. ? SPECIMEN ADEQUACY ? Satisfactory for Evaluation - transformation zone component present - scant squamous epithelial component secondary to excessive blood GENERAL CATEGORIZATION ? Epithelial Cell Abnormality INTERPRETATION ? Squamous Cell Abnormality - Atypical squamous cells, undetermined significance. EDUCATIONAL NOTES/RECOMMENDATI ONS ? COUNTS INCLUDE 234 BEDS AT THE [facility] recommends following the 2001 Consensus Guidelines for the Management of Women with Cervical Cytological Abnormalities (ERIKA,2002;287:212 0-9). Management algorithms have been distributed by COUNTS INCLUDE 234 BEDS AT THE [facility] and are available online at www.ASCCP.org. ? Document reviewed and electronically signed by: ? FERNANDA HICKEY MD ? Report Date: ??06/07/2003 14:40 End of Report [facility] 05/28/2003 06/01/2003 Chacha Avila FLEXOGRAPHIC PRESS HELPER PATHOLOGY ORDERABLES Performing Organization Address City/State/[facility] Co de Phone Number [facility] [address] [place] [address] documented in this encounter Visit Diagnoses Not on filedocumented in this encounter
--- OUTSIDE RECORDS SUMMARY | 2024-03-23 08:41 | XMS_ITS | Encounter Summary ---
Author Organization [facility] Address [address] [place] [address] Care Team Providers Care Electric Golf Cart Repairers Name Role Phone Alex Hong MD Primary Care Provider [phone] Encounter Details Date Type Department Care Team (Late st Contact Info) Description 05/23/[address] [facility] Pathology & Laboratory Medicine - [address] [address] Outr Resulting Lab, Provider Social History Tobacco [...] 1/2 ANTIGEN AND ANTIBODY, 4TH GENERATION Routine 05/23/2021 11:35 EDT documented in this encounter Results * HIV 1/2 ANTIGEN AND ANTIBODY, 4TH GENERATION (05/23/2021 11:35 EDT) HIV 1 and 2 Antibody/p24 Antigen, 4th Generation Negative Negative 05/24/2021 11:48 EDT [facility] Comment: If acute HIV-1 infection is suspected in a high risk ??patient, submit plasma specimen for HIV-1 RNA quantitation test. Fourth Generation assay performed on the Siemens Centaur. Blood VENOUS BLOOD / Unknown 05/23/2021 11:35 EDT 05/23/2021 16:51 EDT Provider Outr Resulting Lab IMMUNOLOGY A ND SEROLOGY ORDERABLES [facility] [address] [place] [address] documented in this encounter Visit Diagnoses Not on filedocumented in this encounter Care Teams Electric Golf Cart Repairers Relationship Specialty Start Date End Date Alex Hong MD PCP - General 12/04/10 documented as of this encounter
--- OUTSIDE RECORDS SUMMARY | 2024-03-23 08:41 | XMS_ITS | Encounter Summary ---
Author Organization [facility] Address [address] [place] [address] Care Team Providers Care Mill Supervisor Name Role Phone Alex Hong MD Primary Care Provider [phone] Encounter Details Date Type Department Care Team (Late st Contact Info) Description 06/29/2023 Lab Requisition [facility] Pathology & Laboratory Medicine - [address] [address] Outr Resulting Lab, Provider Social History Tobacco [...] Associated Diagnosis Comments XYLAZINE CONFIRMATION, U Routine 06/29/2023 12:58 EST METHADONE AND METABOLITE CONFIRMATION PANEL Routine 06/29/2023 12:58 EST BUPRENORPHINE AND METABOLITE CONFIRMATION PANEL Routine 06/29/2023 12:58 EST FENTANYL AND METABOLITE CONFIRMATION PANEL Routine 06/29/2023 12:58 EST documented in this encounter Results * XYLAZINE CONFIRMATION, U (06/29/2023 12:58 EST) Xylazine Confirmation Negative <50 ng/mL 07/02/2023 11:51 EST [facility] Urine URINE / Unknown 06/29/2023 1 2:58 EST 06/30/2023 15:19 EST Narrative [facility] - 07/02/2023 11:51 EST Testing performed by: [facility] [address] [place] [address] Meter Repairer Helper: Eamon Patricia MD; CLIA # [id number] Provider Outr Resulting Lab GEN LAB UNIT COLLECT ORDERABLES Performing Organization Address City/[facility]/ZIP Co de Phone Number [facility] [address] [place] [address] [phone] * (ABNORMAL) BUPRENORPHINE AND METABOLITE CONFIRMATION PANEL (06/29/2023 12:58 EST) Buprenorphine Confirmation 46(A) <10 ng/mL 07/02/2023 11:51 EST [facility] Norbuprenorphine Confirmation 295(A) <10 ng/mL 07/02/2023 11:51 EST [facility] Naloxone Confirmation 162(A) <10 ng/mL 07/02/2023 11:51 EST [facility] Urine URINE / Unknown 06/29/2023 1 2:58 EST 06/30/2023 15:19 EST Narrative [facility] - 07/02/2023 11:51 EST Testing performed by: [facility] [address] [place] [address] Meter Repairer Helper: Eamon Patricia MD; CLIA # [id number] Provider Outr Resulting Lab GEN LAB UNIT COLLECT ORDERABLES [facility] [address] [place] [address] [phone] * METHADONE AND METABOLITE CONFIRMATION PANEL (06/29/2023 12:58 EST) Methadone Confirmation Negative <100 ng/mL 07/02/2023 11:51 EST [facility] EDDP Confirmation Negative <100 ng/mL 07/02/2023 11:51 EST [facility] Urine URINE / Unknown 06/29/2023 1 2:58 EST 06/30/2023 15:19 EST Narrative [facility] - 07/02/2023 11:51 EST Testing performed by: [facility] [address] [place] [address] Meter Repairer Helper: Eamon Patricia MD; CLIA # [id number] Provider Outr Resulting Lab GEN LAB UNIT COLLECT ORDERABLES Performing Organization Address City/[facility] Co de Phone Number [facility] [address] [place] [address] * FENTANYL AND METABOLITE CONFIRMATION PANEL (06/29/2023 12:58 EST) Fentanyl Confirmation Negative <2 ng/mL 07/02/2023 11:51 EST [facility] Norfentanyl Confirmation Negative <10 ng/mL 07/02/2023 11:51 EST [facility] Urine URINE / Unknown 06/29/2023 1 2:58 EST 06/30/2023 15:19 EST Narrative [facility] - 07/02/2023 11:51 EST Testing performed by: [facility] [address] [place] [address] Meter Repairer Helper: Eamon Patricia MD; CLIA # [id number] Provider Outr Resulting Lab GEN LAB UNIT COLLECT ORDERABLES Performing Organization Address City/[facility] Co de Phone Number [facility] [address] [place] [address] documented in this encounter Visit Diagnoses Not on filedocumented in this encounter Care Teams Mill Supervisor Relationship Specialty Start Date End Date Alex Hong MD PCP - General 12/04/10 documented as of this encounter
--- OUTSIDE RECORDS SUMMARY | 2024-03-23 08:41 | XMS_ITS | Encounter Summary ---
Author Organization [facility] Address [address] [place] [address] Care Team Providers Care Concrete Pipe Machine Operator Name Role Phone AllertonMary Brandy SAILMAKER Primary Care Provider + Encounter Details Date Type Department Care Team (Late st Contact Info) Description 03/06/2006 Results Only [facility] - Maple conversion [address] [place] [address] [address] [place] [id number] Social History Tobacco Use Types Packs/Day Years Used Date Smoking Tobacco: Never Assessed Sex and Gender Information Value Date Recorded Sex Assigned at Not on file Gender Identity Not on file Sexual Orientation Not on file documented as of this encounter Plan of Treatment Not on file documented as of this encounter Procedures Procedure Name Priority Date/Time Associated Diagnosis Comments CYTOPATHOLOGY Routine 03/06/2006 0:00 EDT documented in this encounter Results * CYTOPATHOLOGY (03/06/2006 0:00 EDT) Pathology Report: CYTOPATHOLOGY REPORT Reports generated via electronic interface contain original data; however they are lacking the format of the original report. Caution should be taken when reading/interpreti ng unformatted reports. Name: ? TR JULIAN ? Accession #: ? [id number] : ? 1985 (Age: 20) ??F ?Collect Date: ? 03/06/2006 Location: ? [facility] ? Receive Date: ? 03/07/2006 Provider: ?SARAN REECE CNM Copy to: ? Specimen/Source: ?ThinPrep Pap Test, Cervix/Endocervix, processed on [employer] ThinPrep Imaging System, with manual evaluation Last Menstrual Period: ? 04/30/05 Previous Gynecologic Pathology: ? ASC-US: 05/28/03, 06/26/05 HPV: Positive FAVIO II: . Treatment History: ? Colposcopy: 07/07 Cervical biopsy Other: ? Additional clinical information: 12/14/03 pap neg. HPVDX - HPV testing requested regardless of diagnosis on current ThinPrep Pap test. ? SPECIMEN ADEQUACY ? Satisfactory for Evaluation - transformation zone component present GENERAL CATEGORIZATION ? Negative for Intraepithelial Lesion or Malignancy INTERPRETATION ? Reactive cellular changes associated with inflammation present (includes repair). ? Document reviewed and electronically signed by: ? JANNETTE PARKS MD ? Report Date: ??03/12/2006 15:15 End of Report [facility] 03/06/2006 03/07/2006 Saran Reece CNM PATHOLOGY ORDERABLES Performing Organization Address City/State/[facility] Co de Phone Number [facility] [address] [place] [address] documented in this encounter Visit Diagnoses Not on filedocumented in this encounter Care Teams Concrete Pipe Machine Operator Relationship Specialty Start Date End Date Mary Phan, [address] [place], [place] [address] PCP - General 07/04/10 12/03/10 documented as of this encounter
--- OUTSIDE RECORDS SUMMARY | 2024-03-23 08:41 | XMS_ITS | Encounter Summary ---
Author Organization [facility] Address [facility] [place] [address] Care Team Providers Care Absorption Plant Operator Name Role Phone Kendrick Aranda DNP Primary Care Provider Reason for Referral * Surgical (RICHIE) - Closed Specialty Diagnoses / Procedures Referred By Nohemi acevedo Referred To Contact Gastroenterology Diagnoses Abdominal pain, unspecified abdominal location Other chronic pain Procedures Procedure: Colonoscopy Indication: diarrhea Sedation: MAC Rationale for MAC: on Suboxone Timeframe: within 6-8 weeks Specific provider: first available OV needed: No Anticoagulation status: no documented anticoagulation use Kendrick Aranda DNP [address] [place] [address] [facility] [address] [place] [address] Referral ID Status Reason Start Date Expiration Date V isits Requested Visits Authorized [id number] Closed Surgical PCP Updated and/or Approved 11/02/2022 11/02/2023 1 1 Encounter Details Date Type Department Care Team (Late st Contact Info) Description 11/02/2022 Transcribe Orders eDH Incoming Referrals [phone] Kendrick Aranda DNP [address] [place] [phone] Abdominal pain, unspecified abdominal location; Other chronic pain Social History Tobacco Use Types Packs/Day Years Used Date Smoking Tobacco: Former Cigarettes 1 10 2 008 - 2017 Smokeless Tobacco: Never Comments:vape nicotine Alcohol Use Standard Drinks/Week Comments No 0 (1 standard drink = 0.6 oz pur e alcohol) Sex and Gender Information Value Date Recorded Sex Assigned at Not on file Gender Identity Not on file Sexual Orientation Not on file documented as of this encounter Plan of Treatment Scheduled Referrals Name Type Priority Associated Diagnoses Orde r Schedule REFERRAL TO COLONOSCOPY PROCEDURE Outpatient Referral Routine Abdominal pain, unspecified abdominal location Other chronic pain Ordered: 11/02/2022 documented as of this encounter Visit Diagnoses Diagnosis Abdominal pain, unspecified abdominal location Other chronic pain documented in this encounter Care Teams Absorption Plant Operator Relationship Specialty Start Date End Date Kendrick Aranda DNP [address] [place] [phone] PCP - General Family Medicine 11/02/22 documented as of this encounter
--- OUTSIDE RECORDS SUMMARY | 2024-03-23 08:41 | XMS_ITS | Clinical Summary ---
Author Organization [facility] Address [facility] [place] [address] Care Team Providers Care Sales Team Manager Name Role Phone Kendrick Aranda DNP Primary Care Provider Allergies No known active allergies Medications Medication Sig Dispensed Refills Start Date End Date Status Jtjusvupqocfb-Bx-Rasg -Minerals 27-0.4 mg Tablet Take by mouth. Active ibuprofen (ADVIL;MOTRIN) 200 mg Tablet Take 200 mg by mouth every 6 hours as needed for Pain. Active acetaminophen (TYLENOL) 325 mg Tablet Take 2 tablets by mouth every 6 hours. 30 tablet 1 10/18/2016 Active oxyCODONE (ROXICODONE) 5 mg Tablet Take 1-3 tablets by mouth every 4 hours as needed for Pain. 20 tablet 10/18/2016 Active Additional Information Patient not taking.Reported on 06/28/2021 polyethylene glycol (MIRALAX) 17 gram Powder in Packet Take 17 g by mouth daily. 14 each 10/18/2016 Active Additional Information Patient not taking.Reported on 06/28/2021 Vraylar 3 mg Capsule TAKE 1 CAPSULE BY MOUTH EVERY DAY WITH FOOD 06/23/2021 Active Suboxone 2-0.5 mg Film 16 mg. 05/11/2021 Active mirtazapine (REMERON) 7.5 mg Tablet TAKE 1 TABLET BY MOUTH AT BEDTIME 06/06/2021 Active ondansetron (Zofran) 8 mg Tablet TAKE 1 TABLET BY MOUTH THREE TIMES DAILY 05/29/2021 Active docusate sodium (Colace) 100 mg Capsule Take 100 mg by mouth 2 times daily. Active naloxegoL (Movantik) 12.5 mg TabletIndications:Hea rtburn,Gastroesophage al reflux disease, unspecified whether esophagitis present,Vomiting, intractability of vomiting not specified, presence of nausea not specified, unspecified vomiting type,Chronic nausea,Cannabis hyperemesis syndrome concurrent with and due to cannabis dependence,Therapeuti c opioid-induced constipation (OIC),Chronic idiopathic constipation,Irritabl e bowel syndrome with constipation,Function al dyspepsia,Avoidant-re strictive food intake disorder (ARFID),Class 1 obesity with body mass index (BMI) of 31.0 to 31.9 in adult, unspecified obesity type, unspecified whether serious comorbidity present Take 12.5 mg by mouth daily. 30 tablet 3 06/28/2021 Active ondansetron ODT (Zofran-ODT) 4 mg Tablet, Rapid Dissolve Take 1 tablet by mouth every 8 hours as needed for Nausea. 10 tablet 12/19/2021 Active Active Problems Problem Noted Date Diagnosed Date Encounter for insertion subdermal contraceptive 10/18/2016 Overview (10/18/2016): Homer Consent Form Signed Date: 10/18/16 Homer Consent Form Scanned Added to Shared List yes Questionnaire Completed yes LARC Device labeled in safe area? yes LARC Device Type: Nexplanon Insertion Date 10/18/16 Was there Contamination? no Comment: care following delivery 10/03 Cigarette smoker 11/26/2014 Late care 11/26/2014 Overview (11/26/2014): [facility], does not know if measurements were done. She did not truly receive care. She does not know the date of her LMP but that it occurred in June when she was in [place]. Assessment & Plan (11/26/2014 5:41 PM EDT): The patient states she essentially had no care until 19 weeks. She states shehHad a free US at a spiritism clinic in [place] and just a picture was taken. She does not know if measurements were done. She states she told the spiritism that her LMP was in June when she was in [place] and they told her she was already in June. It appears her BRADLEY is based on this undocumented US. Since this is consistent with her US locally at 20+ weeks, it seems reasonable to continue using it, however, I would consider her to have poor dates and thus IOL for postdates should not be performed. Rubella non-immune status, antepartum 11/26/2014 Overview (11/26/2014): Equivocal Substance abuse Overview (11/26/2014): crack cocaine, prior IVDA UDS positive 11/02/14 fo rcocaine and THC and on 11/01 for Buprenorphine, states she had a 2 week relapse. Started [facility] program at 20 weeks, is doing drug cousenling, but not seeing a psychiatrist. Assessment & Plan (11/26/2014 5:46 PM EDT): The patient has a history of piror IVDA, states she was clean for 7 months and then had a 2 week replapse. Her UDS on 11/01 was positive for cocaine, MJ and bupenorophrine. She started the [facility] program at 20 weeks and is receiving drug counseling through them and states her methadone dose is 40 mg/day. She states she is not seeing a psychiatrist to discuss her mood disorder. I explained that methadone use is preferable to street drugs and that we don't recommend stopping methadone during . She very much wishes to get off the methadone because she does not like the way it makes her feel. I explained that methadone is associated with a slight decrease in head size. Her fetuses head is somewhat smaller, however it is unlikely the methadone, which was just recently started had any impact and the size is still within the realm of normal. The intracranial anatomy appears normal. Microcephaly is not diagnosed until < 3 SD from the mean due to the fact that abnormal outcomes are not seen until that point. The patient and her family were counseled regarding the limitations of ultrasound, and the incidence of congenital malformations in the general population. They were told that 2-3% of child born in the [place] have a congenital malformation and that ultrasound will diagnose between 50% and 75%. Depression Overview (11/26/2014): On no medications, waiting to get into treatment. Assessment & Plan (11/26/2014 5:49 PM EDT): Has a long history of depression, has bene on many medications in the past, none except for lithium have helped. However, she states she has not really stuck with a medication long enough to see if it works. She has mostly self medicated with non-presribed substances. She scored 20 on her depression screen toda and denies thoughts of hurting herself or others. She has an active referral locally for an [facility]. As no medication, other than lithium, has worked for her in the past, I had nothing to offer today. Hepatitis C Overview (11/26/2014): Diagnosed October 2014 Assessment & Plan (11/26/2014 5:50 PM EDT): The risk of vertical transmission is 4-7% and is not affected by mode of delivery. There is an increased risk overall of transmission with viral loads of greater than 1 million, however treatment is has not been shown to decrease the risk of transmission. Breast feeding is not associated with increased risks of transmission, although there is concern of a possible risk of transmission with very cracked and bleeding nipples. Of children infected at , 80% will develop chronic infection and of those, 2% will progress to severe disease by age 10 and require treatment. I encouraged the patient to let the pediatric providers of this child know of her hepatitis C. There are currently no acceptable methods of treatment for Hepatitis C in (as opposed to Hepatitis B where treatment is now available in based on viral load). I recommend the followin. Referral to GI for consultation and arrangement for treatment. 2. section for OB indications only 3. Avoid scalp electrode and other interventions that could break the skin 4. OK to breast feed, but pay attention to breast hygiene 5. Perform LFT with coaggs Now and again at 36 weeks Immunizations Name Administration Dates Next Due Influenza PF, Split 10/18/2016 MMR Vaccine LIVE 10/18/2016 Family History Medical History Relation Comments Diabetes Maternal Grandfather Transient Ischemic Attack Mother stroke Relation Status Comments Maternal Grandfather Mother Social History Tobacco Use Types Packs/Day Years Used Date Smoking Tobacco: Former Cigarettes 1 10 2 2017 Smokeless Tobacco: Never Comments:vape nicotine Alcohol Use Standard Drinks/Week Comments No 0 (1 standard drink = 0.6 oz pur e alcohol) Sex and Gender Information Value Date Recorded Sex Assigned at Not on file Gender Identity Not on file Sexual Orientation Not on file Last Filed Vital Signs Vital Sign Reading Time Taken Comments Blood Pressure 95/58 12/19/2021 2:10 PM EDT Pulse 77 12/19/2021 12:41 PM EDT Temperature 36.1 ??C (97 ??F) 12/19/2021 12:41 PM EDT Respiratory Rate 18 12/19/2021 2:10 PM EDT Oxygen Saturation 99% 12/19/2021 2:15 PM EDT Inhaled Oxygen Concentration - - Weight 77.1 kg (170 lb) 12/19/2021 12:47 PM EDT Height 162.6 cm (5' 4) 12/19/2021 12:47 PM EDT Body Mass Index 29.18 12/19/2021 12:47 PM EDT Plan of Treatment Health Maintenance Due Date Last Done Comments Pneumococcal Vaccine: At-Risk 5-64yrs (1 of 2 - PCV) 0 12/31/1991 HIV screen 12/31/2003 Hepatitis B vaccine (0-59 yrs) (1) 2004 Tdap adult 2004 Tetanus vaccine 2004 HPV test 12/31/2015 PAP Smear 12/31/2015 Covid-19 Vaccine (1 - 2022- season) 2023 Influenza (Flu) vaccine (1 o f 1 - Influenza standard series) 04/05/2024 10/18/2016 Advance Directives * Full Code (Latest Code Status on File) Date Activated Date Inactivated Comments 10/15/2016 1:48 PM 10/18/2016 7:15 PM Question Answer Comments Does patient have capacity to make decision: Yes Care Teams Sales Team Manager Relationship Specialty Start Date End Date Kendrick Aranda DNP [address] [place] [id number] PCP - General Family Medicine 11/02/22
--- OUTSIDE RECORDS SUMMARY | 2024-03-23 08:41 | XMS_ITS | Encounter Summary ---
Author Organization [facility] Address [address] [place] [address] Care Team Providers Care Bioinformatics Team Member Name Role Phone Barrington Bhatia MD Primary Care Provider [phone] Encounter Details Date Type Department Care Team (Late st Contact Info) Description 10/10/2018 Results Only [facility] [phone] Braxton Newman, DO [address] [place], [place] [id number] Social History Tobacco Use Types Packs/Day Years Used Date Smoking Tobacco: Never Assessed Sex and Gender Information Value Date Recorded Sex Assigned at Not on file Gender Identity Not on file Sexual Orientation Not on file documented as of this encounter Plan of Treatment Not on file documented as of this encounter Procedures Procedure Name Priority Date/Time Associated Diagnosis Comments SURGICAL PATHOLOGY Routine 10/10/2018 18 :32 EST documented in this encounter Results * SURGICAL PATHOLOGY (10/10/2018 18:32 EST) Pathology Report: SURGICAL PATHOLOGY REPORT Reports generated via electronic interface contain original data; however they are lacking the format of the original report. Caution should be taken when reading/interpretin g unformatted reports. Name: ? TR JULIAN ? Accession #: ? [id number] ? : ? 1985 (Age: 32) ??F ? Collect Date: ? 10/10/2018 ? Location: ? [facility] ? Receive Date: ? 10/10/2018 ? Provider: BRAXTON NEWMAN DO Copy to: BARRINGTON BHATIA MD ? Final Pathologic Diagnosis: A. SMALL INTESTINE, DUODENAL BULB, BIOPSY: - Small bowel mucosa with normal villous architecture. - Intramucosal Jerry's glands. - No specific pathologic findings. B. STOMACH, ANTRUM, BIOPSY: - Antral mucosa with no specific pathologic findings. C. STOMACH, GREATER CURVATURE, BIOPSY: - Oxyntic mucosa with no specific pathologic findings. D. GASTROESOPHAGEAL JUNCTION, BIOPSY: - Squamous mucosa with no specific pathologic findings. - No glandular mucosa identified for histologic evaluation. E. ESOPHAGUS, DISTAL, BIOPSY: - Squamous mucosa with no specific pathologic findings. Document reviewed and electronically signed by: DANILO BANUELOS MD Report ??Date: 10/14/2018 10:26 By the signature above, the attending physician certifies that he/she has personally conducted a gross and/or microscopic examination of the described specimens and rendered or confirmed the above diagnosis. Specimen(s) Received: A. ??Duodenal bulb bx B. ??Antrum bx C. ??Greater curve bx D. ??GE junction E. ??Distal esophagus Clinical History: Abdominal pain/nausea Gross Description: A. ?Received in formalin labelled with proper patient identification (initials P, M) and duodenal bulb bx is a single fragment of brown tissue (0.4 x 0.3 x 0.3 cm). The specimen is entirely submitted in A1. B. ?Received in formalin labelled with proper patient identification (initials P, M) and antrum bx is a single fragment of moore tissue (0.6 x 0.3 x 0.2 cm). The specimen is entirely submitted in B1. C. ?Received in formalin labelled with proper patient identification (initials P, M) and greater curve bx is a single fragment of brown tissue (0.7 x 0.3 x 0.2 cm). The specimen is entirely submitted in C1. D. ?Received in formalin labelled with proper patient identification (initials P, M) and GE junction is a single fragment of white tissue (0.5 x 0.3 x 0.2 cm). The specimen is entirely submitted in D1. E. ?Received in formalin labelled with proper patient identification (initials P, M) and distal esophagus is a single fragment of white tissue (0.5 x 0.3 x 0.2 cm). The specimen is entirely submitted in E1. SELMA Ornelas (ASCP) 10/13/2018 7:42 AM End of Report [facility] 10/10/2018 18:3 2 EST 10/10/2018 18:32 EST Braxton Newman DO PATHOLOGY ORDERABLES Performing Organization Address City/State/[facility] [[email or web address]] Co de Phone Number [facility] [address] [place] [address] documented in this encounter Visit Diagnoses Not on filedocumented in this encounter Care Teams Bioinformatics Team Member Relationship Specialty Start Date End Date Barrington Bhatia MD PCP - General 12/04/10 documented as of this encounter
--- OUTSIDE RECORDS SUMMARY | 2024-03-23 08:42 | XMS_ITS | Encounter Summary ---
Author Organization [facility] Address [facility] [place] [address] Care Team Providers Care Studio Camera Operator Name Role Phone Unknown Primary Care Provider Unavailabl e Encounter Details Date Type Department Care Team (Latest Contact Info) Description 10/15/2016 9:46 AM EDT - 10/15/2016 10:29 AM EDT Hospital Encounter Laboratory [facility] [place] [address] Discharge Disposition: Home Social History Tobacco Use Types Packs/Day Years Used Date Smoking Tobacco: Every Day Cigarettes 1 10 Smokeless Tobacco: Never Alcohol Use Standard Drinks/Week Comments No 0 (1 standard drink = 0.6 oz pur e alcohol) Sex and Gender Information Value Date Recorded Sex Assigned at Not on file Gender Identity Not on file Sexual Orientation Not on file documented as of this encounter Medications at Time of Discharge Medication Sig Dispensed Refills Start Date End Date acetaminophen (TYLENOL) 325 mg Tablet Take 2 tablets by mouth every 6 hours. 30 tablet 1 10/18/2016 oxyCODONE (ROXICODONE) 5 mg Tablet Take 1-3 tablets by mouth every 4 hours as needed for Pain. 20 tablet 10/18/2016 polyethylene glycol (MIRALAX) 17 gram Powder in Packet Take 17 g by mouth daily. 14 each 10/18/2016 Uorivmihnjsqa-Bu-Wtzy-M inerals 27-0.4 mg Tablet Take by mouth. ibuprofen (ADVIL;MOTRIN) 200 mg Tablet Take 200 mg by mouth every 6 hours as needed for Pain. docusate sodium (COLACE) 100 mg Capsule Take 1 capsule by mouth 2 times daily for 10 days. 10 capsule 10/18/2016 10/28/2016 methadone (METHADOSE) 10 mg/5 mL Solution Take 55 mg by mouth every 4 hours as needed for Pain. 12/19/2021 documented as of this encounter Plan of Treatment Not on file documented as of this encounter Procedures Procedure Name Priority Date/Time Associated Diagnosis Comments SURGICAL PATHOLOGY REPORT Routine 10/15/2016 9:55 AM EDT documented in this encounter Results * Surgical Pathology Report (10/15/2016 9:55 AM EDT) Final Diagnosis [id number] ?Location: [facility] The signing pathologist has (i) examined the relevant preparation(s) for the specimen(s) and (ii) rendered or confirmed the diagnosis(es). . ?Surgical Pathology DIAGNOSIS A - Second trimester placenta, 26 weeks, 209 grams, 25th-50th percentile: ? 1. ??Acute chorioamnionitis , stage 2, grade 1 ? 2. ??Acute vasculitis involving chorionic plate vessels ? 3. ??Villous maturation appropriate for gestational age ? 4. ??Acute deciduitis ? 5. ??Three vessel umbilical cord with acute funisitis involving all three ?umbilical vessels Electronically signed by: ??Diony Su MD Verified: ??10/23/2016 ?Pathologist CLINICAL INFORMATION Specimen Submitted: A - Placenta Clinical History: 30-year-old no care, 26 weeks Clinical Diagnosis: Same SPECIMEN PROCESSING A - Labeled/Fixative : Patient demographics, fresh. Qty/Size/Weight: Moran, 14.2 x 11.1 x 1.5 cm, 209 gram. Tissue Description: Moderately disrupted ovoid placenta. Membranes: Glistening, translucent, pink-moore with marginal insertion. Cord: 4.0 cm long x 1.1 cm in diameter; three vessels; pericentral insertion. Surface: Glistening, kilpatrick-moore, multiple small caliber branching blood vessels. There is no subchorionic fibrin deposition. Maternal Surface: Moderately disrupted but appears complete with no calcium or fibrin deposition. Parenchyma: Red-brown and soft with no fibrin deposition or areas suggestive of infarct. Sections/Process ing: (1) membrane roll; (2) proximal and distal cord; (3-5) full thickness parenchyma. (R5) ??ZOEY 10/23/2016 1:55 PM EDT [facility] TISSUE SPECIMEN FROM PLACENTA / Unknown 10/15/2016 9:55 AM EDT 10/15/2016 9:55 AM EDT Won Kilpatrick MD PATHOLOGY/CYTOLOGY O RDERASALLY [facility] [place] [address] documented in this encounter Visit Diagnoses Not on filedocumented in this encounter Care Teams Studio Camera Operator Relationship Specialty Start Date End Date Unknown None PCP - General 10/03/16 05/27/21 documented as of this encounter
--- OUTSIDE RECORDS SUMMARY | 2024-03-23 08:42 | XMS_ITS | Encounter Summary ---
Author Organization [facility] [place] [address] Care Team Providers Care Automotive Artist Name Role Phone Shweta Sykes GERTRUDE Primary Care Provider [phone] Encounter Details Date Type Department Care Team (Late st Contact Info) Description 08/21/2021 Telephone Gastroenterology at [facility] [place] [address] Martin Enriquez Social History Tobacco Use Types Packs/Day Years [...] encounter Miscellaneous Notes * Telephone Encounter - Martin Enriquez - 09/11/2021 5:08 PM EST Inbound/Outbound: Outbound Spoke to Patient/Left Message: Left message Notes: Returned call to patient, who called while I was on my lunch.Outbound call to patient to schedule motility lab testing from referral. Left message asking for callback to schedule. Return calls can be handled by: [facility] Digital Community Manager * Telephone Encounter - Martin Enriquez - 09/06/2021 9:34 AM EST Inbound/Outbound: Outbound Spoke to Patient/Left Message: Left message Notes: Outbound call to patient to schedule motility lab testing from referral. Left message askingfor callback to schedule. Return calls can be handled by: [facility] Digital Community Manager * Telephone Encounter - Martin Enriquez - 08/21/2021 4:49 PM EST Inbound/Outbound: Outbound Spoke to Patient/Left Message: Left message Notes: Outbound call to patient to schedule motility lab testing from referral. Left message askingfor callback to schedule. Return calls can be handled by: [facility] Digital Community Manager documented in this encounter Plan of Treatment Not on file documented as of this encounter Visit Diagnoses Not on filedocumented in this encounter Care Teams Automotive Artist Relationship Specialty Start Date End Date Shweta Sykes APRN [address] [place] [address] PCP - General Family Medicine 05/28/21 11/01/22 documented as of this encounter
--- OUTSIDE RECORDS SUMMARY | 2024-03-23 08:42 | XMS_ITS | Encounter Summary ---
Author Organization [facility] Address [facility] [place] [address] Care Team Providers Care Farm Field Manager Name Role Phone Shweta Sykes GERTRUDE Primary Care Provider [phone] Encounter Details Date Type Department Care Team (Late st Contact Info) Description 12/19/2021 12:08 PM EDT - 12/19/2021 2:38 PM EDT Hospital Encounter [place] [id number] López Sosa MD [facility] [place] [address] Discharge Disposition: Home Social History Tobacco Use [...] the day after the procedure, use an orvt-snm-umpaidk spray to numb your throat. Sucking on [...] occurs, please contact your Doctor. Please call [phone] before 8pm Mon-Fri with problems, questions or concerns. If you call after 8pm or on weekends, call the Hospital at [phone] and ask to speak to the Environmental Economist design sales consultant and the longshore equipment operator will contact that person for you. [...] any problems. Where can you learn more? [facility] View your After Visit Summary and more online at [email or web address] If you would like to provide feedback about your hospital experience, please call the Office of Patient and Family Relations at . If you have received this After Visit Summary in error, please immediately return it in person to the department, or notify the [facility] Privacy Office by calling toll free at between the hours of 8AM and 5PM to arrange for our retrieval of the documents at no cost to you. Content Version: 12.2 ?? 8418-2497 [employer]. Care instructions adapted under license by [facility]. If you have questions about a medical condition or this instruction, always ask your healthcare professional. [employer] disclaims any warranty or liability for your [...] g by mouth daily. 14 each 10/18/2016 Eqzzvjcmngfyz-Hw-Ltvq-Mi nerals 27-0.4 mg Tablet Take by mouth. [...] complication. Informed Consent signed by patient (or inbound call center representative). documented in this encounter Plan of [...] per rectum) Melena Upper Gi Endoscopy, Biopsy ([id number]) 12/19/2021 1:35 PM EDT Heartburn Gastroesophageal reflux [...] Report (12/19/2021 1:54 PM EDT) Final Diagnosis [id number] ? Location: 4T; EA06; A The signing pathologist has (i) examined [...] MD Verified: ??12/22/2021 19:35 ??Pathologist Performed at: ??-[facility] [place] [place] Dept. of Pathology, [place], [place] SPECIMEN(S) SUBMITTED A - Duodenum, biopsy [...] labeled B1-B2. ??mnd 12/22/2021 7:35 PM EDT [facility] Biopsy 12/19/2021 1:54 PM EDT 12/19/2021 1:54 PM EDT GI Biopsy 12/19/2021 1:54 PM EDT 12/19/2021 1:54 PM EDT López Sosa MD PATHOLOGY/[place] [address] * Specimen to Pathology (12/19/2021 1:54 PM EDT) AP Specimen 12/19/2021 1:54 PM EDT 12/19/2021 1:54 PM EDT Narrative [facility] - 12/19/2021 1:54 PM EDT Specimen requisition ordered. ??Separate Pathology report to follow López Sosa MD PATHOLOGY/CYTOLOG Y ORDERABLES Performing Organization Address City/[facility]/[place] [address] * Specimen to Pathology (12/19/2021 1:54 PM EDT) AP Specimen 12/19/2021 1:54 PM EDT 12/19/2021 1:54 PM EDT Narrative [facility] - 12/19/2021 1:54 PM EDT Specimen requisition ordered. ??Separate Pathology report to follow López Sosa MD PATHOLOGY/CYTOLOG Y ORDERABLES Performing Organization Address City/[facility]/[place] [address] * UPPER GI ENDOSCOPY (12/19/2021 1:23 PM EDT) UPPER GI ENDOSCOPY [facility] Endoscopy Procedure Date: 12/19/2021 1:23 PM ? Patient Name: Chencho Barrett ? Date of : 1985 ? Age: 35 ? Order #: [id number] ? Instrument Name: [id number] ? Procedure: ? Upper GI endoscopy Indications: ? Epigastric abdominal pain, ? Functional Dyspepsia, Nausea with ? vomiting Patient Profile: ? This is a 35 year old female. Providers: ? López Sosa MD, Mckenzie ? oHmer Gordillo, Diving Board Assembler Referring MD: ?Nicholas Ba MD, Shweta Lange [...] PROVATION documented in this encounter Visit Diagnoses Not on filedocumented in this encounter Active and Recently Administered Medications Times are shown in EDT. Continuous Medication Order 12/17/2021 12/18/2021 12/19/2021 lactated ringers infusion (CANCELED) 100 mL/hr, Intravenous, CONTINUOUS, Starting on Sat12/19/21 at 1300, Until Sat12/19/21 at 1401, Endoscopy (Day of Procedure) 1333 (New Bag - Prov ider: Pattie Persaud CRNA)1335 (Anesthesia Volume Adjustment - Provider: Pattie Persaud CRNA) documented in this encounter Care Teams Farm Field Manager Relationship Specialty Start Date End Date Shweta Sykes APRN [address] [place] [address] PCP - General Family Medicine 05/28/21 11/01/22 documented as of this encounter
--- OUTSIDE RECORDS SUMMARY | 2024-03-23 08:42 | XMS_ITS | Encounter Summary ---
Author Organization [facility] [place] [address] Care Team Providers Care Peoplesoft Business Analyst Name Role Phone Adelaida Dawson GERTRUDE Primary Care Provider [phone] Reason for Visit * Reason Comments GI Problem Encounter Details Date Type Department Care Team (Late st Contact Info) Description 05/20/2015 1:00 PM EDT Office [place] [address] Sylvia You APRN [facility] [place] [address] Hepatitis C virus infection without hepatic coma, unspecified chronicity Social History Tobacco Use Types Packs/Day Years Used Date Smoking Tobacco: Every Day Cigarettes 1 10 Smokeless Tobacco: Never Alcohol Use Standard Drinks/Week Comments No 0 (1 standard drink = 0.6 oz pur e alcohol) Comments Yes Sex and Gender Information Value Date Recorded Sex Assigned at Not on file Gender Identity Not on file Sexual Orientation Not on file documented as of this encounter Last Filed Vital Signs Vital Sign Reading Time Taken Comments Blood Pressure 133/75 05/20/2015 12:52 PM EDT Pulse 105 05/20/2015 12:52 PM EDT Temperature - - Respiratory Rate - - Oxygen Saturation - - Inhaled Oxygen Concentration - - Weight 71.4 kg (157 lb 6.4 oz) 05/20/2015 12:52 PM EDT Height 162.6 cm (5' 4) 05/20/2015 12:52 PM EDT Body Mass Index 27.02 05/20/2015 12:52 PM EDT documented in this encounter Progress Notes * Sylvia You APRN - 05/20/2015 1:12 PM EDT Hepatology New Patient Note Patient: Chencho Barrett Gender: female : 1985 Provider: Sylvia You NP Referring Physician: ADELAIDA DAWSON APRN (General) Patient ID: Chencho Barrett is a 29 y.o. yo female who presents to the section of Gastroenterology inconsultation at the request of Dr. ADELAIDA DAWSON APRN (General) for evaluation and treatment of Hepatitis C HISTORY OF PRESENT ILLNESS Ms. Chencho Barrett is a 29 y.o. female who was diagnosed with HCV 6 months ago as part of lab work. Genotype is unknown. She believes she contracted the virus from IVDU in the past 1.5 years as she been tested for HCV in in August of 2013 as part of a rehab program, which was negative. She last used IV drugs 1 year ago, last used intranasal drugs 9 months ago, and has been going to [facility] for the past 7 months. She gave to a baby boy, Sikh, 3 months ago and she states the period has beendifficult because the baby has colic and she does not feel well. She is living with her mother but does not have much help with the baby as she feels like she is the only one who can calm him. She has not seen her Ob-Mechanical Lead since giving . She does not know if the baby has HCV as he cannot be tested until he is 6 mo old. States that she is always hot, often feels nauseous and has multiple aches and pains all over her body. The patient reports that when she tells this to the clinician at the Methadone clinic they say she is going through withdrawal yet she does not want to increase her Methadone dose. Her goal is tostart to taper off the Methadone. Lately she feels like smoking marijuana is the only way for her to eat, she has been feeling so nauseous. REVIEW OF SYSTEMS Notable for the gastrointestinal symptoms as described above. GI: There has been no anorexia, fever, or unintended weight change; no red or painful eyes; no oralulcers, chronic oral lesions, or chronic sore throat. Cardiac/Pulm: There is no cough, shortness of breath, palpitations, or chest pain. : There is no dysuria, urinary incontinence. MSK: No chronic joint pains or history of inflammatory arthritis. DERM: There is no recent skin rash. PSYCH: denies SI/HI. PAST MEDICAL HISTORY: Hepatitis C: - Likely contracted 2013 - Fibroscan 05/2015: F0 - GT unknown. Panic attacks Substance abuse: crack, cocaine, IVDU. Clean since 09/2014 Depression MEDICATIONS: Outpatient Prescriptions Marked as Taking for the 05/20/15 encounter (Office Visit) with Sylvia You APRN Medication Sig Dispense Refill ??? Wvxoffdgjrlpn-Ok-Dxfw-Minerals 27-0.4 mg Tablet Take by mouth. ??? ibuprofen (ADVIL;MOTRIN) 200 mg Tablet Take 200 mg by mouth every 6 hours as needed for Pain. ??? methadone (METHADOSE) 10 mg/5 mL Solution Take 55 mg by mouth every 4 hours as needed for Pain. ALLERGIES/ADR No Known Allergies SOCIAL HISTORY: History Social History ??? Marital Status: Single Spouse Name: N/A Number of Children: N/A ??? Years of Education: N/A Occupational History ??? Not on file. Social History Main Topics ??? Smoking status: Current Every Day Smoker -- 1.00 packs/day for 10 years Types: Cigarettes ??? Smokeless tobacco: Never Used ??? Alcohol Use: No ??? Drug Use: No ??? Sexual Activity: Partners: Male Other Topics Concern ??? Not on file Social History Narrative Tobacco: smokes 1 ppd. Marijuana: daily, from a few hits to a few bowls ETOH: never a heavy drinker, none currently. Drugs: Hx of intranasal and IVDU. No drugs other than marijuana in past 8 months. FAMILY HISTORY: ETOH cirrhosis is mother and brother. Hx of cervical cancer in mother. PHYSICAL EXAMINATION: Filed Vitals: 05/20/15 1252 BP: 133/75 Pulse: 105 Height: 162.6 cm (5' 4) Weight: 71.396 kg (157 lb 6.4 oz) Body mass index is 27 kg/(m^2). GEN: Tearful woman who appears her stated age. Cooperates and answers questions appropriately. SKIN: No rashes or abnormal lesions. No palmar erythema, no spider nevi NECK: No adenopathy and no thyromegaly. HEENT: Nonicteric sclera. PERRL, EOMI LUNGS: Clear to auscultation bilaterally. COR: Regular, normal S1 and S2 without murmurs ABD: Stretch harrison present around central abdomen. Soft and non-distended. Normal active bowel sounds. No tenderness to deep palpation in all 4 quadrants. No organomegaly. EXT: No cyanosis, clubbing or edema. Outside Lab results: 02/19/13: HIV negatitve HbSag negative 12/10/14: AST: 76 ALT: 97 Biliruben, conjugated: 0.13 INR: 0.9 WBC: 10.53 Platelets: 230 HCV viral load: [id number] IU/mL 12/23/14: HCV viral load: [id number] Procedure: Vibration Controlled Transient Elastography (VCTE) or Fibroscan [place] Protocol: Patient's identity, procedure and site were verified, confirmatory pause performed. Discussed procedure including risks and potential complications. Questions answered. Patient verbalizes understanding and wishes to proceed with Fibroscan assessment. Patient was placed in the supine position with right arm in maximum abduction to allow optimal exposure of right lateral abdomen. Patient was briefly assessed. Testing was performed in the mid-axillary location. 50Hz Shear Wave pulses were applied and the resulting Shear Wave and Propagation Speed was detected with a 3.5MHz ultrasonic signal, using the Fibroscan probe. Skin to liver capsule distance and liver parenchyma were accessed during the entire examination with the Fibroscan probe. Patient was instructed to breathe normally and abstain from sudden movements during the procedure. At least ten Sheer Waves were produced; individual measurements of each Shear Wave were calculated. Patient tolerated the procedure well with no complications. Fibroscan Results: Mean kPa: 4.9 Mean IQR: (goal is <30 %) 15% Success rate: (goal is >60%) 100% Predicted fibrosis stage: F0 IMPRESSION: Chencho Barrett is 29 y.o. female with Hepatitis C, genotype unknown. RECOMMENDATIONS: Based on his Fibroscan results, history, clinical examination and review of his laboratory and radiological data, patient likely has no or minimal liver fibrosis (F0-1). Treatment for HCV can be doneon an elective basis depending on availability of treatments and efficacy. Would be reasonable to wait for new treatments. Discussed with patient that it was unlikely that treatment would be approved by insurance given herlow fibrosis and that she would likely need to stop smoking marijuana in order for treatment to be approved. Patient would like to wait one year and reevaluate for treatment at that point. Plan to follow up in 1 year with repeat fibroscan and blood work (Genotype, viral load, CBC, CMP). Encouraged patient to schedule appointment with Ob-HORSE DOCTOR for post- follow up and make time for herself and accept help for caring for her . The patient was given my contact information and will call me with concerns or questions Sylvia You NP Department of Gastroenterology and Hepatology [place] [phone] of this 60 minute visit in face to face discussion regarding disease, prognosis and treatment CC: ADELAIDA DAWSON APRN (General) documented in this encounter Plan of Treatment Not on file documented as of this encounter Visit Diagnoses Diagnosis Hepatitis C virus infection without hepatic coma, unspecified chronicity documented in this encounter Care Teams Peoplesoft Business Analyst Relationship Specialty Start Date End Date Adelaida Dawson APRN [address] [place] [address] PCP - General 06/27/10 10/02/16 documented as of this encounter
--- OUTSIDE RECORDS SUMMARY | 2024-03-23 08:42 | XMS_ITS | Encounter Summary ---
Author Organization [facility] [place] [address] Care Team Providers Care Manager Women Name Role Phone Zack Sanchez APRN Primary Care Provider [phone] Encounter Details Date Type Department Care Team (Late st Contact Info) Description 06/26/2016 Telephone [place] [id number] Clare Boss Social History Tobacco Use Types Packs/Day Years [...] encounter Miscellaneous Notes * Telephone Encounter - Clare Escobar - 06/26/2016 8:20 AM EST Patient is due for the following with Sylvia You APRN: 1 YEAR F/U(MAY) W/LABS 1 WEEK PRIOR I have attempted to reach her several times with no success: 03/07: Letterx1 06/15: calledx1, #NIS 06/22: Calledx2, #NIS 06/26: Final Letter documented in this encounter Plan of Treatment Not on file documented as of this encounter Visit Diagnoses Not on filedocumented in this encounter Care Teams Manager Women Relationship Specialty Start Date End Date Zack Sanchez APRN [address] [place], [place] [address] PCP - General 06/27/10 10/02/16 documented as of this encounter
--- OUTSIDE RECORDS SUMMARY | 2024-03-23 08:42 | XMS_ITS | Encounter Summary ---
Author Organization [facility] [place] [address] Care Team Providers Care Bingo Checker Name Role Phone Zack Sanchez APRN Primary Care Provider [phone] Reason for Visit * Reason Onset Date Comments Other 11/23/2014 Encounter Details Date Type Department Care Team (Late st Contact Info) Description 11/23/2014 Telephone Obstetrics [place] [address] Destiney Lopez MD [facility] [address] [place] [address] Other Social History Tobacco Use Types Packs/Day Years Used Date Smoking Tobacco: Never Assessed Sex and Gender Information Value Date Recorded Sex Assigned at Not on file Gender Identity Not on file Sexual Orientation Not on file documented as of this encounter Miscellaneous Notes * Telephone Encounter - Steffanie Pelletier - 11/23/2014 2:26 PM EDT PLEASE SIGN documented in this encounter Plan of Treatment Not on file documented as of this encounter Results * US OB Targeted Morphology (11/26/2014 4:26 PM EDT) Anatomical Region Laterality Modality Pelvis, Abdomen Ultrasound 11/26/2014 4:26 PM EDT Narrative 11/26/2014 4:39 PM EDT OBSTETRICS REPORT ?(Signed Final 11/26/2014 04:39 ? pm) Patient Info ID #: ? [id number] ?: ??[birth year] (28 yrs) Name: ? TR JULIAN ?Visit Date: 11/26/2014 03:53 pm Performed By Performed By: ?Suzy BECERRA, Chacha Attending: ? Juanita STRONG, Shankar Barth Referred By: ? KALANI REECE CNM Service(s) Provided ??[facility] - Targeted Morphology - Genetics - ? [id number] ??[id number] Indications ??Hx OF STRESS SEIZURES, METHADONE USE, ??HEP C; D - One Week Evaluation Num Of Fetuses: ? 1 Heart ? 153 Rate(bpm): Cardiac Activity: ?? Observed, normal rhythm Presentation: ? Cephalic Placenta: ? Posterior P. Cord Insertion: ??Within Normal Limits Amniotic Fluid IGNACIO FV: ?Appropriate for gestational age IGNACIO Sum: ? 14.59 ?? cm ? Larg Pckt: ?4.69 ??cm RUQ: ?? 3.64 ?cm ?LUQ: ?? 4.69 ?? cm RLQ: ?? 3.06 ?cm ?LLQ: ?? 3.2 ?cm -------- Biometry -------- BPD: ?58.7 ??mm ?G. Age: ?? 24w 0d ? < 3 ??% OFD: ?84.8 ??mm HC: ?230.8 ??mm ?G. Age: ?? 25w 1d ? < 3 ??% AC: ?215.9 ??mm ?G. Age: ?? 26w 1d ?20 ??% FL: ? 47.7 ??mm ?G. Age: ?? 26w 0d ?14 ??% HUM: ?44.7 ??mm ?G. Age: ?? 26w 4d ?39 ??% CER: ?27.0 ??mm ?G. Age: ?? 24w 4d ? 7 ??% NB: ?8.4 ??mm LV: ?4.1 ??mm CM: ?5.5 ??mm CI: ?69.2 ??% ? 70 - 86 FL/HC: ? 20.7 ??% ? 18.6 - 20.4 HC/AC: ? 1.07 ?1.05 - 1.21 FL/BPD: ?81.3 ??% ? 71 - 87 FL/AC: ? 22.1 ??% ? Est. FW: ? 856 ?? gm ?? 1 lb 14 oz ? 49 ??% Gestational Age Clinical BRADLEY: ??26w 6d ?BRADLEY: ?? 02/26/15 U/S Today: ? 25w 2d ?BRADLEY: ?? 03/09/15 Best: ?26w 6d ?? Det. By: ??Clinical BRADLEY ? BRADLEY: ?? 02/26/15 Targeted Anatomy Central Nervous System Calvarium: ?Within Normal Limits Intracranial: ? Within Normal Limits Cavum: ?Visualized Lat. Ventricles: ?Within Normal Limits Cerebellum: ? Within Normal Limits Choroid Plexus: ? Within Normal Limits Cisterna Magna: ? Within Normal Limits Spine Cervical: ? Visualized Thoracic: ? Visualized Lumbar: ? Visualized Sacral: ? Visualized Head/Neck Face: ? Within Normal Limits Nuchal Fold: ?Not evaluated at this Eyes: ? Visualized Profile: ?Visualized Thorax Four Chamber: ? Within Normal Limits Cardiac Motion: ? Normal Rhythm R Outflow Tract: ?Visualized L Outflow Tract: ?Visualized Aortic Arch: ?Visualized Cardiac Talpa: ? Visualized 3 Vessel View: ?Visualized Diaphragm: ?Visualized Abdomen Ventral Wall: ? Visualized Stomach: ?Visualized Lt Kidney: ?Visualized Rt Kidney: ?Visualized Bladder: ?Visualized Extremities Lt Humerus: ? Visualized Rt Humerus: ? Visualized Lt Forearm: ? Visualized Rt Forearm: ? Visualized Lt Hand: ?Visualized Rt Hand: ?Visualized Lt Femur: ? Visualized Rt Femur: ? Visualized Lt Lower Leg: ? Visualized Rt Lower Leg: ? Visualized Lt Foot: ?Visualized Rt Foot: ?Visualized Other Umbilical Cord: ? 3 vessel cord Cord Insertion: ? WIthin Normal Limits Comment: ? Nasal Bone: Visualized Doppler - Uterine Artery Right S/D Ratio: ? RI: ?PI: ?%Tile Left S/D Ratio: ?RI: ?PI: ?%Tile Cervix Uterus Adnexa Left Ovary Not visualized Right Ovary Not visualized Impression 2nd Trimester - Targeted Morphology- Summary Single intrauterine with a gestational age of 26w 6d based on clinical BRADLEY. Composite age based on the current ultrasound alone is 25w 2d. Amniotic fluid volume is appropriate for gestational age, IGNACIO = 14.59 cm, MVP = 4.69 cm. Detailed anatomic evaluation was performed and no structural abnormalities are noted. I ??viewed the images and agree with the above interpretation. ? Shankar Grant MD Electronically Signed Final Report ?? 11/26/2014 04:39 pm Procedure Note Shankar Grant MD - 11/26/2014 OBSTETRICS REPORT (Signed Final 11/26/2014 04:39 pm) Patient Info ID #: [id number] : [birth year] (28 yrs) Name: TR JULIAN Visit Date: 11/26/2014 03:53 pm Performed By Performed By: Chacha Almonte RDMS Attending: Shankar Grant MD Referred By: KALANI REECE [facility] Service(s) Provided [facility] - Targeted Morphology - Genetics - [id number] Indications Hx OF STRESS SEIZURES, METHADONE USE, HEP C; D - One Week Evaluation Num Of Fetuses: 1 Heart 153 Rate(bpm): Cardiac Activity: Observed, normal rhythm Presentation: Cephalic Placenta: Posterior P. Cord Insertion: Within Normal Limits Amniotic Fluid IGNACIO FV: Appropriate for gestational age IGNACIO Sum: 14.59 cm Larg Pckt: 4.69 cm RUQ: 3.64 cm LUQ: 4.69 cm RLQ: 3.06 cm LLQ: 3.2 cm -------- Biometry -------- BPD: 58.7 mm G. Age: 24w 0d < 3 % OFD: 84.8 mm HC: 230.8 mm G. Age: 25w 1d < 3 % AC: 215.9 mm G. Age: 26w 1d 20 % FL: 47.7 mm G. Age: 26w 0d 14 % HUM: 44.7 mm G. Age: 26w 4d 39 % CER: 27.0 mm G. Age: 24w 4d 7 % NB: 8.4 mm LV: 4.1 mm CM: 5.5 mm CI: 69.2 % 70 - 86 FL/HC: 20.7 % 18.6 - 20.4 HC/AC: 1.07 1.05 - 1.21 FL/BPD: 81.3 % 71 - 87 FL/AC: 22.1 % 20 - 24 Est. FW: 856 gm 1 lb 14 oz 49 % Gestational Age Clinical BRADLEY: 26w 6d BRADLEY: 02/26/15 U/S Today: 25w 2d BRADLEY: 03/09/15 Best: 26w 6d Det. By: Clinical BRADLEY BRADLEY: 02/26/15 Targeted Anatomy Central Nervous System Calvarium: Within Normal Limits Intracranial: Within Normal Limits Cavum: Visualized Lat. Ventricles: Within Normal Limits Cerebellum: Within Normal Limits Choroid Plexus: Within Normal Limits Cisterna Magna: Within Normal Limits Spine Cervical: Visualized Thoracic: Visualized Lumbar: Visualized Sacral: Visualized Head/Neck Face: Within Normal Limits Nuchal Fold: Not evaluated at this Eyes: Visualized Profile: Visualized Thorax Four Chamber: Within Normal Limits Cardiac Motion: Normal Rhythm R Outflow Tract: Visualized L Outflow Tract: Visualized Aortic Arch: Visualized Cardiac Talpa: Visualized 3 Vessel View: Visualized Diaphragm: Visualized Abdomen Ventral Wall: Visualized Stomach: Visualized Lt Kidney: Visualized Rt Kidney: Visualized Bladder: Visualized Extremities Lt Humerus: Visualized Rt Humerus: Visualized Lt Forearm: Visualized Rt Forearm: Visualized Lt Hand: Visualized Rt Hand: Visualized Lt Femur: Visualized Rt Femur: Visualized Lt Lower Leg: Visualized Rt Lower Leg: Visualized Lt Foot: Visualized Rt Foot: Visualized Other Umbilical Cord: 3 vessel cord Cord Insertion: WIthin Normal Limits Comment: Nasal Bone: Visualized Doppler - Uterine Artery Right S/D Ratio: RI: PI: %Tile Left S/D Ratio: RI: PI: %Tile Cervix Uterus Adnexa Left Ovary Not visualized Right Ovary Not visualized Impression 2nd Trimester - Targeted Morphology- Summary Single intrauterine with a gestational age of 26w 6d based on clinical BRADLEY. Composite age based on the current ultrasound alone is 25w 2d. Amniotic fluid volume is appropriate for gestational age, IGNACIO = 14.59 cm, MVP = 4.69 cm. Detailed anatomic evaluation was performed and no structural abnormalities are noted. I viewed the images and agree with the above interpretation. Shankar Grant MD Electronically Signed Final Report 11/26/2014 04:39 pm E Tania Lopez MD IMG US OB ORDERAB LES documented in this encounter Visit Diagnoses Diagnosis Supervision of high risk in second trimester Unspecified high-risk Supervision of high risk in second trimester Unspecified high-risk documented in this encounter Care Teams Bingo Checker Relationship Specialty Start Date End Date Zack Sanchez APRN [address] [place] [address] PCP - General 06/27/10 10/02/16 documented as of this encounter
--- OUTSIDE RECORDS SUMMARY | 2024-03-23 08:42 | XMS_ITS | Encounter Summary ---
Author Organization [facility] Address [facility] [place] [address] Care Team Providers Care Finance Attorney Name Role Phone Shweta Sykes GERTRUDE Primary Care Provider [phone] Reason for Referral * Consultation (Routine) - Closed Specialty Diagnoses / Procedures Referred By Nohemi acevedo Referred To Contact Weight and Wellness Diagnoses Heartburn Gastroesophageal reflux disease, unspecified whether esophagitis [...] obesity type, unspecified whether serious comorbidity present Amelie Berrios APRN [facility] [place] [address] [facility] [address] [place] [address] Referral ID Status Reason Start Date Expiration Date V isits Requested Visits Authorized [id number] Closed Consult, Test & Treat 06/28/2021 06/28/2022 1 1 Reason for Visit * Consultation (Routine) - Closed Specialty Diagnoses / Procedures Referred By Nohemi acevedo Referred To Contact Gastroenterology Diagnoses Unspecified abdominal pain abd pain Nicholas Ba MD [facility] [address] [place] [address] [facility] [address] [place] [address] Referral ID Status Reason Start Date Expiration Date V isits Requested Visits Authorized [id number] Closed Consult, Test & Treat [facility] PCP Updated and/or Approved 05/17/2021 06/21/2021 6 6 Encounter Details Date Type Department Care Team (Latest Contact Info) Description 06/28/2021 8:00 AM EST Office [place] [address] Amelie Berrios APRN [facility] [address] [place] [address] Heartburn; Gastroesophageal reflux disease, unspecified whether esophagitis present; Vomiting, intractability of vomiting not specified, presence of nausea not specified, unspecified vomiting type; Chronic nausea; Cannabis hyperemesis syndrome concurrent with and due to cannabis dependence; Therapeutic opioid-induced constipation (OIC); Chronic idiopathic constipation; Irritable bowel syndrome with constipation; Functional dyspepsia; Avoidant-restrictive food intake disorder (ARFID); Class 1 obesity with body mass index (BMI) of 31.0 to 31.9 in adult, unspecified obesity type, unspecified whether serious comorbidity present; BRBPR (bright red blood per rectum); Melena Social History Tobacco Use Types Packs/Day Years [...] Sign Reading Time Taken Comments Blood Pressure 131/78 06/28/2021 8:22 AM EST Pulse 103 06/28/2021 8:22 AM EST Temperature - - Respiratory Rate - - Oxygen Saturation - - Inhaled Oxygen Concentration - - Weight 83.5 kg (184 lb) 06/28/2021 8:22 AM EST Height - - Body Mass Index 31.58 10/15/2016 3:22 PM EDT documented in this encounter Patient Instructions * Patient Instructions* Amelie Berrios APRN - 06/28/2021 8:00 AM EST It was nice to meet you today. The following orders were placed during our visit today: Orders Placed This Encounter Procedures ??? ENDOSCOPY CASE REQUEST: COLONOSCOPY, DIAGNOSTIC ? ? Referral to [facility] ??? [place] Capsule pH Test Please call the GI department to schedule the investigations if you do not hear from us within 1-2 weeks: [phone]. Please note: given the ongoing COVID-19 pandemic, there has been delays in the scheduling and completion of various investigative studies. We are working to improve this, and in the meantime, we appreciate your patience and cooperation. As the results come back from your various tests, I will only call you if they are abnormal (no news is good news!). Below I have included some basic information functional bowel disorders and ways you can address various GI symptoms from home. I look forward to seeing you at your next visit, Amelie Berrios APRN Department of Gastroenterology and Hepatology [facility] Here is some information on the different procedures that may be ordered for you in GI: Endoscopy: this procedure is when we look at your Esophagus, stomach and beginning of small intestine called the duodenum. You will be sleepy/comfortable during this test, so you will require a ride home. We will take samples called biopsies to look for microscopic inflammation, diseases such as celiac disease/Eosinophilic esophagitis/Ordonez's esophagus/etc, and you will get a letter approximately 2 weeks after your procedure letting you know the results and next steps. If we are testing for celiac disease, you will need to eat gluten foods for 6-8 weeks prior to your endoscopy. This means 3-10 grams of gluten (1 slice of bread is 2g) per day. If you do not, there can be false negative results. Colonoscopy: this procedure looks at the large intestine and the exit of your small intestine (called the ileocecal valve). Commonly, biopsies can be taken for patients having symptoms to look for inflammatory conditions such as microscopic colitis, Crohn's disease, or Ulcerative colitis. Also if the nurse intern sees any polyps, they will be removed to see what kind of polyps they are. If biopsies or polyps are taken, you will get a letter approximately 2 weeks after your procedure letting you know the results and next steps.You will be sleepy/comfortable during this test, so you will require a ride home. This procedure also involves a prep the day before so that all of the stool is removed from your colon. This is important to avoid missing small polyps. HERNANDES: this test is usually added onto an endoscopy. This does not impact your breathing or abilityto swallow. During the endoscopy, the HERNANDES sensor will be placed into the esophagus. While this isin place, it will measure whenever acid enters the esophagus. It will eventually release from the esophagus and exit your body normally. After it is in place and you go home, you will hit a sensor whenever you are having symptoms such as heartburn, and we will compare the two to see if your symptoms match acid entering the esophagus. The next day, you will need to return the equipment to the hospital after the test is complete. *You will be given more instruction as needed by the scheduling team or nurses prior to your tests *All results will be discussed at your follow up appointment unless I am placing an order and/or itneeds to be addressed sooner. You should start a fiber supplement if you are not already taking one: - start Metamucil (psyllium). Get the no sugar added version without artifical sweeteners (such as Metamucil Free). Start at 1 teaspoon daily for 1 week, then 2 teaspoons daily for one week, then maintain one Tablespoon daily afterward. Can slowly increase to 2 Tablespoons daily if still constipated. -Miralax daily: Begin with 1 capful daily at night. You will titrate the dosage according to the consistency and frequency of stool. If you experience loose stools decrease dosage to half a capful daily. If you experience diarrhea stop MiraLAX and restart when stool is formed again. May increase toup to 2 capfuls daily, as tolerated. -start using Movantik daily: decrease or stop miralax if diarrhea occurs when taking this - Rescue regimen Step 1 if 2 days without a bowel movement) Use a glycerin suppository at night then try to have a bowel movement in 10-15 minutes Step 2 if 3 days without a bowel movement) If the glycerin does not work, use a warm (not hot) tap water enema Step 3 if 4 days without a bowel movement) Try taking senna (up to four tabs), two dulcolax 5mg oral tabs or a dulcolax suppository 30 minutes later depending on what works best for you. Healthy Bowel Habits 1. Eat all of your meals (breakfast, lunch, and dinner) at a predictable time each day. The bowel functions best when food is introduced at the same regular intervals. 2. Eat foods in similar amounts. The bowel functions best when food is in similar quantity. The size of different meals taken through the day may vary, but the amount of food eaten at a given meal (breakfast, lunch, or dinner) should be about the same quantity from day to day. 3. Breakfast is the most important meal involved in bowel stimulation. Make sure you eat breakfast every day. 4. Eat a high fiber diet that includes both soluble and insoluble fiber. 5. Keep caffeine to a minimum. Caffeine is a diuretic drawing fluid from your colon and leaving your stools hard. 6. Drink plenty of decaffeinated fluids. Ideally a person should drink 64 ounces a day or 8 glassesof water, especially if you are eating a fiber-rich diet. This may not be possible for people suffering from kidney disease, heart disease or urinary problems. 7. Exercise daily. Exercise increases colonic transit time. Bowel function is helped most when exercise is at a consistent daily time. Bowel Movement Technique Find your best time of day to have a bowel movement. Usually the best time of day for a bowel movement will be a half hour to an hour after breakfast. For some people a half hour to an hour after lunch will work better. These times are best because the body uses the gastro-colic reflex, a stimulation of bowel motion that occurs with eating, to help produce a bowel movement. Make sure that you arenot rushed and have convenient access to a bathroom at this time. ??? Sit on toilet and lean forward, resting forearms on thighs. Lift heels or place feet on stool. ??? Alternate position-may try leaning forward and grasping ankles. ??? Relax rectum, feeling it slightly bulge outward. ??? Keeping lips, jaw and mouth open will facilitate relaxation of the pelvic floor during your bowel movement. ??? Breathe in through nose and exhale through mouth or perform gentle hissing through the teeth. Gently direct the air down and back to the rectum, keeping your abdomen firm. ??? Post- patients or patients with perineal descent should place fingers externally on the perineum (area between vagina and rectum). ??? When finished -contract pelvic floor muscles to restore normal pelvic floor tone. Repeat 3-4 times. If still unsuccessful, contract the pelvic floor and get off the toilet. Avoid straining Functional Bowel Disorders: Information Handout for Patients and Primary Care Providers Jad Kerr MD, CPC + David Meyers MD, MAGALIE Christian Rose, GERTRUDE + Jenni Lopez APRN + Amelie Berrios APRN [facility] What are functional bowel disorders? These are the most common type of gastrointestinal disorders in the [facility] ??? The most common functional bowel disorder in the [facility] is irritable bowel syndrome (IBS) ??? Irritable bowel syndrome affects the lower GI tract and can cause bloating, abdominal pain, diarrhea, and constipation ??? Functional dyspepsia (FD) affects the upper GI tract and can cause bloating, burping, heartburn, nausea, fullness and stomach discomfort ??? In functional disorders the gut is structurally/anatomically normal but is not functioning properly due to abnormalities in the enteric (gut) nervous system ??? Two mechanisms - heightened sensitivity of the gut to normal sensations (sensory nerves) and abnormal gut motility (motor nerves) ??? These disorders are caused by a combination of a genetic factors, changes to the gut microbiota(intestinal bacteria) and environmental triggers How common are these disorders and what is the impact? 15-20% of general [place] population has IBS or FD or both ??? 2nd most common cause for lost work days (after common cold) in [place] ??? Estimated $30 billion dollar cost to [place] economy per year ??? These disorders can have a significant impact on quality of life How is the diagnosis made? The diagnosis of a functional disorder is NOT a ???diagnosis of exclusion?? (common misconception) ??? Investigations may be necessary to look for other disorders (such as celiac disease) if the diagnosis is unclear ??? Work-up may include history (description of symptoms), physical exam, bloodwork, stool studies,diagnostic imaging and endoscopy What is the prognosis? Functional bowel disorders are unfortunately chronic disorders and often have a major impact onpatient quality of life, function, and relationships ??? Symptoms may gradually resolve is a small proportion of patients (highest rate in patients withimmediate onset of symptoms after infection); director packaging symptoms are expected in most patients however ??? Intermittent exacerbations (i.e. ???flares?? ) are common and may be caused by stress, infections, antibiotic exposure, and lack of adherence to treatment plans When should a patient be re-evaluated? Patients with stable symptoms do NOT need episodic re-evaluation ??? Subtle changes in symptoms and symptom flares are common ??? Patients should be re-evaluated if they have progression or dramatic changes in symptoms, severe abdominal pain, swallowing difficulties, unexplained weight loss, anemia (low blood counts), or bleeding ??? If you have concerns be sure to talk to your doctor What are the goals of therapy? Ultimately we hope that you to able to achieve prolonged periods of stability with minimal daily symptoms and have a decrease in the frequency/severity of ???flares? However, we believe the most important goal is to help you improve your overall quality of life. ??? For most patients this means doing the things that are important in your life despite having symptoms. ??? This is generally achieved by helping you develop coping skills and helping you achieve a greater understanding of your disorder. ??? Remember, generally complete resolution of symptoms is NOT a realistic goal. How do I use this information? Talk to you primary care provider and/or local nurse intern and share this document. Treatment of functional disorders is a team effort! ??? Set realistic goals! Remember it is unlikely that any one measure will completely eliminate allsymptoms ?Start low and go slow?? with all measures to avoid potential side effects ??? Do ONE measure at a time - add measures as needed in a ???step-rodriguez fashion?? - this will helpdetermine if a particular measure is helpful or not ??? Stay on any measure continuously for at least 4-6 weeks prior to assessing whether or not it ishelping (improvements are often slow to occur) ??? After an adequate trial ask yourself if the benefit is worth continuing the treatment ??? Remember there are a limited number of treatment options available. We want to be absolutely sure that a measure is not effective or intolerable before stopping it and considering other options ??? Often patients will need several ???layers?? or ???steps?? of therapy - finding the right combination for you takes time and patience ??? We specifically recommend all patients to do ALL lifestyle and dietary measures AND try using Metamucil (or other psyllium fiber supplement) and probiotics together - this approach benefits most patients ??? OTC (oyai-lgo-wltayeh) medications can be used for ongoing bothersome symptoms as listed below ??? Your provider (PCP or local Gastroenterology provider or [facility] Gastroenterology provider) may decide to use prescription medications if you have ongoing symptoms despite strict adherence to lifestyle and dietary measures and OTC medications ??? Your provider will give you advice on treatments but it is your responsibility to work on thesemeasures to improve your symptoms. Lack of adherence to recommendations is one of the most common cause for ongoing symptoms. ??? If symptoms are controlled try easing back or stepping down on measures - remember the main goal is to improve quality of life (not necessarily eliminate symptoms). Non-Pharmacologic General Treatments Lifestyle measures ??? Many lifestyle factors can worsen IBS symptoms ??? However, IBS is not caused by these factors (common misconception) ??? These lifestyle factors include the following: o Inadequate sleep o Weight gain o Inadequate exercise o Stress o Depression/anxiety - this should be brought up to your Primary Care Provider (if left untreated it is unlikely the functional bowel disorder will improve) Dietary measures ??? Trigger food avoidance - you should re-introduce foods once symptoms settle as overly restrictive diet can be unhealthy and even harmful ??? Fatty foods, spicy foods, alcohol, and caffeine can worsen symptoms ??? Consider a 2 week dairy-free trial for possible lactose-intolerance ??? Your PCP or GI provider can refer you to a dietitian to discuss specialized diets. ??? The overall dietary goal is to allow you to have a well-balanced and nutritious diet Fiber and Fluid ??? Adequate fiber and fluid intake is essential for optimal functioning of the human digestive tract ??? Aim for a fluid intake goal of 8-10 glasses of water a day (caffeine and alcohol count as minusone in calculation) ??? Aim for a fiber intake goal of 30 grams per day - some patients may require more or less ??? Increase fiber by 5 grams per week (remember ???start low and go slow?? ) ??? Fiber can be from multiple dietary sources but supplemental is often helpful ??? Fiber intake should include psyllium fiber; this is the type of fiber used in research studies for treatment of functional disorders ??? Sources of psyllium include All-Bran psyllium buds, Metamucil, Konsyl, bulk psyllium ([employer] stores and bulk stores) ??? Specifically we recommend starting Metamucil or Konsyl at a low dosage - start at one teaspoon a day for one week then gradually increase by one teaspoon per week until no further benefit is achieved. ??? Some patients may get bloating when they start a fiber supplement. This generally goes away after 1-2 weeks of daily therapy. Try backing off to a lower dose or trying an alternate version (such as sweetener-free Metamucil) ??? If persistent issues try Citrucel (methylcellulose) as an alternate fiber supplement Probiotics ??? Measures aimed at improving the microbiome such as probiotics are a promising area but convincing medical evidence is still lacking ??? Jbln-zqn-huoosme supplements including probiotics are not typically evaluated by FDA. The quality and even safety is often unclear and many products (despite being very expensive) actually do notcontain any active ingredients at all! ??? Live-culture yogurts, kombucha, sauerkraut and other dietary sources may help improve your microbiome ??? Align, TuZen, and Visbiome are the three probiotics that are supported by medical research to have benefit for IBS ??? Florastor has been shown to decrease antibiotic-associated diarrhea and post-infectious diarrhea ??? BioK Plus has been shown to decrease antibiotic-associated diarrhea and antibiotic-related infections Dqza-ecb-Ddujtqy Medications for Functional Gut Disorders Based on Symptoms Diarrhea ??? Loperamide (Imodium) should be considered first for mild and intermittent symptoms - start withsmall doses and take several hours before needed (or even before bed) (it is generally considered safe for long-term use) Constipation ??? Patients with mild constipation can use laxatives ???as needed?? (in other words, if you feel constipated or haven't had a regular bowel movement). However, patients with more severe constipation generally need laxatives on a regular schedule (every day or every second day for example). This is called ???maintenance therapy?? . ??? PEG 3350 (Miralax) is a stool softener that is safe for director packaging usage (no risk of dependency)and the dosage can be adjusted to achieve 1-2 soft bowel movements per day; you can take a capful (17g) twice daily if needed ??? Milk of magnesia and lactulose are alternate stool softeners that are generally safe for regular use in most patients (you should ask your provider first). ??? Bisacodyl (Dulcolax) and senna (Senokot) are stimulant laxatives for occasional use only as they may lead to dependency with regular long-term use. ??? Enemas and bowel preparations (e.g. Colyte or Golytely) can be used to treat severe stool impaction ---- this is called ???rescue therapy?? . Drink 2 litres in 4 hours in the evening then take another 2 litres over 4 hours the next morning. Another option is to mix up 14 capfuls of Miralax with64 oz of Gatorade. ??? After rescue therapy immediately begin aggressive ???maintenance therapy?? with the therapies above. Bloating/Pain ??? Ensure constipation adequately treated - impacted stool can create a partial obstruction and contribute to pain ??? Peppermint oil may also be useful; a capsule form exists as well (IBgard) ??? Simethicone (Gas-X) can be helpful for occasional usage for ???gas spasms? Acetominophen (Tylenol) is safest analgesic (pain killer) on the gut ??? NSAIDs (e.g. ibuprofen) can cause gut irritation/inflammation - it's best to avoid or use in low doses only ??? Medical cannabis has been used to treat various chronic pain disorders; it has been reported tobenefit some patients with pain but has not be rigorously studied and may actually worsen symptoms in some patients with functional disorders. At this point we generally do NOT recommend using medical cannabis to treat functional disorders ??? AVOID narcotics/opioids as they typically make symptoms much worse and there is a risk of addiction and/or dependence ??? Exercise, hot-water bottle/heating pad, warm bath/shower, and warm beverages are also good treatments for painful bloating episodes Heartburn/Nausea/Vomiting/Dyspepsia ??? Acid reducing medications such as proton-pump inhibitors (PPIs) and H2 blockers may be helpful especially if you have gastroesophageal reflux disease (GERD) ??? Often a combination of anti-nausea medications (qqyv-fcm-hukscff or prescription) works better than high doses of only one medication ??? A herbal product called STW5 (Iberogast) is supported by some studies to help dyspepsia but data on long-term effectiveness and safety is limited ??? L-carnitine and coenzyme Q10 supplements have been reported to be beneficial to some patients with chronic nausea and vomiting ??? If using cannabis (recreational or medical) consider stopping for at least two weeks (ideally afull month). While cannabis has been reported to help some patients with nausea it may actually be contributing to symptoms. Disclaimer ??? This information is intended for education purposes only ??? It is not meant to replace direct patient-provider care ??? All medications should be used under the supervision of a Gastroenterology provider or Primary Care Provider ??? Authors are not liable for misuse/misinterpretation of this information Patient Resources [place] [employer] https://www.gastro.org/practice-guidance/rk-vtbggdn-vvlmps/ topic/oaupxdrjl-xpsgz-nwrnyhmc-ibs Badgut.org https://badgut.org/information-centre/a-i-genljyfjb-topics/ibs/ AboutIBS.org https://www.aboutibs.org/ Uptodate.com https://www.uptodate.com/contents/mfldkyuxi-keqbn-ojnjcmfl-izdzyj-qip-uangua documented in this encounter Progress Notes * Amelie Berrios APRN - 06/28/2021 8:00 AM EST Chief Complaint: Chencho Barrett is a 35 y.o. patient referred for consultation by Dr. Ba for No chief complaint on file. History of Present Illness: 35 y.o. female with abdominal pain, recurrent constipation, and decreased appetite Per chart review -bloating, abdominal pain, constipation -patient on suboxone/methadone, chronic pain baseline -pain when severe leads to nausea/vomiting -BM 1/week -04/25 ER visit for ETOH/benzo abuse/SI without specific plan -uses marijuana Per patient -can go up to 2 weeks without bowel movement -started with methadone use 2 yrs ago -gaining weight -trying to improve overall health -some days can eat, other days: cannot swallow, gagging -will go upwards of 6 days without eating at times -never feels full anymore -has been going more regularly with miralax and enemas PRN -wakes up in the morning with 10/10 abdominal pains, improves on standing Oropharyngeal transfer dysphagia: comes from being grossed out or related to stress./anger: occurs at least 1x/day Nausea/vomiting: every morning when waking, vomiting x10 years, bile Heartburn on awakening: omeprazole works well BM: every 3 days Ajo: bristol 1-2, BRBPR (increasing frequency), melena, Unable to pass gas at times, this has improved Denies Steatorrhea, unintentional weight loss Current Regimen: Colace: daily Miralax: when needed, wants to avoid diarrhea, q3 days Enemas: as needed Lifestyle NSAID use: Tylenol, avoids NSAIDS Caffeine/Soda/Artificial Sugar: coffee 2 cups Diet: regular diet Child Births: 3, 2 vaginal, 1 c section Depression/Anxiety/Stress: yes, well managed H/O abuse: yes, PTSD Disordered Eating: denies Laboratory studies, imaging, and procedures (my review of prior records): 05/25 OSH labs: normal CBC, d-dimer, CMP, T4 10/23 CT chest/abdomen/pelvis: small area in LLQ, likely hematoma s/p trauma 10/2018 EGD OSH: normal 08/2018 CT: normal Review of systems: 14-system ROS reviewed and negative except as above Medications: Outpatient Medications Prior to Visit Medication Sig Dispense Refill ??? acetaminophen (TYLENOL) 325 mg Tablet Take 2 tablets by mouth every 6 hours. 30 tablet 1 ??? oxyCODONE (ROXICODONE) 5 mg Tablet Take 1-3 tablets by mouth every 4 hours as needed for Pain. 20 tablet 0 ??? polyethylene glycol (MIRALAX) 17 gram Powder in Packet Take 17 g by mouth daily. 14 each 0 ??? Dozhfoxabbklc-Pl-Nphq-Minerals 27-0.4 mg Tablet Take by mouth. ??? ibuprofen (ADVIL;MOTRIN) 200 mg Tablet Take 200 mg by mouth every 6 hours as needed for Pain. ??? methadone (METHADOSE) 10 mg/5 mL Solution Take 55 mg by mouth every 4 hours as needed for Pain. No facility-administered medications prior to visit. Allergies: has No Known Allergies. Past Medical History: has a past medical history of Chlamydia, Depression, Hepatitis C, Panic attacks, and Substance abuse. Past Surgical History: has a past surgical history that includes [place] tooth extraction and section (10/15/2016). Family History: family history includes Diabetes in her maternal grandfather; Transient Ischemic Attack in her mother. Parents: frequent heartburn Social History: reports that she has been smoking cigarettes. She has a 10.00 pack-year smoking history. She has never used smokeless tobacco. She reports current drug use. Drugs: Marijuana and Cocaine. She reports that she does not drink alcohol. Marijuana: large amounts, since 15 Physical Exam: VITAL SIGNS: BP 131/78 Pulse (!) 103 Wt 83.5 kg (184 lb) BMI 31.58 kg/m?? BMI: Body mass index is 31.58 kg/m??. Gen: nad, normal body habitus Eyes: no scleral icterus CV: rrr, no m/r/g, radial pulse 2+, no pedal edema Pulm: ctab, normal respiratory effort GI: soft without masses, nontender, distended, normoactive bowel sounds, no hernias Skin: warm, dry, no rashes, no induration Neurologic: intact to light touch Psych: appropriate affect, a+ox3 Questionnaire: No flowsheet data found. Assessment/Plan: Ms. Barrett is a 35 y.o. patient with several ongoing GI concerns. Her primary concern and reason for today's visit is severe constipation that worsened after starting methadone 2 years ago. Without intervention, she goes >2 weeks without bowel movement. Currently, she has a bowel movement every 3 days using colace and miralax, with enemas for rescue. She endorses large caliber stool, hard with large amounts of BRBPR and occasional melena. Denies unintentional weight loss and steatorrhea. Presentation consistent with OIC, CIC failing laxatives >90 days, and IBS-C. Colonoscopy to evaluate source of BRBPR, likely related to hemorrhoids and/or anal fissure. Rx for Movantik to local pharmacy; refills should be through PCP. Patient to use metamucil and miralax daily, d/c miralax if diarrheaoccurs following initiation of movantik. In addition to constipation, patient also has chronic nausea, daily vomiting upon awakening and severe abdominal pain. These could be exacerbated by OIC; however, patient endorses severe heartburn aswell that is relieved by OTC omeprazole. Patient also has daily episodes of poor appetite/gagging related to external stress/anxiety/relationships. GERD vs ARFID/functional dyspepsia vs cannabis hyperemesis. Patient uses marijuana several times per day since she was 15 years old. OSH EGD in 2019 was normal, maybe some very mild acid reflux noted. Plan for EGD/hernandes, denies allergy to aditya. Rx for omeprazole to local pharmacy Finally, the patient is distressed by her continued weight gain. She actively tries to cut back on the calories she eats during the day (when she can eat), but continues to gain weight, which is distressing to her. She reports that she is always hungry and never feels full/satiated. She also refersto central obesity as a specific source of distress. History of hep c. Referral to [facility] and wellness center placed. Less likely related to ascites, but to be considered. Diagnostics: -EGD/hernandes MAC, off PPI -colonoscopy: extended prep and MAC -consider SBFT vs smart pill -consider pelvic floor PT Therapeutics: -reach out to PCP for refills of Movantik to help with OIC and abdominal pain -consider restarting Remeron at 15mg for neuromodulator -take omeprazole 40mg daily, 30 minutes to 1 hour before breakfast -if Movantik fails, consider linzess -Begin Metamucil (make sure it is free of sugar and artificial sweetener): 1tsp daily for one week,then 2tsp daily for one week, then 3tsp (1TBSP) daily. May increase slowly up to 2 TBSP daily. Titrate according to what works best for you.This may cause bloating initially but this will improve with continued use. If this supplement causes too much bloating you may try Citrucel. -Miralax daily: Begin with 1 capful daily at night. You will titrate the dosage according to the consistency and frequency of stool. If you experience loose stools decrease dosage to half a capful daily. If you experience diarrhea stop MiraLAX and restart when stool is formed again. May increase toup to 2 capfuls daily, as tolerated. -stop marijuana: use CBD only if necessary. Avoid THC -Review AVS for recommendations on functional bowel disorders and techniques to address common GI symptoms. Trial each for at least 30 days. At the end of 30 days, if it is partially/totally effective for symptoms, keep using and try next agent. If not effective at all, stop using and try next recommendation. -continue to follow up with PCP and other healthcare providers regarding comorbid concerns -all medication refill requests should be through PCP -When to go to ER for urgent evaluation: new/severe abdominal/chest pain, fevers, inability to maintain PO hydration or manage secretions, feeling like food is stuck in chest >1-2 hours, large amounts of blood/black tarry stools, loss of consciousness, etc We discussed that complete symptom relief may not be a fully achievable goal for this chronic condition, but that improvement in quality of life, healthy days at work and family functions, and also general symptom improvement may be more reasonable goals. We discussed that treatments should be tried individually and for periods of at least 4-8 weeks to truly assess symptom response. I did my bestto answer questions to the fullest ability. We discussed that recommended treatments should be tried individually for at least three months at a time to truly assess for a meaningful response, or as long as tolerated, before changing therapy. RTC with me in 4-6 months, at least 3 weeks after all testing is complete TIME SPENT WITH PATIENT Time spent reviewing records prior to this encounter on day of appointment: 5 minutes Time spent during encounter with patient including counselin minutes Time spent documenting encounter after office visit: 15 minutes Amelie Berrios APRN [facility] [place] [phone] documented in this encounter Plan of Treatment Scheduled Orders Name Type Priority Associated Diagnoses Orde r Schedule ENDOSCOPY CASE REQUEST: COLONOSCOPY, DIAGNOSTIC Procedures Routine Heartburn Gastroesophageal reflux disease, unspecified whether esophagitis [...] BRBPR (bright red blood per rectum) Melena Ordered: 06/28/2021 Scheduled Referrals Name Type Priority Associated Diagnoses Orde r Schedule [facility] to [facility] Outpatient Referral Routine Heartburn Gastroesophageal reflux disease, unspecified whether esophagitis [...] obesity type, unspecified whether serious comorbidity present Ordered: 06/28/2021 documented as of this encounter Visit Diagnoses Diagnosis Heartburn Gastroesophageal [...] Blood in stool documented in this encounter Care Teams Finance Attorney Relationship Specialty Start Date End Date Shweta Sykes APRN [address] [place] [address] PCP - General Family Medicine 05/28/21 11/01/22 documented as of this encounter
--- OUTSIDE RECORDS SUMMARY | 2024-03-23 08:42 | XMS_ITS | Encounter Summary ---
Author Organization [facility] [place] [address] Care Team Providers Care Switch Box Installer Name Role Phone Shweta Sykes APRN Primary Care Provider [phone] Reason for Visit * Reason Onset Date Comments Reminder Appointment 12/01/2021 Encounter Details Date Type Department Care Team (Late st Contact Info) Description 12/01/2021 Telephone Gastroenterology at [facility] [place] [id number] Melonie Davidson CCMA Reminder Appointment Social History Tobacco Use Types Packs/Day Years [...] encounter Miscellaneous Notes * Telephone Encounter - Melonie Davidson CCMA - 12/01/2021 10:12 AM EDT Called patient to review medications and allergies for their upcoming gastroenterology Type of Appointment: Telehealth appointment. Reach Patient during MA Check: No, Left Message Was unable to reach patient before appointment time. Notes for the provider: Notes for the nurse: documented in this encounter Plan of Treatment Not on file documented as of this encounter Visit Diagnoses Not on filedocumented in this encounter Care Teams Switch Box Installer Relationship Specialty Start Date End Date Shweta Sykes APRN [address] [place], [place] [id number] PCP - General Family Medicine 05/28/21 11/01/22 documented as of this encounter
--- OUTSIDE RECORDS SUMMARY | 2024-03-23 08:42 | XMS_ITS | Encounter Summary ---
Author Organization [facility] [place] [address] Care Team Providers Care Launch Manager Name Role Phone Unknown Primary Care Provider Unavailabl e Reason for Visit * Auth/Cert Specialty Diagnoses / Procedures Referred By Contac t Referred To Contact Diagnoses care following delivery S/P , 26 WEEK GESTATION Procedures EMERGENCY IPI Referral ID Status Reason Start Date Expiration Date Visits Re quested Visits Authorized [id number] 1 1 Encounter Details Date Type Department Care Team (Latest Contact Info) Description 10/15/2016 10:30 AM EDT - 10/18/2016 5:15 PM EDT [place] [address] Tania Sandy MD [facility] [address] OBSTETRICS [place] [address] Afsaneh Raymond MD [facility] [place] [address] Discharge Disposition: Home Social History Tobacco Use [...] Sign Reading Time Taken Comments Blood Pressure 98/53 10/18/2016 9:46 AM EDT Pulse 83 10/18/2016 9:46 AM EDT Temperature 36.8 ??C (98.2 ??F) 10/18/2016 10:03 AM E DT Respiratory Rate 19 10/18/2016 9:46 AM EDT Oxygen Saturation 97% 10/18/2016 9:45 AM EDT Inhaled Oxygen Concentration - - Weight - - Height 162.6 cm (5' 4) 10/15/2016 3:22 PM EDT Body Mass Index - - documented in this encounter Discharge Summaries * Kailey Lay MD - 10/18/2016 3:36 PM EDT Images from the original note were not included. Discharge Summary Patient Name: Chencho Barrett Patient Age: 30 y.o. Language: South Sudanese Race: White Ethnicity: Not nor Admit date: 10/15/2016 Discharge date and time: 10/18/2016 Attending Physician: Tania Sandy MD Discharge Physician: Dipak Stephens MD Care Provider: [facility] Referring Hospital: [facility] Follow-up Recommendations for Providers: 6 wk routine Psych follow up with [facility] Inpatient Provider Contact Information: [facility] Department, Discharge Diagnoses (Hospital Problems) and Secondary Diagnoses (Chronic Problems) Active Hospital Problems Diagnosis ??? Encounter for insertion subdermal contraceptive ??? care following delivery Resolved Hospital Problems Diagnosis Date Resolved No resolved problems to display. Active Non-Hospital Problems Diagnosis ??? Cigarette smoker ??? Late care ??? Rubella non-immune status, antepartum ??? Substance abuse ??? Depression ??? Hepatitis C Operations/Major Procedures: none Indication for Admission: transport Admission History (per admit note cut and paste) Chencho Barrett is a 30 y.o. at Unknown gestation being admitted for care. ?? HPI: Patient presented to the ED of the [facility] with leaking and bleeding having regular, painful contractions. Notes indicate that she appeared to be in labor. She was found to be breech and underwent emergency primary low transverse under spinal anesthesia early this AM. Received one dose of betamethasone, bolus dose of penicillin for GBS unknown ?? She is currently complaining of lower abdominal pain. She has a lafleur catheter in place; is passingflatus. She has been tolerating a regular diet. She has not yet ambulated. Denies nausea, vomiting,fever, chills. Hb 11.2 this AM. ? UDS positive for methadone, cocaine, THC. Patient endorses THC use and historical use of intranasalcocaine but states that she has not used recently. She wonders if some of the marijuana she has smoked has been laced with other drugs. Rapid HIV negative; Hep B pending. ?? Her has been complicated by the following: - Smoker: current every day smoker - Daily marijuana smoker - Late to care: presented at 20 wks gestation with n/v in the ED and found unexpectedly jon ; dated by 20 wk US - Opiate dependence on Methadone 60 mg daily: meds and counseling at [facility] - Hepatitis C pos - Hx depression; currently endorses depression, suicidal ideations, no plan PHQ9 Questionnaires Data (Clinic and Pt Entered): Today's value PHQ-9 QUESTIONNAIRE (AMB) 10/15/2016 PHQ - 9 Score (Clinic) 24 (Severe Depression) Little interest or pleasure (Clinic) Nearly every day Down, depressed, hopeless (Clinic) Nearly every day Trouble sleeping (Clinic) Nearly every day Tired or no energy (Clinic) Nearly every day Poor appetite or overeating (Clinic) Nearly every day Feeling like a failure (Clinic) Nearly every day Trouble concentrating (Clinic) Nearly every day Moving or speaking slowly (Clinic) Not at all Would be better off (Clinic) Nearly every day How difficult are the problems (Clinic) Very difficult ? Review of Systems- Negative to complete review except as noted in the HPI. Hospital Course On admission she noted some passives suicidal ideations so psychiatry was consulted. They recommended that she be started on Peterson 300 mg HS. This was started while inpatient and efforts were made on the part of case management and the OB team to obtain psychiatry follow-up. She was placed on a waiting list with [facility] for follow up. She was not discharged with Peterson due to unknown/unclear follow up plan, but was encouraged to restart when she is able to connect with psychiatry services. She was understanding and contracted for safety prior to discharge Her course was otherwise uneventful. Her pain was well controlled with oral pain medications. She was tolerating a regular diet, was ambulating and voiding without difficulty, and was passing flatus. Her fundal exam was as expected, and her lochia was within normal limits. She was establishing feeding of her . Patient received nexplanon for contraception. She was discharged to home on POD#3 with plans for follow up in clinic as above. She was given #20 of oxycodone 5mg tablets. She signed the acute opioid consent form and the PDMP was queried and risk assessment performed prior to discharge. Delivery Information This patient has no babies on file. EBL: Vital signs at Discharge: BP: 98/53, Heart Rate: 83, Temp: 36.8 ??C (98.2 ??F), Resp: 19, Height: 162.6 cm (5' 4) (10/15/16 1522) Functional and Cognitive status: intact Important Studies and Lab Data: Labs: Recent Results (from the past 72 hour(s)) ABO/Rh Typing Result Value Ref Range ABORh Type B Pos Antibody screen Result Value Ref Range Ab Screen Interp Negative Expires at 2359 on: 10/19/2016 ABORH Recheck Status Result Value Ref Range ABORH Recheck Order Order Placed ABORH Type Recheck Complete Rapid Drug Screen, Urine with Confirm Result Value Ref Range GILDARDO Marijuana Metabolites Scr Presumptive Pos (A) None Detected GILDARDO Phencyclidine Scr None Detected None Detected GILDARDO Cocaine Metabolites Scr Presumptive Pos (A) None Detected GILDARDO Methamphetamines Scr None Detected None Detected GILDARDO Opiates Scr Presumptive Pos (A) None Detected GILDARDO Amphetamines Scr None Detected None Detected GILDARDO Benzodiazepines Scr None Detected None Detected GILDARDO Tricyclics Scr None Detected None Detected GILDARDO Methadone Scr Presumptive Pos (A) None Detected GILDARDO Barbiturates Scr None Detected None Detected GILDARDO Oxycodone Scr Presumptive Pos (A) None Detected GILDARDO Propoxyphene Scr None Detected None Detected GILDARDO Buprenorphine Scr None Detected None Detected GILDARDO Adulterants Screen None Detected None Detected Hemogram Result Value Ref Range WBC 15.1 (H) 4.0 - 9.5 x10(3)/mcL RBC 3.33 (L) 4.00 - 5.21 x10(6)/mcL Hemoglobin 10.1 (L) 11.7 - 15.5 gm/dL Hematocrit 29.0 (L) 35.7 - 45.8 % MCV 87.1 82.6 - 94.4 fL MCH 30.3 27.1 - 32.0 pg MCHC 34.8 31.7 - 35.0 gm/dL Platelets 228 145 - 357 x10(3)/mcL RDWSD 46.0 37.0 - 46.0 fL RDWCV 14.6 (H) 11.5 - 14.1 % MPV 10.2 7.6 - 12.9 fL nRBC % Auto 0.0 % nRBC Abs Auto 0.000 0.000 - 0.000 x10(3)/mcL Studies: none Pending Studies and Lab Data: none Discharge Conditions/Prognosis: good Discharge to: Home Contraceptive Plans: Nexplanon Allergies at Discharge: No Known Allergies Immunizations Given this Hospitalization: Immunization History Administered Date(s) Administered ??? Influenza PF, Split 10/18/2016 ??? MMR Vaccine, Live 10/18/2016 Discharge Medications: Your Medications New Medications Dose Details acetaminophen 325 mg Tab Commonly known as: TYLENOL Take 2 tablets by mouth every 6 hours. 650 mg Quantity: 30 tablet Refills: 1 docusate sodium 100 mg Cap Commonly known as: COLACE Take 1 capsule by mouth 2 times daily for 10 days. 100 mg Quantity: 10 capsule Refills: 0 oxyCODONE 5 mg Tab Commonly known as: ROXICODONE Take 1-3 tablets by mouth every 4 hours as needed for Pain. 5-15 mg Quantity: 20 tablet Refills: 0 polyethylene glycol 17 gram Pwpk Commonly known as: MIRALAX Take 17 g by mouth daily. 17 g Quantity: 14 each Refills: 0 Continued medications, unchanged Dose Details ibuprofen 200 mg Tab Commonly known as: ADVIL;MOTRIN Take 200 mg by mouth every 6 hours as needed for Pain. 200 mg Refills: 0 methadone 10 mg/5 mL Soln Commonly known as: METHADOSE Take 55 mg by mouth every 4 hours as needed for Pain. 55 mg Refills: 0 Iikigcpwvbmhl-Xd-Bofk-Minerals 27-0.4 mg Tab Take by mouth. Refills: 0 Smoking Status at Discharge: History Smoking Status ??? Current Every Day Smoker ??? Packs/day: 1.00 ??? Years: 10.00 ??? Types: Cigarettes Smokeless Tobacco ??? Never Used Instructions Given to Patient at Discharge: Patient Instructions Patient Instructions Follow-up: six weeks with your care provider - you will be contacted to schedule an appointment Activity: Nothing in vagina for six weeks Do not lift more than 15 pounds for six weeks No driving for two weeks if you had a section or while you are taking narcotic medication. Please call your OB provider for the following: Fever more than 100.5 degrees Heavy bleeding that saturates a pad an hour Increased abdominal pain, nausea, shaking chills Redness, increased pain, discharge at incision Hot, hard, tender areas on the breast and feeling generally unwell. Depression Contact Numbers: If you see an immigration associate call: [phone] 9 am - 5 pm, after 5 pm If you see a box feeder call: [phone] all hours If you see a family practitioner call: [phone] all hours If you were transferred to our institution for delivery and cannot reach your local OB provider, call the immigration associate numbers. Pain Control: - Alternate 650 mg tylenol and 600 mg ibuprofen every 3 hours for pain control. Use oxycodone as prescribed for breakthrough pain Please take your medication exactly as prescribed. Read all instructions that come with your medication. ?? Using narcotic pain medication (such as oxycodone, hydromorphone (Dilaudid), morphine, fentanyl,or tramadol) may cause addiction. While addiction is more common in people with a personal or family history of addiction, it can occur in anyone. ?? Taking more than the prescribed amount of medication or using with alcohol or other drugs can cause you to stop breathing resulting in coma, brain damage, or . ?? Opioids (oxycodone, hydromorphone/Dilaudid, morphine, fentanyl, tramadol) can slow reaction time, cause drowsiness, or cloud judgement. It is unsafe for you to drive or operate heavy machinery while taking this medication. ?? Opioids (oxycodone, hydromorphone/Dilaudid, morphine, fentanyl, tramadol) are at risk of being diverted by anyone with access to your home. Opioids should be stored in a safe and secure place, such as a locked cabinet or safe. ?? Unused opioids (oxycodone, hydromorphone/Dilaudid, morphine, fentanyl, tramadol) should be disposed of according to the label or patient information. If there are no specific instructions, medications may be returned to a take- back location or mixed with a small amount of water and an undesirable waste substance such as coffee grounds or cat litter. General Instructions [facility] Mental Health, Substance Abuse, and Developmental Services Residential Treatment [address] Call [phone] for a confidential assessment 211 and Safe Station: Your Connection to Recovery You can dial 2-1 from anywhere in [place] and be connected to a personal development coach who will help you connect to the appropriate treatment. You can also go to any one of the fire stations in [place] and [facility], now designated as ???Safe Stations?? , a place where you can walk in, from anywhere in [place] 25/02, and get connected with substance use treatment services. [facility] Safe Stations Central Fire Station: [address] --- Station 2: [address] Station 3: [address] --- Station 4: [address] Station 5: [address] --- Station 6: [address] Station 7: [address]--- Station 8: [address] Station 9: [address]--- Station 10: [address] [facility] Safe Stations Station 1: [address] --- Station 2: [address] --- Station 3: [address] Station 4: [address] --- Station 5: [address] -- Station 6: [address] Station 7: [address] Additional Resources http://nhtreatment.org/ http://www.[place].gov/sites/default/files/documents//adap_treatmen t_recovery_directory.pdf http://health[place].gov/alcohol-drugs http://www.psychologytoday.com/ http://www.[facility].org/wp-content/uploads//Consumer_Guide_to_Substa nce_Use_Treatment_2015version.pdf Discharge References/Attachments None documented in this encounter Discharge Instructions * Discharge Instructions* Ana Bruno RN - 10/18/2016 4:20 PM EDT [facility] Mental Health, Substance Abuse, and Developmental Services Residential Treatment [address] Call [phone] for a confidential assessment 211 and Safe Station: Your Connection to Recovery You can dial 2-1-1 from anywhere in [place] and be connected to a personal development coach who will help you connect to the appropriate treatment. You can also go to any one of the fire stations in [place] and [facility], now designated as ???Safe Stations?? , a place where you can walk in, from anywhere in [place] 25/02, and get connected with substance use treatment services. [facility] Safe Stations Central Fire Station: [address] --- Station 2: [address] Station 3: [address] --- Station 4: [address] Station 5: [address] --- Station 6: [address] Station 7: [address]--- Station 8: [address] [facility] Station 9: [address]--- Station 10: [address] [facility] Safe Stations Station 1: [address] --- Station 2: [address] --- Station 3: [address] Station 4: [address] --- Station 5: [address] -- Station 6: [address] Station 7: [address] Additional Resources http://nhtreatment.org/ http://www.[place].gov/sites/default/files/documents//adap_treatmen t_recovery_directory.pdf http://health[place].gov/alcohol-drugs http://www.psychologytoday.com/ http://www.[facility].org/wp-content/uploads//Consumer_Guide_to_Substa nce_Use_Treatment_2015version.pdf Nursing Inpatient Progress C - Section Follow-up Follow-ups: You should receive a follow-up appointment notification from [facility] for a six week post- visit. Immunizations Received: [X] MMR [ ] Tdap [X] Inactivated Influenza Vaccine [ ] Other: Medications Received: [ ] Rhogam Given: (time/date) [ ] Depoprovera Given: (time/date) [X] Other: Nexplanon Referrals: Additional Instructions: Maternal Discharge Instructions Rest: Although it may seem impossible to get enough rest, simple planning will help. Try to get at least one four hour block of uninterrupted sleep in 24 hours; then plan to rest, and/or sleep when your baby does. Limiting visitors also helps. Fathers and other family members can help by doing housework, caring for other children and/or helping limit visitors. Activity: After delivery, it is safe to climb stairs at home. Do not lift anything heavierthan your baby for two weeks. Do not drive for two weeks or while taking pain medicine that contains a narcotic as your reaction time may be decreased. Nutrition: Your diet following the of your baby is as important as it was before the baby wasborn. Drink a minimum of 6-8 glasses a day. Do not attempt to lose weight during the first six weeks. Continue taking your vitamins until they are gone. Lochia: (Flow) Your flow should be no heavier than a normal period. It will be bright red for 2-3 days and then pinkish and finally colorless. If your flow becomes bright red again, decrease your activity. Do not use tampons until your care provider advises you it is OK. Incision: Wash the incision with soap and water and pat dry. It is normal to have clear or pinkish fluid seep from the incision. Gauze pads or sanitary napkins may help to keep the incision dry if itis located in a fold under your tummy. If the incision has more redness, yellow drainage, or becomes more painful, contact the obstetrics clinic. Breast Care for Formula feeding mothers: Wear a well fitting bra to support your breasts. Ice packsto your breasts and Tylenol or Ibuprofen may be used to relieve discomfort from engorgement. Avoid stimulating your breasts: Do not let warm water from the shower fall on them; avoid holding your baby near your breasts until your milk begins to decrease and engorgement is relieved. Breast feeding mothers: Practice careful positioning and frequent feeding as demonstrated in the hospital. The printed information in your packet covers this in detail. Call your doctor or box feeder for: ??? Fever more than 100.5 ??? Heavy bleeding that saturates a pad an hour ??? Clots larger than a plum ??? Increased abdominal pain, nausea, shaking chills ??? Increased redness or soreness over your incision Breast with hot, hard, tender areas on the breast plus flu-like symptom ??? depression occurs in a large percentage of women. We encourage you to contact your provider or a member of the nursing staff if you are feeling so overwhelmed that you are unable to care for yourself or your baby. Keep your follow up appointment. You may call the [facility] at any time for guidance or for answers to questions that come up prior to you follow up appointment. Your [facility] Provider can be reached during office hours at ??? Midwives ??? Obstetricians ??? [facility] Follow-up Clinic AFTER OFFICE HOURS for the immigration associate or box feeder recreational therapy technician Provider electronic signature confirms that discharge instructions were reviewed with the patient. A copy was printed and given to the patient. * Patient Instructions* Kailey Lay MD - 10/18/2016 2:04 PM EDT Images from the original note were not included. Patient Instructions Follow-up: six weeks with your care provider - you will be contacted to schedule an appointment Activity: Nothing in vagina for six weeks Do not lift more than 15 pounds for six weeks No driving for two weeks if you had a section or while you are taking narcotic medication. Please call your OB provider for the following: Fever more than 100.5 degrees Heavy bleeding that saturates a pad an hour Increased abdominal pain, nausea, shaking chills Redness, increased pain, discharge at incision Hot, hard, tender areas on the breast and feeling generally unwell. Depression Contact Numbers: If you see an immigration associate call: [phone] 9 am - 5 pm, after 5 pm If you see a box feeder call: [phone] all hours If you see a family practitioner call: [phone] all hours If you were transferred to our institution for delivery and cannot reach your local OB provider, call the immigration associate numbers. Pain Control: - Alternate 650 mg tylenol and 600 mg ibuprofen every 3 hours for pain control. Use oxycodone as prescribed for breakthrough pain Please take your medication exactly as prescribed. Read all instructions that come with your medication. ?? Using narcotic pain medication (such as oxycodone, hydromorphone (Dilaudid), morphine, fentanyl,or tramadol) may cause addiction. While addiction is more common in people with a personal or family history of addiction, it can occur in anyone. ?? Taking more than the prescribed amount of medication or using with alcohol or other drugs can cause you to stop breathing resulting in coma, brain damage, or . ?? Opioids (oxycodone, hydromorphone/Dilaudid, morphine, fentanyl, tramadol) can slow reaction time, cause drowsiness, or cloud judgement. It is unsafe for you to drive or operate heavy machinery while taking this medication. ?? Opioids (oxycodone, hydromorphone/Dilaudid, morphine, fentanyl, tramadol) are at risk of being diverted by anyone with access to your home. Opioids should be stored in a safe and secure place, such as a locked cabinet or safe. ?? Unused opioids (oxycodone, hydromorphone/Dilaudid, morphine, fentanyl, tramadol) should be disposed of according to the label or patient information. If there are no specific instructions, medications may be returned to a take- back location or mixed with a small amount of water and an undesirable waste substance such as coffee grounds or cat litter. documented in this encounter Medications at Time [...] g by mouth daily. 14 each 10/18/2016 Kakeonilxztnt-Pa-Rtgs-M inerals 27-0.4 mg Tablet Take by mouth. [...] Pain. 12/19/2021 documented as of this encounter Progress Notes * Kailey Lay MD - 10/18/2016 7:05 AM EDT Delivery Note Patient ID: Chencho Barrett is a 30 y.o. year old who is postop day #3 after pLTCS at 26w2d gestation for bree[facility] S: The patient continues to complain of cough and abdominal discomfort with coughing, but states this is improved today. Pain is moderately well controlled on PO pain meds. Donor milk/forumla for infant nutrition. Ambulating without weakness/dizziness, tolerating a regular diet without nausea/vomiting, voiding spontaneously; pos flatus. Lochia moderate. Patient planning nexplanon for contraception. O: Last value Range last 24 hrs Temperature Temp: 36.9 ??C (98.4 ??F) Temp: [36.7 ??C (98.1 ??F)-36.9 ??C (98.4 ??F)] Heart Rate Heart Rate: 83 Heart Rate: [83-102] Blood Pressure BP: 127/77 BP: (125-128)/(67-84) Respiratory Rate Resp: 20 Resp: [19-20] SpO2 SpO2: 99 % SpO2: [96 %-100 %] No intake or output data in the 24 hours ending 10/18/16 0705 Exam: Gen: appears well, in no acute distress. Cardiac: RRR, S1, S2, no rub/gallop/murmur. Pulmonary: wheezes/crackles noted bilaterally; equal air entry bilaterally. Improved from previous exams Abdomen: Soft, symmetric, appropriately tender at incision, BS active, no rebound/guarding Uterus: firm, well below umbilicus, appropriately tender Incision: clean/dry/intact, no erythema/exudate Extremities: nontender, no edema. Labs: Recent Labs 10/16/16 0845 WBC 15.1* HGB 10.1* HCT 29.0* PLATELET 228 No results for input(s): NA, K, CL, CO2, BUN, CREATININE, MAGNESIUM, PHOS in the last 168 hours. Assessment: Chencho Barrett is a 30 y.o. year old who is postop day #3 after pLTCS at 26w2d gestation for breech presentation in the setting of labor who was transferred from OSH. Patient recovering well with some difficulties with pain control exacerbated by cough likely secondary to abrupt smoking cessation. Postoperative hemoglobin appropriate and consistent withestimated blood loss: Hb 10.1 POD#1 from 11 reported at OSH Discussed contraceptive options in depth; she would like Nexplanon placed before discharge. Otherwise no issues; plan for discharge today. Other Medical Issues/Concerns: Hx significant depression, expressed passive suicidal ideations on admission; previously on Peterson - Psych consulted - Started on Peterson 300 HS on POD#1 - Psych will continue to follow - Follow up to be arranged prior to d/c Opiate dependence - continue methadone Current every day smoker - complains of cough - Cont. duonebs in attempt to improve respiratory status Plan: ?? Plan for discharge today. ?? Nexplanon for contraception ?? Donor milk/formula for infant nutrition without concerns ?? Ferrous sulfate for anemia at discharge. ?? Follow-up: 6 wks routine; 2 wk call This patient was seen and discussed on rounds. Kailey Lay MD PGY1 10/18/2016 Associated attestation - Afsaneh Raymond MD - 10/22/2016 5:04 PM EDT I have seen and examined the patient, providing dillard components as outlined below. I have reviewed the resident???s above note; my evaluation of the patient is below: POD#3 CS at 26 2/7 weeks breech and PTL. Some abdominal pain. Voiding. Tolerating diet. Ambulating. AFVSS Abdomen soft, NT Uterus NT Incision CDI I/R POD#3 CS Doing well Routine care Depression restarted Peterson by psychiatry Opioid dependence on Methadone Plans nexplanon AFSANEH RAYMOND MD * Bree Potter, SADDLE CUTTER - 10/17/2016 4:40 PM EDT Social Work Note Office of Care Management Follow Up: Met with Chencho in her room on the for ongoing assessment and support. Chencho appeared somewhat agitated today and stated that she has not been feeling well. She has a cough and this has exacerbated her pain related to the . Chencho shares that her finance/FOB Homer has come up from [place] and was able to visit the baby, who shehas now named Gonzalez, yesterday. Homer has told Chencho that he wants to bring their older son, Sabianism, back to [place] with him so that Chencho can focus on the baby and go to inpatient substance abuse treatment if needed. Chencho has some reservations about this, namely being from Sabianism. Chencho reports that her family has become aware of her recent drug use and has not received this well. Chencho is worried about the negative consequences as a result of this. Specifically, she reportsthat her mother is no longer willing to let Chencho use her vehicle, which Chencho had been planning to use to commute back and forth to [facility] if needed after her discharge. She has concerns about her ability to access her methadone and also spend time with her baby; She worries that her home clinic will not permit her to guest dose in [place] due to her illicit substance use. Chencho also shares that her sister wrote an eight page letter about Chencho that she intends to deliver to [facility], noting that her sister is trying to have the baby taken away from [place]. Chencho's recreation officer, David Steiner, called this afternoon requesting that Chencho sign a release permitting him to have access to Chencho's medical information. Discussed this with Chencho, who was not agreeable to this. She states He is just trying to violate me, and that is the last thing I need right now. I told him I would check in with him when I'm discharged and I will. He can just wait. Also discussed with Chencho that DCF worker Paul Kwan ([phone]) had called this afternoonindicating that he would be conducting a child safety assessment based on the report made yesterdayby this Medical Terminologist. Chencho is anxious to speak with him to find out what DCF will be recommending for tr eatment. Encouraged Chencho to reach out directly to Paul rather than waiting for him to call her. Chencho is anticipating being discharged from the tomorrow. She intends to go home following discharge and go to [facility] on Saturday morning, where she will talk to them about the possibility of guest dosing at [facility] in [place] beginning next week so that she can stay at [facility] to be near jeyson Roth. Chencho plans to stay at home until Homer and Sabianism leave for [place], which Chencho anticipates will be on Saturday. Plan: MONICA will continue to follow through 's ICN admission for ongoing assessment, support, and discharge planning. MENDEZ Valdes Pager: [phone] * Kailey Lay MD - 10/17/2016 6:03 AM EDT Delivery Note Patient ID: Chencho Barrett is a 30 y.o. year old who is postop day #2 after pLTCS at 26w2d gestation for breech presentation [facility] S: The patient continues to complain of cough and significant abdominal discomfort with coughing. She also notes that her milk has come in and is very uncomfortable. Pain is moderately well controlled on PO pain meds. Donor milk/forumla for nutrition. Ambulating without weakness/dizziness, to lerating a regular diet without nausea/vomiting, voiding spontaneously; pos flatus. Lochia moderate. Patient planning nexplanon for contraception. O: Last value Range last 24 hrs Temperature Temp: 36.8 ??C (98.2 ??F) Temp: [36.7 ??C (98.1 ??F)-36.8 ??C (98.2 ??F)] Heart Rate Heart Rate: 78 Heart Rate: [78-86] Blood Pressure BP: 122/75 BP: (115-132)/(71-84) Respiratory Rate Resp: 19 Resp: [18-19] SpO2 SpO2: 100 % SpO2: [98 %-100 %] No intake or output data in the 24 hours ending 10/17/16 0603 Exam: Gen: appears well, in no acute distress. Cardiac: RRR, S1, S2, no rub/gallop/murmur. Pulmonary: wheezes/crackles noted bilaterally; equal air entry bilaterally. Abdomen: Soft, symmetric, appropriately tender at incision, BS active, no rebound/guarding Uterus: firm, well below umbilicus, appropriately tender Incision: clean/dry/intact, no erythema/exudate Extremities: nontender, no edema. Labs: Recent Labs 10/16/ 0845 WBC 15.1* HGB 10.1* HCT 29.0* PLATELET 228 No results for input(s): NA, K, CL, CO2, BUN, CREATININE, MAGNESIUM, PHOS in the last 168 hours. Assessment: Chencho Barrett is a 30 y.o. year old who is postop day #2 after pLTCS at 26w2d gestation for breech presentation in the setting of labor who was transferred from OSH. Patient recovering well with some difficulties with pain control exacerbated by cough likely secondary to abrupt smoking cessation. Postoperative hemoglobin appropriate and consistent withestimated blood loss: Hb 10.1 POD#1 from 11 reported at OSH Discussed contraceptive options in depth; she would like Nexplanon placed before discharge. Otherwise no issues; anticipate discharge on postop day #3. Other Medical Issues/Concerns: Hx significant depression, expressed passive suicidal ideations on admission; previously on Peterson - Psych consult yesterday - Started on Peterson 300 HS on POD#1 - Psych will continue to follow - Follow up to be arranged prior to d/c Opiate dependence - continue methadone Current every day smoker - complains of cough - Cont. duonebs in attempt to improve respiratory status Plan: ?? Continue routine care. ?? Nexplanon for contraception ?? Donor milk/formula for nutrition without concerns ?? Ferrous sulfate for anemia at discharge. ?? Follow-up: 6 wks routine; 2 wk call This patient was seen and discussed on rounds. Kailey Lay MD PGY1 10/17/2016 Associated attestation - Afsaneh Raymond MD - 10/22/2016 5:04 PM EDT I have seen and examined the patient, providing dillard components as outlined below. I have reviewed the resident???s above note; my evaluation of the patient is below: POD#2 CS at 26 2/7 weeks breech and PTL. Some abdominal pain. Voiding. Tolerating diet. Ambulating. AFVSS Abdomen soft, NT Uterus NT Incision CDI I/R POD#2 CS Doing well Routine care Depression restarted Peterson by psychiatry Opioid dependence on Methadone Plans nexplanon AFSANEH RAYMOND MD * Jenni Fajardo MD - 10/16/2016 6:23 AM EDT Delivery Note Patient ID: Chencho Barrett is a 30 y.o. year old who is postop day #1 after pLTCS at 26w2d gestation for breech presentation [facility] S: The patient complains of cough and significant abdominal discomfort with coughing. Pain is moderately well controlled on PO pain meds. Pumping for infant nutrition. Ambulating without weakness/dizziness, tolerating a regular diet without nausea/vomiting, voiding spontaneously; pos flatus. Lochiamoderate. Patient planning nexplanon for contraception. O: Last value Range last 24 hrs Temperature Temp: 36.8 ??C (98.2 ??F) Temp: [36.5 ??C (97.7 ??F)-36.9 ??C (98.4 ??F)] Heart Rate Heart Rate: 83 Heart Rate: [69-83] Blood Pressure BP: 115/71 BP: (108-130)/(54-72) Respiratory Rate Resp: 18 Resp: [16-19] SpO2 SpO2: 98 % SpO2: [97 %-99 %] Intake/Output Summary (Last 24 hours) at 10/16/16 0906 Last data filed at 10/16/16 0300 Gross per 24 hour Intake 1530 ml Output 1390 ml Net 140 ml Exam: Gen: appears well, in no acute distress. Cardiac: RRR, S1, S2, no rub/gallop/murmur. Pulmonary: wheezes noted bilaterally, no rales, rhonchi; equal air entry bilaterally. Abdomen: Soft, symmetric, appropriately tender at incision, BS active, no rebound/guarding Uterus: firm, well below umbilicus, appropriately tender Dressing: clean/dry/intact, no erythema/exudate Extremities: nontender, no edema. Labs: Recent Labs 10/16/16 0845 WBC 15.1* HGB 10.1* HCT 29.0* PLATELET 228 No results for input(s): NA, K, CL, CO2, BUN, CREATININE, MAGNESIUM, PHOS in the last 168 hours. Assessment: Chencho Barrett is a 30 y.o. year old who is postop day #1 after pLTCS at 26w2d gestation for breech presentation in the setting of labor who was transferred from OSH. Patient recovering slowly without significant issue. Postoperative hemoglobin appropriate and consistent with estimated blood loss: Hb 10.1 today from 11 reported at OSH Discussed contraceptive options in depth; she would like Nexplanon placed before discharge. Otherwise no issues; anticipate discharge on postop day #3. Other Medical Issues/Concerns: Hx significant depression, expressed passive suicidal ideations on admission; previously on Peterson - will consult psych today Opiate dependence - continue methadone Current every day smoker - complains of cough; will order duonebs in attempt to improve respiratorystatus Plan: ?? Continue routine care. ?? Nexmplanon for contraception ?? Pumping for nutrition without concerns ?? Ferrous sulfate for anemia at discharge. ?? Follow-up: 6 wks routine; 2 wk call This patient was seen and discussed on rounds. Kailey Lay MD PGY1 10/16/2016 Attending note I saw patient on rounds and agree with Dr. Lay's note above. The patient reports feeling tired.She has not yet gotten adequate control of pain. Her bleeding is diminishing, and she is voiding without difficulty. She is able to ambulate. Temp: [36.7 ??C (98.1 ??F)-36.9 ??C (98.4 ??F)] Heart Rate: [77-86] Resp: [18-19] BP: (115-132)/(61-84) SpO2: [97 %-99 %] Heart Rate from SPO2: [78 bpm-85 bpm] Abdomen: soft, appropriately tender, fundus below umbilicus Ext: nontender, mod edema Impression: POD 1 after primary at 26 weeks for PTL and breech doing well. Opioid dependent. We are working on improving her pain control. She will likely need additional narcotics. Plan: Continue routine postoperative care. Jenni Fajardo MD * Chelsi Pozo RN - 10/15/2016 11:30 AM EDT 11:[address] Sandy notified of patient's depression screen PHQ2 scores and suicidal ideation without a plan. Patient reports, I'm happy I am here. I really want to work to get my life back together. documented in this encounter H&P Notes * Kailey Lay MD - 10/15/2016 10:43 AM EDT Obstetrical Admission Note Chencho Barrett is a 30 y.o. at Unknown gestation being admitted for care. HPI: Patient presented to the ED of the OSH with leaking and bleeding having regular, painful contractions. Notes indicate that she appeared to be in labor. She was found to be breech and underwent emergency primary low transverse under spinal anesthesia early this AM. Received one dose of betamethasone, bolus dose of penicillin for GBS unknown She is currently complaining of lower abdominal pain. She has a lafleur catheter in place; is passingflatus. She has been tolerating a regular diet. She has not yet ambulated. Denies nausea, vomiting,fever, chills. Hb 11.2 this AM. UDS positive for methadone, cocaine, THC. Patient endorses THC use and historical use of intranasalcocaine but states that she has not used recently. She wonders if some of the marijuana she has smoked has been laced with other drugs. Rapid HIV negative; Hep B pending. Her has been complicated by the following: - Smoker: current every day smoker - Daily marijuana smoker - Late to care: presented at 20 wks gestation with n/v in the ED and found unexpectedly jon ; dated by 20 wk US - Opiate dependence on Methadone 60 mg daily: meds and counseling at [facility] - Hepatitis C pos - Hx depression; currently endorses depression, suicidal ideations, no plan PHQ9 Questionnaires Data (Clinic and Pt Entered): Today's value PHQ-9 QUESTIONNAIRE (AMB) 10/15/2016 PHQ - 9 Score (Clinic) 24 (Severe Depression) Little interest or pleasure (Clinic) Nearly every day Down, depressed, hopeless (Clinic) Nearly every day Trouble sleeping (Clinic) Nearly every day Tired or no energy (Clinic) Nearly every day Poor appetite or overeating (Clinic) Nearly every day Feeling like a failure (Clinic) Nearly every day Trouble concentrating (Clinic) Nearly every day Moving or speaking slowly (Clinic) Not at all Would be better off (Clinic) Nearly every day How difficult are the problems (Clinic) Very difficult Review of Systems- Negative to complete review except as noted in the HPI. Active Hospital Problems Diagnosis ??? care following delivery Resolved Hospital Problems Diagnosis Date Resolved No resolved problems to display. Active Non-Hospital Problems Diagnosis ??? Cigarette smoker ??? Late care ??? Rubella non-immune status, antepartum ??? Substance abuse ??? Depression ??? Hepatitis C Past Medical History: Diagnosis Date ??? Chlamydia ??? Depression ??? Hepatitis C ??? Panic attacks denies a history of seizures ??? Substance abuse crack cocaine, prior IVDA Past Surgical History: Procedure Laterality Date ??? SECTION 10/15/2016 ??? WISDOM TOOTH EXTRACTION OB History Para Term AB TAB SAB Ectopic Multiple Living 5 3 2 1 2 2 0 3 # Outc Date GA Lbr Amilcar/2nd Wgt Sex Del Anes PTL Lv 1 TAB 2005 2 TAB 2009 3 Term 08/2013 38w0d 3.033 kg (6 lb 11 oz) Y Comments: Labor 1 hour, does not have custody 4 Term 02/2015 Vag-Vacuum Y 5 10/2016 26w2d Y Prescriptions Prior to Admission Medication Sig Dispense Refill Last Dose ??? Ajdobufhcjjxz-Pe-Nqsc-Minerals 27-0.4 mg Tablet Take by mouth. Taking at Unknown time ??? ibuprofen (ADVIL;MOTRIN) 200 mg Tablet Take 200 mg by mouth every 6 hours as needed for Pain. Taking at Unknown time ??? methadone (METHADOSE) 10 mg/5 mL Solution Take 55 mg by mouth every 4 hours as needed for Pain.Taking at Unknown time No Known Allergies Family History Problem Relation Age of Onset ??? Transient Ischemic Attack Mother stroke ??? Diabetes Maternal Grandfather Social History Occupational History ??? Not on file. Social History Main Topics ??? Smoking status: Current Every Day Smoker Packs/day: 1.00 Years: 10.00 Types: Cigarettes ??? Smokeless tobacco: Never Used ??? Alcohol use No ??? Drug use: Yes Special: Marijuana, Cocaine Comment: daily THC ??? Sexual activity: Yes Partners: Male Immunization History There is no immunization history on file for this patient. Last Set of Vitals: BP 109/62 Pulse 72 Temp 36.7 ??C (98.1 ??F) (Oral) Resp 16 SpO2 99% ? Unknown Physical Exam Gen: AAO, appears anxious, tired Cardio: nl rhythm, S1, S2, no M/C/R/G Pulm: CTA BL, no W/C/R Abd: +BS, soft, moderately tender; dressing in place Ext: warm, well-perfused, no KIMBERLY or calf tenderness Assessment & Plan Chencho Monroe Arnold is a 30 y.o. who presents as transport from [facility] after pLTCS; she presents due to transport of her baby. ?? Routine care ?? Depression; active suicidal ideations: ?? Will consult psych ?? Desires Nexplanon for contraception ?? Homer eligible; will consent and place prior to discharge This patient was seen and discussed with Dr. Sandy, Attending SPA HOST. Kailey Lay MD 10/15/2016 Associated attestation - Tania Sandy MD - 10/15/2016 2:17 PM EDT I have seen the patient and reviewed the resident's above history and I agree with the details as written. The assessment and plan were formulated in discussion with me and I agree with them as documented. 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 Upon arrival she states she has incisional pain, but denies other complaints. Has tolerated some food. Lafleur in place. Has not yet ambulated. EBL at time of surgery was 500 cc. Of note,we reviewed the operative note which may be a preliminary draft, and it did not specify whether LTCS or classical, but a delivery summary noted the uterine incision was LTCS. BP 109/62 Pulse 72 Temp 36.7 ??C (98.1 ??F) (Oral) Resp 16 SpO2 99% ? Unknown NAD, conversant Abd softly distended, appropriately tender, normoactive bowel sounds Bandage C/D/I without surrounding erythema No LE edema A/P: POD#0 s/p primary C/S. Doing well. Will consult Psychiatry as well as verify methadone dose. Continue routine PP care. Infant in ICN. Tania Sandy MD documented in this encounter Procedure Notes * Kailey Lay MD - 10/18/2016 3:07 PM EDTProcedure(s): JOMAR JENKINS Pre-Procedure Diagnose(s): Encounter for insertion subdermal contraceptive Post-Procedure Diagnose(s): Encounter for insertion subdermal contraceptive Procedure Note 10/18/2016 Preoperative diagnosis: Desires custodial contraception Postoperative diagnosis: Same HPI: Chencho Barrett is a 30 y.o. who is POD#3 from pLTCS who desires custodial contraception. The risks and benefits of a Nexplanon insertion were discussed with the patient including failure of the product, bruising with insertion, and irregular bleeding patterns. The patient agreed to go ahead with the procedure. Nexplanon insertion: Under sterile technique patient's non-dominant left arm was cleansed with an alcohol swab. A dario was made 7 cm medial to the medial epicondyle at the biceps/triceps groove. 1% lidocaine was injected subdermally and along the insertion track. The insertion site was prepped withbetadine x 3. Nexplanon was inserted per manufacturers guidelines. Scant bleeding following procedure. Hemostasis achieved with bandaid and pressure dressing. Nexplanon palpable by patient and myselffollowing the procedure. Nexplanon Lot #: [id number] Assessment/Plan: Chencho Barrett is a 30 y.o. who is POD#3 from pLTCS and who had a successful insertion of a Nexplanon today. She and I were both able to feel the Nexplanon in her left arm. ??? Remove pressure dressing in 24 hours, remove steri strips in one week. Call with any signs of erythema or pain around site. Effective immediately. Plan removal in three years. Given Nexplanon card and patient information sheet. ??? instructed to use Ibuprofen for discomfort at the site of insertion Dr. Stephens was present for the entire procedure without conflicting clinical responsibilities. Kailey Lay MD PGY1 10/18/2016 Associated attestation - Dipak Stephens MD - 10/18/2016 5:03 PM EDT I saw Chencho Barrett with Dr. Lay and was present for the entirety of the Implanon insertion procedure, which was uncomplicated. Dipak Stephens MD 10/18/2016 5:02 PM documented in this encounter Miscellaneous Notes * Plan of Care - Janis Limon, RN - 10/18/2016 3:41 AM EDT Problem: Skin Integrity Impairment, Risk/Actual (Adult) Goal: Identify Related Risk Factors and Signs and Symptoms Related risk factors and signs and symptoms are identified upon initiation of Human Response Clinical Practice Guideline (CPG) Outcome: Ongoing (Interventions Implemented as Appropriate) 10/16/1650110/18/16 033 Skin Integrity Impairment, Risk/Actual Skin Integrity Impairment, Risk/Actual: Related Risk Factors -- surgery/procedure Signs and Symptoms (Skin Integrity Impairment) other (see comments) (none) -- Goal: Skin Integrity/Wound Healing Patient will demonstrate the desired outcomes by discharge/transition of care. Outcome: Ongoing (Interventions Implemented as Appropriate) 10/18/16331 Skin Integrity Impairment, Risk/Actual (Adult) Skin Integrity/Wound Healing making progress toward outcome Problem: Patient Care Overview Goal: Plan of Care Review Outcome: Ongoing (Interventions Implemented as Appropriate) 10/17/16205210/18/16331 Coping/Psychosocial Plan Of Care Reviewed With patient -- Plan of Care Review Progress -- progress towards functional goals is fair OUTCOME EVALUATION NOTE: OUTCOME SUMMARY: Pt is on her 3rd day post-CS, VS stable, pain controlled with use of Oxycodone & Acetaminophen. Pt able to get out of bed & ambulate independently. Pt still with productive cough, no wheezing nor crackles heard on auscultation of both lungs. Pt encouraged to increase fluid intake. See care plan goal summaries & comprehensive report for pt status. PLAN MOVING FORWARD: Continue care as directed in CPG care plans. Prepare pt for discharge later today. INDIVIDUALIZED FALL PREVENTION: Assistance: None, pt independent Supervision: Remind pt to call for assistance when needed, call light within reach Surveillance: Purposeful rounding CPG OUTCOME EVALUATION: Goal: Individualization & Mutuality Outcome: Ongoing (Interventions Implemented as Appropriate) 10/16/1650110/18/16331 Individualization Patient Specific Preferences pain control, visit baby in ICN -- Patient Specific Goals -- stable PP recovery, relief from cough, pain control, rest/sleep Patient Specific Interventions PP care, pain meds as ordered -- Mutuality/Individual Preferences What Anxieties, Fears or Concerns Do You Have About Your Health or Care? annoying cough causing more pain -- What Questions Do You Have About Your Health or Care? -- none What Information Would Help Us Give You More Personalized Care? -- none Goal: Fall Prevention-Safe Patient Handling Outcome: Ongoing (Interventions Implemented as Appropriate) 10/17/16205210/18/16 033 Musculoskeletal Interventions Muscle Strengthening -- activity/mobility promoted Activity and Safety Assistive Device None -- Daily Care Interventions Self-Care Promotion independence encouraged;BADL personal objects within reach;BADL personal routines maintained -- Restraint Interventions Safety Promotion/Fall Prevention fall prevention program maintained;nonskid shoes/slippers when outof bed -- Dixon Fall Risk History of Falling 0 -- Secondary Diagnosis 0 -- Ambulatory Aids 0 -- Intravenous Therapy/Heparin/Saline Lock 0 -- Gait/Transferring 0 -- Mental Status 0 -- Score 0 -- OTHER Dixon Fall Risk Low -- Positioning Body Position independent -- Goal: Infection Control Outcome: Ongoing (Interventions Implemented as Appropriate) 10/17/16205210/18/16331 Safety Interventions Isolation Precautions standard precautions maintained -- Infection Prevention -- environmental surveillance performed;rest/sleep promoted Goal: Discharge Needs Assessment Outcome: Ongoing (Interventions Implemented as Appropriate) 10/18/16331 Discharge Needs Assessment Concerns To Be Addressed substance/tobacco abuse/use concerns Concerns Comments on Methadone Readmission Within The Last 30 Days no previous admission in last 30 days Equipment Needed After Discharge none Current Discharge Risk substance use/abuse (on Methadone) Discharge Disposition still a patient Activity/Self Care Review of Systems Equipment Currently Used at Home none Living Environment Transportation Available family or friend will provide Goal: Interdisciplinary Rounds/Family Conf Outcome: Ongoing (Interventions Implemented as Appropriate) 10/18/16331 Interdisciplinary Rounds/Family Conf Participants nursing;patient Problem: ( Delivery) (Adult) Goal: Signs and Symptoms of Listed Potential Problems Will be Absent, Minimized or Managed () Signs and symptoms of listed potential problems will be absent, minimized or managed by discharge/transition of care (reference ( Delivery) (Adult) CPG). Outcome: Ongoing (Interventions Implemented as Appropriate) 10/17/162052 ( Delivery) Problems Assessed ( ) all Problems Present ( ) pain * Plan of Care - Vidhya Ramirez RN - 10/17/2016 4:30 PM EDT Problem: Skin Integrity Impairment, Risk/Actual (Adult) Goal: Identify Related Risk Factors and Signs and Symptoms Related risk factors and signs and symptoms are identified upon initiation of Human Response Clinical Practice Guideline (CPG) Outcome: Ongoing (Interventions Implemented as Appropriate) 10/16/16 0502 10/17/16 1620 Skin Integrity Impairment, Risk/Actual Skin Integrity Impairment, Risk/Actual: Related Risk Factors -- surgery/procedure Signs and Symptoms (Skin Integrity Impairment) other (see comments) (none) -- Goal: Skin Integrity/Wound Healing Patient will demonstrate the desired outcomes by discharge/transition of care. Outcome: Ongoing (Interventions Implemented as Appropriate) 10/17/16 162 Skin Integrity Impairment, Risk/Actual (Adult) Skin Integrity/Wound Healing making progress toward outcome Problem: Patient Care Overview Goal: Plan of Care Review Outcome: Ongoing (Interventions Implemented as Appropriate) 10/17/16 162 Coping/Psychosocial Plan Of Care Reviewed With patient Plan of Care Review Progress progress toward functional goals as expected OUTCOME EVALUATION NOTE: OUTCOME SUMMARY: Pt with VSS, post op checks wdl. Pain managed with Tylenol and Oxycodone. Pt over to visit baby in ICN via wheelchair. PLAN MOVING FORWARD: Continue to assist with post op care teaching and provide pain management. Provide emotional support. INDIVIDUALIZED FALL PREVENTION INTERVENTIONS: Patient-specific fall risk factors per assessment: [current deficits]: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 bullets and level of exam with x. Bullets Completed 1-5 6-8 9+ x All Psych & Constitutional + 1 Musculoskeletal Level of Exam PF EPF D x C Assessment: Chencho Barrett is a 30 y/o woman who was admitted from an outside hospital for labor. She is currently post-op day 1 after a , with her baby being born at 26 weeks. Pertinent information also include the patient's substance use history as well as a history of depression. Chencho has an underlying history of depression and given her current situation these symptoms are understandably exacerbated. She does endorse symptoms of depression, but her symptoms and experience with anxiety appear to be overwhelming. As Chencho has cited this as one of the reasons leading to her substance use, it would be pertinent to target these symptoms to hopefully prevent any future use.She is presently not on a medication and has reported trials of multiple antidepressants in the past with a prescriber from [facility]. Of all the trials, Chencho has relayed that she felt the most stable while she was on Peterson. Since this is a medication that has worked for the patient in the past and she has confirmed that she will not be , it is recommended to restart the medication at a low dose while she is admitted. Peterson can be useful in patient's who have treatment refractory depression and has found to be useful for reducing the risk of suicide. In terms of Chencho's suicidal ideation, she confirms she only has thoughts and they seem to occur when she isfeeling particularly overwhelmed. Chencho denies any plan, relays she could never take such an action, and cites her children as protective factors. In regards to her substance use, Chencho is motivated to seek treatment as well as to attend an inpatient rehab program. This life insurance underwriter will plan to have Nickolas Ulloa RN part of the BIT team meet with the patient to review resources. Diagnosis: [place] I : Depressive Disorder Unspecified, Anxiety Disorder Unspecified [place] II : Borderline Personality Disorder (per patient report) [place] III : Patient Active Problem List Diagnosis Code ??? Substance abuse F19.10 ??? Cigarette smoker F17.210 ??? Late care O09.30 ??? Rubella non-immune status, antepartum O99.89, Z28.3 ??? Depression F32.9 ??? Hepatitis C B19.20 ??? care following delivery Z39.2 [place] IV : Psychosocial stressors Plan/Recommendations: 1) Start Peterson 300mg QHS 2) Will have Nickolas Ulloa RN meet with the patient for [place]+ to provide substance use resources 3) Psychiatry CL will continue to follow the patient during admission Recommendations were communicated to primary engineering team supervisor Dr. Lay. Coding Determination Complexity of MDM Determination: Dario appropriate # of Dx, Amt, complexity of date, Risk, & corresponding level of MDM with x.2 out of 3 elements in row must be met to qualify. # of Possible Diagnoses or Management Options Amount and/or Complexity of Data Risk of Complications, Morbidity, and or Mortality Type of Decision Making Minimal Minimal/None Minimal Straightforward Limited Limited Low Low Multiple Moderate Moderate Moderate Extensive Extensive High High Inpatient Consult Service Code Determination: Dario Hx, Exam, MDM & JANET/CPT Code with ? X? . All dillard components in the row must be met to qualify for a given code. HISTORY EXAM MDM JANET / CPT CODE PF PF Straightforward 3200 / [id number] EPF EPF Straightforward 3210 / 27915 D D Low 3220 / 56180 C C Moderate x 3230 / 19010 C C High 3240 / 80313 * Initial Assessments - Bree Potter MSW - 10/16/2016 9:03 AM EDT Office of Care Management Initial Assessment MENDEZ ARREAGA reviewed record and discussed patient with Care Team. Source of Information: Patient, Chencho Barrett Introduced self/reviewed role; services accepted. Reason for Hospitalization: Recovery from at 26 weeks gestation. Past Medical History: Diagnosis Date ??? Chlamydia ??? Depression ??? Hepatitis C ??? Panic attacks denies a history of seizures ??? Substance abuse crack cocaine, prior IVDA Hospitalizations Within the Past 30 Days: None Anticipated Length Of Stay (If known): 2-3 days post-op Current Decision-Making Capacity: Intact Advance Care Planning: No AD on file. Current Coping/Education/Information Needs: Chencho is feeling overwhelmed by her baby's premature and hospitalization and other stressors she is managing currently. She is experiencing feelingsof shame and guilt about her substance use and is very worried about the threat of removalof her children as a result. She reports being very motivated to take the necessary steps to retain custody of her children, including seeking a higher level (inpatient) of treatment for her substance use and mental health if necessary. Current Functional Ability: Ambulating, voiding, tolerating PO Functional Status Prior to Admission: Independent, Home Environment: Chencho resides with her 20 month old son, Fawad Barrett, in the home of her parents. Chencho reports this is a safe and supportive environment. Chencho's mother is currently caring for Sabianism while Chencho remains inpatient on the . Chencho reports that she hopes to eventually re locate with her children to [place], where her fivivi/FOB Homer Rodriguez resides. Homer is the father to her new baby and to Sabianism. Chencho has a 10 year old daughter, Therese Solis, who lives with her father, Christian Solis, and with whom Chencho does not currently have contact. Social & Family Supports/Community Resources: Chencho shares that she struggles while residing in her home (current) town, as she finds the area and the people triggering for her. She describes having good support from her parents and from her counselor, Kiara, at the [facility] in [facility]. Chencho also reports having a good relationship with her recreation officer, David, who works at the [facility] [employer] office. Chencho feels that [facility], where juani Coronel resides, is a betterenvironment for herself and her children and hopes to eventually relocate there. Chencho is currently unemployed. She receives [employer] [place] and intends to apply for WIC. Homer is employed gas plant repairer for [employer] in [place] and sends money to Chencho each week. Chencho's also help financially when needed. Chencho reports that money is tight. Behavioral Health History: Chencho has a history of depression, anxiety, and ?bipolar (Chencho reports this was a misdiagnosis) and ?borderline personality disorder (by Chencho's report). Chencho is currently endorsing depressive symptoms and passive suicidal ideation and has been seen by Psychiatry today, who will be starting her on medication and connecting her with potential additional mental health and substance abuse resources. Substance Use/Abuse: Both Chencho and her fiance/FOB Homer have substance use disorders. Homer is reportedly in recovery and engaged with MAT/Suboxone through a private physician in [place], where he resides. Chencho has struggled with substance use for the last ~9 years and has received both inpatient and outpatient care throughout that time. She and Homer met three years ago in a transitional living home in [place], [place] after both completed inpatient treatment. Chencho has been engaged in MAT/methadone at [facility] since her with her older son, although not consistently. She reports a very good/supportive relationship with [facility]. Despite this, she has continued to use cocaine and THC during and feels that her illicit use is connected with her mental health difficulties, which she reports have worsened in the recent weeks. Her GILDARDO on admission to the [facility] was +THC and Cocaine, in addition to her prescribed methadone and opiates that were given during . Other Pertinent/Service Specific Information: DCF report will be made due to maternal substance useand other psychosocial concerns. Chencho is aware. Health/Prescription Coverage: Primary Insurance: [place] Medicaid Secondary Insurance: None Prescription Coverage: Yes Preferred Pharmacy: [facility] in [place] Other: None Primary Care Provider: Dr. Hong at [facility] in [facility] Patient/Caregiver Goals of Treatment: For a healthy baby Potential Needs for Transition of Care: Rehab/SNF: No Home Health: No DME: No Dialysis: No Community Resources: [facility], [facility], Probation involved. Provided info re: [facility], [facility], and possibility of guest dosing at [facility]. Transportation: Private car Other: None Anticipated Barriers to Discharge/Special Considerations: None Plan: A member of the Care Management team will continue to monitor progress, follow for continuityof care and assist with transition of care planning. MENDEZ ARREAGA Pager: [phone] * Plan of Care - Janis Limon RN - 10/16/2016 5:14 AM EDT Problem: Skin Integrity Impairment, Risk/Actual (Adult) Goal: Identify Related Risk Factors and Signs and Symptoms Related risk factors and signs and symptoms are identified upon initiation of Human Response Clinical Practice Guideline (CPG) Outcome: Ongoing (Interventions Implemented as Appropriate) 10/16/16 050 Skin Integrity Impairment, Risk/Actual Skin Integrity Impairment, Risk/Actual: Related Risk Factors surgery/procedure Signs and Symptoms (Skin Integrity Impairment) other (see comments) (none) Goal: Skin Integrity/Wound Healing Patient will demonstrate the desired outcomes by discharge/transition of care. Outcome: Ongoing (Interventions Implemented as Appropriate) 10/16/16 050 Skin Integrity Impairment, Risk/Actual (Adult) Skin Integrity/Wound Healing making progress toward outcome Problem: Patient Care Overview Goal: Plan of Care Review Outcome: Ongoing (Interventions Implemented as Appropriate) 10/16/16 050 Coping/Psychosocial Plan Of Care Reviewed With patient Plan of Care Review Progress progress towards functional goals is fair OUTCOME EVALUATION NOTE: OUTCOME SUMMARY: Pt is on her 1st day post-CS, VS stable, pain controlled with use of Ketorolac, Oxycodone & Acetaminophen. Lafleur catheter was removed earlier around 0020 & pt was able to void adequately afterwards. Pt able to get out of bed & ambulate independently. She visits her babyin the ICN regularly. See care plan goal summaries & comprehensive report for pt status. PLAN MOVING FORWARD: Continue care as directed in CPG care plans. Pt for discharge on 2nd or 3rd day post-CS. INDIVIDUALIZED FALL PREVENTION: Assistance: None, pt independent Supervision: Remind pt to call for assistance when needed, call light within reach Surveillance: Purposeful rounding CPG OUTCOME EVALUATION: Goal: Individualization & Mutuality Outcome: Ongoing (Interventions Implemented as Appropriate) 10/16/16 050 Individualization Patient Specific Preferences pain control, visit baby in ICN Patient Specific Goals stable PP recovery, pain control Patient Specific Interventions PP care, pain meds as ordered Mutuality/Individual Preferences What Anxieties, Fears or Concerns Do You Have About Your Health or Care? annoying cough causing more pain What Questions Do You Have About Your Health or Care? none at this time What Information Would Help Us Give You More Personalized Care? none Goal: Fall Prevention-Safe Patient Handling Outcome: Ongoing (Interventions Implemented as Appropriate) 10/15/16202510/16/16 050 Musculoskeletal Interventions Muscle Strengthening -- activity/mobility promoted Activity and Safety Assistive Device -- None Daily Care Interventions Self-Care Promotion -- independence encouraged;BADL personal objects within reach;BADL personal routines maintained Dixon Fall Risk History of Falling 0 -- Secondary Diagnosis 0 -- Ambulatory Aids 0 -- Intravenous Therapy/Heparin/Saline Lock 20 -- Gait/Transferring 10 -- Mental Status 0 -- Score 30 -- OTHER Dixon Fall Risk Med -- Restraint Interventions Safety Promotion/Fall Prevention fall prevention program maintained;nonskid shoes/slippers when outof bed -- Positioning Body Position independent -- Goal: Infection Control Outcome: Ongoing (Interventions Implemented as Appropriate) 10/15/162025 Safety Interventions Isolation Precautions standard precautions maintained Infection Prevention environmental surveillance performed;rest/sleep promoted Coping Strategies Supportive Measures active listening utilized;goal setting facilitated;relaxation techniques promoted;self-care encouraged;verbalization of feelings encouraged Goal: Discharge Needs Assessment Outcome: Ongoing (Interventions Implemented as Appropriate) 10/16/16 050 Discharge Needs Assessment Concerns To Be Addressed substance/tobacco abuse/use concerns Concerns Comments on Methadone Readmission Within The Last 30 Days no previous admission in last 30 days Equipment Needed After Discharge none Current Discharge Risk substance use/abuse;psychiatric illness (on Methadone) Discharge Disposition still a patient Activity/Self Care Review of Systems Equipment Currently Used at Home none Living Environment Transportation Available family or friend will provide Goal: Interdisciplinary Rounds/Family Conf Outcome: Ongoing (Interventions Implemented as Appropriate) 10/16/16 0502 Interdisciplinary Rounds/Family Conf Participants nursing;patient Problem: ( Delivery) (Adult) Goal: Signs and Symptoms of Listed Potential Problems Will be Absent, Minimized or Managed () Signs and symptoms of listed potential problems will be absent, minimized or managed by discharge/transition of care (reference ( Delivery) (Adult) CPG). Outcome: Ongoing (Interventions Implemented as Appropriate) 10/15/162025 ( Delivery) Problems Assessed ( ) all Problems Present ( ) pain * Plan of Care - Chelsi Pozo RN - 10/15/2016 5:02 PM EDT Problem: Patient Care Overview Goal: Plan of Care Review Outcome: Ongoing (Interventions Implemented as Appropriate) OUTCOME EVALUATION NOTE: OUTCOME SUMMARY: PPT from [facility]. VSS, incision WNL, fundus firm, lochia light. Patient encouraged to ambulate this afternoon, OOB once to wheelchair to the ICN. Lafleur in place. Plan to remove Lafleur during next ambulation. Pain medications given PRN, patient able to rest in between care. PLAN MOVING FORWARD: ICN support Manage pain Remove Lafleur Encourage ambulation documented in this encounter Plan of Treatment Not on file documented as of this encounter Procedures Procedure Name Priority Date/Time Associated Diagnosis Comments HEMOGRAM Routine 10/16/2016 8:45 AM EDT RAPID DRUG SCREEN W/ CONFIRMATION, URINE Routine 10/16/2016 6:45 AM EDT METHADONE, URINE, CONFIRMATION Routine 10/16/2016 6:45 AM EDT THC (MARIJUANA), URINE, CONFIRMATION Routine 10/16/2016 6:45 AM EDT OPIATE, URINE CONFIRMATION Routine 10/16/2016 6:45 AM EDT COCAINE, URINE, CONFIRMATION Routine 10/16/2016 6:45 AM EDT ABORH RECHECK STATUS Routine 10/16/2016 6:30 AM EDT ABO/RH TYPING Routine 10/16/2016 6:30 AM EDT ANTIBODY SCREEN Routine 10/16/2016 6:30 AM EDT TYPE AND SCREEN ([facility]/CGP/MAGGIE) Routine 10/16/2016 6:30 AM EDT documented in this encounter Results * (ABNORMAL) Hemogram (10/16/2016 8:45 AM EDT) White Blood Cell 15.1(H) 4.0 - 9.5 x10(3)/[facility] LABORATORY Red Blood Cell 3.33(L) 4.00 - 5.21 x10(6)/mc L [facility] Hemoglobin 10.1(L) 11.7 - 15.5 gm/dL [facility] Hematocrit 29.0(L) 35.7 - 45.8 % [facility] Mean Cell Volume 87.1 82.6 - 94.4 fL [facility] Mean Cell Hemoglobin 30.3 27.1 - 32.0 pg [facility] Mean Cell Hemoglobin Concentration 34.8 31.7 - 35.0 gm/dL [facility] Platelet 228 145 - 357 x10(3)/mc L [facility] RDW Standard Deviation 46.0 37.0 - 46.0 [facility] LABORATORY RDW coefficient of variation 14.6(H) 11.5 - 14.1 % [facility] Mean Platelet Volume 10.2 7.6 - 12.9 [facility] LABORATORY NRBC% auto 0.0 % [facility] NRBC Absolute 0.000 0.000 - 0.000 x10(3)/mc L [facility] Blood specimen (specimen) 10/16/2016 8:45 AM EDT 10/16/2016 8:51 AM EDT Narrative Resulting Agency Comment Spec In Lab Tania aSndy MD HEMATOLOGY ORDERABLE S Performing Organization Address City/State/[facility] Co de Phone Number [facility] [place] [address] * Opiate, Urine Quantitative (10/16/2016 6:45 AM EDT) U GILDARDO Opiate Test ? Result ? Flag ??Unit ?? RefValue ------- Opiate Confirmation, U ??Codeine-by LC-MS/MS ?Negative ? ng/mL ??Cutoff: 25 ??Dihydrocodeine-b y LC-MS/MS ? Negative ? ng/mL ??Cutoff: 25 ??Hydrocodone-by LC-MS/MS ?Negative ? ng/mL ??Cutoff: 25 ??Norhydrocodone-b y LC-MS/MS ? Negative ? ng/mL ??Cutoff: 25 ??Hydromorphone-by LC-MS/MS ?116 ?ng/mL ??Cutoff: 25 ??Oxycodone-by LC-MS/MS ?316 ?ng/mL ??Cutoff: 25 ??Noroxycodone-by LC-MS/MS ? 3849 ? ng/mL ??Cutoff: 25 ??Oxymorphone-by LC-MS/MS ?58 ? ng/mL ??Cutoff: 25 ??Noroxymorphone-b y LC-MS/MS ? Negative ? ng/mL ??Cutoff: 25 ??Naloxone-by LC-MS/MS ? Negative ? ng/mL ??Cutoff: 25 ??Morphine-by LC-MS/MS ? Negative ? ng/mL ??Cutoff: 25 ??Opiates Interpretation ? Positive. ? ---ADDITIONAL INFORMATION------- ?This report is intended for use in clinical monitoring and ?management of patients. ??It is not intended for use in ?employment-relat ed testing. ?This test was developed and its performance characteristics ?determined by [facility] in a manner consistent with CLIA ?requirements. This test has not been cleared or approved by ?the U.S. Food and Drug Administration. ?Test Performed by: ?[facility] [address] [place] [address] [facility] Urine specimen (specimen) 10/16/2016 6:45 AM EDT 10/16/2016 8:27 AM EDT Narrative Resulting Agency Comment Spec In Lab Malvin Gregorio MD URINE ORDERABLES [facility] [place] [address] * Methadone, Urine Confirmation (10/16/2016 6:45 AM EDT) U Meth Conf Test ?Result ? Flag ??Unit ?? RefValue ------- Methadone Confirmation, U ??EDDP-by GC-MS ? 4319 ? ng/mL ??Cutoff: 100 ??Methadone-by GC-MS ?302 ?ng/mL ??Cutoff: 100 ??Methadone Interpretation ?Positive. ? ---ADDITIONAL INFORMATION------- ?This test was developed and its performance characteristics ?determined by [facility] in a manner consistent with CLIA ?requirements. This test has not been cleared or approved by ?the U.S. Food and Drug Administration. ?Test Performed by: ?[facility] ?[address] [place] [address] [facility] Urine specimen (specimen) 10/16/2016 6:45 AM EDT 10/16/2016 8:27 AM EDT Narrative Resulting Agency Comment Spec In Lab Malvin Gregorio MD URINE ORDERABLES [facility] [place] [address] * THC (Marijuana), Urine Confirmation (10/16/2016 6:45 AM EDT) U THC Conf Test ? Result ?Flag ??Unit ?? RefValue --- Carboxy-THC Confirmation, U ??Carboxy-THC- by GC/MS ?13 ?ng/mL ??Cutoff: 3.0 ??Carboxy-THC Interpretation ? Positive. ? --ADDITIONAL INFORMATION-------- ?This report is intended for use in clinical monitoring and ?management of patients. ??It is not intended for use in ?employment-relate d testing. ?This test was developed and its performance characteristics ?determined by [facility] in a manner consistent with CLIA ?requirements. This test has not been cleared or approved by ?the U.S. Food and Drug Administration. ?Test Performed by: ?[facility] ?[address] [place], [place] [id number] [place] [address] LABORATORY Urine specimen (specimen) 10/16/2016 6:45 AM EDT 10/16/2016 8:27 AM EDT Narrative Resulting Agency Comment Spec In Lab Malvin Gregorio MD LAB SEND OUT ORDER [facility] [place] [address] * Cocaine, Urine Confirmation (10/16/2016 6:45 AM EDT) U COCAINE CONF Test ?Result ?Flag ??Unit ?? RefValue ------- Cocaine and metabolite Conf, U ??Cocaine-by GC/MS ?Negative ?ng/mL ??Cutoff: 50 ??Benzoylecgonine- by GC/MS ?2583 ?ng/mL ??Cutoff: 50 ??Cocaine Interpretation ?Positive. ? ---ADDITIONAL INFORMATION------- ?This report is intended for use in clinical monitoring and ?management of patients. ??It is not intended for use in ?employment-relat ed testing. ?This test was developed and its performance characteristics ?determined by [facility] in a manner consistent with CLIA ?requirements. This test has not been cleared or approved by ?the U.S. Food and Drug Administration. ?Test Performed by: ?[facility] [address] [place], [place] [id number] [place] [address] LABORATORY Urine specimen (specimen) 10/16/2016 6:45 AM EDT 10/16/2016 8:27 AM EDT Narrative Resulting Agency Comment Spec In Lab Malvin Gregorio MD LAB SEND OUT ORDER [facility] [place] [address] * (ABNORMAL) Rapid Drug Screen, Urine with Confirm (10/16/2016 6:45 AM EDT) GILDARDO Marijuana Metabolites Screen Presumptive Pos(A) None Detected [facility] Comment: The marijuana metabolites screen detects the THC Metabolite (59-mwi-8-carboxy-delta 9-THC) at concentrations >50 ng/mL. Qualitative Drug screens are reported as ? None Detected? or ? Presumptive Positive? as the results are not routinely confirmed by highly-specific methods. As with any screen occasional false positive results from cross-reacting substances can occur. Not for Medico-Legal Purposes. Phencyclidine Screen, Urine None Detected None Detected [facility] Comment: The phencyclidine screen detects phencyclidine at concentrations >25 ng/mL. Qualitative Drug screens are reported as ? None Detected? or ? Presumptive Positive? as the results are not routinely confirmed by highly-specific methods. As with any screen occasional false positive results from cross-reacting substances can occur. Not for Medico-Legal Purposes. GILDARDO Cocaine Metabolites Screen Presumptive Pos(A) None Detected [facility] Comment: The cocaine metabolites screen detects benzoylecgonine (Cocaine Metabolite) at concentrations >150 ng/mL. Qualitative Drug screens are reported as ? None Detected? or ? Presumptive Positive? as the results are not routinely confirmed by highly-specific methods. As with any screen occasional false positive results from cross-reacting substances can occur. Not for Medico-Legal Purposes. Methamphetamines Screen, Urine None Detected None Detected [facility] Comment: The methamphetamine screen detects d-methamphetamine at concentrations >500 ng/mL. Qualitative Drug screens are reported as ? None Detected? or ? Presumptive Positive? as the results are not routinely confirmed by highly-specific methods. As with any screen occasional false positive results from cross-reacting substances can occur. Not for Medico-Legal Purposes. GILDARDO Opiates Screen Presumptive Pos(A) None Detected [facility] Comment: The opiates screen detects opiates at a concentration >100 ng/mL and oxymorphone >250 ng/mL. Qualitative Drug screens are reported as ? None Detected? or ? Presumptive Positive? as the results are not routinely confirmed by highly-specific methods. As with any screen occasional false positive results from cross-reacting substances can occur. Not for Medico-Legal Purposes. GILDARDO Amphetamines Screen None Detected None Detected [facility] Comment: The amphetamine screen detects d-amphetamine at concentrations >500 ng/mL. Qualitative Drug screens are reported as ? None Detected? or ? Presumptive Positive? as the results are not routinely confirmed by highly-specific methods. As with any screen occasional false positive results from cross-reacting substances can occur. Not for Medico-Legal Purposes. GILDARDO Benzodiazepines Screen None Detected None Detected [facility] Comment: The benzodiazepines screen detects benzodiazepines at concentrations >150 ng/mL. Not all benzodiazepines cross-react equally with antibody used in this screen. Due to the low dosage of clonazepam, false negatives may be obtained due to low concentration of clonazepam metabolites. Qualitative Drug screens are reported as ? None Detected? or ? Presumptive Positive? as the results are not routinely confirmed by highly-specific methods. As with any screen occasional false positive results from cross-reacting substances can occur. Not for Medico-Legal Purposes. GILDARDO Tricyclics Screen None Detected None Detected [facility] Comment: The tricyclics screen detects tricyclic antidepressants at concentrations >300 ng/mL. Not all tricyclics cross-react equally with the antibody used in this screen. Qualitative Drug screens are reported as ? None Detected? or ? Presumptive Positive? as the results are not routinely confirmed by highly-specific methods. As with any screen occasional false positive results from cross-reacting substances can occur. Not for Medico-Legal Purposes. GILDARDO Methadone Screen Presumptive Pos(A) None Detected [facility] Comment: The methadone screen detects methadone at concentrations >200 ng/mL. Qualitative Drug screens are reported as ? None Detected? or ? Presumptive Positive? as the results are not routinely confirmed by highly-specific methods. As with any screen occasional false positive results from cross-reacting substances can occur. Not for Medico-Legal Purposes. GILDARDO Barbiturates Screen None Detected None Detected [facility] Comment: The barbiturates screen detects barbiturate at concentrations >200 ng/mL. Note: Not all barbiturates cross-react equally with antibody used in this screen. Qualitative Drug screens are reported as ? None Detected? or ? Presumptive Positive? as the results are not routinely confirmed by highly-specific methods. As with any screen occasional false positive results from cross-reacting substances can occur. Not for Medico-Legal Purposes. GILDARDO Oxycodone Srceen Presumptive Pos(A) None Detected [facility] Comment: The oxycodone screen detects oxycodone at concentrations >100 ng/mL and oxymorphone >250 ng/ml. Qualitative Drug screens are reported as ? None Detected? or ? Presumptive Positive? as the results are not routinely confirmed by highly-specific methods. As with any screen occasional false positive results from cross-reacting substances can occur. Not for Medico-Legal Purposes. Propoxyphene Screen, Urine None Detected None Detected [facility] Comment: The propoxyphene screen detects propoxyphene at concentrations >300 ng/mL. Qualitative Drug screens are reported as ? None Detected? or ? Presumptive Positive? as the results are not routinely confirmed by highly-specific methods. As with any screen occasional false positive results from cross-reacting substances can occur. Not for Medico-Legal Purposes. GILDARDO Buprenorphine Screen None Detected None Detected [facility] Comment: The buprenorphine screen detects buprenorphine at concentrations >10 ng/mL. Qualitative Drug screens are reported as ? None Detected? or ? Presumptive Positive? as the results are not routinely confirmed by highly-specific methods. As with any screen occasional false positive results from cross-reacting substances can occur. Not for Medico-Legal Purposes. GILDARDO Adulterants Screen None Detected None Detected [facility] Comment: No adulteration or dilution of this urine sample was detected. All urine samples submitted for urine drugs of abuse analysis are tested for Creatinine and pH and for the presence of oxidants, nitrites, chromate and aldehydes (glutaraldehyde). Urine specimen (specimen) 10/16/2016 6:45 AM EDT 10/16/2016 6:58 AM EDT Narrative Resulting Agency Comment Spec In Lab Tania Sandy MD URINE ORDERABLES [facility] [place] [address] * ABORH Recheck Status (10/16/2016 6:30 AM EDT) ABORH Recheck Order Order Placed [facility] ABORH Type Recheck Complete [facility] Blood specimen (specimen) 10/16/2016 6:30 AM EDT 10/16/2016 6:44 AM EDT Narrative Resulting Agency Comment Spec In Lab Tania Sandy MD BLOOD BANK LAB ORDER ELIZABETH Performing Organization Address City/[facility]/ZIP Co de Phone Number [facility] [place] [address] * Antibody screen (10/16/2016 6:30 AM EDT) Ab Screen Interp Negative [facility] Expires at [id number] on: 10/19/2016 [facility] Blood specimen (specimen) 10/16/2016 6:30 AM EDT 10/16/2016 6:44 AM EDT Narrative Resulting Agency Comment Spec In Lab Tania Sandy MD BLOOD BANK LAB ORDER ELIZABETH Performing Organization Address City/[facility]/ZIP Co de Phone Number [facility] [place] [address] * ABO/Rh Typing (10/16/2016 6:30 AM EDT) ABORH Type B Pos [facility] Blood specimen (specimen) 10/16/2016 6:30 AM EDT 10/16/2016 6:44 AM EDT Narrative Resulting Agency Comment Spec In Lab Tania Sandy MD BLOOD [place] [address] documented in this encounter Visit Diagnoses Diagnosis care following delivery Routine follow-up Encounter for insertion subdermal contraceptive Insertion of implantable subdermal contraceptive documented in this encounter Admitting Diagnoses Diagnosis care following delivery Routine follow-up documented in this encounter Administered Medications Inactive Administered Medications - up to 3 most recent administrations Medication Order MAR Action Action Date Dose Rate Site acetaminophen (TYLENOL) tablet 650 mg 650 mg, Oral, EVERY 4 HOURS PRN, Starting on Sat10/15/16 at 1149, Until Sat10/18/16 at 0801, Pain, - Mild pain (pain scale 1-3) - Maximum dose of acetaminophen is 4000 mg from all sources in 24 hours., Recovery (Recovery-Hospital Unit), Routine Given 10/18/2016 6:45 AM EDT 650 mg Given 10/18/2016 1:02 AM EDT 650 mg Given 10/17/2016 8:48 PM EDT 650 mg acetaminophen (TYLENOL) tablet 650 mg 650 mg, Oral, EVERY 6 HOURS, First dose on Sat10/18/16 at 0830, Until Discontinued, Maximum dose of acetaminophen is 4000 mg from all sources in 24 hours., Routine Given 10/18/2016 1:30 PM EDT 650 mg dextromethorphan-guaiFENesin (ROBITUSSIN) 10-100 mg/5 mL oral syrup 5 mL 5 mL, Oral, EVERY 4 HOURS PRN, Starting on Sat10/16/16 at 0133, Until Sat10/18/16 at 1915, Cough, Routine Given 10/18/2016 4:06 PM EDT 5 mLs Given 10/18/2016 11:41 AM EDT 5 mLs Given 10/18/2016 6:48 AM EDT 5 mLs docusate sodium (COLACE) capsule 100 mg 100 mg, Oral, 2 TIMES DAILY, First dose on Sat10/15/16 at 1215, Until Discontinued, Routine Given 10/18/2016 11:41 AM EDT 100 mg Given 10/17/2016 8:50 PM EDT 100 mg Given 10/16/2016 9:30 PM EDT 100 mg flu vacc (5-64 yrs) (PF) (AFLURIA) IM injection 0.5 mL 0.5 mL, Intramuscular, PRIOR TO DISCHARGE, 1 dose, Starting on Sat10/15/16 at 1526, Until Sat10/18/16 at 1515, Per Protocol, Routine Given 10/18/2016 3:15 PM EDT 0.5 mLs Left Quadriceps CHARLIE SUPPLIED device etonogestrel (NEXPLANON) 68 mg subdermal implant 68 mg, Subdermal, ONCE, 1 dose, On Sat10/18/16 at 1330, Routine, Please indicate which charlie (name) supplied this device: Homer Inserted 10/18/2016 1:30 PM EDT 68 mg 09- Arm Upper (Left) ibuprofen (ADVIL;MOTRIN) tablet 600 mg 600 mg, Oral, EVERY 6 HOURS PRN, Starting on Sat10/16/16 at 1200, Until Sat10/18/16 at 1915, Pain, Administer orally with milk or food to minimize GI irritation. Maximum dose of 3200 mg from all sources in 24 hours, Routine Given 10/16/2016 9:30 PM EDT 600 mg Given 10/16/2016 2:51 PM EDT 600 mg ibuprofen (ADVIL;MOTRIN) tablet 600 mg 600 mg, Oral, EVERY 6 HOURS, First dose on Sat10/18/16 at 0830, Until Discontinued, Administer orally with milk or food to minimize GI irritation. Maximum dose of 3200 mg from all sources in 24 hours, Routine Given 10/18/2016 4:06 PM EDT 600 mg Given 10/18/2016 9:25 AM EDT 600 mg ipratropium-albuterol (DUONEB) 0.5 mg-3 mg(2.5 mg base)/3 mL nebulizer solution 3 mL 3 mL, Nebulization, 4 TIMES DAILY PRN, Starting on Sat10/16/16 at 0905, Until Sat10/17/16 at 0706, Wheezing, Routine Given 10/16/2016 9:35 PM EDT 3 mLs ipratropium-albuterol (DUONEB) 0.5 mg-3 mg(2.5 mg base)/3 mL nebulizer solution 3 mL 3 mL, Nebulization, EVERY 6 HOURS, First dose (after last modification) on Sat10/17/16 at 0800, Until Discontinued, Routine Given 10/18/2016 9:31 AM EDT 3 mLs Given 10/18/2016 1:10 AM EDT 3 mLs Given 10/17/2016 7:45 PM EDT 3 mLs ketorolac (TORADOL) injection 15 mg 15 mg, Intravenous, EVERY 6 HOURS SCHEDULED, 4 doses, First dose on Sat10/15/16 at 1215, Last dose on Sat10/16/16 at 0600, For severe pain (pain scale 7-10), Recovery (Recovery-Hospital Unit), Routine Given 10/16/2016 6:15 AM EDT 15 mg Given 10/16/2016 12:10 AM EDT 15 mg Given 10/15/2016 6:00 PM EDT 15 mg lithium capsule 300 mg 300 mg, Oral, NIGHTLY, First dose on Sat10/16/16 at 2100, Until Discontinued, Take with Food, Routine Given 10/17/2016 8:50 PM EDT 300 mg Given 10/16/2016 9:30 PM EDT 300 mg methadone (DOLOPHINE) 10 mg/mL concentrated oral solution 60 mg 60 mg, Oral, USER SPECIFIED (Daily), First dose on Sat10/16/16 at 0700, Until Discontinued, Liquid methadone should be used to avoid diversion, and a mouth check should be performed after each dose., Routine, Name of patient's Methadone clinic? [facility], Methadone clinic phone: , Date last Methadone dose was given at the Outpatient Clinic? 10/14/2016, Dose of Methadone provided at the clinic? 60 mg daily Given 10/18/2016 6:4 0 AM EDT 60 mg Given 10/17/2016 6:38 AM EDT 60 mg Given 10/16/2016 6:42 AM EDT 60 mg nicotine (NICODERM CQ) 21 mg/24 hr patch 21 mg 21 mg, Transdermal, DAILY, First dose on Sat10/16/16 at 0900, Until Discontinued, Routine Patch Applied 10/18/2016 9:28 AM EDT 21 mg 09- Arm Upper (Left) Patch Applied 10/17/2016 8:40 AM EDT 21 mg 10- Arm Upper (Right) Patch Applied 10/16/2016 9:27 AM EDT 21 mg 03- Shoulder (Left) nicotine (NICODERM CQ) 21 mg/24 hr patch Patch Removal Transdermal, DAILY, First dose on Sat10/17/16 at 0900, Until Discontinued, Remove nicotine 21 mg/24 hr patch nicotine (NICODERM CQ) 21 mg/24 hr patch Patch Verification Transdermal, 2 TIMES DAILY, First dose on Sat10/16/16 at 1345, Until Discontinued, Verify nicotine 21 mg/24 hr patch oxyCODONE (ROXICODONE) immediate release tablet 5-10 mg 5-10 mg, Oral, EVERY 4 HOURS PRN, Starting on Sat10/15/16 at 1149, Until Sat10/16/16 at 1035, Pain, Pain 4-6/10 give 5 mg Pain 7-10/10 give 10 mg, Recovery (Recovery-Hospital Unit), Routine Given 10/16/2016 8:16 AM EDT 10 mg Given 10/16/2016 1:38 AM EDT 10 mg Given 10/15/2016 8:26 PM EDT 10 mg oxyCODONE (ROXICODONE) immediate release tablet 5-15 mg 5-15 mg, Oral, EVERY 4 HOURS PRN, Starting on Sat10/16/16 at 1016, Until Sat10/18/16 at 1915, Pain, Pain 4-5/10 give 5 mg Pain 6-8/10 give 10 mg Pain 9-10/10 give 15 mg, Recovery (Recovery-Hospital Unit), Routine Given 10/18/2016 4:06 PM EDT 10 mg Given 10/18/2016 11:39 AM EDT 15 mg Given 10/18/2016 6:45 AM EDT 15 mg documented in this encounter Active and Recently Administered Medications Times are shown in EDT. Scheduled Medication Order 10/16/2016 10/17/2016 10/18/2016 acetaminophen (TYLENOL) tablet 650 mg 650 mg, Oral, EVERY 6 HOURS, First dose on Sat10/18/16 at 0830, Until Discontinued, Maximum dose of acetaminophen is 4000 mg from all sources in 24 hours., Routine 0830 (Not Given - Provider: Elda Olivo RN - Reason: Entered in Error)1330 (Given - Provider: Ana Bruno RN) docusate sodium (COLACE) capsule 100 mg 100 mg, Oral, 2 TIMES DAILY, First dose on Sat10/15/16 at 1215, Until Discontinued, Routine 0927 (Given - Provider: Chelsi Pozo RN)2130 (Given - Provider: Janis Limon RN) 0843 (Not Given - Provider: Ana Bruno RN - Reason: Patient/family refused)205 (Given - Provider: Janis Limon, JINA) 0900 (Not Given - Provider: Ana Bruno RN - Reason: Patient/family refused)1141 (Given - Provider: Ana Bruno, JINA) CHARLIE SUPPLIED device etonogestrel (NEXPLANON) 68 mg subdermal implant (COMPLETED) 68 mg, Subdermal, ONCE, 1 dose, On Sat10/18/16 at 1330, Routine, Please indicate which charlie (name) supplied this device: Homer 1330 (Inserted - Provider: Ana Bruno, RN) ibuprofen (ADVIL;MOTRIN) tablet 600 mg 600 mg, Oral, EVERY 6 HOURS, First dose on Sat10/18/16 at 0830, Until Discontinued, Administer orally with milk or food to minimize GI irritation. Maximum dose of 3200 mg from all sources in 24 hours, Routine 0925 (Given - Provider: Ana Bruno RN)1606 (Given - Provider: Jenni Ortiz RN) ipratropium-albuterol (DUONEB) 0.5 mg-3 mg(2.5 mg base)/3 mL nebulizer solution 3 mL 3 mL, Nebulization, EVERY 6 HOURS, First dose (after last modification) on Sat10/17/16 at 0800, Until Discontinued, Routine 0800 (Not Given - Provider: Vidhya Ramirez RN - Reason: Patient/family refused)1231 (Given - Provider: Vidhya Ramirez, JINA)1400 (Not Given - Provider: Vidhya Ramirez RN - Reason: See comment - Comment: rescheduled)1945 (Given - Provider: Janis Limon, JINA) 0110 (Given - Provider: Janis Limon, RN)0931 (Given - Provider: Ana Bruno RN)1400 (Due) ketorolac (TORADOL) injection 15 mg (COMPLETED) 15 mg, Intravenous, EVERY 6 HOURS SCHEDULED, 4 doses, First dose on Sat10/15/16 at 1215, Last dose on Sat10/16/16 at 0600, For severe pain (pain scale 7-10), Recovery (Recovery-Hospital Unit), Routine 0010 (Given - Provider: Janis Limon RN)0615 (Given - Provider: Janis Limon RN) lithium capsule 300 mg 300 mg, Oral, NIGHTLY, First dose on Sat10/16/16 at 2100, Until Discontinued, Take with Food, Routine 2129 (Given - Provider: Janis Limon, JINA) 2049 (Given - Provider: Janis Limon, RN) methadone (DOLOPHINE) 10 mg/mL concentrated oral solution 60 mg 60 mg, Oral, USER SPECIFIED (Daily), First dose on Sat10/16/16 at 0700, Until Discontinued, Liquid methadone should be used to avoid diversion, and a mouth check should be performed after each dose., Routine, Name of patient's Methadone clinic? [facility], Methadone clinic phone: , Date last Methadone dose was given at the Outpatient Clinic? 10/14/2016, Dose of Methadone provided at the clinic? 60 mg daily 0642 (Given - Provider: Janis Limon RN) 0638 (Given - Provider: Janis Limon RN) 0640 (Given - Provider: Janis Limon RN) nicotine (NICODERM CQ) 21 mg/24 hr patch 21 mg(Linked Group 1) 21 mg, Transdermal, DAILY, First dose on Sat10/16/16 at 0900, Until Discontinued, Routine 0927 (Patch Applied - Provider: Chelsi Pozo RN) 0840 (Patch Applied - Provider: Ana Bruno RN) 0928 (Patch Applied - Provider: Ana Bruno RN) nicotine (NICODERM CQ) 21 mg/24 hr patch Patch Removal(Linked Group 1) Transdermal, DAILY, First dose on Sat10/17/16 at 0900, Until Discontinued, Remove nicotine 21 mg/24 hr patch 0900 (Patch Removed - Provider: Vidhya Ramirez RN) 0900 (Patch Removed - Provider: Ana Bruno RN) nicotine (NICODERM CQ) 21 mg/24 hr patch Patch Verification(Linked Group 1) Transdermal, 2 TIMES DAILY, First dose on Sat10/16/16 at 1345, Until Discontinued, Verify nicotine 21 mg/24 hr patch 1345 (Patch Not Verified (add comment) - Provider: Chelsi Pozo RN - Comment: Applied recently)2135 (Patch (dose and location) verified - Provider: Janis Limon RN) 09 (Patch (dose and location) verified - Provider: Vidhya Ramirez, RN)2049 (Patch (dose and location) verified - Provider: Janis Limon RN) 0900 (Patch (dose and location) verified - Provider: Ana Bruno, RN) polyethylene glycol (MIRALAX) packet 17 g 17 g, Oral, DAILY, First dose on Sat10/15/16 at 1215, Until Discontinued, Routine 0900 (Not Given - Provider: Chelsi Pozo RN - Reason: Patient/family refused) 0844 (Not Given - Provider: Ana Bruno, JINA - Reason: Patient/family refused) 0900 (Not Given - Provider: Ana Bruno, JINA - Reason: Patient/family refused) PRN Medication Order 10/16/2016 10/17/2016 10/18/2016 acetaminophen (TYLENOL) tablet 650 mg (CANCELED)(Linked Group 2) 650 mg, Oral, EVERY 4 HOURS PRN, Starting on Sat10/15/16 at 1149, Until Rut 10/18/16 at 0801, Pain, - Mild pain (pain scale 1-3) - Maximum dose of acetaminophen is 4000 mg from all sources in 24 hours., Recovery (Recovery-Hospital Unit), Routine 0138 (Given - Provider: Janis Limon RN)0817 (Given - Provider: Chelsi Pozo RN)1302 (Given - Provider: Chelsi Pozo RN)1842 (Given - Provider: Chelsi Pozo RN)2252 (Given - Provider: Janis Limon, JINA) 0645 (Given - Provider: Janis Limon, JINA)1137 (Given - Provider: Vidhya Ramirez, RN)1637 (Given - Provider: Vidhya Ramirez, RN)2048 (Given - Provider: Jansi Limon, RN) 0102 (Given - Provider: Janis Limon, RN)0645 (Given - Provider: Janis Limon, JINA) dextromethorphan-guaiFEN esin (ROBITUSSIN) 10-100 mg/5 mL oral syrup 5 mL 5 mL, Oral, EVERY 4 HOURS PRN, Starting on Sat10/16/16 at 0133, Until Sat10/18/16 at 1915, Cough, Routine 0616 (Given - Provider: Janis Limon, RN)1302 (Given - Provider: Chelsi Pozo, RN)1948 (Given - Provider: Janis Limon, RN) 0645 (Given - Provider: Janis Limon, RN)1642 (Given - Provider: Vidhya Ramirez, JINA)2050 (Given - Provider: Janis Limon, RN) 0104 (Given - Provider: Janis Limon, RN)0648 (Given - Provider: Janis Limon, JINA)1141 (Given - Provider: Ana Bruno, JINA)1606 (Given - Provider: Jenni Ortiz, JINA) flu vacc (5-64 yrs) (PF) (AFLURIA) IM injection 0.5 mL (COMPLETED) 0.5 mL, Intramuscular, PRIOR TO DISCHARGE, 1 dose, Starting on Sat10/15/16 at 1526, Until Sat10/18/16 at 1515, Per Protocol, Routine 0958 (Not Given - Provider: Elda Olivo RN - Reason: Patient/family refused)1515 (Given - Provider: Ana Bruno, JINA) ibuprofen (ADVIL;MOTRIN) tablet 600 mg 600 mg, Oral, EVERY 6 HOURS PRN, Starting on Sat10/16/16 at 1200, Until Sat10/18/16 at 1915, Pain, Administer orally with milk or food to minimize GI irritation. Maximum dose of 3200 mg from all sources in 24 hours, Routine 1451 (Given - Provider: Chelsi Pozo, JINA)2130 (Given - Provider: Janis Limon RN) ipratropium-albuterol (DUONEB) 0.5 mg-3 mg(2.5 mg base)/3 mL nebulizer solution 3 mL (CANCELED) 3 mL, Nebulization, 4 TIMES DAILY PRN, Starting on Sat10/16/16 at 0905, Until Sat10/17/16 at 0706, Wheezing, Routine 2135 (Given - Provider: Janis Limon, JINA) oxyCODONE (ROXICODONE) immediate release tablet 5-10 mg (CANCELED) 5-10 mg, Oral, EVERY 4 HOURS PRN, Starting on 10/15/16 at 1149, Until Sat10/16/16 at 1035, Pain, Pain 4-6/10 give 5 mg Pain 7-10/10 give 10 mg, Recovery (Recovery-Hospital Unit), Routine 0138 (Given - Provider: Janis Limon RN)0816 (Given - Provider: Chelsi Pozo RN) oxyCODONE (ROXICODONE) immediate release tablet 5-15 mg 5-15 mg, Oral, EVERY 4 HOURS PRN, Starting on Sat10/16/16 at 1016, Until Rut 10/18/16 at 1915, Pain, Pain 4-5/10 give 5 mg Pain 6-8/10 give 10 mg Pain 9-10/10 give 15 mg, Recovery (Recovery-Hospital Unit), Routine 1301 (Given - Provider: Chelsi Pozo RN)1843 (Given - Provider: Chelsi Pozo, JINA)2252 (Given - Provider: Janis Limon RN) 0645 (Given - Provider: Janis Limon RN)1138 (Given - Provider: Vidhya Ramirez, JINA)1637 (Given - Provider: Vidhya Ramirez RN)2048 (Given - Provider: Janis Limon, JINA) 0102 (Given - Provider: Janis Limon RN)0645 (Given - Provider: Janis Limon RN)1139 (Given - Provider: Ana Bruno, JINA)1606 (Given - Provider: Jenni Ortiz RN) Linked Groups Order Group 1: nicotine (NICODERM CQ) 21 mg/24 hr patch 21 mgJump to med 21 mg, Transdermal, DAILY, First dose on Sat10/16/16 at 0900, Until Discontinued, Routine And nicotine (NICODERM CQ) 21 mg/24 hr patch Patch VerificationJump to med Transdermal, 2 TIMES DAILY, First dose on Sat10/16/16 at 1345, Until Discontinued, Verify nicotine 21 mg/24 hr patch And nicotine (NICODERM CQ) 21 mg/24 hr patch Patch RemovalJump to med Transdermal, DAILY, First dose on Sat10/17/16 at 0900, Until Discontinued, Remove nicotine 21 mg/24 hr patch Group 2: acetaminophen (TYLENOL) tablet 650 mg (CANCELED)Jump to med 650 mg, Oral, EVERY 4 HOURS PRN, Starting on Sat10/15/16 at 1149, Until Rut 10/18/16 at 0801, Pain, - Mild pain (pain scale 1-3) - Maximum dose of acetaminophen is 4000 mg from all sources in 24 hours., Recovery (Recovery-Hospital Unit), Routine Or acetaminophen (TYLENOL) tablet 1,000 mg (CANCELED) 1,000 mg, Oral, EVERY 6 HOURS PRN, Starting on Sat10/15/16 at 1149, Until Rut 10/18/16 at 0801, Pain, - Moderate pain (pain scale 4-6). - Maximum dose of acetaminophen is 4000 mg from all sources in 24 hours., Recovery (Recovery-Hospital Unit), Routine documented in this encounter Care Teams Launch Manager Relationship Specialty Start Date End Date Unknown None PCP - General 10/03/16 05/27/21 documented as of this encounter
--- OUTSIDE RECORDS SUMMARY | 2024-03-23 08:42 | XMS_ITS | Encounter Summary ---
Author Organization [facility] [place] [address] Care Team Providers Care Employee Benefits Manager Name Role Phone Unknown Primary Care Provider Unavailabl e Encounter Details Date Type Department Care Team (Late st Contact Info) Description 10/19/2016 Telephone Obstetrics [place] [address] Madeleine Aquino MD [facility] [address] OBSTETRICS & [place] [address] Social History Tobacco Use Types Packs/Day Years [...] encounter Miscellaneous Notes * Telephone Encounter - Madeleine Aquino MD - 10/19/2016 8:38 AM EDT Telephone Call Elena from the Methadone clinic in [facility] called to confirm Chencho's last dose. Reported that it was 60mg at [facility] yesterday morning. MADELEINE AQUINO MD PGY4 10/19/2016 documented in this encounter Plan of Treatment Not on file documented as of this encounter Visit Diagnoses Not on filedocumented in this encounter Care Teams Employee Benefits Manager Relationship Specialty Start Date End Date Unknown None PCP - General 10/03/16 05/27/21 documented as of this encounter
--- OUTSIDE RECORDS SUMMARY | 2024-03-23 08:42 | XMS_ITS | Encounter Summary ---
Author Organization [facility] [place] [address] Care Team Providers Care Transportation Clerk Name Role Phone Shweta Sykes APRN Primary Care Provider [phone] Encounter Details Date Type Department Care Team (Late st Contact Info) Description 08/03/2021 Telephone Gastroenterology at [facility] [place] [id number] Wanda Baez Social History Tobacco Use Types Packs/Day Years [...] encounter Miscellaneous Notes * Telephone Encounter - Wanda Baez - 08/03/2021 10:14 AM EST Called patient to confirm d&t of follow-up visit with Amelie Berrios on 12/01/21 at 2:30pm. Also called to update patient's mailing address, as we received her AVS via returned mail. documented in this encounter Plan of Treatment Not on file documented as of this encounter Visit Diagnoses Not on filedocumented in this encounter Care Teams Transportation Clerk Relationship Specialty Start Date End Date Shweta Sykes APRN [address] [place], [place] [address] PCP - General Family Medicine 05/28/21 11/01/22 documented as of this encounter
--- OUTSIDE RECORDS SUMMARY | 2024-03-23 08:42 | XMS_ITS | Encounter Summary ---
Author Organization [facility] [place] [address] Care Team Providers Care Hand Potter Name Role Phone Shweta Sykes APRN Primary Care Provider [phone] Encounter Details Date Type Department Care Team (Late st Contact Info) Description 09/12/2021 Telephone Gastroenterology at [facility] [place] [address] Martin Enriquez Social History Tobacco Use Types [...] * Telephone Encounter - Martin Enriquez - 09/12/2021 10:59 AM EST [facility] CLINICAL SAFETY CHECKLIST 09/12/2021 Martin Barrett [address] [facility] [address] [id number] : 1985 REFERRING PROVIDER: Amelie Berrios PRIMARY CARE PROVIDER: Shweta Sykes APRN PRIMARY SYMPTOM (PROCEDURE INDICATION): heartburn SAFETY QUESTIONS PACEMAKER/DEFIBRILLATOR? no NEUROSTIMULATOR? no ESOPHAGEAL VARICES? no SENSITIVITY OR ALLERGY TO NICKEL? no BLOOD THINNERS SUCH PLAVIX, COUMADIN, PRADAXA, ELIQUIS, XARELTO, PLAVIX? no IF YES TO ANY OF THE ABOVE PRE-PROCEDURE QUESTIONS, please inform the patient that the test cannot be scheduled due to safety concerns about testing, and the patient should speak with their provider to consider alternative testing. The centrifuge operator should also contact the provider's office directly tonotify them that we are unable to schedule due to a contraindication to testing. Then, delete the remainder of this checklist and close out the referral. QUESTIONS TO THE PATIENT PATIENT AGREE TO IN-PERSON RETURN OF MANAGER TRANSFER WITHIN 72H OF CAPSULE PLACEMENT: Yes PT AGREES THEY MUST NOT HAVE AN MRI FOR 30 DAYS AFTER HERNANDES CAPSULE IS PLACED (okay for pt to have echocardiogram or ultrasound): No DIABETIC? no Diabetic patients should speak with their PCP or managing provider at least two weeks before the test to ask what medication or insulin adjustments are needed for testing. If the patient feels ill while fasting due to diabetes, it is OK to have a little apple juice - just enough to feel better. Patients fast 8 hours before testing and the test lasts 1 hour. DOES THE PATIENT USE A WHEELCHAIR? no VERBAL PATIENT INSTRUCTIONS FOR off-PPI STUDY The written instructions are very important for the patient to review and contain specific dietary and medication instructions prior to testing. These instructions will give the patient the most accurate test result. The patient should speak with their referring provider or our office if they have any questions. For this test, it is important that the patient hold proton pump inhibitors (PPIs) for seven days before testing, but it is OK to use H2-blockers (zantac, ranitidine) up to 24 hours before testing. APPOINTMENT NOTES TEMPLATE EGD [place]and[place] off PPI, symptom: heartburn, RMD: Amelie Berrios, PCP: Shweta Sykes APRN (At exit, the RMD for appointment notes is the GI provider who saw the patient) EGD PATIENT SAFETY QUESTIONS ENDO Booked by: PNT PRIOR EGD?: Yes PROBLEMS DURING PRIOR EGD?: no PLAVIX, COUMADIN, PRADAXA? no PACEMAKER/DEFIBRILLATOR? : no DIABETIC? no ALLERGIC TO LATEX, EGGS, OR MEDS? no IRON SUPPLEMENTS: no THREE OR MORE ABDOMINAL SURGERIES? no ANY PAST PROBLEMS WITH SEDATION OR ANESTHESIA? no DAILY SUPPLEMENTAL O2 OR CPAP? no DOES PT TAKE RX PAIN MEDS? no HT: 5'4 WT: 184 AGE: 35 y.o. DOES PT KNOW HE/SHE MUST HAVE A BUSINESS MAIL ENTRY CLERK FOR AFTER PROCEDURE: Yes documented in this encounter Plan of Treatment Not on file documented as of this encounter Visit Diagnoses Not on filedocumented in this encounter Care Teams Hand Potter Relationship Specialty Start Date End Date Shweta Sykes APRN [address] [place], [place] [address]Y [facility] [address] [place] [address] PCP - General Family Medicine 05/28/21 11/01/22 documented as of this encounter
--- OUTSIDE RECORDS SUMMARY | 2024-03-23 08:42 | XMS_ITS | Encounter Summary ---
Author Organization [facility] [address] Care Team Providers Care Contact Lens Cutter Name Role Phone Shweta Sykes APRN Primary Care Provider [phone] Encounter Details Date Type Department Care Team (Late st Contact Info) Description 12/18/2021 Telephone Gastroenterology at [facility] [place] [phone] Felicitas Singleton Social History Tobacco Use Types Packs/Day Years [...] encounter Miscellaneous Notes * Telephone Encounter - Felicitas Singleton - 12/18/2021 8:15 AM EDT Message in On-Base stating that patient is scheduled for a colo on Saturday. She doesn't need it. She only wants to have the EGD. Also mentions that she will call in today to clarify. -felicitas documented in this encounter Plan of Treatment Not on file documented as of this encounter Visit Diagnoses Not on filedocumented in this encounter Care Teams Contact Lens Cutter Relationship Specialty Start Date End Date Shweta Sykes APRN [address] [place], [place] [address] PCP - General Family Medicine 05/28/21 11/01/22 documented as of this encounter
--- OUTSIDE RECORDS SUMMARY | 2024-03-23 08:42 | XMS_ITS | Encounter Summary ---
Author Organization [facility] Address [facility] [place] [address] Care Team Providers Care Geospatial Program Management Officer Name Role Phone Zack Sanchez APRN Primary Care Provider [phone] Encounter Details Date Type Department Care Team (Latest Contact Info) Description 11/26/2014 1:45 PM EDT - 11/26/2014 11:59 PM EDT Hospital Encounter Ultrasound at [facility] [place] [phone] Supervision of high risk in second trimester Social History Tobacco Use Types Packs/Day Years [...] Sig Dispensed Refills Start Date End Date methadone (METHADOSE) 10 mg/5 mL Solution Take 55 mg by mouth every 4 hours as needed for Pain. 12/19/2021 documented as of this encounter Plan of Treatment Not on file documented as of this encounter Procedures Procedure Name Priority Date/Time Associated Diagnosis Comments US OB DETAILED MORPHOLOGY Routine 11/26/2014 4:26 PM EDT Supervision of high risk in second trimester documented in this encounter Results * US OB Targeted Morphology (11/26/2014 4:26 PM EDT) Anatomical Region Laterality Modality Pelvis, Abdomen Ultrasound 11/26/2014 4:26 PM EDT Narrative 11/26/2014 4:39 PM EDT OBSTETRICS REPORT ?(Signed Final 11/26/2014 04:39 ? pm) Patient Info ID #: ? [id number] ?: ??[birth year] (28 yrs) Name: ? TR JULIAN ?Visit Date: 11/26/2014 03:53 pm Performed By Performed By: ?Chacha Almonte RDMS Attending: ? Juanita STRONG, Shankar Barth Referred By: ? KALANI REECE CNM Service(s) Provided ??[facility] - Targeted Morphology - Genetics - ? [id number] ??[id number] Indications ??Hx OF STRESS SEIZURES, METHADONE USE, [...] ? 18.6 - 20.4 HC/AC: ? 1.07 ?1. - 08.25 FL/BPD: ?81.3 ??% ? 71 - 87 FL/AC: ? 22.1 ??% ? - Est. FW: ? 856 ?? gm ?? [...] Outflow Tract: ?Visualized Aortic Arch: ?Visualized Cardiac [place]: ? Visualized 3 Vessel View: ?Visualized Diaphragm: [...] 11/26/2014 04:39 pm) Patient Info ID #: [id number] : [id number] (28 yrs) Name: TR JULIAN Visit Date: 11/26/2014 03:53 pm Performed By Performed By: Chacha Almonte RDMS Attending: Shankar Grant MD Referred By: KALANI REECE [facility] Service(s) Provided [facility] - Targeted Morphology - Genetics - [id number] Indications Hx OF STRESS SEIZURES, METHADONE USE, [...] Outflow Tract: Visualized Aortic Arch: Visualized Cardiac [place]: Visualized 3 Vessel View: Visualized Diaphragm: Visualized [...] 11/26/2014 04:39 pm E [facility] Lopez [facility] documented in this encounter Visit Diagnoses Diagnosis Supervision of high risk in second trimester Unspecified high-risk documented in this encounter Care Teams Geospatial Program Management Officer Relationship Specialty Start Date End Date Zack Sanchez APRN [address] [place] [address] PCP - General 06/27/10 10/02/16 documented as of this encounter
--- OUTSIDE RECORDS SUMMARY | 2024-03-23 08:42 | XMS_ITS | Encounter Summary ---
Author Organization [facility] [place] [address] Care Team Providers Care Coppersmith Apprentice Name Role Phone Zack Sanchez APRN Primary Care Provider [phone] Encounter Details Date Type Department Care Team (Latest Contact Info) Description 11/26/2014 2:15 PM EDT Initial consult Obstetrics [place] [address] Shankar Grant MD [facility] DR OBSTETRICS & [place] [address] Substance abuse; Rubella non-immune status, antepartum; Depression; Late care, second trimester; Hepatitis C virus infection, unspecified chronicity Discharge Disposition: Home Social History Tobacco Use [...] Sign Reading Time Taken Comments Blood Pressure 114/60 11/26/2014 2:28 PM EDT Pulse - - Temperature - - Respiratory Rate - - Oxygen Saturation - - Inhaled Oxygen Concentration - - Weight 72.1 kg (159 lb) 11/26/2014 2:28 PM EDT Height 162.6 cm (5' 4) 11/26/2014 2:28 PM EDT Body Mass Index 27.29 11/26/2014 2:28 PM EDT documented in this encounter Progress Notes * Shankar Grant MD - 11/26/2014 4:36 PM EDT Diagnosis/Maternal Medicine Consult Note Chencho Barrett is a 28 y.o. year old female with an Estimated Date of Delivery: of 02/26/15 based on an undocumented ultrasound performed at a [facility]azidi in [place]. She is at 26w6d weeks gestation. She is referred at the request of Elisa Goldstein CNM for evaluation secondary to substance abuse and a new diagnosis of hepatitis C.. Review of Systems Constitutional:feels ill Movement: normal Cramping: none Bleeding: None GI: C/o persistent abdominal pain and N&V since the beginning of . She is not taking any medication for this, states unisom makes her legs twitch. She is having normal BM on a daily basis and spceifically denies constipation Mood: States she is depressed, sad and stressed out. Patient Active Problem List Diagnosis Date Noted ??? Cigarette smoker 11/26/2014 ??? Late care 11/26/2014 ??? Rubella non-immune status, antepartum 11/26/2014 ??? Substance abuse ??? Depression ??? Hepatitis C Past Medical History Diagnosis Date ??? Hepatitis C ??? Panic attacks denies a history of seizures ??? Substance abuse crack cocaine, prior IVDA ??? Chlamydia ??? Depression Past Surgical History Procedure Laterality Date ??? Mackey tooth extraction No family history on file. Social History Occupational History ??? Not on file. Social History Main Topics ??? Smoking status: Current Every Day Smoker -- 1.00 packs/day for 10 years Types: Cigarettes ??? Smokeless tobacco: Never Used ??? Alcohol Use: No ??? Drug Use: No ??? Sexual Activity: Partners: Male OB History Para Term AB TAB SAB Ectopic Multiple Living 5 1 1 3 3 1 # Outc Date GA Lbr Amilcar/2nd Wgt Sex Del Anes PTL Lv 5 Current 4 Term 01/2006 38w0d 3.033 kg (6 lb 11 oz) Y Comments: Labor 1 hour, does not have custody 3 TAB 2 TAB 1 TAB No current outpatient prescriptions on file. No current facility-administered medications for this visit. No Known Allergies Record Review: See Problem LIst Ultrasound from Today Growth appropriate for gestational age Amniotic fluid volume normal Placenta posterior Presentation cephalic Additional findings: head is at < 3%, but is not more than 3 SD from the mean. This is within appropriate limits. Physical Exam Last Set of Vitals: BP 114/60 Ht 162.6 cm (5' 4) Wt 72.122 kg (159 lb) BMI 27.28 kg/m2 [facility] (Approximate) Weight - Scale: 72.122 kg (159 lb) General: in no apparent distress Abdomen: abdomen is soft without significant tenderness, masses, organomegaly or guarding. Neurologic:alert, oriented, normal speech, no focal findings or movement disorder noted Psychiatric: Affect is agitated Uterine Size: S=D FHR: normal Assessment and Recommendations: 28 y.o. year old female at 26w6d weeks gestation referred for counseling secondary to community hospital medical issues.. Please refer to my problem list below which describes the counseling performed today. Depression Has a long history of depression, has bene on many medications in the past, none except for lithiumhave helped. However, she states she has not really stuck with a medication long enough to see if it works. She has mostly self medicated with non-presribed substances. She scored 20 on her depression screen toda and denies thoughts of hurting herself or others. She has an active referral locally for an intake with a [facility]. As no medication, other than lithium, has worked for her in the past, I had nothing to offer today. Late care The patient states she essentially had no care until 19 weeks. She states shehHad a free US at a yazidi clinic in [place] and just a picture was taken. She does not know if measurements weredone. She states she told the yazidi that her LMP was in June when [...] IOL for postdates should not be performed. Substance abuse The patient has a history of or SAMY, states she was clean for 7 months [...] it is unlikely the methadone, which was justrecently started had any impact and the size [...] in the [place] have a congenital malformationand that ultrasound will diagnose between 50% and 75%. Hepatitis C The risk of vertical transmission is 4-7% [...] coaggs Now and again at 36 weeks I appreciate the opportunity to be involved in this patients care, and am available if further questions should arise. Shankar Grant MD, MD, MS Professor Obstetrics & Gynecology and Radiology [facility] 11/26/2014 documented in this encounter Miscellaneous Notes * Assessment & Plan Note - Shankar Grant MD - 11/26/2014 5:50 PM EDT Associated Problem(s): Hepatitis C The risk of vertical transmission is 4-7% [...] coaggs Now and again at 36 weeks * Assessment & Plan Note - Shankar Grant MD - 11/26/2014 5:46 PM EDT Associated Problem(s): Substance abuse The patient has a history of piror [...] it is unlikely the methadone, which was justrecently started had any impact and the size [...] in the [place] have a congenital malformationand that ultrasound will diagnose between 50% and 75%. * Assessment & Plan Note - Shankar Grant MD - 11/26/2014 5:41 PM EDT Associated Problem(s): Late care The patient states she essentially had no care until 19 weeks. She states shehHad a free US at a yazidi clinic in [place] and just a picture was taken. She does not know if measurements weredone. She states she told the yazidi that her LMP was in June when she was in [facility] and they told her she was already in June. It appears her BRADLEY is based on this undocumented US. Since this is consistent with her US locally at 20+ weeks, it seems reasonable to continue using it, however, I would consider her to have poor dates and thus IOL for postdates should not be performed. * Assessment & Plan Note - Shankar Grant MD - 11/26/2014 4:30 PM EDT Associated Problem(s): Depression Has a long history of depression, has bene on many medications in the past, none except for lithiumhave helped. However, she states she has not really stuck with a medication long enough to see if it works. She has mostly self medicated with non-presribed substances. She scored 20 on her depression screen toda and denies thoughts of hurting herself or others. She has an active referral locally for an intake with a [facility]. As no medication, other than lithium, has worked for her in the past, I had nothing to offer today. documented in this encounter Plan of Treatment Not on file documented as of this encounter Visit Diagnoses Diagnosis Substance abuse Other, mixed, or unspecified nondependent drug abuse, unspecified Rubella non-immune status, antepartum Other specified complication, antepartum Depression Depressive disorder, not elsewhere classified Late care, second trimester Hepatitis C virus infection, unspecified chronicity documented in this encounter Care Teams Coppersmith Apprentice Relationship Specialty Start Date End Date Zack Sanchez APRN [address] [place] [address] PCP - General 06/27/10 10/02/16 documented as of this encounter
--- OUTSIDE RECORDS SUMMARY | 2024-03-23 08:42 | XMS_ITS | Encounter Summary ---
Author Organization [facility] [place] [address] Care Team Providers Care Weather Clerk Name Role Phone Shweta Sykes APRN Primary Care Provider [phone] Encounter Details Date Type Department Care Team (Late st Contact Info) Description 11/30/2021 Telephone Gastroenterology at [facility] [place] [address] Stuart Torres Social History Tobacco Use Types Packs/Day Years [...] encounter Miscellaneous Notes * Telephone Encounter - Stuart Torres - 11/30/2021 1:12 PM EDTSummary: GI Telehealth Check Call The GI Telehealth Educate Team attempted to contact patient to check their readiness for their upcoming telehealth visit in GI. We were unable to reach the patient. Lary Torres Patient Experience Navigator Section of Gastroenterology and Hepatology documented in this encounter Plan of Treatment Not on file documented as of this encounter Visit Diagnoses Not on filedocumented in this encounter Care Teams Weather Clerk Relationship Specialty Start Date End Date Shweta Sykes APRN [address] [place], [place] [address] PCP - General Family Medicine 05/28/21 11/01/22 documented as of this encounter
== END 2024-03-23 08:40 | disposition home or self-care (01) ==
LOC: ER 08:39
PROVIDERS: Emergency Provider Emergency Medicine; PCP Nurse Practitioner Family
DX: F11.93 Opioid use, unspecified with withdrawal (principal)
CPT/HCPCS: 99283; 99282

== ENCOUNTER 2024-06-26 16:13 | Outpatient (REF) | payer MEDICAID, SELFPAY ==
--- OUTSIDE RECORDS SUMMARY | 2024-06-26 16:15 | XMS_ITS | Encounter Summary ---
Author Organization [facility] Address [address] [place] [address] Care Team Providers Care Exhibition Carver Name Role Phone Alex Hong MD Primary Care Provider [phone] Encounter Details Date Type Department Care Team (Late st Contact Info) Description 01/28/2024 Lab Requisition [facility] Pathology & Laboratory Medicine - [address] [address] Outr Resulting Lab, Provider Social History Tobacco Use Types Packs/Day Years Used Date Smoking Tobacco: Never Assessed Interpersonal Safety Answer Date Record ed Physically Hurt Never 03/06/2020 Verbally Threaten Not on file 03/06/2020 Comments Unknown Sex and Gender Information Value Date Recorded Sex Assigned at Not on file Legal Sex Female 18:19 EST Gender Identity Not on file Sexual Orientation [...] Confirmation Negative <50 ng/mL 01/30/2024 13:16 EDT [facility] Urine URINE / Unknown 01/28/2024 1 2:11 EDT 01/28/2024 21:45 EDT Narrative [email or web address] - 01/30/2024 13:16 EDT [facility]: [facility] [address] [place] [address], [facility] [address] [address] Materials Planner/Production Planner: Eamno Patricia MD; CLIA # [id number] us Provider Outr Resulting Lab GEN LAB UNIT COLLECT ORDERABLES Final Result Performing Organization Address City/[facility]/ZIP Co de Phone Number [email or web address] [address] [place] [address], [facility] [address] [phone] * FENTANYL AND METABOLITE CONFIRMATION PANEL (01/28/2024 12:11 EDT) Fentanyl Confirmation Negative <2 ng/mL 01/30/2024 13:16 EDT [facility] Norfentanyl Confirmation Negative <10 ng/mL 01/30/2024 13:16 EDT [email or web address] Urine URINE / Unknown 01/28/2024 1 2:11 EDT 01/28/2024 21:45 EDT Narrative [email or web address] - 01/30/2024 13:16 EDT [facility] performed [facility]: [facility] [address] [place] [address], [place] [address] Materials Planner/Production Planner: Eamon Patricia MD; CLIA # [id number] us Provider Outr Resulting Lab GEN LAB UNIT COLLECT ORDERABLES Final Result Performing Organization Address City/[facility]/ZIP Co de Phone Number [email or web address] [address] [place] [address], [facility] [address] [phone] * (ABNORMAL) BUPRENORPHINE AND METABOLITE CONFIRMATION PANEL (01/28/2024 12:11 EDT) Buprenorphine Confirmation 75(A) <10 ng/mL 01/30/2024 13:16 EDT [email or web address] Norbuprenorphine Confirmation 106(A) <10 ng/mL 01/30/2024 13:16 EDT [facility] Naloxone Confirmation 623(A) <10 ng/mL 01/30/2024 13:16 EDT [facility] Urine URINE / Unknown 01/28/2024 1 2:11 EDT 01/28/2024 21:45 EDT Narrative [email or web address] - 01/30/2024 13:16 EDT Testing performed by: [facility] [address] [place] [address] Materials Planner/Production Planner: Eamon Patricia MD; CLIA # [id number] Provider Outr Resulting Lab GEN LAB UNIT COLLECT ORDERABLES Final Result Performing Organization Address [facility] Co de Phone Number [email or web address] [address] [place] [address] * METHADONE AND METABOLITE CONFIRMATION PANEL (01/28/2024 12:11 EDT) Methadone Confirmation Negative <100 ng/mL 01/30/2024 13:16 EDT [facility] EDDP Confirmation Negative <100 ng/mL 01/30/2024 13:16 EDT [facility] Urine URINE / Unknown 01/28/2024 1 2:11 EDT 01/28/2024 21:45 EDT Narrative [email or web address] - 01/30/2024 13:16 EDT Testing performed by: [facility] [address] [place] [address] Materials Planner/Production Planner: Eamon Patricia MD; CLIA # [id number] us Provider Outr Resulting Lab GEN LAB UNIT COLLECT ORDERABLES Final Result Performing Organization Address City/[facility]/ZIP Co de Phone Number [facility] [address] [place] [address] documented in this encounter Visit Diagnoses Not on filedocumented in this encounter Care Teams Exhibition Carver Relationship Specialty Start Date End Date Alex Hong MD PCP - General 12/04/10 documented as of this encounter
--- OUTSIDE RECORDS SUMMARY | 2024-06-26 16:15 | XMS_ITS | Encounter Summary ---
Author Organization [facility] Address [address] [place] [address] Care Team Providers Care Roving Department End Finder Name Role Phone Alex Hong MD Primary Care Provider Encounter Details Date Type Department Care Team (Late st Contact Info) Description 12/24/2023 Lab Requisition [facility] Pathology & Laboratory Medicine - [address] [address] Outr Resulting Lab, Provider Social History Tobacco [...] Confirmation Negative <50 ng/mL 12/26/2023 11:34 EDT [facility] Urine URINE / Unknown 12/24/2023 1 2:36 EDT 12/24/2023 22:22 EDT Narrative [facility] 12/26/2023 11:34 EDT Testing performed by: [facility] [address] [place] [address], [place] [address] Residential Mortgage Manager: Eamon Patricia MD; CLIA # [id number] us Provider Outr Resulting Lab GEN LAB UNIT COLLECT ORDERABLES Final Result Performing Organization Address City/[facility]/ZIP Co de Phone Number [facility] [address] [place] [address] * (ABNORMAL) BUPRENORPHINE AND METABOLITE CONFIRMATION PANEL (12/24/2023 12:36 EDT) Buprenorphine Confirmation 148(A) <10 ng/mL 12/26/2023 11:34 EDT [facility] Norbuprenorphine Confirmation 696(A) <10 ng/mL 12/26/2023 11:34 EDT [facility] Naloxone Confirmation > 1000(A) <10 ng/mL 12/26/2023 11:34 EDT [facility] Urine URINE / Unknown 12/24/2023 1 2:36 EDT 12/24/2023 22:22 EDT [facility] - 12/26/2023 11:34 EDT Testing performed by: [facility] [address] [place] [address] Residential Mortgage Manager: Eamon Patricia MD; CLIA # [id number] us Provider Outr Resulting Lab GEN LAB UNIT COLLECT ORDERABLES Final Result Performing Organization Address City/[facility]/ZIP Co de Phone Number [facility] [address] [place] [address] * METHADONE AND METABOLITE CONFIRMATION PANEL (12/24/2023 12:36 EDT) Methadone Confirmation Negative <100 ng/mL 12/26/2023 11:34 EDT [facility] EDDP Confirmation Negative <100 ng/mL 12/26/2023 11:34 EDT [facility] Urine URINE / Unknown 12/24/2023 1 2:36 EDT 12/24/2023 22:22 EDT Narrative [facility] - 12/26/2023 11:34 EDT Testing performed by: [facility] [address] [place] [address] Residential Mortgage Manager: Eamon Patricia MD; CLIA # [id number] us Provider Outr Resulting Lab GEN LAB UNIT COLLECT ORDERABLES Final Result Performing Organization Address City/[facility]/ZIP Co de Phone Number [facility] [address] [place] [address] * FENTANYL AND METABOLITE CONFIRMATION PANEL (12/24/2023 12:36 EDT) Fentanyl Confirmation Negative <2 ng/mL 12/26/2023 11:34 EDT [facility] Norfentanyl Confirmation Negative <10 ng/mL 12/26/2023 11:34 EDT [facility] Urine URINE / Unknown 12/24/2023 1 2:36 EDT 12/24/2023 22:22 EDT Narrative [facility] - 12/26/2023 11:34 EDT Testing performed by: [facility] [address] [place] [address] Residential Mortgage Manager: Eamon Patricia MD; CLIA # [id number] us Provider Outr Resulting Lab GEN LAB UNIT COLLECT ORDERABLES Final Result [facility] [address] [place] [address] documented in this encounter Visit Diagnoses Not on filedocumented in this encounter Care Teams Roving Department End Finder Relationship Specialty Start Date End Date Alex Hong MD PCP - General 12/04/10 documented as of this encounter
--- OUTSIDE RECORDS SUMMARY | 2024-06-26 16:15 | XMS_ITS | Clinical Summary ---
Author Organization [facility] Address [address] [place] [address] Care Team Providers Care Machine Design Teacher Name Role Phone Alex Hong MD Primary Care Provider [phone] Allergies No known active allergies Medications hydrOXYzine (ATARAX) 25 mg tablet Take 1 [...] - 19+ 3-dose series) 2004 COVID-19 Vaccine (2023-2 5 season) 2024 Hepatitis C Screen Completed 04/20/2022, 0 04/20/2022, 04/20/2022, Additional history exists Procedures Procedure Name Priority Date/Time Associated Diagnosis Comments HEPATITIS C AB W REFLEX TO HCV RNA BY PCR Routine 04/20/2022 9:35 EDT from Last 3 Months or Most Recently Relevant to Health Maintenance Results * (ABNORMAL) HEPATITIS C AB W REFLEX TO HCV RNA BY PCR (04/20/2022 9:35 EDT) Hep C Antibody Reactive(A ) Negative 04/23/2022 9:51 EDT [facility] Comment: Supplemental testing for HCV RNA is ordered to rule out active HCV infection. Blood VENOUS BLOOD / Unknown 04/20/2022 9:35 EDT 04/20/2022 19:01 EDT us Provider Outr Resulting Lab CHEMISTRY & BLOOD GA S ORDERABLES Final Result [facility] [address] [place] [address] from Last 3 Months or Most Recently Relevant to Health Maintenance Insurance MEDICAID [place] Care Teams Machine Design Teacher Relationship Specialty Start Date End Date Alex Hong MD PCP - General 12/04/10
--- OUTSIDE RECORDS SUMMARY | 2024-06-26 16:15 | XMS_ITS | Encounter Summary ---
Author Organization [facility] Address [address] [place] [address] Care Team Providers Care Oracle Manufacturing Consultant Name Role Phone Alex Hong MD Primary Care Provider [phone] Encounter Details Date Type Department Care Team (Late st Contact Info) Description 06/29/2023 Lab Requisition [facility] Pathology & Laboratory Medicine - [address] [address] Outr Resulting Lab, Provider Social History Tobacco [...] Confirmation Negative <50 ng/mL 07/02/2023 11:51 EST [facility] Urine URINE / Unknown 06/29/2023 1 2:58 EST 06/30/2023 15:19 EST Narrative [facility] - 07/02/2023 11:51 EST Testing performed by: [facility] [address] [place] [address] Outcome Analyst: Eamon Patricia MD; CLIA # [id number] us Provider Outr Resulting Lab GEN LAB UNIT COLLECT ORDERABLES Final Result Performing Organization Address City/[facility]/ZIP Co de Phone Number [facility] [address] [place] [address] * (ABNORMAL) BUPRENORPHINE AND METABOLITE CONFIRMATION PANEL (06/29/2023 12:58 EST) Buprenorphine Confirmation 46(A) <10 ng/mL 07/02/2023 11:51 EST [facility] Norbuprenorphine Confirmation 295(A) <10 ng/mL 07/02/2023 11:51 EST [facility] Naloxone Confirmation 162(A) <10 ng/mL 07/02/2023 11:51 EST [facility] Urine URINE / Unknown 06/29/2023 1 2:58 EST 06/30/2023 15:19 EST Narrative [facility] - 07/02/2023 11:51 EST Testing performed by: [facility] [address] [place] [address] Outcome Analyst: Eamon Patricia MD; CLIA # [id number] us Provider Outr Resulting Lab GEN LAB UNIT COLLECT ORDERABLES Final Result Performing Organization Address City/[facility]/ZIP Co de Phone Number [facility] [address] [place] [address] * METHADONE AND METABOLITE CONFIRMATION PANEL (06/29/2023 12:58 EST) Methadone Confirmation Negative <100 ng/mL 07/02/2023 11:51 EST [facility] EDDP Confirmation Negative <100 ng/mL 07/02/2023 11:51 EST [facility] Urine URINE / Unknown 06/29/2023 1 2:58 EST 06/30/2023 15:19 EST Narrative [facility] - 07/02/2023 11:51 EST Testing performed by: [facility] [address] [place] [address] Outcome Analyst: Eamon Patricia MD; CLIA # [id number] us Provider Outr Resulting Lab GEN LAB UNIT COLLECT ORDERABLES Final Result Performing Organization Address City/[facility]/ZIP Co de Phone Number [facility] [address] [place] [address] * FENTANYL AND METABOLITE CONFIRMATION PANEL (06/29/2023 12:58 EST) Fentanyl Confirmation Negative <2 ng/mL 07/02/2023 11:51 EST [facility] Norfentanyl Confirmation Negative <10 ng/mL 07/02/2023 11:51 EST [facility] Urine URINE / Unknown 06/29/2023 1 2:58 EST 06/30/2023 15:19 EST Narrative [facility] - 07/02/2023 11:51 EST Testing performed by: [facility] [address] [place] [address] Outcome Analyst: Eamon Patricia MD; CLIA # [id number] us Provider Outr Resulting Lab GEN LAB UNIT COLLECT ORDERABLES Final Result Performing Organization Address City/[facility]/ZIP Co de Phone Number [facility] [address] [place] [address] documented in this encounter Visit Diagnoses Not on filedocumented in this encounter Care Teams Oracle Manufacturing Consultant Relationship Specialty Start Date End Date Alex Hong MD PCP - General 12/04/10 documented as of this encounter
--- OUTSIDE RECORDS SUMMARY | 2024-06-26 16:15 | XMS_ITS | Encounter Summary ---
Author Organization [facility] Address [address] [place] [address] Care Team Providers Care Yard Attendant Name Role Phone Alex Hong MD Primary Care Provider [phone] Encounter Details Date Type Department Care Team (Late st Contact Info) Description 03/29/2023 Lab Requisition [facility] Pathology & Laboratory Medicine - [address] [address] Outr Resulting Lab, Provider Social History Tobacco [...] Confirmation Negative <50 ng/mL 04/02/2023 12:09 EDT [facility] Urine URINE / Unknown 03/29/2023 1 3:19 EDT 03/29/2023 21:27 EDT Narrative [facility] - 04/02/2023 12:09 EDT Testing performed by: [facility] [address] [place] [address], [facility] [address] [address] Nurse Research: Eamon Patricia MD; CLIA # [id number] us Provider Outr Resulting Lab GEN LAB UNIT COLLECT ORDERABLES Final Result Performing Organization Address City/[facility] Co de Phone Number [facility] [address] [place] [address], [facility] [address] [place] [address], [facility] [phone] * FENTANYL AND METABOLITE CONFIRMATION PANEL (03/29/2023 13:19 EDT) Fentanyl Confirmation Negative <2 ng/mL 04/02/2023 12:09 EDT [facility] Norfentanyl Confirmation Negative <10 ng/mL 04/02/2023 12:09 EDT [facility] Urine URINE / Unknown 03/29/2023 1 3:19 EDT 03/29/2023 21:27 EDT Narrative [facility] - 04/02/2023 12:09 EDT Testing performed by: [facility] [address] [place] [address], [facility] [address] [address] Nurse Research: Eamon Patricia MD; CLIA # [id number] us Provider Outr Resulting Lab GEN LAB UNIT COLLECT ORDERABLES Final Result Performing Organization Address [facility] Co de Phone Number [facility] [address] [place] [address] [phone] documented in this encounter Visit Diagnoses Not on filedocumented in this encounter Care Teams Yard Attendant Relationship Specialty Start Date End Date Alex Hong MD PCP - General 12/04/10 documented as of this encounter
--- OUTSIDE RECORDS SUMMARY | 2024-06-26 16:15 | XMS_ITS | Encounter Summary ---
Author Organization [facility] Address [address] [place] [address] Care Team Providers Care Tank Carpenter Name Role Phone Alex Hong MD Primary Care Provider [phone] Encounter Details Date Type Department Care Team (Late st Contact Info) Description 11/18/2023 Lab Requisition [facility] Pathology & Laboratory Medicine - [address] [address] Outr Resulting Lab, Provider Social History Tobacco [...] Confirmation Negative <2 ng/mL 11/20/2023 12:19 EDT [facility] Norfentanyl Confirmation Negative <10 ng/mL 11/20/2023 12:19 EDT [facility] Urine URINE / Unknown 11/18/2023 1 5:09 EDT 11/18/2023 22:20 EDT [facility] - 11/20/2023 12:19 EDT Testing performed by: [facility] [address] [facility], [address], [place] [address] Cutting Supervisor: Eamon Patricia MD; CLIA # [id number] us Provider Outr Resulting Lab GEN LAB UNIT COLLECT ORDERABLES Final Result Performing Organization Address City/State/[facility] Co de Phone Number [facility] [address], [address] [place] [address], [facility] [phone] documented in this encounter Visit Diagnoses Not on filedocumented in this encounter Care Teams Tank Carpenter Relationship Specialty Start Date End Date Alex Hong MD PCP - General 12/04/10 documented as of this encounter
--- OUTSIDE RECORDS SUMMARY | 2024-06-26 16:15 | XMS_ITS | Encounter Summary ---
Author Organization [facility] Address [address] [place] [address] Care Team Providers Care Food Safety Specialist Name Role Phone Alex Hong MD Primary Care Provider [phone] Encounter Details Date Type Department Care Team (Late st Contact Info) Description 01/01/2024 Lab Requisition [facility] Pathology & Laboratory Medicine - [address] [address] Outr Resulting Lab, Provider Social History Tobacco [...] Confirmation 110(A) <10 ng/mL 01/03/2024 12:39 EDT [facility] Norbuprenorphine Confirmation 528(A) <10 ng/mL 01/03/2024 12:39 EDT [facility] Naloxone Confirmation 721(A) <10 ng/mL 01/03/2024 12:39 EDT [facility] Urine URINE / Unknown 01/01/2024 1 1:51 EDT 01/01/2024 21:38 EDT Narrative [facility] - 01/03/2024 12:39 EDT Testing performed by: [facility] [address] [facility], [address], [place] [address] Slitter Scorer: Eamon Patricia MD; CLIA # [id number] us Provider Outr Resulting Lab GEN LAB UNIT COLLECT ORDERABLES Final Result Performing Organization Address City/State/[facility] Co de Phone Number [facility] [address] [place] [address], [address] [place] [address], [facility] [phone] documented in this encounter Visit Diagnoses Not on filedocumented in this encounter Care Teams Food Safety Specialist Relationship Specialty Start Date End Date Alex Hong MD PCP - General 12/04/10 documented as of this encounter
--- OUTSIDE RECORDS SUMMARY | 2024-06-26 16:15 | XMS_ITS | Referral Summary ---
Author Organization [facility] Address [address] [place] [address] Care Team Providers Care Informatica Mdm Architect Name Role Phone Alex Hong MD Primary Care Provider [phone] Allergies No known active allergies Medications hydrOXYzine [...] Antibody Reactive(A ) Negative 04/23/2022 9:51 EDT [facility] Comment: Supplemental testing for HCV RNA is ordered to rule out active HCV infection. Blood VENOUS BLOOD / Unknown 04/20/2022 9:35 EDT 04/20/2022 19:01 EDT us Provider Outr Resulting Lab CHEMISTRY & BLOOD GA S ORDERABLES Final Result [facility] [address] [place] [address] from Last 3 Months or Most Recently Relevant to Health Maintenance Insurance MEDICAID [place] Care Teams Informatica Mdm Architect Relationship Specialty Start Date End Date Alex Hong MD PCP - General 12/04/10
--- OUTSIDE RECORDS SUMMARY | 2024-06-26 16:16 | XMS_ITS | Encounter Summary ---
Author Organization [facility] Address [address] [place] [address] Care Team Providers Care Addiction Professional Name Role Phone Alex Hong MD Primary Care Provider [phone] Encounter Details Date Type Department Care Team (Latest Contact Info) Description 11/13/2017 19:32 EDT - 11/13/2017 23:59 EDT Hospital Encounter [place] [place] [place] [address] Blanca Cottrell, BUTTON SAWYER [address] [place] [address] Discharge Disposition: Home or Self Care Social History Tobacco Use Types Packs/Day Years Used Date Smoking Tobacco: Never Assessed Comments Unknown Sex and Gender Information Value [...] on filedocumented in this encounter Care Teams Addiction Professional Relationship Specialty Start Date End Date Alex Hong MD PCP - General 12/04/10 documented as of this encounter
--- OUTSIDE RECORDS SUMMARY | 2024-06-26 16:16 | XMS_ITS | Encounter Summary ---
Author Organization [facility] [place] [address] Care Team Providers Care Sales And Merchandising Associate Name Role Phone Kendrick Aranda DNP Primary Care Provider [phone] Encounter Details Date Type Department Care Team (Late st Contact Info) Description 03/26/2023 Telephone [place] [id number] Katy Yanez Social History Tobacco Use Types [...] on filedocumented in this encounter Care Teams Sales And Merchandising Associate Relationship Specialty Start Date End Date Kendrick Aranda DNP [address] [place] [address] PCP - General Family Medicine 11/02/22 documented as of this encounter
--- OUTSIDE RECORDS SUMMARY | 2024-06-26 16:16 | XMS_ITS | Encounter Summary ---
Author Organization [facility] Address [address] [place] [address] Care Team Providers Care Assembler Convertible Top Name Role Phone Alex Hong MD Primary Care Provider [phone] Encounter Details Date Type Department Care Team (Late st Contact Info) Description 04/20/2022 Lab Requisition [facility] Pathology & Laboratory Medicine - [address] [address] Outr Resulting Lab, Provider Social History Tobacco [...] HCV RNA DETECT QUANT (04/20/2022 9:35 EDT) Pathologist [facility] HCV RNA Qualitative Undetected Undetected 04/23/2022 13:45 EDT [facility] Blood VENOUS BLOOD / Unknown 04/20/2022 9:35 EDT 04/20/2022 19:01 EDT [facility] - 04/23/2022 13:45 EDT The quantification range of this assay is 15 IU/mL to 100,000,000 IU/mL. Testing was performed using the Alek HCV test ([employer] with the alek 6800 System. us Provider Outr Resulting Lab CHEMISTRY & BLOOD GA S ORDERABLES Final Result Performing Organization Address [facility] Co de Phone Number [facility] [address] [place] [address] * HCV RNA DETECT QUANT (04/20/2022 9:35 EDT) [facility] HCV RNA Qualitative Undetected Undetected 04/23/2022 13:45 EDT [facility] Blood VENOUS BLOOD / Unknown 04/20/2022 9:35 EDT 04/20/2022 18:56 EDT [facility]ORY [facility] - 04/23/2022 13:45 EDT The quantification range of this assay is 15 IU/mL to 100,000,000 IU/mL. Testing was performed using the Alek HCV test ([employer] with the alek 6800 System. us Provider Outr Resulting Lab CHEMISTRY & BLOOD GA S ORDERABLES Final Result Performing Organization Address [facility] Co de Phone Number [facility] [address] [place] [address] * HEPATITIS B SURFACE ANTIBODY (04/20/2022 9:35 EDT) [facility] Hep B Surface Ab, Quantitative 12.6 See Note mIU/mL 04/23/2022 9:42 EDT [facility] Comment: Reference Range for Hep B Surface Ab, Quant: Positive: >= 10.0 mIU/mL Negative: ??< 10.0 mIU/mL Patient is presumed to be immune to infection with Hepatitis B Virus. Hep B Surface Ab, Qualitative Positive See Note 04/23/2022 9:42 EDT [facility] Comment: Reference Range for Hep B Surface Ab, Qual: Unvaccinated: ??Negative Vaccinated: ??Positive Blood VENOUS BLOOD / Unknown 04/20/2022 9:35 EDT 04/20/2022 19:01 EDT us Provider Outr Resulting Lab CHEMISTRY & BLOOD GA S ORDERABLES Final Result Performing Organization Address [facility] Co de Phone Number [facility] [address] [place] [address] * HEPATITIS B CORE ANTIBODY (TOTAL) (04/20/2022 9:35 EDT) Hepatitis B Core Ab, Total Negative Negative 04/23/2022 10:19 EDT [facility] Blood VENOUS BLOOD / Unknown 04/20/2022 9:35 EDT 04/20/2022 19:01 EDT us Provider Outr Resulting Lab CHEMISTRY & BLOOD GA S ORDERABLES Final Result Performing Organization Address [facility]/ZIP Co de Phone Number [facility] [address] [place] [address] * HEPATITIS B SURFACE ANTIGEN (04/20/2022 9:35 EDT) Hep B Surface Ag Negative Negative 04/23/2022 9:46 EDT [facility] Blood VENOUS BLOOD / Unknown 04/20/2022 9:35 EDT 04/20/2022 18:56 EDT us Provider Outr Resulting Lab CHEMISTRY & BLOOD GA S ORDERABLES Final Result Performing Organization Address City/[facility]/ZIP Co de Phone Number [facility] [address] [place] [address] * (ABNORMAL) HEPATITIS C AB W REFLEX TO HCV RNA BY PCR (04/20/2022 9:35 EDT) Hep C Antibody Reactive(A ) Negative 04/23/2022 9:51 EDT [facility] Comment: Supplemental testing for HCV RNA is ordered to rule out active HCV infection. Blood VENOUS BLOOD / Unknown 04/20/2022 9:35 EDT 04/20/2022 19:01 EDT us Provider Outr Resulting Lab CHEMISTRY & BLOOD GA S ORDERABLES Final Result Performing Organization Address City/[facility]/ZIP Co de Phone Number [facility] [address] [place] [address] * HEPATITIS A TOTAL ANTIBODY W REFLEX (04/20/2022 9:35 EDT) Hepatitis A Antibody, Total Negative Negative 04/23/2022 10:12 EDT [facility] Blood VENOUS BLOOD / Unknown 04/20/2022 9:35 EDT 04/20/2022 19:01 EDT Narrative [facility] - 04/23/2022 10:12 EDT The result of this assay can be falsely elevated (Positive) due to the consumption of Biotin. us Provider Outr Resulting Lab CHEMISTRY & BLOOD GA S ORDERABLES Final Result Performing Organization Address City/[facility]/ZIP Co de Phone Number [facility] [address] [place] [address] documented in this encounter Visit Diagnoses Not on filedocumented in this encounter Care Teams Assembler Convertible Top Relationship Specialty Start Date End Date Alex Hong MD PCP - General 12/04/10 documented as of this encounter
--- OUTSIDE RECORDS SUMMARY | 2024-06-26 16:16 | XMS_ITS | Encounter Summary ---
Author Organization [facility] Address [address] [place] [address] Care Team Providers Care Web Sizer Name Role Phone Unavailable Primary Care Provider Unavailabl e Encounter Details Date Type Department Care Team (Late st Contact Info) Description 07/20/2003 Results Only [facility] [place] conversion [address] [place] [address] Sylvia Roque MD [address] [place] [address] [place] [address] Social History Tobacco Use Types Packs/Day Years [...] ? TR JULIAN ? Accession #: ? [id number] ? : ? 1985 (Age: 17) ??F [...] cervicitis. 3. ?Transformation zone present. Comment: ? Parquet Floor Layer sections have been reviewed at intradepartmental consultation conference. (Dr. Meek) Document reviewed and electronically signed by: DEIDRE MEEK MD Report ??Date: 07/26/2003 14:52 By the signature above, the attending physician certifies that he/she has personally conducted a gross and/or microscopic examination of the described specimens and rendered or confirmed the above diagnosis. Specimen(s) Received: ? Bx cx 11:00 Clinical History: ? ASCUS Pap ([id number]); (+) HPV Gross Description: ? Received in formalin labeled Julian and cervical is a moore-white, 0.5 x 0.3 x 0.2 cm soft tissue fragment. ??The specimen is entirely submitted in one cassette. ??(Apryl Kuhn)/aure End of Report [facility] 07/20/2003 07/22/2003 10: 32 EST us Sylvia Roque MD PATHOLOGY ORDERABLES Final Resu lt [facility] [address] [place] [address] documented in this encounter Visit Diagnoses Not on filedocumented in this encounter
--- OUTSIDE RECORDS SUMMARY | 2024-06-26 16:16 | XMS_ITS | Encounter Summary ---
Author Organization [facility] [place] [address] Care Team Providers Care Putty Worker Name Role Phone Shweta Sykes GERTRUDE Primary Care Provider [phone] Encounter Details Date Type Department Care Team (Late st Contact Info) Description 08/21/2021 Telephone Gastroenterology at [facility] [place] [address] Martin Enriquez Social History Tobacco Use Types [...] calls can be handled by: [facility] Lab Airport Operations Manager * Telephone Encounter - Martin Enriquez - 09/06/2021 9:34 AM EST Inbound/Outbound: Outbound Spoke to Patient/Left Message: Left message Notes: Outbound call to patient to schedule motility lab testing from referral. Left message askingfor callback to schedule. Return calls can be handled by: [facility] Airport Operations Manager * Telephone Encounter - Martin Enriquez - 08/21/2021 4:49 PM EST Inbound/Outbound: Outbound Spoke to Patient/Left Message: Left message Notes: Outbound call to patient to schedule motility lab testing from referral. Left message askingfor callback to schedule. Return calls can be handled by: [facility] Airport Operations Manager documented in this encounter Plan of Treatment Not on file documented as of this encounter Visit Diagnoses Not on filedocumented in this encounter Care Teams Putty Worker Relationship Specialty Start Date End Date Shweta Sykes APRN [address] [place] [address] PCP - General Family Medicine 05/28/21 11/01/22 documented as of this encounter
--- OUTSIDE RECORDS SUMMARY | 2024-06-26 16:16 | XMS_ITS | Encounter Summary ---
Author Organization [facility] Address [address] [place] [address] Care Team Providers Care Advertising Writer Name Role Phone Alex Hong MD Primary Care Provider [phone] Encounter Details Date Type Department Care Team (Late st Contact Info) Description 05/23/2021 Lab Requisition [facility] Pathology & Laboratory Medicine - [address] [address] Outr Resulting Lab, Provider Social History Tobacco [...] 4th Generation Negative Negative 05/24/2021 11:[address] [facility] Comment: If acute HIV-1 infection is suspected in a high risk ??patient, submit plasma specimen for HIV-1 RNA quantitation test. Fourth Generation assay performed on the Siemens Bondora (by isePankur)aur. Blood VENOUS BLOOD / Unknown 05/23/2021 11:35 EDT 05/23/2021 16:51 EDT us Provider Outr Resulting Lab IMMUNOLOGY AND SEROL OGY ORDERABLES Final Result [facility] [address] [place] [address] documented in this encounter Visit Diagnoses Not on filedocumented in this encounter Care Teams Advertising Writer Relationship Specialty Start Date End Date Alex Hong MD PCP - General 12/04/10 documented as of this encounter
--- OUTSIDE RECORDS SUMMARY | 2024-06-26 16:16 | XMS_ITS | Encounter Summary ---
Author Organization [facility] Address [address] [place] [address] Care Team Providers Care Museum Tour Guide Name Role Phone Barrington Bhatia MD Primary Care Provider [phone] Encounter Details Date Type Department Care Team (Late st Contact Info) Description 04/07/2019 Results Only [facility] [phone] Katrina Kaye MD [address] [place] [address] Social History Tobacco Use Types Packs/Day Years [...] ? TR JULIAN ? Accession #: ? [id number] : ? 1985 (Age: 33) ??F ?Collect [...] reviewed and electronically signed by: ? NITHYA Gu(ASCP) ? Report Date: ??04/17/2019 13:14 End of Report [facility] 04/07/2019 04/13/2019 us Katrina Kaye MD PATHOLOGY ORDERABLES Final Resul t [facility] [address] [place] [address] documented in this encounter Visit Diagnoses Not on filedocumented in this encounter Care Teams Museum Tour Guide Relationship Specialty Start Date End Date Barrington Bhatia MD PCP - General 12/04/10 documented as of this encounter
--- OUTSIDE RECORDS SUMMARY | 2024-06-26 16:16 | XMS_ITS | Encounter Summary ---
Author Organization [facility] Address [address] [place] [address] Care Team Providers Care Application Tester Name Role Phone Alex Hong MD Primary Care Provider [phone] Encounter Details Date Type Department Care Team (Late st Contact Info) Description 05/23/2021 Lab Requisition [facility] Pathology & Laboratory Medicine - [address] [address] Outr Resulting Lab, Provider Social History Tobacco [...] IGA <1.2 <4.0 U/mL 05/24/2021 13:15 EDT [facility] Comment: A negative result may be due to IgA deficiency and does not rule out celiac disease. ? Negative: ??<4.0 U/mL ? Weak Positive: ??4.0 - 10.0 U/mL ? Positive: ??>10.0 U/mL Results were obtained with the Akampus QUANTA Lite R h-tTG IgA DUSTIN assay on the Kymab DSX. IgA 127 85 - 499 mg/dL 05/24/2021 13:15 EDT [facility] Celiac Disease Interpretation Negative Serology. Celiac disease unlikely. Approximately 10% of patients with celiac disease are seronegative. Patients who are already adhering to a gluten-free diet may also be seronegative. If celiac disease is highly clinically suspected, referral to gastroenterology for additional evaluation is recommended. 05/24/2021 13:15 EDT [facility] Blood VENOUS BLOOD / Unknown 05/23/2021 11:35 EDT 05/23/2021 16:51 EDT us Provider Outr Resulting Lab IMMUNOLOGY AND SEROL OGY ORDERABLES Final Result [facility] [address] [place] [address] documented in this encounter Visit Diagnoses Not on filedocumented in this encounter Care Teams Application Tester Relationship Specialty Start Date End Date Alex Hong MD PCP - General 12/04/10 documented as of this encounter
--- OUTSIDE RECORDS SUMMARY | 2024-06-26 16:16 | XMS_ITS | Encounter Summary ---
Author Organization [facility] [place] [address] Care Team Providers Care Lumber Scaler Name Role Phone Shweta Sykes APRN Primary Care Provider [phone] Encounter Details Date Type Department Care Team (Late st Contact Info) Description 09/12/2021 Telephone Gastroenterology at [facility] [place] [address] Martin Enriquez Social History Tobacco Use Types [...] CHECKLIST 09/12/2021 Martin Barrett [address] [facility] [address] [id number] : 1985 REFERRING PROVIDER: Amelie Berrios PRIMARY [...] their provider to consider alternative testing. The spares scheduler should also contact the provider's office directly tonotify them that we are unable to schedule due to a contraindication to testing. Then, delete the remainder of this checklist and close out the referral. QUESTIONS TO THE PATIENT PATIENT AGREE TO IN-PERSON RETURN OF MEND WORKER WITHIN 72H OF CAPSULE PLACEMENT: Yes PT [...] DOES PT KNOW HE/SHE MUST HAVE A CANDY MAKER HELPER FOR AFTER PROCEDURE: Yes documented in this encounter Plan of Treatment Not on file documented as of this encounter Visit Diagnoses Not on filedocumented in this encounter Care Teams Lumber Scaler Relationship Specialty Start Date End Date Shweta Sykes APRN [address] [place], [place] [address]Y [facility] [address] [place] [address] PCP - General Family Medicine 05/28/21 11/01/22 documented as of this encounter
--- OUTSIDE RECORDS SUMMARY | 2024-06-26 16:16 | XMS_ITS | Encounter Summary ---
Author Organization [facility] Address [address] [place] [address] Care Team Providers Care Evaluation Assistant Name Role Phone Barrington Bhatia MD Primary Care Provider [phone] Encounter Details Date Type Department Care Team (Late st Contact Info) Description 11/01/2014 Results Only [facility] Laboratory Services - [facility] [address] [place], [place] [address] Saran Dow [address] [place] [address] Social History Tobacco Use Types [...] ? TR JULIAN ? Accession #: ? [id number] : ? 1985 (Age: 28) ??F ?Collect Date: ? 11/01/2014 Location: ? [facility] ? Receive Date: ? 11/02/2014 Provider: ?SARAN CHEVY CNM Copy to: ?BARRINGTON BHATIA MD ? [...] Report Date: ??11/10/2014 09:45 End of Report [facility] 11/01/2014 11/02/2014 us Saran Dow CN PATHOLOGY ORDERABLES Final Resul t [facility] [address] [place] [address] documented in this encounter Visit Diagnoses Not on filedocumented in this encounter Care Teams Evaluation Assistant Relationship Specialty Start Date End Date Barrington Bhatia MD PCP - General 12/04/10 documented as of this encounter
--- OUTSIDE RECORDS SUMMARY | 2024-06-26 16:16 | XMS_ITS | Encounter Summary ---
Author Organization [facility] [place] [address] Care Team Providers Care Chief Science Officer Name Role Phone Shweta Sykes APRN Primary Care Provider [phone] Reason for Visit * Reason Onset Date Comments Reminder Appointment 12/01/2021 Encounter Details Date Type Department Care Team (Late st Contact Info) Description 12/01/2021 Telephone Gastroenterology at [facility] [place] [phone] Melonie Davidson CCMA Reminder Appointment Social History [...] on filedocumented in this encounter Care Teams Chief Science Officer Relationship Specialty Start Date End Date Shweta Sykes APRN [address] [place], [place] [address] PCP - General Family Medicine 05/28/21 11/01/22 documented as of this encounter
--- OUTSIDE RECORDS SUMMARY | 2024-06-26 16:16 | XMS_ITS | Encounter Summary ---
Author Organization [facility] Address [address] [place] [address] Care Team Providers Care Viticulture Teacher Name Role Phone Unavailable Primary Care Provider Unavailabl e Encounter Details Date Type Department Care Team (Late st Contact Info) Description 05/28/2003 Results Only [facility] - Map conversion [address] [place] [address] Chacha Avila, [facility] [address] [place] [address] Social History Tobacco Use Types [...] cancers. [facility] Report Status Final [id number] [facility] 05/28/2003 13:4 3 EDT 06/08/2003 13:43 EST Chacha Avila PRICING MANAGER MICROBIOLOGY - GENERAL ORDER ELIZABETH Final Result [facility] [address] [place] [address] * CYTOPATHOLOGY (05/28/2003 0:00 EDT) Pathology Report: CYTOPATHOLOGY REPORT Reports generated via electronic interface contain original data; however they are lacking the format of the original report. Caution should be taken when reading/interpreti ng unformatted reports. Name: ? TR JULIAN ? Accession #: ? [id number] : ? 1985 (Age: 17) ??F ?Collect Date: ? 05/28/2003 Location: ? [facility] ? Receive Date: ? 06/01/2003 Provider: ?CHACHA AVILA PRICING MANAGER Copy to: ? Specimen/Source: ?ThinPrep Pap Test, [...] cells, undetermined significance. EDUCATIONAL NOTES/RECOMMENDATI ONS ? [facility] recommends following the 2001 Consensus Guidelines for the Management of Women with Cervical Cytological Abnormalities (ERIKA,2002;287:212 0-9). Management algorithms have been distributed by [facility] and are available online at www.ASCCP.org. ? Document reviewed and electronically signed by: ? FERNANDA HICKEY MD ? Report Date: ??06/07/2003 14:40 End of Report [facility] 05/28/2003 06/01/2003 us Chacha Avila PRICING MANAGER PATHOLOGY ORDERABLES Final R esult [facility] [address] [place] [address] documented in this encounter Visit Diagnoses Not on filedocumented in this encounter
--- OUTSIDE RECORDS SUMMARY | 2024-06-26 16:16 | XMS_ITS | Encounter Summary ---
Author Organization [facility] Address [address] [place] [address] Care Team Providers Care Slide Forming Machine Tender Name Role Phone Alex Hong MD Primary Care Provider [phone] Encounter Details Date Type Department Care Team (Late st Contact Info) Description 03/29/2023 Lab Requisition [facility] Pathology & Laboratory Medicine - [address] [address] Outr Resulting Lab, Provider Social History Tobacco [...] 4th Generation Negative Negative 03/30/2023 11:17 EDT [facility] Comment:If acute HIV-1 infec tion is suspected in a high risk patient, submit plasma specimen for HIV-1 RNA quantitation test. Blood VENOUS BLOOD / Unknown 03/29/2023 13:19 EDT 03/29/2023 21:44 EDT Narrative [facility] - 03/30/2023 11:17 EDT Fourth Generation assay performed on the Siemens Centaur XPT. us Provider Outr Resulting Lab IMMUNOLOGY AND SEROL OGY ORDERABLES Final Result [facility] [address] [place] [address] documented in this encounter Visit Diagnoses Not on filedocumented in this encounter Care Teams Slide Forming Machine Tender Relationship Specialty Start Date End Date Alex Hong MD PCP - General 12/04/10 documented as of this encounter
--- OUTSIDE RECORDS SUMMARY | 2024-06-26 16:16 | XMS_ITS | Encounter Summary ---
Author Organization [facility] Address [address] [place] [address] Care Team Providers Care Leather Grader Name Role Phone Alex Hong MD Primary Care Provider [phone] Encounter Details Date Type Department Care Team (Latest Contact Info) Description 10/10/2018 15:23 EST - 10/10/2018 23:59 EST Hospital Encounter [address] [address] Unknown, Provider, MD Discharge Disposition: Home or Self Care Social [...] Code Departure Means Destination Home or Self [facility] documented in this encounter Plan of Treatment Not on file documented as of this encounter Visit Diagnoses Not on filedocumented in this encounter Care Teams Leather Grader Relationship Specialty Start Date End Date Alex Hong MD PCP - General 12/04/10 documented as of this encounter
--- OUTSIDE RECORDS SUMMARY | 2024-06-26 16:16 | XMS_ITS | Encounter Summary ---
Author Organization [facility] [place] [address] Care Team Providers Care Addiction Therapist Name Role Phone Shweta Sykes APRN Primary Care Provider [phone] Encounter Details Date Type Department Care Team (Late st Contact Info) Description 08/03/2021 Telephone Gastroenterology at [facility] [place] [address] Wanda Baez Social History Tobacco Use Types [...] filedocumented in this encounter Care Teams Addiction Therapist Relationship Specialty Start Date End Date Shweta Sykes APRN [address] [place], [place] [address] PCP - General Family Medicine 05/28/21 11/01/22 documented as of this encounter
--- OUTSIDE RECORDS SUMMARY | 2024-06-26 16:16 | XMS_ITS | Encounter Summary ---
Author Organization [facility] [place] [address] Care Team Providers Care Aids Social Worker Name Role Phone Shweta Sykes GERTRUDE Primary Care Provider [phone] Encounter Details Date Type Department Care Team (Late st Contact Info) Description 12/19/2021 1:36 PM EDT Anesthesia [place] [address] Danilo Stanton MD [facility] [place] [address] Pattie Lara CRNA [facility] [place] [address] Anesthesia Record Procedure Summary Procedure Name Responsible [...] 1308; median cubital vein (antecubital fossa), right; ldqp-pkm-[id number] catheter system; Anatomical Landmarks; 22 gauge; raji [...] Procedure Summary Date: 12/19/21 Room / Location: [facility] ENDO 1 / [facility] ENDOSCOPY Anesthesia Start: 1336 Anesthesia Stop: 1401 [...] All Anesthesia Providers: Anesthesiologist: Danilo Stanton MD PRODUCT SAFETY EXPERT: Pattie Persaud CRNA Vitals Value Taken Time BP 95/58 12/19/21 1410 Temp Pulse Resp 18 12/19/21 1410 SpO2 99 % 12/19/21 1415 Pain Level 0 12/19/21 1415 Patient Location: PACU/[facility] Level of Consciousness: Awake and Alert Pain [...] risks discussed with patient. Plan discussed with PRODUCT SAFETY EXPERT. Anesthesia Screening documented in this encounter Plan [...] mg documented in this encounter Care Teams Aids Social Worker Relationship Specialty Start Date End Date Shweta Sykes APRN [address] [place] [address] [address] [place] [address] PCP - General Family Medicine 05/28/21 11/01/22 documented as of this encounter
--- OUTSIDE RECORDS SUMMARY | 2024-06-26 16:16 | XMS_ITS | Encounter Summary ---
Author Organization [facility] Address [facility] [place] [address] Care Team Providers Care Applicator Sprayer Name Role Phone Kendrick Aranda DNP Primary [...] no documented anticoagulation use Kendrick Aranda DNP [address] [facility] [address] [facility] Endoscopy [address] [place] [address] Referral ID Status Reason Start Date Expiration Date V isits Requested Visits Authorized [id number] Closed Surgical PCP Updated and/or Approved 11/02/2022 11/02/2023 1 1 Encounter Details Date Type Department Care Team (Latest Contact Info) Description 11/02/2022 Transcribe Orders eDH Incoming Referrals [phone] Kendrick Aranda DNP [address] [place] [address] Abdominal pain, unspecified abdominal location; Other chronic [...] pain documented in this encounter Care Teams Applicator Sprayer Relationship Specialty Start Date End Date Kendrick Aranda DNP [address] [place] [address] PCP - General Family Medicine 11/02/22 documented as of this encounter
--- OUTSIDE RECORDS SUMMARY | 2024-06-26 16:16 | XMS_ITS | Encounter Summary ---
Author Organization [facility] Address [address] [place] [address] Care Team Providers Care Waiver Analyst Name Role Phone Sylvester Jameslily Brandy CUEVAS Primary Care Provider + Encounter Details Date Type Department Care Team (Late st Contact Info) Description 11/30/2010 Results Only [facility] Laboratory Services - [facility] [address] [place], [place] [id number] [place] [address] [place] [address],[address] [place] [address] Social History Tobacco Use Types [...] IESHA, TR Monroe ? Accession #: ? [id number] ? : ? 1985 (Age: 24) ??F [...] submitted as (B1) to ? (B8). (Apryl Kuhn)/[facility] ? End of Report ? [facility] 11/30/2010 11/30/2010 18: 47 EDT us Roshan Mendez MD PATHOLOGY ORDERABLES Final Re sult [facility] [address] [place] [address] documented in this encounter Visit Diagnoses Not on filedocumented in this encounter Care Teams Waiver Analyst Relationship Specialty Start Date End Date Mary Phan, RATE SUPER[place] [address] PCP - General 07/04/10 12/03/10 documented as of this encounter
--- OUTSIDE RECORDS SUMMARY | 2024-06-26 16:16 | XMS_ITS | Encounter Summary ---
Author Organization [facility] [place] [address] Care Team Providers Care Graduate Assistant Name Role Phone Shweta Sykes APRN Primary Care Provider [phone] Encounter Details Date Type Department Care Team (Late st Contact Info) Description 12/18/2021 Telephone Gastroenterology at [facility] [place] [address] Felicitas Singleton Social History Tobacco Use Types [...] on filedocumented in this encounter Care Teams Graduate Assistant Relationship Specialty Start Date End Date Shweta Sykes APRN [address] [place], [place] [address] PCP - General Family Medicine 05/28/21 11/01/22 documented as of this encounter
--- OUTSIDE RECORDS SUMMARY | 2024-06-26 16:16 | XMS_ITS | Encounter Summary ---
Author Organization [facility] Address [address] [place] [address] Care Team Providers Care Fuel Cell Binder Name Role Phone Mary Phan NP Primary Care Provider + Encounter Details Date Type Department Care Team (Late st Contact Info) Description 03/06/2006 Results Only [facility] - [place] conversion [address] [place] [address] Saran Reece CNM [address] [place], [place] [address] Social History Tobacco Use Types Packs/Day Years [...] ? TR JULIAN ? Accession #: ? [id number] : ? 1985 (Age: 20) ??F ?Collect Date: ? 03/06/2006 Location: ? [facility] ? Receive Date: ? 03/07/2006 Provider: ?SARAN REECE CNM Copy to: ? Specimen/Source: ?ThinPrep Pap Test, Cervix/Endocervix, processed on [employer] Pro ThinPrep Imaging System, with manual evaluation Last Menstrual Period: ? 04/30/05 Previous Gynecologic Pathology: ? ASC-US: 05/28/03, 06/26/05 HPV: Positive FAVIO II: 12. Treatment History: ? Colposcopy: 07/07 Cervical biopsy [...] Date: ??03/12/2006 15:15 End of Report [facility] 03/06/2006 03/07/2006 us Saran Reece CNM PATHOLOGY ORDERABLES Final Resul t [facility] [address] [place] [address] documented in this encounter Visit Diagnoses Not on filedocumented in this encounter Care Teams Fuel Cell Binder Relationship Specialty Start Date End Date Mary Phan, [place] [address] PCP - General 07/04/10 12/03/10 documented as of this encounter
--- OUTSIDE RECORDS SUMMARY | 2024-06-26 16:16 | XMS_ITS | Encounter Summary ---
Author Organization [facility] Address [address] [place] [address] Care Team Providers Care Machine Packager Name Role Phone Unavailable Primary Care Provider Unavailabl e Encounter Details Date Type Department Care Team (Late st Contact Info) Description 06/27/2010 Results Only [facility] Laboratory Services - [facility] [address] [place], [place] [id number] Chacha Avila, [facility] [address] [place] [address] [place] [address] Social History Tobacco Use Types [...] ? TR JULIAN ? Accession #: ? [id number] ? : ? 1985 (Age: 24) ??F ?Collect Date: ? 06/27/2010 ? Location: ? [facility] ? Receive Date: ? 06/28/2010 ? Provider: CHACHA SHARRI SEO STRATEGIST ? Copy to: ? Final Report ? SPECIMEN ADEQUACY ? Satisfactory for Evaluation ? - transformation zone component present ? GENERAL CATEGORIZATION ? Epithelial Cell Abnormality ? INTERPRETATION ? Squamous Cell Abnormality - Atypical squamous cells, undetermined ? significance (ASC-US). ? EDUCATIONAL NOTES/RECOMMENDATI ONS ? [facility] recommends following the 2006 Consensus Guidelines for the Management of Women with Abnormal Cervical Cancer Screening Tests (JLGTD, ? 2007;11(4):201-222 ). ??Consensus guidelines are available online at ? www.ASCCP.org. ? Last Menstural Period: 05/29/10 ? Previous Gynecologic Pathology: ASC-US: 05/07, 06/09, [...] of Report ? [facility]ANA THOMAS 06/27/2010 06/28/2010 us Chacha Avila SEO STRATEGIST PATHOLOGY ORDERABLES Final R esult KEYANA THOMAS [address] [place] [address] documented in this encounter Visit Diagnoses Not on filedocumented in this encounter
--- OUTSIDE RECORDS SUMMARY | 2024-06-26 16:16 | XMS_ITS | Encounter Summary ---
Author Organization [facility] Address [facility] [place] [address] Care Team Providers Care Shoe Folder Name Role Phone Shweta Sykes APRN Primary Care Provider [phone] Encounter Details Date Type Department Care Team (Late st Contact Info) Description 12/19/2021 1:00 PM EDT - 12/19/2021 2:00 PM EDT [place] [id number] López Sosa MD [facility] [place] [address] EGD WITH BIOPSY (WRVU 2.39) Social History [...] the day after the procedure, use an wuzx-vfp-sqgwdez spray to numb your throat. Sucking on [...] occurs, please contact your Doctor. Please call [phone] before 8pm Mon-Fri with problems, questions or concerns. If you call after 8pm or on weekends, call the Hospital at [phone] and ask to speak to the [employer] production line and the reeling machine operator will contact that person for you. [...] any problems. Where can you learn more? [facility] View your After Visit Summary and more online at [email or web address] If you would like to provide feedback about your hospital experience, please call the Office of Patient and Family Relations at . If you have received this After Visit Summary in error, please immediately return it in person to the department, or notify the [facility] Privacy Office by calling toll free at between the hours of 8AM and 5PM to arrange for our retrieval of the documents at no cost to you. Content Version: 12.2 ?? [phone] [employer]. Care instructions adapted under license by [email or web address]. If you have questions about a medical condition or this instruction, always ask your healthcare professional. [employer] disclaims any warranty or liability for your [...] g by mouth daily. 14 each 10/18/2016 Gagdqyieeisvw-Dt-Itsg-Mi nerals 27-0.4 mg Tablet Take by mouth. [...] complication. Informed Consent signed by patient (or parts representative). documented in this encounter Plan of [...] per rectum) [facility] Upper Gi Endoscopy, Biopsy ([id number]) 12/19/2021 1:35 PM EDT Heartburn Gastroesophageal reflux [...] Report (12/19/2021 1:54 PM EDT) Final Diagnosis [id number] ? Location: 4T; 06; A The signing [...] MD Verified: ??12/22/2021 19:35 ??Pathologist Performed at: ??-[facility] Dept. of Pathology, [place], [place] SPECIMEN(S) SUBMITTED A - Duodenum, biopsy [...] labeled B1-B2. ??mnd 12/22/2021 7:35 PM EDT [facility] GI Biopsy 12/19/2021 1:54 PM EDT 12/19/2021 1:54 PM EDT GI Biopsy 12/19/2021 1:54 PM EDT 12/19/2021 1:54 PM EDT López Sosa MD PATHOLOGY/CYTOLOG Y ORDERABLES Performing Organization Address City/[facility]/[place] [address] * Specimen to Pathology (12/19/2021 1:54 PM EDT) AP Specimen 12/19/2021 1:54 PM EDT 12/19/2021 1:54 PM EDT Narrative [facility] - 12/19/2021 1:54 PM EDT Specimen requisition ordered. ??Separate Pathology report to follow López Sosa MD PATHOLOGY/CYTOLOG Y ORDERABLES Performing Organization Address City/[facility]/[place] [address] * Specimen to Pathology (12/19/2021 1:54 PM EDT) AP Specimen 12/19/2021 1:54 PM EDT 12/19/2021 1:54 PM EDT Narrative [facility] - 12/19/2021 1:54 PM EDT Specimen requisition ordered. ??Separate Pathology report to follow López Sosa MD PATHOLOGY/CYTOLOG Y ORDERABLES Performing Organization Address City/[facility]/[place] [address] * UPPER GI ENDOSCOPY (12/19/2021 1:23 PM EDT) UPPER GI ENDOSCOPY [facility] Endoscopy Procedure Date: 12/19/2021 1:23 PM ? Patient Name: Chencho Barrett ? Date of : 1985 ? Age: 35 ? Order #: [id number] ? Instrument Name: [id number] ? Procedure: ? Upper GI endoscopy Indications: ? Epigastric abdominal pain, ? Functional Dyspepsia, Nausea with ? vomiting Patient Profile: ? This is a 35 year old female. Providers: ? López Sosa MD, Mckenzie ? Homer Gordillo, Decatizer Referring MD: ?Nicholas Ba MD, Shweta Lange [...] CRNA) documented in this encounter Care Teams Shoe Folder Relationship Specialty Start Date End Date Shweta Sykes APRN [address] [place] [address] 1 [place] [address] PCP - General Family Medicine 05/28/21 11/01/22 documented as of this encounter
--- OUTSIDE RECORDS SUMMARY | 2024-06-26 16:16 | XMS_ITS | Encounter Summary ---
Author Organization [facility] Address [address] [place] [address] Care Team Providers Care Brisket Puller Name Role Phone Unavailable Primary Care Provider Unavailabl e Encounter Details Date Type Department Care Team (Late st Contact Info) Description 06/26/2005 Results Only [facility] - Map conversion [address] [place] [address] Saran Reece CNM [address] [place], [place] [id number] Social History Tobacco Use Types Packs/Day Years [...] ? TR JULIAN ? Accession #: ? [id number] : ? 1985 (Age: 19) ??F ?Collect Date: ? 06/26/2005 Location: ? [facility] ? Receive Date: ? 06/27/2005 Provider: ?SARAN REECE CNM Copy to: ? Specimen/Source: ?ThinPrep Pap Test, Cervix/Endocervix, processed on [employer] ThinPrep Imaging System, with manual evaluation Last [...] cells, undetermined significance. EDUCATIONAL NOTES/RECOMMENDATI ONS ? [facility] [place] recommends following the 2001 Consensus Guidelines for the Management of Women with Cervical Cytological Abnormalities (ERIKA,2002;287:212 0-9). Management algorithms have been distributed by [facility] [place] and are available online at www.ASCCP.org. ? Document reviewed and electronically signed by: ? BILLY WHITAKER MD ? Report Date: ??07/06/2005 08:16 End of Report [facility] 06/26/2005 06/27/2005 us Saran Reece CNM PATHOLOGY ORDERABLES Final Resul t [facility] [address] [place] [address] documented in this encounter Visit Diagnoses Not on filedocumented in this encounter
--- OUTSIDE RECORDS SUMMARY | 2024-06-26 16:16 | XMS_ITS | Encounter Summary ---
Author Organization [facility] [address] Care Team Providers Care Ssis Developer Name Role Phone Shweta Sykes GERTRUDE Primary Care Provider [phone] Encounter Details Date Type Department Care Team (Late st Contact Info) Description 12/19/2021 1:00 PM EDT Procedure visit Gastroenterology at [facility] [place] [address] Heartburn Social History Tobacco Use Types Packs/Day [...] in place. Following the EGD procedure, the Williamosn pH capsule was deployed with and myself [...] (Williamson) procedure report Patient: Chencho Barrett Address: [address] [address] : 1985 Referring provider: Shweta Sykes Date [...] pH <4 Evidence for pathologic reflux: AET >=5.1% No convincing evidence of pathologic reflux: AET [...] the Lopez Consensus. Gut. 2018 Feb; 67(7): 0667-9181. 2) Validation of the Lopez classification for GORD diagnosis: acid exposure time assessed by prolonged wireless pH monitoring in healthy controls and patients with erosive oesophagitis. Gut. 2020. doi10.1136/gbesmc-7120-724260. Jad Kerr MD, FRCPC Section of Gastroenterology and Hepatology [facility] [place] [address] V: [phone] F: [phone] CC/ETC: Shweta Sykes APRN [address] [place] [address] documented in this encounter Plan of Treatment Not on file documented as of this encounter Visit Diagnoses Diagnosis Heartburn documented in this encounter Care Teams Ssis Developer Relationship Specialty Start Date End Date Shweta Sykes APRN [address] [place] [address] PCP - General Family Medicine 05/28/21 11/01/22 documented as of this encounter
--- OUTSIDE RECORDS SUMMARY | 2024-06-26 16:16 | XMS_ITS | Encounter Summary ---
Author Organization [facility] Address [address] [place] [address] Care Team Providers Care Lead Solutions Architect Name Role Phone Unavailable Primary Care Provider Unavailabl e Encounter Details Date Type Department Care Team (Latest Contact Info) Description 03/06/2006 15:10 EDT Hospital Encounter [facility] - Other [address] [place] [address] Saran Dow CNM [address] [place] [address] Discharge Disposition: Auto Discharge Social History Tobacco [...] indicated. [facility] Report Status Final [id number] [facility] 03/06/2006 11:4 0 EDT 03/13/2006 14:27 EDT Saran Dow CNM MICROBIOLOGY - GENERAL ORDERABLE S Final Result [facility] [address] [place] [address] documented in this encounter Visit Diagnoses Not on filedocumented in this encounter
--- OUTSIDE RECORDS SUMMARY | 2024-06-26 16:16 | XMS_ITS | Encounter Summary ---
Author Organization [facility] [place] [address] Care Team Providers Care Gas Systems Worker Name Role Phone Shweta Sykes GERTRUDE Primary Care Provider [phone] Reason for Referral * Consultation (Routine) - Closed Specialty Diagnoses / Procedures Referred By Nohemi acevedo Referred To Contact Gastroenterology Diagnoses Chronic hepatitis C without hepatic coma Amelie Berrios [facility] [address] [facility] [address] [place] [address] Referral ID Status Reason Start Date Expiration Date V isits Requested Visits Authorized [id number] Closed Consult, Test & Treat 12/20/2021 12/20/2022 1 1 Encounter Details Date Type Department Care Team (Late st Contact Info) Description 12/20/2021 Orders [place] [address] Amelie Berrios [facility] [place] [address] Chronic hepatitis C without hepatic coma Social [...] coma documented in this encounter Care Teams Gas Systems Worker Relationship Specialty Start Date End Date Shweta Sykes APRN [address] [place] [address] [address] [place] [address] PCP - General Family Medicine 05/28/21 11/01/22 documented as of this encounter
--- OUTSIDE RECORDS SUMMARY | 2024-06-26 16:16 | XMS_ITS | Encounter Summary ---
Author Organization [facility] Address [address] [place] [address] Care Team Providers Care Carton Stenciler Name Role Phone Unavailable Primary Care Provider Unavailabl e Encounter Details Date Type Department Care Team (Late st Contact Info) Description 11/29/2008 Orders Only [facility] Laboratory Services - [facility] ([facility] [address] [place] [address] Chacha Avila, [facility] [address] [place] [address] [place] [address] Social History Tobacco Use Types [...] ? TR JULIAN ? Accession #: ? [id number] ? : ? 1985 (Age: 22) ??F ?Collect Date: ? 11/29/2008 ? Location: ? [facility] ? Receive Date: ? 11/30/2008 ? Provider: ?CHACHA SHARRI FEED RESEARCH TECHNICIAN ? Copy to: ? Specimen/Source: ?Pap Test, [...] of Report ? KEYANA THOMAS 11/29/2008 11/30/2008 us Chacha Avila FEED RESEARCH TECHNICIAN PATHOLOGY ORDERABLES Final R esult KEYANA THOMAS [address] [place] [address] documented in this encounter Visit Diagnoses Not on filedocumented in this encounter
--- OUTSIDE RECORDS SUMMARY | 2024-06-26 16:16 | XMS_ITS | Encounter Summary ---
Author Organization [facility] Address [address] [place] [address] Care Team Providers Care Director Of Online Merchandising Name Role Phone Alex Hong MD Primary Care Provider [phone] Encounter Details Date Type Department Care Team (Late st Contact Info) Description 01/17/2023 Specialty Pharmacy [facility] - [address] [id number] Chacha Ba RPH Social History Tobacco Use [...] injection (Sublocade). Treatment information: Prescriber: Ines Tracy AIX ADMINISTRATOR Prescriber Contact Info: [employer] [facility] [phone] Buprenorphine ER (Sublocade) Initial Dose: 300 mg [...] Patient will be administered the medication at [facility]. To contact the clinic call: [phone] Baseline labs: No labs, outside provider No [...] checked ??? Drug-drug interactions identified: Sublocade-Hydroxyzine- increased HEMODIALYSIS TECHNICIAN depression; monitor only, patient has been tolerating [...] may reflect changes made after this encounter. buprenorphine 300 mg/1.5 mL solution, extended rel syringe Inject 1.5 mL into the skin every 28 days. Daily Max: 300 mg hydrOXYzine (ATARAX) 25 mg tablet Take 1 Tablet by mouth 2 times daily as needed. 01/14/2023 added in this encounter Care Teams Director Of Online Merchandising Relationship Specialty Start Date End Date Alex Hong MD PCP - General 12/04/10 documented as of this encounter
--- OUTSIDE RECORDS SUMMARY | 2024-06-26 16:16 | XMS_ITS | Encounter Summary ---
Author Organization [facility] Address [address] [place] [address] Care Team Providers Care Seasonal Delivery Driver Name Role Phone Unavailable Primary Care Provider Unavailabl e Encounter Details Date Type Department Care Team (Late st Contact Info) Description 12/14/2003 Results Only [facility] conversion [address] [place] [address] Chacha Avila, [facility] [address] [place] [address] [place] [address] Social History Tobacco Use Types [...] ? TR JULIAN ? Accession #: ? [id number] : ? 1985 (Age: 17) ??F ?Collect Date: ? 12/14/2003 Location: ? [facility] ? Receive Date: ? 12/15/2003 Provider: ?CHACHA AVILA TRANSACTIONAL PARALEGAL Copy to: ? Specimen/Source: ?ThinPrep Pap Test, [...] End of Report KEYANA THOMAS 12/14/2003 12/15/2003 us Chacha Avila TRANSACTIONAL PARALEGAL PATHOLOGY ORDERABLES Final R esult KEYANA THOMAS [address] [place] [address] documented in this encounter Visit Diagnoses Not on filedocumented in this encounter
--- OUTSIDE RECORDS SUMMARY | 2024-06-26 16:16 | XMS_ITS | Encounter Summary ---
Author Organization [facility] Address [address] [place] [address] Care Team Providers Care Hammerer Helper Name Role Phone Unavailable Primary Care Provider Unavailabl e Encounter Details Date Type Department Care Team (Latest Contact Info) Description 09/18/2005 19:01 EST Hospital Encounter [facility] - Other [address] [place] [address] [place] [address] Discharge Disposition: Home or Self Care Social [...]
--- OUTSIDE RECORDS SUMMARY | 2024-06-26 16:16 | XMS_ITS | Encounter Summary ---
Author Organization [facility] Address [address] [place] [address] Care Team Providers Care Coupon Redemption Clerk Name Role Phone Alex Hong MD Primary Care Provider [phone] Encounter Details Date Type Department Care Team (Late st Contact Info) Description 01/17/[address] [facility] Ambulatory Pharmacy - [facility] [address] [place], [place] [id number] Chacha Ba RPH Social History Tobacco Use [...] - 01/17/2023 0858 EDT Prescription Receipt by [facility] Date Received: 01/15/23 Medication: Sublocade 300mg / 1.5ml syringe Sent by: [facility]: Amna Provider: [facility] Phone number: [phone] Benefits Investigation Results: PA needed Comments: Request faxed Prescription copy available in scans: YES Relevant clinical documents in scans (if applicable): Routed to appropriate Pharmacist: YES [facility] Specialty Pharmacy: [phone] documented in this encounter Plan of Treatment Not on file documented as of this encounter Visit Diagnoses Not on filedocumented in this encounter Care Teams Coupon Redemption Clerk Relationship Specialty Start Date End Date Alex Hong MD PCP - General 12/04/10 documented as of this encounter
--- OUTSIDE RECORDS SUMMARY | 2024-06-26 16:16 | XMS_ITS | Encounter Summary ---
Author Organization [facility] Address [address] [place] [address] Care Team Providers Care Liberal Arts And Humanities Chair Name Role Phone Barrington Bhatia MD Primary Care Provider [phone] Encounter Details Date Type Department Care Team (Late st Contact Info) Description 02/11/2013 Results Only [facility] Laboratory Services - [facility] ([facility]) [address] [place] [address] Valentina Green, MASON Social History Tobacco Use [...] ? TR JULIAN ? Accession #: ? [id number] ? : ? 1985 (Age: 27) ??F ?Collect Date: ? 02/11/2013 ? Location: ? [facility] ? Receive Date: ? 02/12/2013 ? Provider: VALENTINA GREEN ORIENTATION & MOBILITY SPECIALIST Copy to: BARRINGTON BHATIA MD ? Final [...] types 16,18,31,33,35, 39,45,51,52,56,58, 59,66, and 68 by charter driver mediated amplification. Comments Document reviewed and electronically signed by: ? System Interface ? Report date: 02/23/2013 By the signature above, the attending physician certifies that he/she has personally conducted a gross and/or microscopic examination of the described specimens and rendered or confirmed the above diagnosis. End of Report [facility] 02/11/2013 02/12/2013 us Valentina Green ORIENTATION & MOBILITY SPECIALIST PATHOLOGY ORDERABLES Final Re sult [facility] [address] [place] [address] documented in this encounter Visit Diagnoses Not on filedocumented in this encounter Care Teams Liberal Arts And Humanities Chair Relationship Specialty Start Date End Date Barrington Bhatia MD PCP - General 12/04/10 documented as of this encounter
--- OUTSIDE RECORDS SUMMARY | 2024-06-26 16:16 | XMS_ITS | Encounter Summary ---
Author Organization [facility] Address [address] [place] [address] Care Team Providers Care Miller Kiln Dried Salt Name Role Phone Alex Hong MD Primary Care Provider [phone] Encounter Details Date Type Department Care Team (Late st Contact Info) Description 11/08/2022 Lab Requisition [facility] Pathology & Laboratory Medicine - [address] [address] Outr Resulting Lab, Provider Social History Tobacco [...] IGA <1.2 <4.0 U/mL 11/13/2022 11:[address] [facility] Comment: A negative result may be due to IgA deficiency and does not rule out celiac disease. ? Negative: ??<4.0 U/mL ? Weak Positive: ??4.0 - 10.0 U/mL ? Positive: ??>10.0 U/mL Results were obtained with the [employer] QUANTA Lite R h-tTG IgA DUSTIN assay on the [employer] DSX. IgA 168 85 - 499 mg/dL 11/13/2022 11:[address] [facility] Celiac Disease Interpretation Negative Serology. Celiac disease unlikely. Approximately 10% of patients with celiac disease are seronegative. Patients who are already adhering to a gluten-free diet may also be seronegative. If celiac disease is highly clinically suspected, referral to gastroenterology for additional evaluation is recommended. 11/13/2022 11:[address] [facility] Blood VENOUS BLOOD / Unknown 11/08/2022 14:03 EDT 11/08/2022 21:39 EDT us Provider Outr Resulting Lab IMMUNOLOGY AND SEROL OGY ORDERABLES Final Result [facility] [address] [place] [address] documented in this encounter Visit Diagnoses Not on filedocumented in this encounter Care Teams Miller Kiln Dried Salt Relationship Specialty Start Date End Date Alex Hong MD PCP - General 12/04/10 documented as of this encounter
--- OUTSIDE RECORDS SUMMARY | 2024-06-26 16:16 | XMS_ITS | Encounter Summary ---
Author Organization [facility] [place] [address] Care Team Providers Care Nurse Ortho Name Role Phone Unknown Primary Care Provider Unavailabl e Encounter Details Date Type Department Care Team (Late st Contact Info) Description 10/19/2016 Telephone Obstetrics [place] [address] Madeleine Aquino MD [facility] DR OBSTETRICS & [place] [address] Social History Tobacco Use Types Packs/Day Years [...] Call Elena from the Methadone clinic in [facility] called to confirm Chencho's last dose. Reported that it was 60mg at [facility] yesterday morning. MADELEINE AQUINO MD PGY4 10/19/2016 documented in this encounter Plan of Treatment Not on file documented as of this encounter Visit Diagnoses Not on filedocumented in this encounter Care Teams Nurse Ortho Relationship Specialty Start Date End Date Unknown None PCP - General 10/03/16 05/27/21 documented as of this encounter
--- OUTSIDE RECORDS SUMMARY | 2024-06-26 16:16 | XMS_ITS | Encounter Summary ---
Author Organization [facility] Address [address] [place] [address] Care Team Providers Care Contract Administration Manager Name Role Phone Unavailable Primary Care Provider Unavailabl e Encounter Details Date Type Department Care Team (Late st Contact Info) Description 10/02/2007 Results Only [facility] - Map conversion [address] [place] [address] Chacha Avila, [facility] [address] [place] [address] [place] [address] Social History Tobacco Use Types [...] ? TR JULIAN ? Accession #: ? [id number] : ? 1985 (Age: 21) ??F ?Collect Date: ? 10/02/2007 Location: ? [facility] ? Receive Date: ? 10/02/2007 Provider: ?CHACHA AVILA FILLER WIPER Copy to: ? Specimen/Source: ?ThinPrep Pap Test, Cervix/Endocervix, processed on [employer] ThinPrep Imaging System, with manual evaluation Last [...] reviewed and electronically signed by: ? NITHYA Ward(ASCP) ? Report Date: ??10/07/2007 10:38 End of Report [facility] 10/02/2007 10/02/2007 us Chacha Avila FILLER WIPER PATHOLOGY ORDERABLES Final R esult [facility] [address] [place] [address] documented in this encounter Visit Diagnoses Not on filedocumented in this encounter
--- OUTSIDE RECORDS SUMMARY | 2024-06-26 16:16 | XMS_ITS | Clinical Summary ---
Author Organization [facility] Address One [facility] [place] [address] Care Team Providers Care Program Support Assistant Name Role Phone Kendrick Aranda DNP Primary Care Provider Allergies No known active allergies Medications Medication Sig Dispensed Refills Start Date End Date Status Gfmyghectrizz-Ze-Bhfw -Minerals 27-0.4 mg Tablet Take by mouth. [...] (11/26/2014): Had a free US at a [facility], does not know if measurements were done. She did not truly receive care. She does not know the date of her LMP but that it occurred in June when she was in [place]. Assessment & Plan (11/26/2014 5:41 PM EDT): The patient states she essentially had no care until 19 weeks. She states shehHad a free US at a latter-day clinic in [place] and just a picture was taken. She does not know if measurements were done. She states she told the latter-day that her LMP was in June when [...] referral locally for an intake with a [facility]. As no medication, other than [...] Hepatitis B vaccine (0-59 yrs) (1) 2004 Tetanus/Diphtheria/Pertussis Vaccines (1 - Tdap) 12/30 HPV test 12/31/2015 PAP Smear 12/31/2015 Covid-19 Vaccine (1 - season) 2024 Influenza (Flu) vaccine (1 o f 1 - Influenza standard series) 04/05/2024 10/18/2016 Advance Directives * Full Code (Latest Code Status on File) Date Activated Date Inactivated Comments 10/15/2016 1:48 PM 10/18/2016 7:15 PM Question Answer Comments Does patient have capacity to make decision: Yes Care Teams Program Support Assistant Relationship Specialty Start Date End Date Kendrick Aranda DNP [address] [place] [id number] PCP - General Family Medicine 11/02/22
--- OUTSIDE RECORDS SUMMARY | 2024-06-26 16:16 | XMS_ITS | Encounter Summary ---
Author Organization Health system Address [address] [place] [address] Care Team Providers Care Bill Peddler Name Role Phone [place] Jameslily Brandy SENIOR LOSS CONTROL SPECIALIST Primary Care Provider + Encounter Details Date Type Department Care Team (Late st Contact Info) Description 09/29/2010 Results Only [facility] - [facility] ([facility]) [address] [place], [place] [id number] [place] [address] [place] [address],[address] [place] [address] Social History Tobacco Use Types [...] ? TR JULIAN ? Accession #: ? [id number] ? : ? 1985 (Age: 24) ??F [...] 10:37 ? End of Report ? [facility] 09/29/2010 10/02/2010 us Roshan Mendez MD PATHOLOGY ORDERABLES Final Re sult [facility] [address] [place] [address] * SURGICAL PATHOLOGY (09/29/2010 0:00 EST) Pathology Report: SURGICAL PATHOLOGY REPORT ? Reports generated via electronic interface contain original data; ? however they are lacking the format of the original report. ? Caution should be taken when reading/interpreting unformatted reports. ? Name: ? TR JULIAN ? Accession #: ? [id number] ? : ? 1985 (Age: 24) ??F [...] 0.2 x 0.1 cm, ?? submitted in toto as (A). ? Received in formalin labelled Tr Julian and endocervix is a 0.8 x 0.8 x ?? 0.3 cm aggregate of blood-tinged mucus admixed with scant, moore-red tissue ? fragments. ??The specimen is entirely submitted as (B). (Anisa Cormier)/cjh ? End of Report ? [facility] 09/29/2010 09/30/2010 9:1 8 EST us Roshan Mendez MD PATHOLOGY ORDERABLES Final Re sult [facility] [address] [place] [address] documented in this encounter Visit Diagnoses Not on filedocumented in this encounter Care Teams Bill Peddler Relationship Specialty Start Date End Date Mary Phan, SENIOR LOSS CONTROL SPECIALIST [address] [place], [place] [id number] PCP - General 07/04/10 12/03/10 documented as of this encounter
--- OUTSIDE RECORDS SUMMARY | 2024-06-26 16:16 | XMS_ITS ---
Author Organization [facility] Address [address] [place] [address] Care Team Providers Care Speech And Language Tutor Name Role Phone Alex Hong MD Primary Care Provider [phone] Other Conditions Status:Discharged (Closed) Start date:01/17/2023 Enrollment date:01/17/2023 End date:02/21/2023 Continued Care and Services Coordination
--- OUTSIDE RECORDS SUMMARY | 2024-06-26 16:16 | XMS_ITS | Encounter Summary ---
Author Organization [facility] Address [address] [place] [address] Care Team Providers Care Manufacturing Management Associate Name Role Phone Barrington Bhatia MD Primary Care Provider [phone] Encounter Details Date Type Department Care Team (Late st Contact Info) Description 12/10/2011 Results Only [facility] - [facility] ([facility]) [address] [place], [place] [id number] [place] [address] [place] [address],[address] [place] [address] Social History Tobacco Use Types [...] ? TR JULIAN ? Accession #: ? [id number] ? : ? 1985 (Age: 25) ??F [...] signed by: ? NITHYA Ward(ASCP) ? Report ??Date: 12/17/2011 11:12 HPV with Pap Test ? Date Ordered: ? 12/17/2011 ? Status: ?? Signed Out ?Date Complete: ? 12/20/2011 ? By: ??System Interface ? Date Reported: ? 12/20/2011 ? Interpretation RESULT: Negative for HPV. No E6 or E7 mRNA is detected from HPV types 16,18,31,33,35, 39,45,51,52,56,58, 59,66, and 68 by cylinder handler mediated amplification. Comments Document reviewed and electronically signed by: ? System Interface ? Report date: 12/20/2011 By the signature above, the attending physician certifies that he/she has personally conducted a gross and/or microscopic examination of the described specimens and rendered or confirmed the above diagnosis. End of Report [facility] 12/10/2011 12/11/2011 us Roshan Mendez MD PATHOLOGY ORDERABLES Final Re sult [facility] [address] [place] [address] * SURGICAL PATHOLOGY (12/10/2011 0:00 EDT) Pathology Report: SURGICAL PATHOLOGY REPORT Reports generated via electronic interface contain original data; however they are lacking the format of the original report. Caution should be taken when reading/interpreti ng unformatted reports. Name: ? TR JULIAN ? Accession #: ? [id number] ? : ? 1985 (Age: 25) ??F [...] filtration. ??(Darlene Brown)/sebastian End of Report [facility] 12/10/2011 12/10/2011 8:2 3 EDT us Roshan Mendez MD PATHOLOGY ORDERABLES Final Re sult [facility] [address] [place] [address] documented in this encounter Visit Diagnoses Not on filedocumented in this encounter Care Teams Manufacturing Management Associate Relationship Specialty Start Date End Date Barrington Bhatia MD PCP - General 12/04/10 documented as of this encounter
--- OUTSIDE RECORDS SUMMARY | 2024-06-26 16:16 | XMS_ITS | Encounter Summary ---
Author Organization [facility] Address [address] [place] [address] Care Team Providers Care Putty Mixer And Applier Name Role Phone Alex Hong MD Primary Care Provider [phone] Encounter Details Date Type Department Care Team (Late st Contact Info) Description 05/23/2021 Lab Requisition [facility] Pathology & Laboratory Medicine - [address] [address] Outr Resulting Lab, Provider Social History Tobacco [...] HCV RNA DETECT QUANT (05/23/2021 11:35 EDT) Pathologist [facility] HCV RNA Qualitative Undetected Undetected 05/25/2021 14:44 EDT [facility] Blood VENOUS BLOOD / Unknown 05/23/2021 11:35 EDT 05/23/2021 16:51 EDT Narrative [facility] - 05/25/2021 14:44 EDT New platform in use 02/27/2021 The quantification range of this assay is 15 IU/mL to 100,000,000 IU/mL. Testing was performed using the Alek HCV test ([employer] with the alek [employer] System. us Provider Outr Resulting Lab CHEMISTRY & BLOOD GA S ORDERABLES Final Result Performing Organization Address [facility] de Phone Number [facility] [address] [place] [address] * HEPATITIS B SURFACE ANTIBODY (05/23/2021 11:35 EDT) Pathologist [facility] Hep B Surface Ab, Quantitative 18.4 See Note mIU/mL 05/24/2021 10:54 EDT [facility] Comment: Reference Range for Hep B Surface Ab, Quant: Positive: >= 10.0 mIU/mL Negative: ??< 10.0 mIU/mL Patient is presumed to be immune to infection with Hepatitis B Virus. Hep B Surface Ab, Qualitative Positive See Note 05/24/2021 10:54 EDT [facility] Comment: Reference Range for Hep B Surface Ab, Qual: Unvaccinated: ??Negative Vaccinated: ??Positive Blood VENOUS BLOOD / Unknown 05/23/2021 11:35 EDT 05/23/2021 16:51 EDT us Provider Outr Resulting Lab CHEMISTRY & BLOOD GA S ORDERABLES Final Result Performing Organization Address [facility] de Phone Number [facility] [address] [place] [address] * HEPATITIS B CORE ANTIBODY (TOTAL) (05/23/2021 11:35 EDT) Hepatitis B Core Ab, Total Negative Negative 05/24/2021 12:05 EDT [facility] Blood VENOUS BLOOD / Unknown 05/23/2021 11:35 EDT 05/23/2021 16:51 EDT us Provider Outr Resulting Lab CHEMISTRY & BLOOD GA S ORDERABLES Final Result Performing Organization Address City/[facility]/ZIP Co de Phone Number [facility] [address] [place] [address] * HEPATITIS B SURFACE ANTIGEN (05/23/2021 11:35 EDT) Pathologist [facility] Hep B Surface Ag Negative Negative 05/24/2021 11:00 EDT [facility] Blood VENOUS BLOOD / Unknown 05/23/2021 11:35 EDT 05/23/2021 16:51 EDT us Provider Outr Resulting Lab CHEMISTRY & BLOOD GA S ORDERABLES Final Result Performing Organization Address [facility] Co de Phone Number [facility] [address] [place] [address] * (ABNORMAL) HEPATITIS C AB W REFLEX TO HCV RNA BY PCR (05/23/2021 11:35 EDT) Pathologist [facility] Hep C Antibody Reactive(A ) Negative 05/24/2021 11:13 EDT [facility] Comment: Supplemental testing for HCV RNA is ordered to rule out active HCV infection. Blood VENOUS BLOOD / Unknown 05/23/2021 11:35 EDT 05/23/2021 16:51 EDT us Provider Outr Resulting Lab CHEMISTRY & BLOOD GA S ORDERABLES Final Result Performing Organization Address [facility] Co de Phone Number [facility] [address] [place] [address] * HEPATITIS A TOTAL ANTIBODY W REFLEX (05/23/2021 11:35 EDT) Hepatitis A Antibody, Total Negative Negative 05/24/2021 11:59 EDT [facility] Blood VENOUS BLOOD / Unknown 05/23/2021 11:35 EDT 05/23/2021 16:51 EDT Narrative [facility] - 05/24/2021 11:59 EDT The result of this assay can be falsely elevated (Positive) due to the consumption of Biotin. us Provider Outr Resulting Lab CHEMISTRY & BLOOD GA S ORDERABLES Final Result [facility] [address] [place] [address] documented in this encounter Visit Diagnoses Not on filedocumented in this encounter Care Teams Putty Mixer And Applier Relationship Specialty Start Date End Date Alex Hong MD PCP - General 12/04/10 documented as of this encounter
--- OUTSIDE RECORDS SUMMARY | 2024-06-26 16:16 | XMS_ITS | Encounter Summary ---
Author Organization [facility] Address [facility] [place] [address] Care Team Providers Care Assayer Name Role Phone Shweta Sykes GERTRUDE Primary Care Provider [phone] Reason for Referral * Consultation (Routine) - [...] present Amelie Berrios APRN [facility] [place] [address] [facility] [address] [place] [address] Referral ID Status Reason Start Date Expiration Date V isits Requested Visits Authorized [id number] Closed Consult, Test & Treat 06/28/2021 06/28/2022 1 1 Reason for Visit * Consultation (Routine) - Closed Specialty Diagnoses / Procedures Referred By Nohemi acevedo Referred To Contact Gastroenterology Diagnoses Unspecified abdominal pain abd pain Nicholas Ba MD [address] [place] [phone] [facility] [address] [place] [address] Referral ID Status Reason Start Date Expiration Date V isits Requested Visits Authorized [id number] Closed Consult, Test & Treat [facility] PCP Updated and/or Approved 05/17/2021 06/21/2021 6 6 Encounter Details Date Type Department Care Team (Latest Contact Info) Description 06/28/2021 8:00 AM EST Office [place] [address] Amelie Berrios APRN [facility] [place] [address] Heartburn; Gastroesophageal reflux disease, unspecified [...] not hear from us within 1-2 weeks: [phone]. Please note: given the ongoing COVID-19 pandemic, [...] Berrios APRN Department of Gastroenterology and Hepatology [facility] Here is some information on the [...] disease, or Ulcerative colitis. Also if the hand pattern marker sees any polyps, they will be removed [...] CPC + David Meyers MD, MAGALIE Christian Rose APRN + Jenni Lopez APRN + Amelie Berrios APRN [facility] What are functional bowel disorders? These are the most common type of gastrointestinal disorders in the [facility] ??? The most common functional bowel disorder in the [facility] is irritable bowel syndrome (IBS) ??? Irritable [...] what is the impact? 15-20% of general [place] population has IBS or FD or both ??? 2nd most common cause for lost work days (after common cold) in [place] ??? Estimated $30 billion dollar cost to [place] economy per year ??? These disorders can [...] patients withimmediate onset of symptoms after infection); snf symptoms are expected in most patients however [...] to you primary care provider and/or local hand pattern marker and share this document. Treatment of functional [...] this approach benefits most patients ??? OTC (rrrt-unc-oxecjhh) medications can be used for ongoing bothersome symptoms as listed below ??? Your provider (PCP or local Gastroenterology provider or [facility] Gastroenterology provider) may decide to use prescription [...] All-Bran psyllium buds, Metamucil, Konsyl, bulk psyllium ([employer] stores and bulk stores) ??? Specifically we [...] convincing medical evidence is still lacking ??? Plqe-xvl-mcphenf supplements including probiotics are not typically evaluated [...] to decrease antibiotic-associated diarrhea and antibiotic-related infections Udec-lay-Hyiczse Medications for Functional Gut Disorders Based on [...] a stool softener that is safe for snf usage (no risk of dependency)and the dosage [...] ??? Often a combination of anti-nausea medications (svix-gyk-ziisqma or prescription) works better than high doses [...] for misuse/misinterpretation of this information Patient Resources [place] [employer] https://www.gastro.org/practice-guidance/hp-gitfemc-dyyzbm/ topic/pyacqript-robwu-zckxolst-ibs Badgut.org https://badgut.org/information-centre/q-s-sroszdixq-topics/ibs/ AboutIBS.org https://www.aboutibs.org/ Uptodate.com https://www.uptodate.com/contents/hpwjoznvc-islbh-xrkoyzlb-jbpxzc-akn-cbtnhl documented in this encounter Progress Notes * [...] omeprazole works well BM: every 3 days Morrison: bristol 1-2, BRBPR (increasing frequency), melena, Unable [...] by mouth daily. 14 each 0 ??? Vzjrmoczfurmt-Zb-Atgn-Minerals 27-0.4 mg Tablet Take by mouth. ??? [...] has a past surgical history that includes [place] tooth extraction and section (10/15/2016). Family History: [...] office visit: 15 minutes Amelie Berrios APRN [facility] [place] [address] documented in this encounter Plan of Treatment [...] stool documented in this encounter Care Teams Assayer Relationship Specialty Start Date End Date Shweta Sykes APRN [address] [place] [address] PCP - General Family Medicine 05/28/21 11/01/22 documented as of this encounter
--- OUTSIDE RECORDS SUMMARY | 2024-06-26 16:16 | XMS_ITS | Encounter Summary ---
Author Organization [facility] Address [address] [place] [address] Care Team Providers Care Dry Ice Maker Name Role Phone Unavailable Primary Care Provider Unavailabl e Encounter Details Date Type Department Care Team (Late st Contact Info) Description 02/06/2007 Results Only [facility] - Map conversion [address] [place] [address] Chacha Avila, [facility] [address] [place] [address] Social History Tobacco Use Types [...] cancers. [facility] Report Status Final [id number] [facility] 02/06/2007 10:1 0 EDT 02/18/2007 22:05 EDT Chacha Avila PACKAGE LIFT OPERATOR MICROBIOLOGY - GENERAL ORDER ELIZABETH Final Result [facility] [address] [place] [address] * CYTOPATHOLOGY (02/06/2007 0:00 EDT) Pathology Report: CYTOPATHOLOGY REPORT Reports generated via electronic interface contain original data; however they are lacking the format of the original report. Caution should be taken when reading/interpreti ng unformatted reports. Name: ? TR JULIAN ? Accession #: ? [id number] : ? 1985 (Age: 21) ??F ?Collect Date: ? 02/06/2007 Location: ? [facility] ? Receive Date: ? 02/07/2007 Provider: ?CHACHA AVILA PACKAGE LIFT OPERATOR Copy to: ? Specimen/Source: ?ThinPrep Pap Test, Cervix/Endocervix, processed on Networked [employer] ThinPrep Imaging System, with manual evaluation Last Menstrual Period: ? 01/27/07 Other: ? HPVA - HPV testing requested if ASC-US on the current ThinPrep Pap test. ? SPECIMEN ADEQUACY ? Satisfactory for Evaluation - transformation zone component present GENERAL CATEGORIZATION ? Epithelial Cell Abnormality INTERPRETATION ? Squamous Cell Abnormality - Atypical squamous cells, undetermined significance (ASC-US). EDUCATIONAL NOTES/RECOMMENDATI ONS ? [facility] recommends following the 2001 Consensus Guidelines for the Management of Women with Cervical Cytological Abnormalities (ERIKA,2002;287:212 0-9). Management algorithms have been distributed by [facility] and are available online at www.ASCCP.org. ? Document reviewed and electronically signed by: ? Melissa Stewart MD ? Report Date: ??02/17/2007 16:07 End of Report [facility] 02/06/2007 02/07/2007 us Chacha Avila PACKAGE LIFT OPERATOR PATHOLOGY ORDERABLES Final R esult [facility] [address] [place] [address] documented in this encounter Visit Diagnoses Not on filedocumented in this encounter
--- OUTSIDE RECORDS SUMMARY | 2024-06-26 16:16 | XMS_ITS | Encounter Summary ---
Author Organization [facility] Address [facility] [place] [address] Care Team Providers Care Communications Analyst Name Role Phone Shweta Sykes GERTRUDE Primary Care Provider [phone] Encounter Details Date Type Department Care Team (Late st Contact Info) Description 12/19/2021 12:08 PM EDT - 12/19/2021 2:38 PM EDT Hospital Encounter [place] [phone] López Sosa MD [facility] [place] [address] Discharge Disposition: Home Social History Tobacco Use [...] the day after the procedure, use an oagb-voq-hnuvuab spray to numb your throat. Sucking on [...] occurs, please contact your Doctor. Please call [phone] before 8pm Mon-Fri with problems, questions or concerns. If you call after 8pm or on weekends, call the Hospital at [phone] and ask to speak to the Record Clerk security operations analyst and the cryptographic machine operator will contact that person for [...] any problems. Where can you learn more? [facility] View your After Visit Summary and more online at [email or web address] If you would like to provide feedback about your hospital experience, please call the Office of Patient and Family Relations at . If you have received this After Visit Summary in error, please immediately return it in person to the department, or notify the [facility] Privacy Office by calling toll free at between the hours of 8AM and 5PM to arrange for our retrieval of the documents at no cost to you. Content Version: 12.2 ?? [phone] [employer]. Care instructions adapted under license by [facility]. If you have questions about a medical condition or this instruction, always ask your healthcare professional. [employer] disclaims any warranty or liability for your [...] g by mouth daily. 14 each 10/18/2016 Canyelkqnzudy-Vt-Pwht-Mi nerals 27-0.4 mg Tablet Take by mouth. [...] complication. Informed Consent signed by patient (or manufacturer's representative). documented in this encounter Plan of [...] per rectum) Melena Upper Gi Endoscopy, Biopsy (32659) 12/19/2021 1:35 PM EDT Heartburn Gastroesophageal reflux [...] Report (12/19/2021 1:54 PM EDT) Final Diagnosis [id number] ? Location: 4T; EA06; A The signing [...] MD Verified: ??12/22/2021 19:35 ??Pathologist Performed at: ??-[facility] Dept. of Pathology, [place], [place] SPECIMEN(S) SUBMITTED A - Duodenum, biopsy [...] B1-B2. ??mnd 12/22/2021 7:35 PM EDT [facility] GI Biopsy 12/19/2021 1:54 PM EDT 12/19/2021 1:54 PM EDT GI Biopsy 12/19/2021 1:54 PM EDT 12/19/2021 1:54 PM EDT López Sosa MD PATHOLOGY/[place] [address] * Specimen to Pathology (12/19/2021 1:54 PM EDT) AP Specimen 12/19/2021 1:54 PM EDT 12/19/2021 1:[address] [facility] - 12/19/2021 1:54 PM EDT Specimen requisition ordered. ??Separate Pathology report to follow López Sosa MD PATHOLOGY/CYTOLOG Y ORDERABLES Performing Organization Address City/[facility]/[place] [address] * Specimen to Pathology (12/19/2021 1:54 PM EDT) AP Specimen 12/19/2021 1:54 PM EDT 12/19/2021 1:[address] [facility] - 12/19/2021 1:54 PM EDT Specimen requisition ordered. ??Separate Pathology report to follow López Sosa MD PATHOLOGY/CYTOLOG Y ORDERABLES Performing Organization Address City/[facility]/[place] [address] * UPPER GI ENDOSCOPY (12/19/2021 1:23 PM EDT) UPPER GI ENDOSCOPY [facility] Endoscopy Procedure Date: 12/19/2021 1:23 PM ? Patient Name: Chencho Barrett ? Date of : 1985 ? Age: 35 ? Order #: [id number] ? Instrument Name: [id number] ? Procedure: ? Upper GI endoscopy Indications: ? Epigastric abdominal pain, ? Functional Dyspepsia, Nausea with ? vomiting Patient Profile: ? This is a 35 year old female. Providers: ? López Sosa MD, Mckenzie ? Homer Gordillo, Medical Bill Processor Referring MD: ?Nicholas Ba MD, Shweta Lange ? Imperio Requesting Provider: ?? Amelie Beriros Medicines: ? Monitored Anesthesia Care Complications: ? [...] CRNA) documented in this encounter Care Teams Communications Analyst Relationship Specialty Start Date End Date Shweta Sykes APRN [address] [place] [address] PCP - General Family Medicine 05/28/21 11/01/22 documented as of this encounter
--- OUTSIDE RECORDS SUMMARY | 2024-06-26 16:16 | XMS_ITS | Encounter Summary ---
Author Organization [facility] Address [address] [place] [address] Care Team Providers Care Building Analyst/Supervisor Name Role Phone Alex Hong MD Primary Care Provider [phone] Encounter Details Date Type Department Care Team (Late st Contact Info) Description 04/20/2022 Lab Requisition [facility] Pathology & Laboratory Medicine - [address] [address] Outr Resulting Lab, Provider Social History Tobacco [...] 4th Generation Negative Negative 04/22/2022 13:55 EDT [facility] Comment:If acute HIV-1 infec tion is suspected in a high risk patient, submit plasma specimen for HIV-1 RNA quantitation test. Blood VENOUS BLOOD / Unknown 04/20/2022 9:35 EDT 04/20/2022 19:01 EDT Narrative [facility] - 04/22/2022 13:55 EDT Fourth Generation assay performed on the Siemens Centaur XPT. us Provider Outr Resulting Lab IMMUNOLOGY AND SEROL OGY ORDERABLES Final Result [facility] [address] [place] [address] documented in this encounter Visit Diagnoses Not on filedocumented in this encounter Care Teams Building Analyst/Supervisor Relationship Specialty Start Date End Date Alex Hong MD PCP - General 12/04/10 documented as of this encounter
--- OUTSIDE RECORDS SUMMARY | 2024-06-26 16:16 | XMS_ITS | Encounter Summary ---
Author Organization [facility] Address [address] [place] [address] Care Team Providers Care Magnetic Prospecting Operator Name Role Phone Barrington Bhatia MD Primary Care Provider [phone] Encounter Details Date Type Department Care Team (Late st Contact Info) Description 10/10/2018 Results Only [facility] [phone] Braxton Newman, DO [address] [place], [place] [id number] Social History Tobacco Use Types Packs/Day Years [...] ? TR JULIAN ? Accession #: ? [id number] ? : ? 1985 (Age: 32) ??F [...] (ASCP) 10/13/2018 7:42 AM End of Report [facility] 10/10/2018 18:3 2 EST 10/10/2018 18:32 EST us Barxton Newman DO PATHOLOGY ORDERABLES Final Re sult [facility] [address] [place] [address] documented in this encounter Visit Diagnoses Not on filedocumented in this encounter Care Teams Magnetic Prospecting Operator Relationship Specialty Start Date End Date Barrington Bhatia MD PCP - General 12/04/10 documented as of this encounter
--- OUTSIDE RECORDS SUMMARY | 2024-06-26 16:16 | XMS_ITS | Encounter Summary ---
Author Organization [facility] Address [address] [place] [address] Care Team Providers Care Academic Associate Name Role Phone Alex Hong MD Primary Care Provider [phone] Encounter Details Date Type Department Care Team (Late st Contact Info) Description 11/13/2017 Results Only [facility] [phone] Blanca Cottrell, GERTRUDE [address] [place] [address] Social History Tobacco Use Types Packs/Day Years [...] Chlamydia Result Negative 11/15/19 18 15:31 EDT [facility] Comment: This test was developed and its performance characteristics determined by [facility]. It has not been cleared [...] samples. GC Result Negative 11/14/2017 15:31 EDT [facility] Comment: This test was developed and its performance characteristics determined by [facility]. It has not been cleared [...] 21:37 EDT Blanca Cottrell APRN MICROBIOLOGY - GENERAL ORDERA BLES Final Result [facility] [address] [place] [address] documented in this encounter Visit Diagnoses Not on filedocumented in this encounter Care Teams Academic Associate Relationship Specialty Start Date End Date Alex Hong MD PCP - General 12/04/10 documented as of this encounter
--- OUTSIDE RECORDS SUMMARY | 2024-06-26 16:16 | XMS_ITS | Encounter Summary ---
Author Organization [facility] [place] [address] Care Team Providers Care English As A Second Language Teacher Name Role Phone Shweta Sykes APRN Primary Care Provider [phone] Encounter Details Date Type Department Care Team (Late st Contact Info) Description 11/30/2021 Telephone Gastroenterology at [facility] [place] [address] Stuart Torres Social History Tobacco Use Types [...] Miscellaneous Notes * Telephone Encounter - Stuart Torrse - 11/30/2021 1:12 PM EDTSummary: GI Telehealth [...] on filedocumented in this encounter Care Teams English As A Second Language Teacher Relationship Specialty Start Date End Date Shweta Sykes APRN [address] [place], [place] [address] PCP - General Family Medicine 05/28/21 11/01/22 documented as of this encounter
--- OUTSIDE RECORDS SUMMARY | 2024-06-26 16:17 | XMS_ITS | Encounter Summary ---
Author Organization [facility] Address [facility] [place] [address] Care Team Providers Care Transmission System Operator Name Role Phone Unknown Primary Care Provider Unavailabl e Encounter Details Date Type Department Care Team (Latest Contact Info) Description 10/15/2016 9:46 AM EDT - 10/15/2016 10:29 AM EDT Hospital Encounter Laboratory [facility] [place] [address] Discharge Disposition: Home Social History Tobacco Use [...] g by mouth daily. 14 each 10/18/2016 Ahlmvxmkvcvkn-Ly-Tgls-M inerals 27-0.4 mg Tablet Take by mouth. [...] Report (10/15/2016 9:55 AM EDT) Final Diagnosis [id number] ?Location: [facility] The signing pathologist has (i) [...] parenchyma. (R5) ??ZOEY 10/23/2016 1:55 PM EDT [facility] TISSUE SPECIMEN FROM PLACENTA / Unknown 10/15/2016 9:55 AM EDT 10/15/2016 9:55 AM EDT Won Kilpatrick MD PATHOLOGY/CYTOLOGY O RDERASALLY [facility] [place] [address] documented in this encounter Visit Diagnoses Not on filedocumented in this encounter Care Teams Transmission System Operator Relationship Specialty Start Date End Date Unknown None PCP - General 10/03/16 05/27/21 documented as of this encounter
--- OUTSIDE RECORDS SUMMARY | 2024-06-26 16:17 | XMS_ITS | Encounter Summary ---
Author Organization [facility] [place] [address] Care Team Providers Care Telemetry Rn Name Role Phone Adelaida Dawson GERTRUDE Primary Care Provider [phone] Reason for Visit * Reason Comments GI Problem Encounter Details Date Type Department Care Team (Late st Contact Info) Description 05/20/2015 1:00 PM EDT Office [place] [address] Sylvia You APRN [facility] [place] [address] Hepatitis C virus infection without hepatic coma, [...] months ago, and has been going to [facility] for the past 7 months. She gave to a baby boy, Zoroastrianism, 3 months ago and she states the period has beendifficult because the baby has colic and she does not feel well. She is living with her mother but does not have much help with the baby as she feels like she is the only one who can calm him. She has not seen her Ob-Licensed Sales Producer since giving . She does not know [...] You APRN Medication Sig Dispense Refill ??? Mutmuvzphfzxw-Bk-Sdnm-Minerals 27-0.4 mg Tablet Take by mouth. ??? [...] WBC: 10.53 Platelets: 230 HCV viral load: [id number] IU/mL 12/23/14: HCV viral load: [id number] Procedure: Vibration Controlled Transient Elastography (VCTE) or Fibroscan Adin Protocol: Patient's identity, procedure and site were [...] CMP). Encouraged patient to schedule appointment with Ob-GELATIN POWDER MIXER for post- follow up and make time for herself and accept help for caring for her . The patient was given my contact information and will call me with concerns or questions Sylvia You NP Department of Gastroenterology and Hepatology [place] [phone] of this 60 minute visit in face to face discussion regarding disease, prognosis and treatment CC: ADELAIDA DAWSON APRN (General) documented in this encounter Plan of Treatment Not on file documented as of this encounter Visit Diagnoses Diagnosis Hepatitis C virus infection without hepatic coma, unspecified chronicity documented in this encounter Care Teams Telemetry Rn Relationship Specialty Start Date End Date Adelaida Dawson APRN [address] [place] [address] PCP - General 06/27/10 10/02/16 documented as of this encounter
--- OUTSIDE RECORDS SUMMARY | 2024-06-26 16:17 | XMS_ITS | Encounter Summary ---
Author Organization [facility] Address [facility] [place] [address] Care Team Providers Care High Speed Printer Operator Name Role Phone Zack Sanchez APRN Primary Care Provider [phone] Encounter Details Date Type Department Care Team (Latest Contact Info) Description 11/26/2014 1:45 PM EDT - 11/26/2014 11:59 PM EDT Hospital Encounter Ultrasound at [facility] [place] [address] Supervision of high risk in second trimester [...] ? pm) Patient Info ID #: ? [id number] ?: ??[birth year] (28 yrs) Name: ? TR JULIAN ?Visit Date: 11/26/2014 03:53 pm Performed By Performed By: ?Chacha Almonte RDMS Attending: ? Juanita STRONG, Shankar Barth Referred By: ? KALANI REECE CNM Service(s) Provided ??[facility] - Targeted Morphology - Genetics - ? [id number] ??[id number] Indications ??Hx OF STRESS SEIZURES, METHADONE USE, [...] Outflow Tract: ?Visualized Aortic Arch: ?Visualized Cardiac Kingman: ? Visualized 3 Vessel View: ?Visualized Diaphragm: [...] 11/26/2014 04:39 pm) Patient Info ID #: [id number] : [birth year] (28 yrs) Name: TR JULIAN Visit Date: 11/26/2014 03:53 pm Performed By Performed By: Chacha Almonte RDMS Attending: Shankar Grant MD Referred By: KALANI REECE [facility] Service(s) Provided [facility] - Targeted Morphology - Genetics - [id number] Indications Hx OF STRESS SEIZURES, METHADONE USE, [...] Outflow Tract: Visualized Aortic Arch: Visualized Cardiac Kingman: Visualized 3 Vessel View: Visualized Diaphragm: Visualized [...] 11/26/2014 04:39 pm E Tania Lopez MD [facility] OB ORDERAB LES documented in this encounter Visit Diagnoses Diagnosis Supervision of high risk in second trimester Unspecified high-risk documented in this encounter Care Teams High Speed Printer Operator Relationship Specialty Start Date End Date Zack Sanchez APRN [address] [place] [address] PCP - General 06/27/10 10/02/16 documented as of this encounter
--- OUTSIDE RECORDS SUMMARY | 2024-06-26 16:17 | XMS_ITS | Encounter Summary ---
Author Organization [facility] [place] [address] Care Team Providers Care Customer Data Technician Name Role Phone Zack Sanchez APRN Primary Care Provider [phone] Encounter Details Date Type Department Care Team (Latest Contact Info) Description 11/26/2014 2:15 PM EDT Initial consult Obstetrics [place] [address] Shankar Grant MD [facility] DR OBSTETRICS [place] [address] Substance abuse; Rubella non-immune status, antepartum; Depression; [...] on an undocumented ultrasound performed at a [facility] in [place]. She is at 26w6d weeks gestation. She [...] Past Surgical History Procedure Laterality Date ??? Dike tooth extraction No family history on file. [...] 72.122 kg (159 lb) BMI 27.28 kg/m2 [facility] (Approximate) Weight - Scale: 72.122 kg (159 lb) General: in no apparent distress Abdomen: abdomen is soft without significant tenderness, masses, organomegaly or guarding. Neurologic:alert, oriented, normal speech, no focal findings or movement disorder noted Psychiatric: Affect is agitated Uterine Size: S=D FHR: normal Assessment and Recommendations: 28 y.o. year old female at 26w6d weeks gestation referred for counseling secondary to [facility] medical issues.. Please refer to my problem [...] referral locally [facility]. As no medication, other than lithium, has worked for her in the past, I had nothing to offer today. Late care The patient states she essentially had no care until 19 weeks. She states shehHad a free US at a [facility] in [place] and just a picture was taken. She does not know if measurements weredone. She states she told the confucianism that her LMP was in June when [...] MS Professor Obstetrics & Gynecology and Radiology [facility] 11/26/2014 documented in this encounter Miscellaneous Notes [...] states shehHad a free US at a [facility] in [place] and just a picture was taken. She does not know if measurements weredone. She states she told the confucianism that her LMP was in June when she was in [facility] and they told her she was already [...] referral locally [facility] an [facility]. As no medication, other than lithium, has [...] chronicity documented in this encounter Care Teams Customer Data Technician Relationship Specialty Start Date End Date Zack Sanchez APRN [address] [place] [address] PCP - General 06/27/10 10/02/16 documented as of this encounter
--- OUTSIDE RECORDS SUMMARY | 2024-06-26 16:17 | XMS_ITS | Encounter Summary ---
Author Organization [facility] [place] [address] Care Team Providers Care Medical Services Manager Name Role Phone Zack Sanchez APRN Primary Care Provider [phone] Encounter Details Date Type Department Care Team (Late st Contact Info) Description 06/26/2016 Tele[place] [phone] Clare Boss Social History Tobacco Use Types [...] on filedocumented in this encounter Care Teams Medical Services Manager Relationship Specialty Start Date End Date Zack Sanchez APRN [address] [place], [place] [address] PCP - General 06/27/10 10/02/16 documented as of this encounter
--- OUTSIDE RECORDS SUMMARY | 2024-06-26 16:17 | XMS_ITS | Encounter Summary ---
Author Organization [facility] [place] [address] Care Team Providers Care Wafer Fab Technician Name Role Phone Unknown Primary Care Provider Unavailabl e Reason for Visit * Auth/Cert Specialty Diagnoses / Procedures Referred By Contac t Referred To Contact Diagnoses care following delivery S/P , 26 WEEK GESTATION Procedures EMERGENCY IPI Referral ID Status Reason Start Date Expiration Date Visits Re quested Visits Authorized [id number] 1 1 Encounter Details Date Type Department Care Team (Latest Contact Info) Description 10/15/2016 10:30 AM EDT - 10/18/2016 5:15 PM EDT [place] [address] Tania Sandy MD [facility] [address] [place] [address] Afsaneh Raymond MD [facility] [place] [address] Discharge Disposition: Home Social History Tobacco Use [...] Chencho Barrett Patient Age: 30 y.o. Language: Ukrainian Race: White Ethnicity: Not nor Admit date: 10/15/2016 Discharge date and time: 10/18/2016 Attending Physician: Tania Sandy MD Discharge Physician: Dipak Stephens MD Care Provider: [facility] Referring Hospital: [facility] Follow-up Recommendations for Providers: 6 wk routine Psych follow up with [facility] Inpatient Provider Contact Information: [facility] EARTH BORING MACHINE OPERATOR Department, Discharge Diagnoses (Hospital Problems) and Secondary [...] 60 mg daily: meds and counseling at [facility] - Hepatitis C pos - Hx depression; [...] They recommended that she be started on Dix 300 mg HS. This was started while inpatient and efforts were made on the part of case management and the OB team to obtain psychiatry follow-up. She was placed on a waiting list with [facility] for follow up. She was not discharged with Dix due to unknown/unclear follow up plan, but [...] needed for Pain. 55 mg Refills: 0 Wobcrwspannfn-Rp-Lnrm-Minerals 27-0.4 mg Tab Take by mouth. Refills: [...] Depression Contact Numbers: If you see an mixed animal veterinarian call: [phone] 9 am - 5 pm, after 5 pm If you see a lamp assembler call: [phone] all hours If you see a family practitioner call: [phone] all hours If you were transferred to our institution for delivery and cannot reach your local OB provider, call the mixed animal veterinarian numbers. Pain Control: - Alternate 650 mg [...] coffee grounds or cat litter. General Instructions [facility] Mental Health, Substance Abuse, and Developmental Services Residential Treatment [address] Call [phone] for a confidential assessment 211 and Safe Station: Your Connection to Recovery You can dial 2-1 from anywhere in [place] and be connected to a life skills coach who will help you connect to the appropriate treatment. You can also go to any one of the fire stations in [place] and [facility], now designated as ???Safe Stations?? , a place where you can walk in, from anywhere in [place] 25/02, and get connected with substance use treatment services. [facility] Safe Stations Central Fire Station: [address] --- Station 2: [address] Station 3: [address] --- Station 4: [address] Station 5: [address] --- Station 6: [address] Station 7: [address]--- Station 8: [address] Station 9: [address]--- Station 10: [address] [facility] Safe Stations Station 1: [address] --- Station 2: [address] --- Station 3: [address] Station 4: [address] --- Station 5: [address] -- Station 6: [address] Station 7: [address] Additional Resources http://nhtreatment.org/ http://www.[facility].gov/sites/default/files/documents//adap_treatmen t_recovery_directory.pdf http://health[facility]mont.gov/alcohol-drugs http://www.psychologytoday.com/ http://www.[facility].org/wp-content/uploads//Consumer_Guide_to_Substa nce_Use_Treatment_2015version.pdf Discharge References/Attachments None documented in this encounter Discharge Instructions * Discharge Instructions* Ana Bruno RN - 10/18/2016 4:20 PM EDT [facility] Mental Health, Substance Abuse, and Developmental Services Residential Treatment [address] Call [phone] for a confidential assessment 211 and Safe Station: Your Connection to Recovery You can dial 2-1-1 from anywhere in [place] and be connected to a life skills coach who will help you connect to the appropriate treatment. You can also go to any one of the fire stations in [place] and [facility], now designated as ???Safe Stations?? , a place where you can walk in, from anywhere in [place] 25/02, and get connected with substance use treatment services. [facility] Safe Stations Central Fire Station: [address] --- Station 2: [address] Station 3: [address] --- Station 4: [address] Station 5: [address] --- Station 6: [address] Station 7: [address]--- Station 8: [address] [facility] Station 9: [address]--- Station 10: [address] [facility] Safe Stations Station 1: [address] --- Station 2: [address] --- Station 3: [address] Station 4: [address] --- Station 5: [address] -- Station 6: [address] Station 7: [address] Additional Resources http://nhtreatment.org/ http://www.health[facility].gov/sites/default/files/documents//adap_treatmen t_recovery_directory.pdf http://healthvermont.gov/alcohol-drugs http://www.psychologytoday.com/ http://www.[facility].org/wp-content/uploads//Consumer_Guide_to_Substa nce_Use_Treatment_2015version.pdf Nursing Inpatient Progress C - Section Follow-up Follow-ups: You should receive a follow-up appointment notification from [facility] for a six week post- visit. Immunizations [...] this in detail. Call your doctor or lamp assembler for: ??? Fever more than 100.5 ??? [...] follow up appointment. You may call the [facility] at any time for guidance or for answers to questions that come up prior to you follow up appointment. Your [facility] Provider can be reached during office hours at ??? Midwives ??? Obstetricians ??? [facility] Follow-up Clinic AFTER OFFICE HOURS for the mixed animal veterinarian or lamp assembler transfer station operator Provider electronic signature confirms that discharge instructions [...] Depression Contact Numbers: If you see an mixed animal veterinarian call: [phone] 9 am - 5 pm, after 5 pm If you see a lamp assembler call: [phone] all hours If you see a family practitioner call: [phone] all hours If you were transferred to our institution for delivery and cannot reach your local OB provider, call the mixed animal veterinarian numbers. Pain Control: - Alternate 650 mg [...] g by mouth daily. 14 each 10/18/2016 Xihthxkgkrxkt-Uw-Jfod-M inerals 27-0.4 mg Tablet Take by mouth. [...] the [facility] S: The patient continues to complain of cough and abdominal discomfort with coughing, but states this is improved today. Pain is moderately well controlled on PO pain meds. Donor milk/forumla for nutrition. Ambulating without weakness/dizziness, tolerating a regular [...] passive suicidal ideations on admission; previously on Dix - Psych consulted - Started on Dix 300 HS on POD#1 - Psych will [...] CS Doing well Routine care Depression restarted Dix by psychiatry Opioid dependence on Methadone Plans nexplanon AFSANEH RAYMOND MD * Bree Potter, FISHER WEIR - 10/17/2016 4:40 PM EDT Social Work [...] her finance/FOB Homer has come up from [place] and was able to visit the baby, who shehas now named Gonzalez, yesterday. Homer has told Chencho that he wants to bring their older son, Bahai, back to [place] with him so that Chencho can focus on the baby and go to inpatient substance abuse treatment if needed. Chencho has some reservations about this, namely being from [place]. Chencho reports that her family has become aware of her recent drug use and has not received this well. Chencho is worried about the negative consequences as a result of this. Specifically, she reportsthat her mother is no longer willing to let Chencho use her vehicle, which Chencho had been planning to use to commute back and forth to [facility] if needed after her discharge. She has concerns about her ability to access her methadone and also spend time with her baby; She worries that her home clinic will not permit her to guest dose in [place] due to her illicit substance use. Chencho also shares that her sister wrote an eight page letter about Chencho that she intends to deliver to [facility], noting that her sister is trying to have the [place] taken away from [place]. Chencho's learning and development officer, David Steiner, called this afternoon requesting [...] with Chencho that DCF worker Paul Kwan ([phone]) had called this afternoonindicating that he would be conducting a child safety assessment based on the report made yesterdayby this Tracing Lathe Set Up Operator. Chencho is anxious to speak with him to find out what DCF will be recommending for tr eatment. Encouraged Chencho to reach out directly to Paul rather than waiting for him to call her. Chencho is anticipating being discharged from the tomorrow. She intends to go home following discharge and go to [facility] on Saturday morning, where she will talk to them about the possibility of guest dosing at [facility] in [place] beginning next week so that she can stay at [facility] to be near jeyson Roth. Chencho plans to stay at home until Homer and Bahai leave for [place], which Chencho anticipates will be on Saturday. Plan: MONICA will continue to follow through infant's ICN admission for ongoing assessment, support, and discharge planning. MENDEZ Valdes Pager: [phone] * Kailey Lay MD - 10/17/2016 6:03 AM EDT Delivery Note Patient ID: Chencho Barrett is a 30 y.o. year old who is postop day #2 after pLTCS at 26w2d gestation for breech presentation in the setting [facility] S: The patient continues to complain of [...] passive suicidal ideations on admission; previously on Dix - Psych consult yesterday - Started on Dix 300 HS on POD#1 - Psych will [...] CS Doing well Routine care Depression restarted Dix by psychiatry Opioid dependence on Methadone Plans nexplanon AFSANEH RAYMOND MD * Jenni Fajardo MD - 10/16/2016 6:23 AM EDT Delivery Note Patient ID: Chencho Barrett is a 30 y.o. year old who is postop day #1 after pLTCS at 26w2d gestation for breech presentation in the setting of labor [facility] S: The patient complains of cough and [...] passive suicidal ideations on admission; previously on Dix - will consult psych today Opiate dependence [...] 60 mg daily: meds and counseling at [facility] - Hepatitis C pos - Hx depression; [...] Medication Sig Dispense Refill Last Dose ??? Gkcildsobkwtk-Rx-Wqns-Minerals 27-0.4 mg Tablet Take by mouth. Taking [...] 30 y.o. who presents as transport from [facility] after pLTCS; she presents due to transport of her baby. ?? Routine care ?? Depression; active suicidal ideations: ?? Will consult psych ?? Desires Nexplanon for contraception ?? Homer eligible; will consent and place prior to discharge This patient was seen and discussed with Dr. Sandy, Attending EARTH BORING MACHINE OPERATOR. Kailey Lay MD 10/15/2016 Associated attestation - Tania Sandy MD - 10/15/2016 2:17 PM EDT I have seen the patient and reviewed the resident's above history and I agree with the details as written. The assessment and plan were formulated in discussion with me and I agree with them as documented. 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 [...] verify methadone dose. Continue routine PP care. in ICN. Tania Sandy MD documented in this encounter Procedure Notes * Kailey Lay MD - 10/18/2016 3:07 PM EDTProcedure(s): JOMAR JENKINS Pre-Procedure Diagnose(s): Encounter for insertion subdermal contraceptive Post-Procedure Diagnose(s): Encounter for insertion subdermal contraceptive Procedure Note 10/18/2016 Preoperative diagnosis: Desires halfway contraception Postoperative diagnosis: Same HPI: Chencho Barrett is a 30 y.o. who is POD#3 from pLTCS who desires buttermaker helper contraception. The risks and benefits of a [...] and myselffollowing the procedure. Nexplanon Lot #: [id number] Assessment/Plan: Chencho Barrett is a 30 y.o. [...] some rest before her visitor arrived. This consumer loan underwriter willtry and meet with the patient later. Chencho met with Nickolas Ulloa RN (please see note) yesterday regarding substance use resources. Antoni Fischer APRN Pager #[phone] * Med Student Progress Note - Mathew Hodges - 10/17/2016 7:01 AM EDT Patient Name: Chencho Barrett Patient Age: 30 y.o. Birthdate: 1985 Admit date: 10/15/2016 Attending Physician: Tania Sandy MD Delivery Note Patient ID: Chencho Barrett is [...] was seen and discussed on rounds. Mathew [place] Medical Student 10/17/2016 * Plan of Care [...] support. She is currently receiving treatment at [facility], which includes Methadone assisted group and individual therapy, which she plans to continue. She reports receiving mental health services with [facility] in the past and plans to contact them for re-intake. Ms Barrett is also considering the need for residential treatment and plans to contact [facility] for intake instructions. She is aware that bed availability in residential treatment programs are limited. She was encouraged to dial [facility] for access to a life skills coach and more immediate access to appropriate treatment-resources given. She was also encouraged to access [facility] and the Safe Station program for immediate access to treatment, 25/02, as a relapse prevention plan. Additional treatment resources given for review and placed in her discharge summary. [facility] Mental Health, Substance Abuse, and Developmental Services [address] Call [phone] for a confidential assessment Assessment: Ms Barrett is a 30-year-old woman admitted with labor, now s/p . History of emotionaltrauma, anxiety, depression, SI, heroin and cocaine use. Endorses depressed mood and anxiety. No acute safety concerns. Plans to abstain from heroin and cocaine use with continuing clinical support. She is currently receiving treatment at [facility], which includes Methadone assisted group and individual therapy, which sheplans to continue. Plans to restart mental health services with [facility]. Considering the need for residential treatment and plans to contact [facility] for intake instructions. Encouraged to contact [facility] for access to a life skills coach and more immediate access to appropriate treatment and as a relapse prevention plan-resources given. Additional treatment resources given for review and placed in her discharge summary. Plan: 1. Patient plans to maintain abstinence from heroin and cocaine with ongoing clinical support. 2. Patient plans to continue to receive Methadone assisted therapy at [facility]. 3. Patient plans to restart mental health services at [facility]. 4. Patient is considering residential treatment and plans to contact [facility] for intake instructions. 5. Patient encouraged to access [facility] and [facility] for immediate access to recovery coaching and appropriate treatment and as 25/02 relapse prevention plan. 6. Patient plans to review additional treatment resources as needed. Nickolas Pool RN BIT pager #[phone] * Consult Note - Antoni Fischer APRN [...] well as a history of depression. This consumer loan underwriter reviewed the patient's chart and spoke to her primary nurse. This consumer loan underwriter introduced self and role to Chencho [...] she woke up with a bump. #Depression Chencho describes having a history of depression and endorses exacerbated symptoms. She states that she feels like it has taken over life to the point where she has a hard time engaging in self care and is unable to motivate herself to do anything. She does endorse low energy, however this may also be due her current medical situation. As relayed above, Chencho endorses a tremendous amount of guiltfor her [...] hypervigilent and cautious around others. #Psychoes No PENDING SALE TO [facility] Psychiatric Review of Systems: Sustained Depressed Mood: [...] assessed, saw a psychiatrist and counselors at [facility] a few years ago. Suicide attempts: States that a few weeks ago she was driving and closed her eyes and increased the speed, but immediately opened her eyes and thought what am I doing and pulled over to the side of the road. Past psychiatric medications (include dose, length of use, response, reason for stopping): Dix- seemed to work the best Xanax Prozac Zoloft Celexa Seroquel Wellbutrin Remeron Ritalin Substance Use History/Treatment: Addiction started 9 years ago Heroin is substance of choice- has not used in 9 months Recent cocaine use Smokes marijuana frequently Currently enrolled in [facility] program where she receives her methadone as [...] Cardiovascular: Respiratory: No SOB or cough GI: /BABY NURSE (include LMP if applicable): Lafleur removed, voiding on own Endocrine: Musculoskeletal: Integumentary: No rashes, redness observed Neurological: No dizziness or headache Hematologic/Lymphatic: No bleeding or bruising observed Allergic/Immunologic: NKA Psychiatric: See above Social History: Originally from [place], moved to [place] months before returning to [place]. Mother, father, brother, and sister are all [...] in the past with a prescriber from [facility]. Of all the trials, Chencho has relayed that she felt the most stable while she was on Dix. Since this is a medication that has worked for the patient in the past and she has confirmed that she will not be , it is recommended to restart the medication at a low dose while she is admitted. Dix can be useful in patient's who have [...] to attend an inpatient rehab program. This consumer loan underwriter will plan to have Nickolas Ulloa RN part of the BIT team meet with the patient to review resources. Diagnosis: [place] I : Depressive Disorder Unspecified, Anxiety Disorder Unspecified [place] II : Borderline Personality Disorder (per patient report) [place] III : Patient Active Problem List Diagnosis Code ??? Substance abuse F19.10 ??? Cigarette smoker F17.210 ??? Late care O09.30 ??? Rubella non-immune status, antepartum O99.89, Z28.3 ??? Depression F32.9 ??? Hepatitis C B19.20 ??? care following delivery Z39.2 [place] IV : Psychosocial stressors Plan/Recommendations: 1) Start Dix 300mg QHS 2) Will have Nickolas Ulloa RN meet with the patient for [place] to provide substance use resources 3) Psychiatry CL will continue to follow the patient during admission Recommendations were communicated to primary steam shovelman Dr. Lay. Coding Determination Complexity of MDM [...] CPT CODE PF PF Straightforward 3200 / 67092 EPF EPF Straightforward 3210 / 07994 D D Low 3220 / 04207 C C Moderate x 3230 / 10469 C C High 3240 / 06033 * Initial Assessments - Bree Potter MSW [...] environment. Chencho's mother is currently caring for Bahai while Chencho remains inpatient on the . Chencho reports that she hopes to eventually re locate with her children to [place], where her fivivi/FOB Homer Rodriguez resides. Homer is the father to her new baby and to Bahai. Chencho has a 10 year old daughter, [...] and from her counselor, Kiara, at the [facility] in [facility]. Chencho also reports having a good relationship with her learning and development officer, David, who works at the [facility] [employer] office. Chencho feels that [facility], where juani Coronel resides, is a betterenvironment for herself and her children and hopes to eventually relocate there. Chencho is currently unemployed. She receives [employer] and intends to apply for WIC. Homer is employed radio time sales supervisor for [employer] in [place] and sends money to Chencho each week. [...] with MAT/Suboxone through a private physician in [place], where he resides. Chencho has struggled with substance use for the last ~9 years and has received both inpatient and outpatient care throughout that time. She and Homer met three years ago in a transitional living home in [place], [place] after both completed inpatient treatment. Chencho has been engaged in MAT/methadone at [facility] since her with her older son, although not consistently. She reports a very good/supportive [facility]. Despite this, she has continued to use cocaine and THC during and feels that her illicit use is connected with her mental health difficulties, which she reports have worsened in the recent weeks. Her GILDARDO on admission to the [facility] was +THC and Cocaine, in addition to her prescribed methadone and opiates that were given during . Other Pertinent/Service Specific Information: DCF report will be made due to maternal substance useand other psychosocial concerns. Chencho is aware. Health/Prescription Coverage: Primary Insurance: [place] Medicaid Secondary Insurance: None Prescription Coverage: Yes Preferred Pharmacy: [facility] in [place] Other: None Primary Care Provider: Dr. Hong at [facility] in [facility] Patient/Caregiver Goals of Treatment: For a healthy baby Potential Needs for Transition of Care: Rehab/SNF: No Home Health: No DME: No Dialysis: No Community Resources: [facility], [facility], Probation involved. Provided info re: [facility], [facility], and possibility of guest dosing at [facility]. Transportation: Private car Other: None Anticipated Barriers to Discharge/Special Considerations: None Plan: A member of the Care Management team will continue to monitor progress, follow for continuityof care and assist with transition of care planning. MENDEZ ARREAGA Pager: [phone] * Plan of Care - Janis Limon [...] OUTCOME EVALUATION NOTE: OUTCOME SUMMARY: PPT from [facility]. VSS, incision WNL, fundus firm, lochia light. [...] Blood Cell 15.1(H) 4.0 - 9.5 x10(3)/[facility] Red Blood Cell 3.33(L) 4.00 - [...] RDW Standard Deviation 46.0 37.0 - 46.0 [facility] RDW coefficient of variation 14.6(H) 11.5 - 14.1 % [facility] Mean Platelet Volume 10.2 7.6 - 12.9 [facility] NRBC% auto 0.0 % [facility] NRBC Absolute 0.000 0.000 - 0.000 x10(3)/mc L [facility] Blood specimen (specimen) 10/16/2016 8:45 AM EDT 10/16/2016 8:51 AM EDT Narrative Resulting Agency Comment Spec In Lab Tania Sandy MD HEMATOLOGY ORDERABLE S Performing Organization Address City/State/[facility] Co de Phone Number [place] [place] [address] * Opiate, Urine Quantitative (10/16/2016 6:45 AM [...] developed and its performance characteristics ?determined by [facility] in a manner consistent with CLIA ?requirements. This test has not been cleared or approved by ?the U.S. Food and Drug Administration. ?Test Performed by: ?[facility] - [address] ?[address] [place] [address] [facility] Urine specimen (specimen) 10/16/2016 6:45 AM EDT 10/16/2016 8:27 AM EDT Narrative Resulting Agency Comment Spec In Lab Malvin Gregorio MD URINE ORDERABLES [facility] [address] * Methadone, Urine Confirmation (10/16/2016 6:45 AM EDT) U Meth Conf Test ?Result ? Flag ??Unit ?? RefValue ------- Methadone Confirmation, U ??EDDP-by GC-MS ? 4319 ? ng/mL ??Cutoff: 100 ??Methadone-by GC-MS ?302 ?ng/mL ??Cutoff: 100 ??Methadone Interpretation ?Positive. ? ---ADDITIONAL INFORMATION------- ?This test was developed and its performance characteristics ?determined by [facility] in a manner consistent with CLIA ?requirements. This test has not been cleared or approved by ?the U.S. Food and Drug Administration. ?Test Performed by: ?[facility] - [facility] ?[address] [place] [address] [facility] Urine specimen (specimen) 10/16/2016 6:45 AM EDT 10/16/2016 8:27 AM EDT Narrative Resulting Agency Comment Spec In Lab Malvin Gregorio MD URINE ORDERABLES [facility] [place] [address] * THC (Marijuana), Urine Confirmation (10/16/2016 6:45 [...] developed and its performance characteristics ?determined by [facility] in a manner consistent with CLIA ?requirements. This test has not been cleared or approved by ?the U.S. Food and Drug Administration. ?Test Performed by: ?[facility] [employer] [facility] ?[address] [place], [place] [id number] [place] [address] LABORATORY Urine specimen (specimen) 10/16/2016 6:45 AM EDT 10/16/2016 8:27 AM EDT Narrative Resulting Agency Comment Spec In Lab Malvin Gregorio MD LAB SEND OUT ORDER ELIZABETH [facility] [place] [address] * Cocaine, Urine Confirmation (10/16/2016 6:45 AM [...] developed and its performance characteristics ?determined by [facility] in a manner consistent with CLIA ?requirements. This test has not been cleared or approved by ?the U.S. Food and Drug Administration. ?Test Performed by: ?[facility] [employer] - [address] ?[address] [place], [place] [id number] [place] [address] LABORATORY Urine specimen (specimen) 10/16/2016 6:45 AM EDT 10/16/2016 8:27 AM EDT Narrative Resulting Agency Comment Spec In Lab Malvin Gregorio MD LAB SEND OUT ORDER ELIZABETH [facility] [place] [address] * (ABNORMAL) Rapid Drug Screen, Urine with Confirm (10/16/2016 6:45 AM EDT) GILDARDO Marijuana Metabolites Screen Presumptive Pos(A) None Detected [facility] Comment: The marijuana metabolites screen detects the THC Metabolite (66-xnc-7-carboxy-delta 9-THC) at concentrations >50 ng/mL. Qualitative Drug [...] substances can occur. Not for Medico-Legal Purposes. GILDRADO Adulterants Screen None Detected None Detected [facility] [...] Sandy MD URINE ORDERABLES [facility] [address] * ABORH Recheck Status (10/16/2016 6:30 AM EDT) ABORH Recheck Order Order Placed [facility] ABORH Type Recheck Complete [facility] Blood specimen (specimen) 10/16/2016 6:30 AM EDT 10/16/2016 6:44 AM EDT Narrative Resulting Agency Comment Spec In Lab Tania Sandy MD BLOOD BANK LAB ORDER ELIZABETH Performing Organization Address City/[facility]/ZIP Co de Phone Number [facility] [place] [address] * Antibody screen (10/16/2016 6:30 AM EDT) Ab Screen Interp Negative [facility] Expires at [id number] on: 10/19/2016 [facility] Blood specimen (specimen) 10/16/2016 6:30 AM EDT 10/16/2016 6:44 AM EDT Narrative Resulting Agency Comment Spec In Lab Tania Sandy MD BLOOD BANK LAB ORDER ELIZABETH Performing Organization Address City/[facility]/ZIP Co de Phone Number [facility] [place] [address] * ABO/Rh Typing (10/16/2016 6:30 AM EDT) ABORH Type B Pos [facility] Blood specimen (specimen) 10/16/2016 6:30 AM EDT 10/16/2016 6:44 AM EDT Narrative Resulting Agency Comment Spec In Lab Tania Sandy MD BLOOD BANK [place] [address] documented in this encounter Visit Diagnoses Diagnosis [...] Name of patient's Methadone clinic? [facility], Methadone clinic phone: , Date last [...] Name of patient's Methadone clinic? [facility], Methadone clinic phone: , Date last [...] Provider: Vidhya Ramirez, RN)[phone] (Given - Provider: Janis Limon, RN) 0102 (Given - Provider: Janis [...] Routine documented in this encounter Care Teams Wafer Fab Technician Relationship Specialty Start Date End Date Unknown None PCP - General 10/03/16 05/27/21 documented as of this encounter
--- OUTSIDE RECORDS SUMMARY | 2024-06-26 16:17 | XMS_ITS | Encounter Summary ---
Author Organization Formerly [facility] [place] [address] Care Team Providers Care Planishing Press Operator Name Role Phone Zack Sanchez APRN Primary Care Provider [phone] Reason for Visit * Reason Onset Date Comments Other 11/23/2014 Encounter Details Date Type Department Care Team (Late st Contact Info) Description 11/23/2014 Telephone Obstetrics [place] [address] Destiney Lopez MD [facility] [address] [place] [address] Other Social History Tobacco Use Types Packs/Day [...] ? pm) Patient Info ID #: ? [id number] ?: ??[birth year] (28 yrs) Name: ? TR JULIAN ?Visit Date: 11/26/2014 03:53 pm Performed By Performed By: ?Suzy BECERRA, Chacha Attending: ? Juanita STRONG, Shankar Barth Referred By: ? KALANI REECE CNM Service(s) Provided ??[facility] - Targeted Morphology - Genetics - ? [id number] ??[id number] Indications ??Hx OF STRESS SEIZURES, METHADONE USE, [...] Outflow Tract: ?Visualized Aortic Arch: ?Visualized Cardiac [place]: ? Visualized 3 Vessel View: ?Visualized Diaphragm: [...] 11/26/2014 04:39 pm) Patient Info ID #: [id number] : [birth year] (28 yrs) Name: TR JULIAN Visit Date: 11/26/2014 03:53 pm Performed By Performed By: Chacha Almonte RDMS Attending: Shankar Grant MD Referred By: KALANI REECE [facility] Service(s) Provided [facility] - Targeted Morphology - Genetics - [id number] Indications Hx OF STRESS SEIZURES, METHADONE USE, HEP C; D - One Week Evaluation Num Of Fetuses: 1 Heart 153 Rate(bpm): Cardiac Activity: Observed, normal rhythm Presentation: Cephalic Placenta: Posterior P. Cord Insertion: Within Normal Limits Amniotic Fluid IGNACOI FV: Appropriate for gestational age IGNACIO Sum: [...] Outflow Tract: Visualized Aortic Arch: Visualized Cardiac [place]: Visualized 3 Vessel View: Visualized Diaphragm: Visualized [...] high-risk documented in this encounter Care Teams Planishing Press Operator Relationship Specialty Start Date End Date Zack Sanchez APRN [address] [place] [address] PCP - General 06/27/10 10/02/16 documented as of this encounter
[2024-06-26 21:23] LABS: ALT 28 U/L (14-59); AST 20 U/L (15-37); Albumin 3.9 g/dL (3.4-5.0); Alkaline Phosphatase 108 U/L (46-116); Anion Gap 8.3 mmol/L (3-11); BUN 15 mg/dL (7-18); Bilirubin, Total 0.35 mg/dL (0.2-1.0); CO2 30.7 mmol/L (21.0-32.0); CREATININE 0.9 mg/dL (0.55-1.02); Calcium 9.5 mg/dL (8.5-10.1); Chloride 103 mmol/L (98-107); Estimated GFR 83.92 (mL/min/1.73m2); Glucose 82 mg/dL (74-106); Potassium 4.5 mmol/L (3.5-5.1); Sodium 142 mmol/L (136-145); Total Protein 7.5 g/dL (6.4-8.2); Uric Acid 4.3 mg/dL (2.6-6.0)
[2024-06-26 21:25] LABS: C-Reactive Protein < 0.50 mg/dL (<or=0.5)
[2024-06-29 09:18] LABS: Lyme Ab w Rflx to Lyme Confirm Negative (Negative)
[2024-06-29 13:58] LABS: ANA Interpretation Negative (Negative)
[2024-07-01 09:32] LABS: Anaplasma phagocytophilum Negative (Negative); B. miyamotoi PCR Negative (Negative); Babesia divergens/MO-1 Negative (Negative); Babesia duncani Negative (Negative); Babesia microti Negative (Negative); Ehrlichia chaffeensis Negative (Negative); Ehrlichia ewingii/canis Negative (Negative); Ehrlichia muris eauclairensis Negative (Negative)
== END 2024-06-26 16:14 | disposition home or self-care (01) ==
LOC: LBN 16:13
PROVIDERS: PCP Nurse Practitioner Family; Visit Provider Nurse Practitioner Family
DX: R10.30 Lower abdominal pain, unspecified (principal); M25.511 Pain in right shoulder; M25.512 Pain in left shoulder
CPT/HCPCS: 80053; 87798; 84550; 86038; 86140; 86618

== ENCOUNTER 2024-07-01 01:14 | Outpatient (CLI) | payer MEDICAID, SELFPAY ==
--- NOTE | 2024-07-01 13:04 | DI.RAD_ITS ---
Exam(s) XR SHOULDER LT COMPLETE 2+V EXAM: XR SHOULDER LT COMPLETE 2+V CLINICAL HISTORY: worsening pain x 6 months, erika shoulders, M25.511, M25.512. TECHNIQUE: 2D digital imaging was performed of the left shoulder. Five images were obtained. AP, G rashey, Y-view and axillary views were obtained. COMPARISON: No exams were available for comparison FINDINGS: BONES: No acute fracture is present. No bony destructive lesion is seen. JOINTS: No dislocation present. The glenohumeral and acromioclavicular joints are unremarkable. SOFT TISSUE: Normal. IMPRESSION: Unremarkable radiographs of the left shoulder. DATA REPOSITORY: RADIATION DOSE DELIVERED:
--- NOTE | 2024-07-01 13:04 | DI.RAD_ITS ---
Exam(s) XR SHOULDER RT COMPLETE 2+V EXAM: XR SHOULDER RT COMPLETE 2+V CLINICAL HISTORY: worsening pain erika shoulder, M25.511, M25.512. TECHNIQUE: 2D digital imaging was performed of the right shoulder. Five images were obtained. AP, Grashey, Y-view and axillary views were obtained. COMPARISON: No exams were available for comparison FINDINGS: BONES: No acute fracture is present. No bony destructive lesion is seen. JOINTS: No dislocation present. The acromioclavicular and glenohumeral joints are well maintained. SOFT TISSUE: Normal. IMPRESSION: Unremarkable radiographs of the right shoulder. DATA REPOSITORY: RADIATION DOSE DELIVERED:
== END 2024-07-01 01:34 ==
LOC: DI 01:14
PROVIDERS: PCP Nurse Practitioner Family; Visit Provider Nurse Practitioner Family
DX: M25.511 Pain in right shoulder (principal); M25.512 Pain in left shoulder
CPT/HCPCS: 73030

== ENCOUNTER 2024-07-01 13:10 | Outpatient (CLI) | payer MEDICAID, SELFPAY ==
--- OUTSIDE RECORDS SUMMARY | 2024-07-01 13:13 | XMS_ITS | Encounter Summary ---
Author Organization [facility] Address [address] [place] [address] Care Team Providers Care Ore Crusher Name Role Phone Alex Hong MD Primary Care Provider [phone] Encounter Details Date Type Department Care Team (Late st Contact Info) Description 04/20/2022 Lab Requisition [facility] Pathology & Laboratory Medicine - [address] [address] Outr Resulting Lab, Provider Social History Tobacco [...] RNA DETECT QUANT (04/20/2022 9:35 EDT) Pathologist [facility] HCV RNA Qualitative Undetected Undetected 04/23/2022 13:45 EDT [facility] Blood VENOUS BLOOD / Unknown 04/20/2022 9:35 EDT 04/20/2022 19:01 EDT [facility] - 04/23/2022 13:45 EDT The quantification range of this assay is 15 IU/mL to 100,000,000 IU/mL. Testing was performed using the Alek HCV test ([employer] with the alek 6800 System. us Provider Outr Resulting Lab CHEMISTRY & BLOOD GA S ORDERABLES Final Result Performing Organization Address [facility]/[place] Co de Phone Number [facility] [address] [place] [address] * HCV RNA DETECT QUANT (04/20/2022 9:35 EDT) [facility] HCV RNA Qualitative Undetected Undetected 04/23/2022 13:45 EDT [facility] Blood VENOUS BLOOD / Unknown 04/20/2022 9:35 EDT 04/20/2022 18:56 EDT [facility] - 04/23/2022 13:45 EDT The quantification range of this assay is 15 IU/mL to 100,000,000 IU/mL. Testing was performed using the Alek HCV test ([employer] with the alek 6800 System. us Provider Outr Resulting Lab CHEMISTRY & BLOOD GA S ORDERABLES Final Result Performing Organization Address [facility] Co de Phone Number [facility] [address] [place] [address] * HEPATITIS B SURFACE ANTIBODY (04/20/2022 9:35 EDT) [facility] Hep B Surface Ab, Quantitative 12.6 See Note mIU/mL 04/23/2022 9:42 EDT [facility] Comment: Reference Range for Hep B Surface Ab, Quant: Positive: >= 10.0 mIU/mL Negative: ??< 10.0 mIU/mL Patient is presumed to be immune to infection with Hepatitis B Virus. Hep B Surface Ab, Qualitative Positive See Note 04/23/2022 9:42 EDT [facility] Comment: Reference Range for Hep B Surface Ab, Qual: Unvaccinated: ??Negative Vaccinated: ??Positive Blood VENOUS BLOOD / Unknown 04/20/2022 9:35 EDT 04/20/2022 19:01 EDT us Provider Outr Resulting Lab CHEMISTRY & BLOOD GA S ORDERABLES Final Result Performing Organization Address [facility] Co de Phone Number [facility] [address] [place] [address] * HEPATITIS B CORE ANTIBODY (TOTAL) (04/20/2022 9:35 EDT) Hepatitis B Core Ab, Total Negative Negative 04/23/2022 10:19 EDT [facility] Blood VENOUS BLOOD / Unknown 04/20/2022 9:35 EDT 04/20/2022 19:01 EDT us Provider Outr Resulting Lab CHEMISTRY & BLOOD GA S ORDERABLES Final Result Performing Organization Address [facility]/ZIP Co de Phone Number [facility] [address] [place] [address] * HEPATITIS B SURFACE ANTIGEN (04/20/2022 9:35 EDT) Hep B Surface Ag Negative Negative 04/23/2022 9:46 EDT [facility] Blood VENOUS BLOOD / Unknown 04/20/2022 9:35 EDT 04/20/2022 18:56 EDT us Provider Outr Resulting Lab CHEMISTRY & BLOOD GA S ORDERABLES Final Result Performing Organization Address City/[facility]/ZIP Co de Phone Number [facility] [address] [place] [address] * (ABNORMAL) HEPATITIS C AB W REFLEX TO HCV RNA BY PCR (04/20/2022 9:35 EDT) Hep C Antibody Reactive(A ) Negative 04/23/2022 9:51 EDT [facility] Comment: Supplemental testing for HCV RNA is ordered to rule out active HCV infection. Blood VENOUS BLOOD / Unknown 04/20/2022 9:35 EDT 04/20/2022 19:01 EDT us Provider Outr Resulting Lab CHEMISTRY & BLOOD GA S ORDERABLES Final Result Performing Organization Address City/[facility]/ZIP Co de Phone Number [facility] [address] [place] [address] * HEPATITIS A TOTAL ANTIBODY W REFLEX (04/20/2022 9:35 EDT) Hepatitis A Antibody, Total Negative Negative 04/23/2022 10:12 EDT [facility] Blood VENOUS BLOOD / Unknown 04/20/2022 9:35 EDT 04/20/2022 19:01 EDT Narrative [facility] - 04/23/2022 10:12 EDT The result of this assay can be falsely elevated (Positive) due to the consumption of Biotin. us Provider Outr Resulting Lab CHEMISTRY & BLOOD GA S ORDERABLES Final Result Performing Organization Address City/[facility]/ZIP Co de Phone Number [facility] [address] [place] [address] documented in this encounter Visit Diagnoses Not on filedocumented in this encounter Care Teams Ore Crusher Relationship Specialty Start Date End Date Alex Hong MD PCP - General 12/04/10 documented as of this encounter
--- OUTSIDE RECORDS SUMMARY | 2024-07-01 13:13 | XMS_ITS | Encounter Summary ---
Author Organization [facility] Address [address] [place] [address] Care Team Providers Care Skid Strapper Name Role Phone Sylvester Jameslily Brandy CUEVAS Primary Care Provider + Encounter Details Date Type Department Care Team (Late st Contact Info) Description 11/30/2010 Results Only [facility] Laboratory Services - [facility] ([facility]) [address] [place], [place] [id number] [place] [address] [place] [address],[address] [place] [address] Social History Tobacco Use Types [...] IESHA, TR Monroe ? Accession #: ? [id number] ? : ? 1985 (Age: 24) ??F [...] (A4). ? Received in formalin labelled Iesha, Rt and anterior ectocervix is the ?? unoriented [...] submitted as (B1) to ? (B8). (Apryl Kuhn)/[facility] ? End of Report ? [facility] 11/30/2010 11/30/2010 18: 47 EDT us Roshan Mendez MD PATHOLOGY ORDERABLES Final Re sult [facility] [address] [place] [address] documented in this encounter Visit Diagnoses Not on filedocumented in this encounter Care Teams Skid Strapper Relationship Specialty Start Date End Date Mary Phan, AUTOMOBILE [place] [address] [place] [address] PCP - General 07/04/10 12/03/10 documented as of this encounter
--- OUTSIDE RECORDS SUMMARY | 2024-07-01 13:13 | XMS_ITS | Clinical Summary ---
Author Organization [facility] Address [address] [place] [address] Care Team Providers Care Aerial Survey Technician Name Role Phone Alex Hong MD Primary Care Provider [phone] Allergies No known active allergies Medications hydrOXYzine (ATARAX) 25 mg tablet Take 1 Tablet by mouth 2 times daily as needed. 01/14/2023 Active buprenorphine 300 mg/1.5 mL solution, extended rel syringe Inject 1.5 mL into the skin every 28 days. Daily Max: 300 mg Active Encounters Date Type Department Care Team Description 06/27/2024 Lab Requisition [facility] Pathology & Laboratory Medicine - [facility] [address] [place] [address] Outr Resulting Lab, Provider from Last 3 [...] Procedure Name Priority Date/Time Associated Diagnosis Comments LYME AB Routine 06/26/2024 15:45 EST ANTI NUCLEAR AB (REANNA), IFA Routine 06/26/2024 15:45 EST HEPATITIS C AB W REFLEX TO HCV RNA BY PCR Routine 04/20/2022 9:35 EDT from Last 3 Months or Most Recently Relevant to Health Maintenance Results * LYME AB (06/26/2024 15:45 EST) Pathologist [facility] Lyme Ab Negative Negative 06/29/2024 9:13 EST [facility] Blood VENOUS BLOOD / Unknown 06/26/2024 15:45 EST 06/27/2024 21:56 EST us Provider Outr Resulting Lab IMMUNOLOGY AND SEROL OGY ORDERABLES Final Result Performing Organization Address [facility] Co de Phone Number [facility] [address] [place] [address] * ANTI NUCLEAR AB (REANNA), IFA (06/26/2024 15:45 EST) Pathologist [facility] REANNA Interpretation Negative Negative 2023 13:53 EST [facility] Comment:No titer performed, REANNA Screen is negative. Blood VENOUS BLOOD / Unknown 06/26/2024 15:45 EST 06/27/2024 21:56 EST Narrative [facility] - 06/29/2024 13:53 EST Results were obtained with the [employer] NOVA Lite HEp-2 REANNA Kit by indirect immunofluorescence. us Provider Outr Resulting Lab IMMUNOLOGY AND SEROL OGY ORDERABLES Final Result Performing Organization Address [facility] Co de Phone Number [facility] [address] [place] [address] * (ABNORMAL) HEPATITIS C AB W REFLEX TO HCV RNA BY PCR (04/20/2022 9:35 EDT) Pathologist [facility] Hep C Antibody Reactive(A ) Negative 04/23/2022 9:51 EDT [facility] Comment: Supplemental testing for HCV RNA is ordered to rule out active HCV infection. Blood VENOUS BLOOD / Unknown 04/20/2022 9:35 EDT 04/20/2022 19:01 EDT us Provider Outr Resulting Lab CHEMISTRY & BLOOD GA S ORDERABLES Final Result [facility] [address] [place] [address] from Last 3 Months or Most Recently Relevant to Health Maintenance Insurance [place]ICA[place] Care Teams Aerial Survey Technician Relationship Specialty Start Date End Date Alex Hong MD PCP - General 12/04/10
--- OUTSIDE RECORDS SUMMARY | 2024-07-01 13:13 | XMS_ITS | Encounter Summary ---
Author Organization [facility] Address [address] [place] [address] Care Team Providers Care Clinical Provider Trainer Name Role Phone Unavailable Primary Care Provider Unavailabl e Encounter Details Date Type Department Care Team (Late st Contact Info) Description 10/02/2007 Results Only [facility] - Map conversion [address] [place] [address] Chacha Avila, [facility] [address] [place] [address] Social History Tobacco Use Types [...] ? TR JULIAN ? Accession #: ? [id number] : ? 1985 (Age: 21) ??F ?Collect Date: ? 10/02/2007 Location: ? [facility] ? Receive Date: ? 10/02/2007 Provider: ?CHACHA AVILA LIVESTOCK AGENT Copy to: ? Specimen/Source: ?ThinPrep Pap Test, Cervix/Endocervix, processed on [employer] ThinPrep Imaging System, with manual evaluation Last [...] [facility] 10/02/2007 10/02/2007 us Chacha Avila LIVESTOCK AGENT PATHOLOGY ORDERABLES Final R esult [facility] [address] [place] [address] documented in this encounter Visit Diagnoses Not on filedocumented in this encounter
--- OUTSIDE RECORDS SUMMARY | 2024-07-01 13:13 | XMS_ITS | Encounter Summary ---
Author Organization [facility] Address [address] [place] [address] Care Team Providers Care Bank Accountant Name Role Phone Unavailable Primary Care Provider Unavailabl e Encounter Details Date Type Department Care Team (Late st Contact Info) Description 11/29/2008 Orders Only [facility] Laboratory Services - [facility] ([facility]) [address] [place] [address] Chacha Avila, [facility] [address] [place] [address] [place] [address] Social History Tobacco Use Types [...] ? TR JULIAN ? Accession #: ? [id number] ? : ? 1985 (Age: 22) ??F ?Collect Date: ? 11/29/2008 ? Location: ? [facility] ? Receive Date: ? 11/30/2008 ? Provider: ?CHACHA SHARRI AUTOMATION ARCHITECT ? Copy to: ? Specimen/Source: ?Pap Test, [...] KEYANA THOMAS 11/29/2008 11/30/2008 us Chacha Avila AUTOMATION ARCHITECT PATHOLOGY ORDERABLES Final R esult [facility] [address] [place] [address] documented in this encounter Visit Diagnoses Not on filedocumented in this encounter
--- OUTSIDE RECORDS SUMMARY | 2024-07-01 13:13 | XMS_ITS | Encounter Summary ---
Author Organization [facility] Address [address] [place] [address] Care Team Providers Care Check Cashier Name Role Phone Alex Hong MD Primary Care Provider [phone] Encounter Details Date Type Department Care Team (Late st Contact Info) Description 06/29/2023 Lab Requisition [facility] Pathology & Laboratory Medicine - [address] [address] Outr Resulting Lab, Provider Social History Tobacco [...] Confirmation Negative <50 ng/mL 07/02/2023 11:51 EST [facility] Urine URINE / Unknown 06/29/2023 1 2:58 EST 06/30/2023 15:19 EST Narrative [facility] - 07/02/2023 11:51 EST Testing performed by: [facility] [address] [place] [address] Tile Power Shear Operator: Eamon Patricia MD; CLIA # [id number] us Provider Outr Resulting Lab GEN LAB UNIT COLLECT ORDERABLES Final Result Performing Organization Address City/[facility]/ZIP Co de Phone Number [facility] [address] [place] [address] * (ABNORMAL) BUPRENORPHINE AND METABOLITE CONFIRMATION PANEL (06/29/2023 12:58 EST) Buprenorphine Confirmation 46(A) <10 ng/mL 07/02/2023 11:51 EST [facility] Norbuprenorphine Confirmation 295(A) <10 ng/mL 07/02/2023 11:51 EST [facility] Naloxone Confirmation 162(A) <10 ng/mL 07/02/2023 11:51 EST [facility] Urine URINE / Unknown 06/29/2023 1 2:58 EST 06/30/2023 15:19 EST Narrative [facility] - 07/02/2023 11:51 EST Testing performed by: [facility] [address] [place] [address] Tile Power Shear Operator: Eamon Patricia MD; CLIA # [id number] us Provider Outr Resulting Lab GEN LAB UNIT COLLECT ORDERABLES Final Result Performing Organization Address City/[facility]/ZIP Co de Phone Number [facility] [address] [place] [address] * METHADONE AND METABOLITE CONFIRMATION PANEL (06/29/2023 12:58 EST) Methadone Confirmation Negative <100 ng/mL 07/02/2023 11:51 EST [facility] EDDP Confirmation Negative <100 ng/mL 07/02/2023 11:51 EST [facility] Urine URINE / Unknown 06/29/2023 1 2:58 EST 06/30/2023 15:19 EST Narrative [facility] - 07/02/2023 11:51 EST Testing performed by: [facility] [address] [place] [address] Tile Power Shear Operator: Eamon Patrciia MD; CLIA # [id number] us Provider Outr Resulting Lab GEN LAB UNIT COLLECT ORDERABLES Final Result Performing Organization Address City/[facility]/ZIP Co de Phone Number [facility] [address] [place] [address] * FENTANYL AND METABOLITE CONFIRMATION PANEL (06/29/2023 12:58 EST) Fentanyl Confirmation Negative <2 ng/mL 07/02/2023 11:51 EST [facility] Norfentanyl Confirmation Negative <10 ng/mL 07/02/2023 11:51 EST [facility] Urine URINE / Unknown 06/29/2023 1 2:58 EST 06/30/2023 15:19 EST Narrative [facility] - 07/02/2023 11:51 EST Testing performed by: [facility] [address] [place] [address] Tile Power Shear Operator: Eamon Patricia MD; CLIA # [id number] us Provider Outr Resulting Lab GEN LAB UNIT COLLECT ORDERABLES Final Result Performing Organization Address City/[facility]/ZIP Co de Phone Number [facility] [address] [place] [address] documented in this encounter Visit Diagnoses Not on filedocumented in this encounter Care Teams Check Cashier Relationship Specialty Start Date End Date Alex Hong MD PCP - General 12/04/10 documented as of this encounter
--- OUTSIDE RECORDS SUMMARY | 2024-07-01 13:13 | XMS_ITS | Encounter Summary ---
Author Organization [facility] Address [address] [place] [address] Care Team Providers Care Potato Peeling Machine Operator Name Role Phone Barrington Bhatia MD Primary Care Provider Encounter Details Date Type Department Care Team (Late st Contact Info) Description 12/10/2011 Results Only [facility] Laboratory Services - [facility] ([facility]) [address] [place] [address] [place] [address] [place] [address],[address] [place] [address] Social History Tobacco Use Types [...] ? TR JULIAN ? Accession #: ? [id number] ? : ? 1985 (Age: 25) ??F [...] types 16,18,31,33,35, 39,45,51,52,56,58, 59,66, and 68 by magazine designer mediated amplification. Comments Document reviewed and electronically [...] ORDERABLES Final Re sult [facility] [address] [place] [address] * SURGICAL PATHOLOGY (12/10/2011 0:00 EDT) Pathology Report: SURGICAL PATHOLOGY REPORT Reports generated via electronic interface contain original data; however they are lacking the format of the original report. Caution should be taken when reading/interpreti ng unformatted reports. Name: ? TR JULIAN ? Accession #: ? [id number] ? : ? 1985 (Age: 25) ??F [...] Final Re sult [facility] [address] [place] [address] documented in this encounter Visit Diagnoses Not on filedocumented in this encounter Care Teams Potato Peeling Machine Operator Relationship Specialty Start Date End Date Barrington Bhatia MD PCP - General 12/04/10 documented as of this encounter
--- OUTSIDE RECORDS SUMMARY | 2024-07-01 13:13 | XMS_ITS | Encounter Summary ---
Author Organization [facility] Address [address] [place] [address] Care Team Providers Care Nursing Unit Manager Name Role Phone Alex Hong MD Primary Care Provider Encounter Details Date Type Department Care Team (Late st Contact Info) Description 01/28/2024 Lab Requisition [facility] Pathology & Laboratory Medicine - [address] [address] Outr Resulting Lab, Provider Social History Tobacco [...] Confirmation Negative <50 ng/mL 01/30/2024 13:16 EDT [facility] Urine URINE / Unknown 01/28/2024 1 2:11 EDT 01/28/2024 21:45 EDT [facility]ative [facility] - 01/30/2024 13:16 EDT Testing performed by: [facility] [address] [place] [address], [facility] [address] [address] Staff Development Coordinator Rn: Eamon Patricia MD; CLIA # [id number] us Provider Outr Resulting Lab GEN LAB UNIT COLLECT ORDERABLES Final Result Performing Organization Address City/[facility]/ZIP Co de Phone Number [facility] [address] [place] [address], [facility] [address] [phone] * FENTANYL AND METABOLITE CONFIRMATION PANEL (01/28/2024 12:11 EDT) Fentanyl Confirmation Negative <2 ng/mL 01/30/2024 13:16 EDT [facility] Norfentanyl Confirmation Negative <10 ng/mL 01/30/2024 13:16 EDT [facility] Urine URINE / Unknown 01/28/2024 1 2:11 EDT 01/28/2024 21:45 EDT N[facility]ative [facility] - 01/30/2024 13:16 EDT Testing performed by: [facility] [address] [place] [address], [place] [address] Staff Development Coordinator Rn: Eamon Patricia MD; CLIA # [id number] us Provider Outr Resulting Lab GEN LAB UNIT COLLECT ORDERABLES Final Result Performing Organization Address City/[facility]/ZIP Co de Phone Number [facility] [address] [place] [address], [facility] [address] [phone] * (ABNORMAL) BUPRENORPHINE AND METABOLITE CONFIRMATION PANEL (01/28/2024 12:11 EDT) Buprenorphine Confirmation 75(A) <10 ng/mL 01/30/2024 13:16 EDT [facility] Norbuprenorphine Confirmation 106(A) <10 ng/mL 01/30/2024 13:16 EDT [facility] Naloxone Confirmation 623(A) <10 ng/mL 01/30/2024 13:16 EDT [facility] Urine URINE / Unknown 01/28/2024 1 2:11 EDT 01/28/2024 21:45 EDT N[facility]ative [facility] - 01/30/2024 13:16 EDT Testing performed by: [facility] [address] [place] [address] Staff Development Coordinator Rn: Eamon Patricia MD; CLIA # [id number] Provider Outr Resulting Lab GEN LAB UNIT COLLECT ORDERABLES Final Result Performing Organization Address [facility] Co de Phone Number [facility] [address] [place] [address] * METHADONE AND METABOLITE CONFIRMATION PANEL (01/28/2024 12:11 EDT) Methadone Confirmation Negative <100 ng/mL 01/30/2024 13:16 EDT [facility] EDDP Confirmation Negative <100 ng/mL 01/30/2024 13:16 EDT [facility] Urine URINE / Unknown 01/28/2024 1 2:11 EDT 01/28/2024 21:45 EDT N[facility]ative [facility] - 01/30/2024 13:16 EDT Testing performed by: [facility] [address] [place] [address] Staff Development Coordinator Rn: Eamon Patricia MD; CLIA # [id number] us Provider Outr Resulting Lab GEN LAB UNIT COLLECT ORDERABLES Final Result Performing Organization Address City/[facility]/ZIP Co de Phone Number [facility] [address] [place] [address] documented in this encounter Visit Diagnoses Not on filedocumented in this encounter Care Teams Nursing Unit Manager Relationship Specialty Start Date End Date Alex Hong MD PCP - General 12/04/10 documented as of this encounter
--- OUTSIDE RECORDS SUMMARY | 2024-07-01 13:13 | XMS_ITS | Encounter Summary ---
Author Organization [facility] Address [address] [place] [address] Care Team Providers Care Stock Feeder Name Role Phone Alex Hong MD Primary Care Provider [phone] Encounter Details Date Type Department Care Team (Late st Contact Info) Description 05/23/2021 Lab Requisition [facility] Pathology & Laboratory Medicine - [address] [address] Outr Resulting Lab, Provider Social History Tobacco [...] RNA DETECT QUANT (05/23/2021 11:35 EDT) Pathologist [facility] HCV RNA Qualitative Undetected Undetected 05/25/2021 14:44 EDT [facility] Blood VENOUS BLOOD / Unknown 05/23/2021 11:35 EDT 05/23/2021 16:51 EDT Narrative [facility] - 05/25/2021 14:44 EDT New platform in use 02/27/2021 The quantification range of this assay is 15 IU/mL to 100,000,000 IU/mL. Testing was performed using the Alek HCV test ([employer] with the alek [employer] System. us Provider Outr Resulting Lab CHEMISTRY & BLOOD GA S ORDERABLES Final Result Performing Organization Address [facility] [[email or web address]] de Phone Number [facility] [address] [place] [address] * HEPATITIS B SURFACE ANTIBODY (05/23/2021 11:35 EDT) Pathologist [facility] Hep B Surface Ab, Quantitative 18.4 See Note mIU/mL 05/24/2021 10:54 EDT [facility] Comment: Reference Range for Hep B Surface Ab, Quant: Positive: >= 10.0 mIU/mL Negative: ??< 10.0 mIU/mL Patient is presumed to be immune to infection with Hepatitis B Virus. Hep B Surface Ab, Qualitative Positive See Note 05/24/2021 10:54 EDT [facility] Comment: Reference Range for Hep B Surface Ab, Qual: Unvaccinated: ??Negative Vaccinated: ??Positive Blood VENOUS BLOOD / Unknown 05/23/2021 11:35 EDT 05/23/2021 16:51 EDT us Provider Outr Resulting Lab CHEMISTRY & BLOOD GA S ORDERABLES Final Result Performing Organization Address [facility] [[email or web address]] de Phone Number [facility] [address] [place] [address] * HEPATITIS B CORE ANTIBODY (TOTAL) (05/23/2021 11:35 EDT) Hepatitis B Core Ab, Total Negative Negative 05/24/2021 12:05 EDT [facility] Blood VENOUS BLOOD / Unknown 05/23/2021 11:35 EDT 05/23/2021 16:51 EDT us Provider Outr Resulting Lab CHEMISTRY & BLOOD GA S ORDERABLES Final Result Performing Organization Address City/[facility]/ZIP Co de Phone Number [facility] [address] [place] [address] * HEPATITIS B SURFACE ANTIGEN (05/23/2021 11:35 EDT) Pathologist [facility] Hep B Surface Ag Negative Negative 05/24/2021 11:00 EDT [facility] Blood VENOUS BLOOD / Unknown 05/23/2021 11:35 EDT 05/23/2021 16:51 EDT us Provider Outr Resulting Lab CHEMISTRY & BLOOD GA S ORDERABLES Final Result Performing Organization Address [facility] Co de Phone Number [facility] [address] [place] [address] * (ABNORMAL) HEPATITIS C AB W REFLEX TO HCV RNA BY PCR (05/23/2021 11:35 EDT) Pathologist [facility] Hep C Antibody Reactive(A ) Negative 05/24/2021 11:13 EDT [facility] Comment: Supplemental testing for HCV RNA is ordered to rule out active HCV infection. Blood VENOUS BLOOD / Unknown 05/23/2021 11:35 EDT 05/23/2021 16:51 EDT us Provider Outr Resulting Lab CHEMISTRY & BLOOD GA S ORDERABLES Final Result Performing Organization Address [facility] Co de Phone Number [facility] [address] [place] [address] * HEPATITIS A TOTAL ANTIBODY W REFLEX (05/23/2021 11:35 EDT) Hepatitis A Antibody, Total Negative Negative 05/24/2021 11:59 EDT [facility] Blood VENOUS BLOOD / Unknown 05/23/2021 11:35 EDT 05/23/2021 16:51 EDT Narrative [facility] - 05/24/2021 11:59 EDT The result of this assay can be falsely elevated (Positive) due to the consumption of Biotin. us Provider Outr Resulting Lab CHEMISTRY & BLOOD GA S ORDERABLES Final Result [facility] [address] [place] [address] documented in this encounter Visit Diagnoses Not on filedocumented in this encounter Care Teams Stock Feeder Relationship Specialty Start Date End Date Alex Hong MD PCP - General 12/04/10 documented as of this encounter
--- OUTSIDE RECORDS SUMMARY | 2024-07-01 13:13 | XMS_ITS | Encounter Summary ---
Author Organization [facility] Address [address] [place] [address] Care Team Providers Care Miller Kiln Dried Salt Name Role Phone Alex Hong MD Primary Care Provider [phone] Encounter Details Date Type Department Care Team (Late st Contact Info) Description 12/24/2023 Lab Requisition [facility] Pathology & Laboratory Medicine - [address] [address] Outr Resulting Lab, Provider Social History Tobacco [...] Confirmation Negative <50 ng/mL 12/26/2023 11:34 EDT [facility] Urine URINE / Unknown 12/24/2023 1 2:36 EDT 12/24/2023 22:22 EDT Narrative [facility] - 12/26/2023 11:34 EDT Testing performed by: [facility] [address] [place] [address], [place] [address] Marketing Planner: Eamon Patricia MD; CLIA # [id number] us Provider Outr Resulting Lab GEN LAB UNIT COLLECT ORDERABLES Final Result Performing Organization Address City/[facility]/ZIP Co de Phone Number [facility] [address] [place] [address] * (ABNORMAL) BUPRENORPHINE AND METABOLITE CONFIRMATION PANEL (12/24/2023 12:36 EDT) Buprenorphine Confirmation 148(A) <10 ng/mL 12/26/2023 11:34 EDT [facility] Norbuprenorphine Confirmation 696(A) <10 ng/mL 12/26/2023 11:34 EDT [facility] Naloxone Confirmation > 1000(A) <10 ng/mL 12/26/2023 11:34 EDT [facility] Urine URINE / Unknown 12/24/2023 1 2:36 EDT 12/24/2023 22:22 EDT [facility] - 12/26/2023 11:34 EDT Testing performed by: [facility] [address] [place] [address] Marketing Planner: Eamon Patricia MD; CLIA # [id number] us Provider Outr Resulting Lab GEN LAB UNIT COLLECT ORDERABLES Final Result Performing Organization Address City/[facility]/ZIP Co de Phone Number [facility] [address] [place] [address] * METHADONE AND METABOLITE CONFIRMATION PANEL (12/24/2023 12:36 EDT) Methadone Confirmation Negative <100 ng/mL 12/26/2023 11:34 EDT [facility] EDDP Confirmation Negative <100 ng/mL 12/26/2023 11:34 EDT [facility] Urine URINE / Unknown 12/24/2023 1 2:36 EDT 12/24/2023 22:22 EDT Narrative [facility] - 12/26/2023 11:34 EDT Testing performed by: [facility] [address] [place] [address] Marketing Planner: Eamon Patricia MD; CLIA # [id number] us Provider Outr Resulting Lab GEN LAB UNIT COLLECT ORDERABLES Final Result Performing Organization Address City/[facility]/ZIP Co de Phone Number [facility] [address] [place] [address] * FENTANYL AND METABOLITE CONFIRMATION PANEL (12/24/2023 12:36 EDT) Fentanyl Confirmation Negative <2 ng/mL 12/26/2023 11:34 EDT [facility] Norfentanyl Confirmation Negative <10 ng/mL 12/26/2023 11:34 EDT [facility] Urine URINE / Unknown 12/24/2023 1 2:36 EDT 12/24/2023 22:22 EDT Narrative [facility] - 12/26/2023 11:34 EDT Testing performed by: [facility] [address] [place] [address] Marketing Planner: Eamon Patricia MD; CLIA # [id number] us Provider Outr Resulting Lab GEN LAB UNIT COLLECT ORDERABLES Final Result [facility] [address] [place] [address] documented in this encounter Visit Diagnoses Not on filedocumented in this encounter Care Teams Miller Kiln Dried Salt Relationship Specialty Start Date End Date Alex Hong MD PCP - General 12/04/10 documented as of this encounter
--- OUTSIDE RECORDS SUMMARY | 2024-07-01 13:13 | XMS_ITS | Encounter Summary ---
Author Organization [facility] Address [address] [place] [address] Care Team Providers Care High School Music Director Name Role Phone [place] Jameslily Brandy IMPLEMENTATION TECHNICIAN Primary Care Provider + Encounter Details Date Type Department Care Team (Late st Contact Info) Description 09/29/2010 Results Only [facility] Laboratory Services - [facility] ([facility]) [address] [place], [place] [id number] [place] [address] [place] [address],[address] [place] [address] Social History Tobacco Use Types [...] ? TR JULIAN ? Accession #: ? [id number] ? : ? 1985 (Age: 24) ??F [...] Final Re sult [facility] [address] [place] [address] * SURGICAL PATHOLOGY (09/29/2010 0:00 EST) Pathology Report: SURGICAL PATHOLOGY REPORT ? Reports generated via electronic interface contain original data; ? however they are lacking the format of the original report. ? Caution should be taken when reading/interpreting unformatted reports. ? Name: ? TR JULIAN ? Accession #: ? [id number] ? : ? 1985 (Age: 24) ??F [...] MD PATHOLOGY ORDERABLES Final Re sult [facility] [address] [place] [address] documented in this encounter Visit Diagnoses Not on filedocumented in this encounter Care Teams High School Music Director Relationship Specialty Start Date End Date Mary Phan, IMPLEMENTATION TECHNICIAN [address] [place], [place] [id number] PCP - General 07/04/10 12/03/10 documented as of this encounter
--- OUTSIDE RECORDS SUMMARY | 2024-07-01 13:13 | XMS_ITS | Encounter Summary ---
Author Organization [facility] Address [address] [place] [address] Care Team Providers Care Tig Welder Name Role Phone Unavailable Primary Care Provider Unavailabl e Encounter Details Date Type Department Care Team (Late st Contact Info) Description 02/06/2007 Results Only [facility] - Map conversion [address] [place] [address] Chacha Avila, [facility] [address] [place] [address] Social History Tobacco Use Types [...] cancers. [facility] Report Status Final [id number] [facility] 02/06/2007 10:1 0 EDT 02/18/2007 22:05 EDT Chacha Avila PATIENT FINANCIAL SERVICES COORDINATOR MICROBIOLOGY - GENERAL ORDER ELIZABETH Final Result [facility] [address] [place] [address] * CYTOPATHOLOGY (02/06/2007 0:00 EDT) Pathology Report: CYTOPATHOLOGY REPORT Reports generated via electronic interface contain original data; however they are lacking the format of the original report. Caution should be taken when reading/interpreti ng unformatted reports. Name: ? TR JULIAN ? Accession #: ? [id number] : ? 1985 (Age: 21) ??F ?Collect Date: ? 02/06/2007 Location: ? [facility] ? Receive Date: ? 02/07/2007 Provider: ?CHACHA AVILA PATIENT FINANCIAL SERVICES COORDINATOR Copy to: ? Specimen/Source: ?ThinPrep Pap Test, Cervix/Endocervix, processed on [employer] ThinPrep Imaging System, with manual evaluation Last Menstrual Period: ? 01/27/07 Other: ? HPVA - HPV testing requested if ASC-US on the current ThinPrep Pap test. ? SPECIMEN ADEQUACY ? Satisfactory for Evaluation - transformation zone component present GENERAL CATEGORIZATION ? Epithelial Cell Abnormality INTERPRETATION ? Squamous Cell Abnormality - Atypical squamous cells, undetermined significance (ASC-US). EDUCATIONAL NOTES/RECOMMENDATI ONS ? [facility] recommends following the 2001 Consensus Guidelines for the Management of Women with Cervical Cytological Abnormalities (ERIKA,2002;287:212 0-9). Management algorithms have been distributed by [facility] and are available online at www.[email or web address]. ? Document reviewed and electronically signed by: ? Melissa Stewart MD ? Report Date: ??02/17/2007 16:07 End of Report [facility] 02/06/2007 02/07/2007 us Chacha Avila PATIENT FINANCIAL SERVICES COORDINATOR PATHOLOGY ORDERABLES Final R esult [facility] [address] [place] [address] documented in this encounter Visit Diagnoses Not on filedocumented in this encounter
--- OUTSIDE RECORDS SUMMARY | 2024-07-01 13:13 | XMS_ITS | Encounter Summary ---
Author Organization [facility] Address [address] [place] [address] Care Team Providers Care Program Evaluator Name Role Phone Alex Hong MD Primary Care Provider [phone] Encounter Details Date Type Department Care Team (Late st Contact Info) Description 11/18/2023 Lab Requisition [facility] Pathology & Laboratory Medicine - [address] [address] Outr Resulting Lab, Provider Social History Tobacco [...] Confirmation Negative <2 ng/mL 11/20/2023 12:19 EDT [facility] Norfentanyl Confirmation Negative <10 ng/mL 11/20/2023 12:19 EDT [facility] Urine URINE / Unknown 11/18/2023 1 5:09 EDT 11/18/2023 22:20 EDT Narrative [facility] - 11/20/2023 12:19 EDT Testing performed by: [facility] [address] [facility], [address], [place] [address] Cloth Shrinking Machine Operator Helper: Eamon Patricia MD; CLIA # [id number] us Provider Outr Resulting Lab GEN LAB UNIT COLLECT ORDERABLES Final Result Performing Organization Address City/State/[facility] Co de Phone Number [facility] [address] [facility], [address] [place] [address], [facility] [phone] documented in this encounter Visit Diagnoses Not on filedocumented in this encounter Care Teams Program Evaluator Relationship Specialty Start Date End Date Alex Hong MD PCP - General 12/04/10 documented as of this encounter
--- OUTSIDE RECORDS SUMMARY | 2024-07-01 13:13 | XMS_ITS | Encounter Summary ---
Author Organization [facility] Address [address] [place] [address] Care Team Providers Care Factorer Name Role Phone Alex Hong MD Primary Care Provider [phone] Encounter Details Date Type Department Care Team (Latest Contact Info) Description 11/13/2017 19:32 EDT - 11/13/2017 23:59 EDT Hospital Encounter [id number] [place] [address] Blanca Cottrell, SUPERVISOR SCREEN PRINTING [address] [place] [address] Discharge Disposition: Home or Self Care Social [...] on filedocumented in this encounter Care Teams Factorer Relationship Specialty Start Date End Date Alex Hong MD PCP - General 12/04/10 documented as of this encounter
--- OUTSIDE RECORDS SUMMARY | 2024-07-01 13:13 | XMS_ITS | Encounter Summary ---
Author Organization [facility] Address [address] [place] [address] Care Team Providers Care Physician Industrial Name Role Phone Alex Hong MD Primary Care Provider [phone] Encounter Details Date Type Department Care Team (Late st Contact Info) Description 06/27/2024 Lab Requisition [facility] Pathology & Laboratory Medicine - [address] [id number] Outr Resulting Lab, Provider Social History Tobacco [...] AB (REANNA), IFA Routine 06/26/2024 15:45 EST documented in this encounter Results * LYME AB (06/26/2024 15:45 EST) Lyme Ab Negative Negative 06/29/2024 9:13 EST [facility] Blood VENOUS BLOOD / Unknown 06/26/2024 15:45 EST 06/27/2024 21:56 EST us Provider Outr Resulting Lab IMMUNOLOGY AND SEROL OGY ORDERABLES Final Result Performing Organization Address [facility]/ZIP Co de Phone Number [facility] [address] [place], [place] [address] * ANTI NUCLEAR AB (REANNA), IFA (06/26/2024 15:45 EST) REANNA Interpretation Negative Negative 2023 13:53 EST [facility] Comment:No titer performed, REANNA Screen is negative. Blood VENOUS BLOOD / Unknown 06/26/2024 15:45 EST 06/27/2024 21:56 EST Narrative [facility] - 06/29/2024 13:53 EST Results were obtained with the The 5th Quarter NOVA Lite HEp-2 REANNA Kit by indirect immunofluorescence. us Provider Outr Resulting Lab IMMUNOLOGY AND SEROL OGY ORDERABLES Final Result Performing Organization Address [facility] Co de Phone Number [facility] [address] [place] [phone] documented in this encounter Visit Diagnoses Not on filedocumented in this encounter Care Teams Physician Industrial Relationship Specialty Start Date End Date Alex Hong MD PCP - General 12/04/10 documented as of this encounter
--- OUTSIDE RECORDS SUMMARY | 2024-07-01 13:13 | XMS_ITS | Encounter Summary ---
Author Organization [facility] Address [address] [place] [address] Care Team Providers Care Liner Installer Name Role Phone Alex Hong MD Primary Care Provider [phone] Encounter Details Date Type Department Care Team (Late st Contact Info) Description 05/23/2021 Lab Requisition [place] Pathology & Laboratory Medicine - [address] [phone] Outr Resulting Lab, Provider Social History Tobacco [...] IGA <1.2 <4.0 U/mL 05/24/2021 13:15 EDT [facility] Comment: A negative result may be due to IgA deficiency and does not rule out celiac disease. ? Negative: ??<4.0 U/mL ? Weak Positive: ??4.0 - 10.0 U/mL ? Positive: ??>10.0 U/mL Results were obtained with the [employer] QUANTA Lite R h-tTG IgA DUSTIN assay on the [employer]s DSX. IgA 127 85 - 499 mg/dL 05/24/2021 13:15 EDT [facility] Celiac Disease Interpretation Negative Serology. Celiac disease unlikely. Approximately 10% of patients with celiac disease are seronegative. Patients who are already adhering to a gluten-free diet may also be seronegative. If celiac disease is highly clinically suspected, referral to gastroenterology for additional evaluation is recommended. 05/24/2021 13:15 EDT [facility] Blood VENOUS BLOOD / Unknown 05/23/2021 11:35 EDT 05/23/2021 16:51 EDT us Provider Outr Resulting Lab IMMUNOLOGY AND SEROL OGY ORDERABLES Final Result [facility] [address] [place] [address] documented in this encounter Visit Diagnoses Not on filedocumented in this encounter Care Teams Liner Installer Relationship Specialty Start Date End Date Alex Hong MD PCP - General 12/04/10 documented as of this encounter
--- OUTSIDE RECORDS SUMMARY | 2024-07-01 13:13 | XMS_ITS | Encounter Summary ---
Author Organization [facility] Address [address] [place] [address] Care Team Providers Care Hat Lining Paster Name Role Phone Barrington Bhatia MD Primary Care Provider [phone] Encounter Details Date Type Department Care Team (Late st Contact Info) Description 11/01/2014 Results Only [facility] Services - [facility] ([facility] [address] [place], [place] [address] Saran Dow CN[address] [place] [address] Social History Tobacco Use Types [...] ? TR JULIAN ? Accession #: ? [id number] : ? 1985 (Age: 28) ??F ?Collect [...] Report Date: ??11/10/2014 09:45 End of Report [facility] 11/01/2014 11/02/2014 us Saran Dow CN PATHOLOGY ORDERABLES Final Resul t [facility] [address] [place] [address] documented in this encounter Visit Diagnoses Not on filedocumented in this encounter Care Teams Hat Lining Paster Relationship Specialty Start Date End Date Barrington Bhatia MD PCP - General 12/04/10 documented as of this encounter
--- OUTSIDE RECORDS SUMMARY | 2024-07-01 13:13 | XMS_ITS | Encounter Summary ---
Author Organization [facility] Address [address] [place] [address] Care Team Providers Care Vegetable Thinner Name Role Phone Alex Hong MD Primary Care Provider [phone] Encounter Details Date Type Department Care Team (Late st Contact Info) Description 04/20/2022 Lab Requisition [facility] Pathology & Laboratory Medicine - [address] [address] Outr Resulting Lab, Provider Social History Tobacco [...] 4th Generation Negative Negative 04/22/2022 13:55 EDT [facility] Comment:If acute HIV-1 infec tion is suspected in a high risk patient, submit plasma specimen for HIV-1 RNA quantitation test. Blood VENOUS BLOOD / Unknown 04/20/2022 9:35 EDT 04/20/2022 19:01 EDT Narrative [facility] - 04/22/2022 13:55 EDT Fourth Generation assay performed on the Siemens Centaur XPT. us Provider Outr Resulting Lab IMMUNOLOGY AND SEROL OGY ORDERABLES Final Result [facility] [address] [place] [address] documented in this encounter Visit Diagnoses Not on filedocumented in this encounter Care Teams Vegetable Thinner Relationship Specialty Start Date End Date Alex Hong MD PCP - General 12/04/10 documented as of this encounter
--- OUTSIDE RECORDS SUMMARY | 2024-07-01 13:13 | XMS_ITS | Encounter Summary ---
Author Organization [facility] Address [address] [place] [address] Care Team Providers Care Environmental Epidemiologist Name Role Phone Alex Hong MD Primary Care Provider [phone] Encounter Details Date Type Department Care Team (Late st Contact Info) Description 05/23/2021 Lab Requisition [facility] Pathology & Laboratory Medicine - [address] [address] Outr Resulting Lab, Provider Social History Tobacco [...] 4th Generation Negative Negative 05/24/2021 11:48 EDT [facility] Comment: If acute HIV-1 infection is suspected in a high risk ??patient, submit plasma specimen for HIV-1 RNA quantitation test. Fourth Generation assay performed on the Siemens [employer]aur. Blood VENOUS BLOOD / Unknown 05/23/2021 11:35 EDT 05/23/2021 16:51 EDT us Provider Outr Resulting Lab IMMUNOLOGY AND SEROL OGY ORDERABLES Final Result [facility] [address] [place] [address] documented in this encounter Visit Diagnoses Not on filedocumented in this encounter Care Teams Environmental Epidemiologist Relationship Specialty Start Date End Date Alex Hong MD PCP - General 12/04/10 documented as of this encounter
--- OUTSIDE RECORDS SUMMARY | 2024-07-01 13:13 | XMS_ITS | Encounter Summary ---
Author Organization [facility] Address [address] [place] [address] Care Team Providers Care Director Corporate Compliance Name Role Phone Unavailable Primary Care Provider Unavailabl e Encounter Details Date Type Department Care Team (Latest Contact Info) Description 03/06/2006 15:10 EDT Hospital Encounter [facility] - Other [address] [place] [address] Saran Dow CNM [address] [place] [place] [address] Discharge Disposition: Auto Discharge Social History Tobacco [...] indicated. [facility] Report Status Final [id number] [facility] 03/06/2006 11:4 0 EDT 03/13/2006 14:27 EDT Saran Dow CNM MICROBIOLOGY - GENERAL ORDERABLE S Final Result [facility] [address] [place] [address] documented in this encounter Visit Diagnoses Not on filedocumented in this encounter
--- OUTSIDE RECORDS SUMMARY | 2024-07-01 13:13 | XMS_ITS | Encounter Summary ---
Author Organization [facility] Address [address] [place] [address] Care Team Providers Care Funeral Counselor Name Role Phone Alex Hong MD Primary Care Provider [phone] Encounter Details Date Type Department Care Team (Late st Contact Info) Description 03/29/2023 Lab Requisition [facility] Pathology & Laboratory Medicine - [address] [address] Outr Resulting Lab, Provider Social History Tobacco [...] Confirmation Negative <50 ng/mL 04/02/2023 12:09 EDT [facility] Urine URINE / Unknown 03/29/2023 1 3:19 EDT 03/29/2023 21:27 EDT Narrative [facility] - 04/02/2023 12:09 EDT Testing performed by: [facility] [address] [place] [address], [facility] [address] [address] Silk Brusher: Eamon Patricia MD; CLIA # [id number] us Provider Outr Resulting Lab GEN LAB UNIT COLLECT ORDERABLES Final Result Performing Organization Address City/[facility] Co de Phone Number [facility] [address] [place] [address], [facility] [address] [place] [address], [facility] [phone] * FENTANYL AND METABOLITE CONFIRMATION PANEL (03/29/2023 13:19 EDT) Fentanyl Confirmation Negative <2 ng/mL 04/02/2023 12:09 EDT [facility] Norfentanyl Confirmation Negative <10 ng/mL 04/02/2023 12:09 EDT [facility] Urine URINE / Unknown 03/29/2023 1 3:19 EDT 03/29/2023 21:27 EDT Narrative [facility] - 04/02/2023 12:09 EDT Testing performed by: [facility] [address] [place] [address], [facility] [address] [address] Silk Brusher: Eamon Patricia MD; CLIA # [id number] us Provider Outr Resulting Lab GEN LAB UNIT COLLECT ORDERABLES Final Result Performing Organization Address [facility] Co de Phone Number [facility] [address] [place] [address] [phone] documented in this encounter Visit Diagnoses Not on filedocumented in this encounter Care Teams Funeral Counselor Relationship Specialty Start Date End Date Alex Hong MD PCP - General 12/04/10 documented as of this encounter
--- OUTSIDE RECORDS SUMMARY | 2024-07-01 13:13 | XMS_ITS | Encounter Summary ---
Author Organization [facility] Address [address] [place] [address] Care Team Providers Care Replenisher Name Role Phone Unavailable Primary Care Provider Unavailabl e Encounter Details Date Type Department Care Team (Latest Contact Info) Description 09/18/2005 19:01 EST Hospital Encounter [facility] - Other [address] [place] [address] [place] [address] Discharge Disposition: Home or Self Care Social [...]
--- OUTSIDE RECORDS SUMMARY | 2024-07-01 13:13 | XMS_ITS | Encounter Summary ---
Author Organization [facility] Address [address] [place] [address] Care Team Providers Care Pss Delivery Professional Name Role Phone Mary Phan NP Primary Care Provider + Encounter Details Date Type Department Care Team (Late st Contact Info) Description 03/06/2006 Results Only [facility] - Maple conversion [address] [place] [address] Saran Reece CNM [address] [place], [place] [id number] Social History Tobacco Use Types Packs/Day Years [...] ? TR JULIAN ? Accession #: ? [id number] : ? 1985 (Age: 20) ??F ?Collect Date: ? 03/06/2006 Location: ? [facility] ? Receive Date: ? 03/07/2006 Provider: ?SARAN REECE CNM Copy to: ? Specimen/Source: ?ThinPrep Pap Test, Cervix/Endocervix, processed on [employer] ThinPrep Imaging System, with manual evaluation Last [...] ORDERABLES Final Resul t [facility] [address] [place] [address] documented in this encounter Visit Diagnoses Not on filedocumented in this encounter Care Teams Pss Delivery Professional Relationship Specialty Start Date End Date Mary Phan, [place] [address] PCP - General 07/04/10 12/03/10 documented as of this encounter
--- OUTSIDE RECORDS SUMMARY | 2024-07-01 13:13 | XMS_ITS | Encounter Summary ---
Author Organization [facility] Address [address] [place] [address] Care Team Providers Care Airplane Pilot Photogrammetry Name Role Phone Barrington Bhatia MD Primary Care Provider [phone] Encounter Details Date Type Department Care Team (Late st Contact Info) Description 02/11/2013 Results Only [facility] Laboratory Services - [facility] ([facility]) [address] [place] [address] Valentina Green, MASON Social History Tobacco [...] ? TR JULIAN ? Accession #: ? [id number] ? : ? 1985 (Age: 27) ??F ?Collect Date: ? 02/11/2013 ? Location: ? [facility] ? Receive Date: ? 02/12/2013 ? Provider: VALENTINA GREEN TOWBOAT OPERATOR Copy to: BARRINGTON BHATIA MD ? Final Report SPECIMEN ADEQUACY ? Satisfactory for Evaluation - transformation zone component present GENERAL CATEGORIZATION ? Negative for Intraepithelial Lesion or Malignancy INTERPRETATION ? Reactive cellular changes associated with inflammation present (includes repair). Hormonal/Contracep tive status: Intrauterine device: Mirena Previous Gynecologic Pathology: AFVIO II LSIL: 12/2011 HSIL: 12/2011 Treatment History: [...] types 16,18,31,33,35, 39,45,51,52,56,58, 59,66, and 68 by contract clerk automobile mediated amplification. Comments Document reviewed and electronically signed by: ? System Interface ? Report date: 02/23/2013 By the signature above, the attending physician certifies that he/she has personally conducted a gross and/or microscopic examination of the described specimens and rendered or confirmed the above diagnosis. End of Report [facility] 02/11/2013 02/12/2013 us Valentina Green TOWBOAT OPERATOR PATHOLOGY ORDERABLES Final Re sult [facility] [address] [place] [address] documented in this encounter Visit Diagnoses Not on filedocumented in this encounter Care Teams Airplane Pilot Photogrammetry Relationship Specialty Start Date End Date Barrington Bhatia MD PCP - General 12/04/10 documented as of this encounter
--- OUTSIDE RECORDS SUMMARY | 2024-07-01 13:13 | XMS_ITS | Encounter Summary ---
Author Organization [facility] Address [address] [place] [address] Care Team Providers Care Conveyor Man Name Role Phone Alex Hong MD Primary Care Provider [phone] Encounter Details Date Type Department Care Team (Late st Contact Info) Description 01/17/2023 Specialty Pharmacy [facility] - [address] [phone] Chacha Ba RPH Social History Tobacco Use [...] injection (Sublocade). Treatment information: Prescriber: Ines Tracy ELECTROMECHANICAL INSPECTOR Prescriber Contact Info: [email or web address] [facility] [phone] Buprenorphine ER (Sublocade) Initial Dose: 300 mg [...] Patient will be administered the medication at [facility]. To contact the clinic call: [phone] Baseline labs: No labs, outside provider No [...] checked ??? Drug-drug interactions identified: Sublocade-Hydroxyzine- increased SQUAD LEADER depression; monitor only, patient has been tolerating [...] 01/14/2023 added in this encounter Care Teams Conveyor Man Relationship Specialty Start Date End Date Alex Hong MD PCP - General 12/04/10 documented as of this encounter
--- OUTSIDE RECORDS SUMMARY | 2024-07-01 13:13 | XMS_ITS | Encounter Summary ---
Author Organization [facility] Address [address] [place] [address] Care Team Providers Care Furniture Rental Consultant Name Role Phone Barrington Bhatia MD Primary Care Provider [phone] Encounter Details Date Type Department Care Team (Late st Contact Info) Description 04/07/2019 Results Only [facility] [phone] Katrina Kaye MD [address] [place] [address] Social History Tobacco Use Types Packs/Day Years [...] ? TR JULIAN ? Accession #: ? [id number] : ? 1985 (Age: 33) ??F ?Collect [...] Report Date: ??04/17/2019 13:14 End of Report [facility] 04/07/2019 04/13/2019 us Katrina Kaye MD PATHOLOGY ORDERABLES Final Resul t [facility] [address] [place] [address] documented in this encounter Visit Diagnoses Not on filedocumented in this encounter Care Teams Furniture Rental Consultant Relationship Specialty Start Date End Date Barrington Bhatia MD PCP - General 12/04/10 documented as of this encounter
--- OUTSIDE RECORDS SUMMARY | 2024-07-01 13:13 | XMS_ITS | Encounter Summary ---
Author Organization [facility] Address [address] [place] [address] Care Team Providers Care Med Care Manager Name Role Phone Alex Hong MD Primary Care Provider [phone] Encounter Details Date Type Department Care Team (Late st Contact Info) Description 01/01/2024 Lab Requisition [facility] Pathology & Laboratory Medicine - [address] [address] Outr Resulting Lab, Provider Social History Tobacco [...] Confirmation 110(A) <10 ng/mL 01/03/2024 12:39 EDT [facility] Norbuprenorphine Confirmation 528(A) <10 ng/mL 01/03/2024 12:39 EDT [facility] Naloxone Confirmation 721(A) <10 ng/mL 01/03/2024 12:39 EDT [facility] Urine URINE / Unknown 01/01/2024 1 1:51 EDT 01/01/2024 21:38 EDT Narrative [facility] - 01/03/2024 12:39 EDT Testing performed by: [facility] [address] [facility], [address], [place] [address] Bell Captain: Eamon Patricia MD; CLIA # [id number] us Provider Outr Resulting Lab GEN LAB UNIT COLLECT ORDERABLES Final Result Performing Organization Address City/State/[facility] Co de Phone Number [facility] [address] [place] [address], [address] [place] [address], [facility] [phone] documented in this encounter Visit Diagnoses Not on filedocumented in this encounter Care Teams Med Care Manager Relationship Specialty Start Date End Date Alex Hong MD PCP - General 12/04/10 documented as of this encounter
--- OUTSIDE RECORDS SUMMARY | 2024-07-01 13:13 | XMS_ITS | Referral Summary ---
Author Organization [facility] Address [address] [place] [address] Care Team Providers Care Nurse Plastics Name Role Phone Alex Hong MD Primary Care Provider [phone] Encounters Date Type Department Care Team Description 06/27/2024 Lab Requisition [facility] Pathology & Laboratory Medicine - [address] [address] Outr Resulting Lab, Provider from Last 3 Months Allergies No known active allergies Medications hydrOXYzine [...] Lyme Ab Negative Negative 06/29/2024 9:13 EST [facility] Blood VENOUS BLOOD / Unknown 06/26/2024 15:45 EST 06/27/2024 21:56 EST us Provider Outr Resulting Lab IMMUNOLOGY AND SEROL OGY ORDERABLES Final Result Performing Organization Address [facility] Co de Phone Number [facility] [address] [place] [phone] * ANTI NUCLEAR AB (REANNA), IFA (06/26/2024 15:45 EST) Pathologist [facility] REANNA Interpretation Negative Negative 2023 13:53 EST [facility] Comment:No titer performed, REANNA Screen is negative. Blood VENOUS BLOOD / Unknown 06/26/2024 15:45 EST 06/27/2024 21:56 EST Narrative [facility] - 06/29/2024 13:53 EST Results were obtained with the [employer] NOVA Lite HEp-2 REANNA Kit by indirect immunofluorescence. us Provider Outr Resulting Lab IMMUNOLOGY AND SEROL OGY ORDERABLES Final Result Performing Organization Address [facility] de Phone Number [facility] [address] [place] [phone] * (ABNORMAL) HEPATITIS C AB W REFLEX TO HCV RNA BY PCR (04/20/2022 9:35 EDT) Pathologist [facility] Hep C Antibody Reactive(A ) Negative 04/23/2022 9:51 EDT [facility] Comment: Supplemental testing for HCV RNA is ordered to rule out active HCV infection. Blood VENOUS BLOOD / Unknown 04/20/2022 9:35 EDT 04/20/2022 19:01 EDT us Provider Outr Resulting Lab CHEMISTRY & BLOOD GA S ORDERABLES Final Result Performing Organization Address [facility]/ZIP Co de Phone Number [facility] [address] [place] [address] from Last 3 Months or Most Recently Relevant to Health Maintenance Insurance [place] Care Teams Nurse Plastics Relationship Specialty Start Date End Date Alex Hong MD PCP - General 12/04/10
--- OUTSIDE RECORDS SUMMARY | 2024-07-01 13:13 | XMS_ITS | Encounter Summary ---
Author Organization [facility] Address [address] [place] [address] Care Team Providers Care Softwood Faller Name Role Phone Alex Hong MD Primary Care Provider [phone] Encounter Details Date Type Department Care Team (Late st Contact Info) Description 01/17/2023 Telephone [facility] - [facility] [address] [place], [place] [id number] Chacha Ba RPH Social History Tobacco Use [...] - 01/17/2023 0858 EDT Prescription Receipt by [facility] Date Received: 01/15/23 Medication: Sublocade 300mg / 1.5ml syringe Sent by: [facility]: [place] Provider: [facility] Phone number: [phone] Benefits Investigation Results: PA needed Comments: Request faxed Prescription copy available in scans: YES Relevant clinical documents in scans (if applicable): Routed to appropriate Pharmacist: YES [facility] Specialty Pharmacy: [phone] documented in this encounter Plan of Treatment Not on file documented as of this encounter Visit Diagnoses Not on filedocumented in this encounter Care Teams Softwood Faller Relationship Specialty Start Date End Date Alex Hong MD PCP - General 12/04/10 documented as of this encounter
--- OUTSIDE RECORDS SUMMARY | 2024-07-01 13:13 | XMS_ITS | Encounter Summary ---
Author Organization [facility] Address [address] [place] [address] Care Team Providers Care Corporate Strategy Intern Name Role Phone Unavailable Primary Care Provider Unavailabl e Encounter Details Date Type Department Care Team (Late st Contact Info) Description 06/27/2010 Results Only [facility] - [facility] [address] [place], [place] [id number] Chacha Avila, [facility] [address] [place] [address] [place] [address] Social History Tobacco Use Types [...] ? TR JULIAN ? Accession #: ? [id number] ? : ? 1985 (Age: 24) ??F ?Collect Date: ? 06/27/2010 ? Location: ? [facility] ? Receive Date: ? 06/28/2010 ? Provider: CHACHA SHARRI REVERSE ENGINEER ? Copy to: ? Final Report ? SPECIMEN ADEQUACY ? Satisfactory for Evaluation ? - transformation zone component present ? GENERAL CATEGORIZATION ? Epithelial Cell Abnormality ? INTERPRETATION ? Squamous Cell Abnormality - Atypical squamous cells, undetermined ? significance (ASC-US). ? EDUCATIONAL NOTES/RECOMMENDATI ONS ? [facility] recommends following the 2006 Consensus Guidelines for [...] KEYANA THOMAS 06/27/2010 06/28/2010 us Chacha Avila REVERSE ENGINEER PATHOLOGY ORDERABLES Final R esult KEYANA THOMAS [address] [place] [address] documented in this encounter Visit Diagnoses Not on filedocumented in this encounter
--- OUTSIDE RECORDS SUMMARY | 2024-07-01 13:13 | XMS_ITS | Encounter Summary ---
Author Organization [facility] Address [address] [place] [address] Care Team Providers Care Magnet Placer Name Role Phone Alex Hong MD Primary Care Provider [phone] Encounter Details Date Type Department Care Team (Late st Contact Info) Description 11/13/2017 Results Only [facility] [phone] Blanca Cottrell, GERTRUDE [address] [place] [address] Social History Tobacco Use Types Packs/Day Years [...] Chlamydia Result Negative 11/15/19 18 15:31 EDT [facility] Comment: This test was developed [...] samples. GC Result Negative 11/14/2017 15:31 EDT [facility] Comment: This test was developed [...] MICROBIOLOGY - GENERAL ORDERA BLES Final Result [facility] [address] [place] [address] documented in this encounter Visit Diagnoses Not on filedocumented in this encounter Care Teams Magnet Placer Relationship Specialty Start Date End Date Alex Hong MD PCP - General 12/04/10 documented as of this encounter
--- OUTSIDE RECORDS SUMMARY | 2024-07-01 13:13 | XMS_ITS | Encounter Summary ---
Author Organization [facility] Address [address] [place] [address] Care Team Providers Care Computer Compositor Name Role Phone Alex Hong MD Primary Care Provider [phone] Encounter Details Date Type Department Care Team (Late st Contact Info) Description 03/29/2023 Lab Requisition [facility] Pathology & Laboratory Medicine - [address] [id number] Outr Resulting Lab, Provider Social History Tobacco [...] 4th Generation Negative Negative 03/30/2023 11:[address] [facility] Comment:If acute HIV-1 infec tion is suspected in a high risk patient, submit plasma specimen for HIV-1 RNA quantitation test. Blood VENOUS BLOOD / Unknown 03/29/2023 13:19 EDT 03/29/2023 21:44 EDT [address]arr[address] [facility] - 03/30/2023 11:17 EDT Fourth Generation assay performed on the Siemens Centaur XPT. us Provider Outr Resulting Lab IMMUNOLOGY AND SEROL OGY ORDERABLES Final Result [facility] [address] [place] [address] documented in this encounter Visit Diagnoses Not on filedocumented in this encounter Care Teams Computer Compositor Relationship Specialty Start Date End Date Alex Hong MD PCP - General 12/04/10 documented as of this encounter
--- OUTSIDE RECORDS SUMMARY | 2024-07-01 13:13 | XMS_ITS | Encounter Summary ---
Author Organization [facility] Address [address] [place] [address] Care Team Providers Care Rn Practitioner Name Role Phone Alex Hong MD Primary Care Provider [phone] Encounter Details Date Type Department Care Team (Latest Contact Info) Description 10/10/2018 15:23 EST - 10/10/2018 23:59 EST Hospital Encounter [address] [address] Unknown, Provider, MD Discharge Disposition: Home or [...] Code Departure Means Destination Home or Self Assisted documented in this encounter Plan of Treatment Not on file documented as of this encounter Visit Diagnoses Not on filedocumented in this encounter Care Teams Rn Practitioner Relationship Specialty Start Date End Date Alex Hong MD PCP - General 12/04/10 documented as of this encounter
--- OUTSIDE RECORDS SUMMARY | 2024-07-01 13:13 | XMS_ITS | Encounter Summary ---
Author Organization [facility] Address [address] [place] [address] Care Team Providers Care Executive Assistant To President Name Role Phone Barrington Bhatia MD Primary Care Provider [phone] Encounter Details Date Type Department Care Team (Late st Contact Info) Description 10/10/2018 Results Only [facility] [phone] Braxton Newman, DO [address] [place], [place] [id number] Social History Tobacco Use Types Packs/Day Years [...] ? TR JULIAN ? Accession #: ? [id number] ? : ? 1985 (Age: 32) ??F [...] (ASCP) 10/13/2018 7:42 AM End of Report [facility] 10/10/2018 18:3 2 EST 10/10/2018 18:32 EST us Braxton Newman DO PATHOLOGY ORDERABLES Final Re sult [facility] [address] [place] [address] documented in this encounter Visit Diagnoses Not on filedocumented in this encounter Care Teams Executive Assistant To President Relationship Specialty Start Date End Date Barrington Bhatia MD PCP - General 12/04/10 documented as of this encounter
--- OUTSIDE RECORDS SUMMARY | 2024-07-01 13:13 | XMS_ITS | Encounter Summary ---
Author Organization [facility] Address [address] [place] [address] Care Team Providers Care Regulator Inspector Name Role Phone Alex Hong MD Primary Care Provider [phone] Encounter Details Date Type Department Care Team (Late st Contact Info) Description 11/08/2022 Lab Requisition [facility] Pathology & Laboratory Medicine - [address] [address] Outr Resulting Lab, Provider Social History Tobacco [...] IGA <1.2 <4.0 U/mL 11/13/2022 11:40 EDT [facility] Comment: A negative result may be due to IgA deficiency and does not rule out celiac disease. ? Negative: ??<4.0 U/mL ? Weak Positive: ??4.0 - 10.0 U/mL ? Positive: ??>10.0 U/mL Results were obtained with the [employer] QUANTA Lite R h-tTG IgA DUSTIN assay on the [employer] DSX. IgA 168 85 - 499 mg/dL 11/13/2022 11:40 EDT [facility] Celiac Disease Interpretation Negative Serology. Celiac disease unlikely. Approximately 10% of patients with celiac disease are seronegative. Patients who are already adhering to a gluten-free diet may also be seronegative. If celiac disease is highly clinically suspected, referral to gastroenterology for additional evaluation is recommended. 11/13/2022 11:40 EDT [facility] Blood VENOUS BLOOD / Unknown 11/08/2022 14:03 EDT 11/08/2022 21:39 EDT us Provider Outr Resulting Lab IMMUNOLOGY AND SEROL OGY ORDERABLES Final Result [facility] [address] [place] [address] documented in this encounter Visit Diagnoses Not on filedocumented in this encounter Care Teams Regulator Inspector Relationship Specialty Start Date End Date Alex Hong MD PCP - General 12/04/10 documented as of this encounter
--- OUTSIDE RECORDS SUMMARY | 2024-07-01 13:14 | XMS_ITS | Encounter Summary ---
Author Organization [facility] [place] [address] Care Team Providers Care Community Recreation Programmer Name Role Phone Shweta Sykes APRN Primary Care Provider [phone] Reason for Visit * Reason Onset Date Comments Reminder Appointment 12/01/2021 Encounter Details Date Type Department Care Team (Late st Contact Info) Description 12/01/2021 Telephone Gastroenterology at [facility] [place] [phone] Melonie Davidson CCMA Reminder Appointment Social History [...] on filedocumented in this encounter Care Teams Community Recreation Programmer Relationship Specialty Start Date End Date Shweta Sykes APRN [address] [place], [place] [phone] PCP - General Family Medicine 05/28/21 11/01/22 documented as of this encounter
--- OUTSIDE RECORDS SUMMARY | 2024-07-01 13:14 | XMS_ITS | Encounter Summary ---
Author Organization [facility] [place] [address] Care Team Providers Care Assistant Professor Of Radiology Name Role Phone Shweta Sykes APRN Primary Care Provider [phone] Encounter Details Date Type Department Care Team (Late st Contact Info) Description 08/03/2021 Telephone Gastroenterology at [facility] [place] [phone] Wanda Baez Social History Tobacco Use Types [...] on filedocumented in this encounter Care Teams Assistant Professor Of Radiology Relationship Specialty Start Date End Date Shweta Sykes APRN [address] [place], [place] [address] PCP - General Family Medicine 05/28/21 11/01/22 documented as of this encounter
--- OUTSIDE RECORDS SUMMARY | 2024-07-01 13:14 | XMS_ITS | Encounter Summary ---
Author Organization [facility] Address [facility] [place] [address] Care Team Providers Care Scientific Helper Name Role Phone Unknown Primary Care Provider Unavailabl e Encounter Details Date Type Department Care Team (Latest Contact Info) Description 10/15/2016 9:46 AM EDT - 10/15/2016 10:29 AM EDT Hospital Encounter Laboratory [facility] [place] [address] Discharge Disposition: Home Social History Tobacco Use [...] g by mouth daily. 14 each 10/18/2016 Mznjyzmdrkdfo-Vw-Qoqj-M inerals 27-0.4 mg Tablet Take by mouth. [...] Report (10/15/2016 9:55 AM EDT) Final Diagnosis [id number] ?Location: OPW The signing pathologist has (i) [...] parenchyma. (R5) ??ZOEY 10/23/2016 1:55 PM EDT [facility] TISSUE SPECIMEN FROM PLACENTA / Unknown 10/15/2016 9:55 AM EDT 10/15/2016 9:55 AM EDT Won Kilpatrick MD PATHOLOGY/CYTOLOGY O RDERASALLY [facility] [place] [address] documented in this encounter Visit Diagnoses Not on filedocumented in this encounter Care Teams Scientific Helper Relationship Specialty Start Date End Date Unknown None PCP - General 10/03/16 05/27/21 documented as of this encounter
--- OUTSIDE RECORDS SUMMARY | 2024-07-01 13:14 | XMS_ITS | Encounter Summary ---
Author Organization [facility] Address [facility] [place] [address] Care Team Providers Care Dental Service Technician Name Role Phone Kendrick Aranda DNP Primary [...] documented anticoagulation use Kendrick Aranda DNP [address] [facility] [place] [address] [facility] End[address] [place] [address] Referral ID Status Reason Start Date Expiration Date V isits Requested Visits Authorized [id number] Closed Surgical PCP Updated and/or Approved 11/02/2022 11/02/2023 1 1 Encounter Details Date Type Department Care Team (Latest Contact Info) Description 11/02/2022 Transcribe Orders eDH Incoming Referrals [phone] Kendrick Aranda DNP [address] [place] [address] Abdominal pain, unspecified abdominal location; Other chronic pain Social History Tobacco Use Types Packs/Day Years Used Date Smoking Tobacco: Former Cigarettes 1 10 2 - 2017 Smokeless Tobacco: Never Comments:vape nicotine [...] pain documented in this encounter Care Teams Dental Service Technician Relationship Specialty Start Date End Date Kendrick Aranda DNP [address] [place] [address] PCP - General Family Medicine 11/02/22 documented as of this encounter
--- OUTSIDE RECORDS SUMMARY | 2024-07-01 13:14 | XMS_ITS | Encounter Summary ---
Author Organization [facility] [place] [address] Care Team Providers Care Office Assistant Receptionist Name Role Phone Adelaida Dawson GERTRUDE Primary Care Provider [phone] Reason for Visit * Reason Comments GI Problem Encounter Details Date Type Department Care Team (Late st Contact Info) Description 05/20/2015 1:00 PM EDT Office [place] [address] Sylvia You APRN [facility] [place] [address] Hepatitis C virus infection without hepatic coma, [...] months ago, and has been going to [facility] for the past 7 months. She gave to a baby boy, [employer], 3 months ago and she states the period has beendifficult because the baby has colic and she does not feel well. She is living with her mother but does not have much help with the baby as she feels like she is the only one who can calm him. She has not seen her Ob-Skidder since giving . She does not know [...] You APRN Medication Sig Dispense Refill ??? Ospwrxyswfsna-Nd-Ivcb-Minerals 27-0.4 mg Tablet Take by mouth. ??? [...] WBC: 10.53 Platelets: 230 HCV viral load: [id number] IU/mL 12/23/14: HCV viral load: [id number] Procedure: Vibration Controlled Transient Elastography (VCTE) or Fibroscan [place] Protocol: Patient's identity, procedure and site were [...] CMP). Encouraged patient to schedule appointment with Ob-GRIDDLE ATTENDANT for post- follow up and make time for herself and accept help for caring for her . The patient was given my contact information and will call me with concerns or questions Sylvia You NP Department of Gastroenterology and Hepatology [place] [phone] of this 60 minute visit in face to face discussion regarding disease, prognosis and treatment CC: ADELAIDA DAWSON APRN (General) documented in this encounter Plan of Treatment Not on file documented as of this encounter Visit Diagnoses Diagnosis Hepatitis C virus infection without hepatic coma, unspecified chronicity documented in this encounter Care Teams Office Assistant Receptionist Relationship Specialty Start Date End Date Adelaida Dawson APRN [address] [place] [address] PCP - General 06/27/10 10/02/16 documented as of this encounter
--- OUTSIDE RECORDS SUMMARY | 2024-07-01 13:14 | XMS_ITS | Encounter Summary ---
Author Organization [facility] [place] [address] Care Team Providers Care Application Security Specialist Name Role Phone Zack Sanchez APRN Primary Care Provider [phone] Encounter Details Date Type Department Care Team (Latest Contact Info) Description 11/26/2014 2:15 PM EDT Initial consult Obstetrics [place] [address] Shankar Grant MD [facility] DR OBSTETRICS & [place] [address] Substance abuse; Rubella non-immune status, antepartum; Depression; [...] on an undocumented ultrasound performed at a [facility] in [place]. She is at 26w6d weeks gestation. She [...] Past Surgical History Procedure Laterality Date ??? [place] tooth extraction No family history on file. [...] 72.122 kg (159 lb) BMI 27.28 kg/m2 [facility] (Approximate) Weight - Scale: 72.122 kg (159 lb) General: in no apparent distress Abdomen: abdomen is soft without significant tenderness, masses, organomegaly or guarding. Neurologic:alert, oriented, normal speech, no focal findings or movement disorder noted Psychiatric: Affect is agitated Uterine Size: S=D FHR: normal Assessment and Recommendations: 28 y.o. year old female at 26w6d weeks gestation referred for counseling secondary to [facility] medical issues.. Please refer to my problem [...] referral locally for an intake with a [facility]. As no medication, other than lithium, has worked for her in the past, I had nothing to offer today. Late care The patient states she essentially had no care until 19 weeks. She states shehHad a free US at a [facility] in [place] and just a picture was taken. She does not know if measurements weredone. She states she told the [facility] that her LMP was in June when [...] MS Professor Obstetrics & Gynecology and Radiology [facility] 11/26/2014 documented in this encounter [...] states shehHad a free US at a [facility] in [place] and just a picture was taken. She does not know if measurements weredone. She states she told the [facility] that her LMP was in June when she was in [facility] and they told her she [...] referral locally for an intake with a [facility]. As no medication, other than lithium, has [...] chronicity documented in this encounter Care Teams Application Security Specialist Relationship Specialty Start Date End Date Zack Sanchez APRN [address] [place] [address] PCP - General 06/27/10 10/02/16 documented as of this encounter
--- OUTSIDE RECORDS SUMMARY | 2024-07-01 13:14 | XMS_ITS | Encounter Summary ---
Author Organization [facility] Address [facility] [place] [address] Care Team Providers Care Paint Roller Covers Supervisor Name Role Phone Shweta Sykes APRN Primary Care Provider [phone] Encounter Details Date Type Department Care Team (Late st Contact Info) Description 12/19/2021 1:00 PM EDT - 12/19/2021 2:00 PM EDT [place] [id number] López Sosa MD [facility] [place] [address] EGD WITH BIOPSY (WRVU 2.39) Social History [...] the day after the procedure, use an khko-gyo-mcmqkzl spray to numb your throat. Sucking on [...] occurs, please contact your Doctor. Please call [phone] before 8pm Mon-Fri with problems, questions or concerns. If you call after 8pm or on weekends, call the Hospital at [phone] and ask to speak to the Dairy Bacteriologist consulting sales executive and the machine operator transplanter will contact that person for you. When [...] any problems. Where can you learn more? [facility] View your After Visit Summary and more online at [email or web address] If you would like to provide feedback about your hospital experience, please call the Office of Patient and Family Relations at . If you have received this After Visit Summary in error, please immediately return it in person to the department, or notify the Count Includes [facility] Privacy Office by calling toll free at between the hours of 8AM and 5PM to arrange for our retrieval of the documents at no cost to you. Content Version: 12.2 ?? [phone] [employer]. Care instructions adapted under license by [employer]. If you have questions about a medical condition or this instruction, always ask your healthcare professional. [employer] disclaims any warranty or liability for your [...] g by mouth daily. 14 each 10/18/2016 Qjzcdonzerypd-Ys-Lufw-Mi nerals 27-0.4 mg Tablet Take by mouth. [...] complication. Informed Consent signed by patient (or internet sales representative). documented in this encounter Plan [...] per rectum) [facility] Upper Gi Endoscopy, Biopsy ([id number]) 12/19/2021 1:35 PM EDT Heartburn Gastroesophageal reflux [...] Report (12/19/2021 1:54 PM EDT) Final Diagnosis [id number] ? Location: 4T; 06; A The signing [...] MD Verified: ??12/22/2021 19:35 ??Pathologist Performed at: ??-[facility] [place] Dept. of Pathology, [place], [place] SPECIMEN(S) SUBMITTED A - Duodenum, biopsy [...] labeled B1-B2. ??mnd 12/22/2021 7:35 PM EDT [facility] GI Biopsy 12/19/2021 1:54 PM EDT 12/19/2021 1:54 PM EDT GI Biopsy 12/19/2021 1:54 PM EDT 12/19/2021 1:54 PM EDT López Sosa MD PATHOLOGY/CYTOLOG Y ORDERABLES Performing Organization Address City/[facility] [address]/[place] [address] * Specimen to Pathology (12/19/2021 1:54 PM EDT) AP Specimen 12/19/2021 1:54 PM EDT 12/19/2021 1:54 PM EDT Narrative [facility] - 12/19/2021 1:54 PM EDT Specimen requisition ordered. ??Separate Pathology report to follow López Sosa MD PATHOLOGY/CYTOLOG Y ORDERABLES Performing Organization Address City/[facility] [address]/[place] [address] * Specimen to Pathology (12/19/2021 1:54 PM EDT) AP Specimen 12/19/2021 1:54 PM EDT 12/19/2021 1:54 PM EDT Narrative [facility] - 12/19/2021 1:54 PM EDT Specimen requisition ordered. ??Separate Pathology report to follow López Sosa MD PATHOLOGY/CYTOLOG Y ORDERABLES Performing Organization Address City/[facility] [address]/[place] [address] * UPPER GI ENDOSCOPY (12/19/2021 1:23 PM EDT) UPPER GI ENDOSCOPY [facility] Endoscopy Procedure Date: 12/19/2021 1:23 PM ? Patient Name: Chencho Barrett ? Date of : 1985 ? Age: 35 ? Order #: [id number] ? Instrument Name: [id number] ? Procedure: ? Upper GI endoscopy Indications: ? Epigastric abdominal pain, ? Functional Dyspepsia, Nausea with ? vomiting Patient Profile: ? This is a 35 year old female. Providers: ? López Sosa MD, Mckenzie ? Homer Gordillo, Business Development Associate Referring MD: ?Nicholas Ba MD, Shweta Lange [...] symptoms pending ? the biopsy results and HERANNDES. ? - Recommend Consultation with ? Hepatology [...] CRNA) documented in this encounter Care Teams Paint Roller Covers Supervisor Relationship Specialty Start Date End Date Shweta Sykes APRN [address] [place] [address] [address] [place] [address] PCP - General Family Medicine 05/28/21 11/01/22 documented as of this encounter
--- OUTSIDE RECORDS SUMMARY | 2024-07-01 13:14 | XMS_ITS | Encounter Summary ---
Author Organization [facility] [place] [address] Care Team Providers Care Instrument Adjuster Name Role Phone Shweta Sykes GERTRUDE Primary Care Provider [phone] Encounter Details Date Type Department Care Team (Late st Contact Info) Description 12/19/2021 1:00 PM EDT Procedure visit Gastroenterology at [facility] [place] [address] Heartburn Social History Tobacco Use Types Packs/Day [...] ([place]) procedure report Patient: Chencho Barrett Address: [address] [address] : 1985 Referring provider: Shweta Sykes Date [...] the Lopez Consensus. Gut. 2018 Feb; 67(7): 3283-9550. 2) Validation of the Lopez classification for GORD diagnosis: acid exposure time assessed by prolonged wireless pH monitoring in healthy controls and patients with erosive oesophagitis. Gut. 2020. doi10.1136/flwuaw-[id number]. Jad Kerr MD, FRCPC Section of Gastroenterology and Hepatology [facility] [place] [address] [address] V: [phone] F: [phone] CC/ETC: Shweta Sykes APRN [address] [place] [address] documented in this encounter Plan of Treatment Not on file documented as of this encounter Visit Diagnoses Diagnosis Heartburn documented in this encounter Care Teams Instrument Adjuster Relationship Specialty Start Date End Date Shweta Sykes APRN [address] [place] [address] PCP - General Family Medicine 05/28/21 11/01/22 documented as of this encounter
--- OUTSIDE RECORDS SUMMARY | 2024-07-01 13:14 | XMS_ITS ---
Author Organization [facility] Address [address] [place] [address] Care Team Providers Care Sap Pi Developer Name Role Phone Alex Hong MD Primary Care Provider [phone] Other Conditions Status:Discharged (Closed) Start date:01/17/2023 Enrollment date:01/17/2023 End date:02/21/2023 Continued Care and Services Coordination
--- OUTSIDE RECORDS SUMMARY | 2024-07-01 13:14 | XMS_ITS | Encounter Summary ---
Author Organization [facility] [place] [address] Care Team Providers Care Triage Rn Name Role Phone Unknown Primary Care Provider Unavailabl e Reason for Visit * Auth/Cert Specialty Diagnoses / Procedures Referred By Contac t Referred To Contact Diagnoses care following delivery S/P , 26 WEEK GESTATION Procedures EMERGENCY IPI Referral ID Status Reason Start Date Expiration Date Visits Re quested Visits Authorized [id number] 1 1 Encounter Details Date Type Department Care Team (Latest Contact Info) Description 10/15/2016 10:30 AM EDT - 10/18/2016 5:15 PM EDT [place] [address] Tania Sandy MD [facility] DR OBSTETRICS [place] [address] Afsaneh Raymond MD [facility] OBSTETRICS [place] [address] Discharge Disposition: Home Social History Tobacco Use [...] Chencho Barrett Patient Age: 30 y.o. 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 This was started while inpatient and efforts were made on the part of case management and the OB team to obtain psychiatry follow-up. She was placed on a waiting list with [facility] for follow up. She was not discharged with [place] due to unknown/unclear follow up plan, but [...] needed for Pain. 55 mg Refills: 0 Skibqjauzkido-Qn-Scmq-Minerals 27-0.4 mg Tab Take by mouth. Refills: [...] Depression Contact Numbers: If you see an denture processor call: [phone] 9 am - 5 pm, after 5 pm If you see a telemarketing manager call: [phone] all hours If you see a family practitioner call: [phone] all hours If you were transferred to our institution for delivery and cannot reach your local OB provider, call the denture processor numbers. Pain Control: - Alternate 650 mg [...] coffee grounds or cat litter. General Instructions [facility] Human Services Mental Health, Substance Abuse, and Developmental Services Residential Treatment [address] Call [phone] for a confidential assessment 211 and Safe Station: Your Connection to Recovery You can dial 2-1 from anywhere in [place] and be connected to a men's swim coach who will help you connect to the appropriate treatment. You can also go to any one of the fire stations in [place] and Located within [facility], now designated as ???Safe Stations?? , a place where you can walk in, from anywhere in [place] 25/02, and get connected with substance use treatment services. [facility] Safe Stations Central Fire Station: [address] --- Station 2: [address] Station 3: [address] --- Station 4: [address] Station 5: [address] --- Station 6: [address] Station 7: [address]--- Station 8: [address] Station 9: [address]--- Station 10: [address] Located within [facility] Safe Stations Station 1: [address] --- Station 2: [address] --- Station 3: [address] Station 4: [address] --- Station 5: [address] -- Station 6: [address] Station 7: [address] Additional Resources http://nhtreatment.org/ http://www.[facility].gov/sites/default/files/documents//adap_treatmen t_recovery_directory.pdf http://health[place].gov/alcohol-drugs http://www.psychologytoday.com/ http://www.[facility].org/wp-content/uploads//Consumer_Guide_to_Substa nce_Use_Treatment_2015version.pdf Discharge References/Attachments None documented in this encounter Discharge Instructions * Discharge Instructions* Ana Bruno RN - 10/18/2016 4:20 PM EDT Pending Sale To [facility] Mental Health, Substance Abuse, and Developmental Services Residential Treatment [address] Call [phone] for a confidential assessment 211 and Safe Station: Your Connection to Recovery You can dial 2-1-1 from anywhere in [place] and be connected to a men's swim coach who will help you connect to the appropriate treatment. You can also go to any one of the fire stations in [place] and Located within [facility], now designated as ???Safe Stations?? , a place where you can walk in, from anywhere in [place] 25/02, and get connected with substance use treatment services. [facility] Safe Stations Central Fire Station: [address] --- Station 2: [address] Station 3: [address] --- Station 4: [address] Station 5: [address] --- Station 6: [address] Station 7: [address]--- Station 8: [address] [facility] [address] Station 9: [address]--- Station 10: [address] Located within [facility] Safe Stations Station 1: [address] --- Station 2: [address] --- Station 3: [address] Station 4: [address] --- Station 5: [address] -- Station 6: [address] Station 7: [address] Additional Resources http://nhtreatment.org/ http://www.health[place].gov/sites/default/files/documents//adap_treatmen t_recovery_directory.pdf http://health[place].gov/alcohol-drugs http://www.psychologytoday.com/ http://www.[facility].org/wp-content/uploads//Consumer_Guide_to_Substa nce_Use_Treatment_2015version.pdf Nursing Inpatient Progress C - Section Follow-up Follow-ups: You should receive a follow-up appointment notification from [facility] for a six week post- visit. [...] this in detail. Call your doctor or telemarketing manager for: ??? Fever more than 100.5 ??? [...] follow up appointment. You may call the [facility] at any time for guidance or for answers to questions that come up prior to you follow up appointment. Your [facility] Provider can be reached during office hours at ??? Midwives ??? Obstetricians ??? [facility] Follow-up Clinic AFTER OFFICE HOURS for the denture processor or telemarketing manager non cdl driver Provider electronic signature confirms that discharge instructions [...] Depression Contact Numbers: If you see an denture processor call: [phone] 9 am - 5 pm, after 5 pm If you see a telemarketing manager call: [phone] all hours If you see a family practitioner call: [phone] all hours If you were transferred to our institution for delivery and cannot reach your local OB provider, call the denture processor numbers. Pain Control: - Alternate 650 mg [...] g by mouth daily. 14 each 10/18/2016 Rbkbhopmsgper-Mb-Ousf-M inerals 27-0.4 mg Tablet Take by mouth. [...] [facility] S: The patient continues to complain [...] passive suicidal ideations on admission; previously on [place] - Psych consulted - Started on [place] 300 HS on POD#1 - Psych will [...] CS Doing well Routine care Depression restarted [place] by psychiatry Opioid dependence on Methadone Plans nexplanon AFSANEH RAYMOND MD * Bree Potter, HAND TAPPER - 10/17/2016 4:40 PM EDT Social Work [...] her finance/FOB Homer has come up from [place] and was able to visit the baby, who shehas now named Gonzalez, yesterday. Homer has told Chencho that he wants to bring their older son, Roman Catholic, back to [place] with him so that Chencho can focus on the baby and go to inpatient substance abuse treatment if needed. Chencho has some reservations about this, namely being from [place]. Chencho reports that her family has become aware of her recent drug use and has not received this well. Chencho is worried about the negative consequences as a result of this. Specifically, she reportsthat her mother is no longer willing to let Chencho use her vehicle, which Chencho had been planning to use to commute back and forth to [facility] if needed after her discharge. She has concerns about her ability to access her methadone and also spend time with her baby; She worries that her home clinic will not permit her to guest dose in [place] due to her illicit substance use. Chencho also shares that her sister wrote an eight page letter about Chencho that she intends to deliver to [facility], noting that her sister is trying to have the baby taken away from ut. Chencho's air force senior officer, David Steiner, called this afternoon requesting [...] with Chencho that DCF worker Paul Kwan ([phone]) had called this afternoonindicating that he would be conducting a child safety assessment based on the report made yesterdayby this [employer]. Chencho is anxious to speak with him to find out what DCF will be recommending for tr eatment. Encouraged Chencho to reach out directly to Paul rather than waiting for him to call her. Chencho is anticipating being discharged from the tomorrow. She intends to go home following discharge and go to [facility] on Saturday morning, where she will talk to them about the possibility of guest dosing at [facility] in [place] beginning next week so that she can stay at [facility] to be near jeyson Roth. Chencho plans to stay at home until Homer and Roman Catholic leave for [place], which Chencho anticipates will be on Saturday. Plan: MONICA will continue to follow through infant's ICN admission for ongoing assessment, support, and discharge planning. MENDEZ Valdes Pager: [phone] * Kailey Lay MD - 10/17/2016 6:03 AM EDT Delivery Note Patient ID: Chencho Barrett is a 30 y.o. year old who is postop day #2 after pLTCS at 26w2d gestation for breech presentation in the setting [facility] S: The patient continues to complain [...] passive suicidal ideations on admission; previously on [place] - Psych consult yesterday - Started on [place] 300 HS on POD#1 - Psych will [...] CS Doing well Routine care Depression restarted [place] by psychiatry Opioid dependence on Methadone Plans nexplanon AFSANEH RAYMOND MD * Jenni Fajardo MD - 10/16/2016 6:23 AM EDT Delivery Note Patient ID: Chencho Barrett is a 30 y.o. year old who is postop day #1 after pLTCS at 26w2d gestation for breech presentation in the setting [facility] S: The patient complains of cough [...] passive suicidal ideations on admission; previously on [place] - will consult psych today Opiate dependence [...] narcotics. Plan: Continue routine postoperative care. Jenni Fajadro MD * Chelsi Pozo RN - 10/15/2016 [...] 60 mg daily: meds and counseling at [facility] - Hepatitis C pos - [...] Medication Sig Dispense Refill Last Dose ??? Ispvbacoaexan-Rr-Ltwi-Minerals 27-0.4 mg Tablet Take by mouth. Taking [...] 30 y.o. who presents as transport from [facility] after pLTCS; she presents due to transport of her baby. ?? Routine care ?? Depression; active suicidal ideations: ?? Will consult psych ?? Desires Nexplanon for contraception ?? Homer eligible; will consent and place prior to discharge This patient was seen and discussed with Dr. Sandy, Attending SHELTERED WORKSHOP WORKER. Kailey Lay MD 10/15/2016 Associated attestation - Tania Sandy MD - 10/15/2016 2:17 PM EDT I have seen the patient and reviewed the resident's above history and I agree with the details as written. The assessment and plan were formulated in discussion with me and I agree with them as documented. 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 [...] contraceptive Procedure Note 10/18/2016 Preoperative diagnosis: Desires fci contraception Postoperative diagnosis: Same HPI: Chencho Barrett is a 30 y.o. 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 The risks and benefits of [...] and myselffollowing the procedure. Nexplanon Lot #: [id number] Assessment/Plan: Chencho Barrett is a 30 y.o. [...] rest before her visitor arrived. This life underwriter willtry and meet with the patient later. Chencho met with Nickolas Ulloa RN (please see note) yesterday regarding substance use resources. Antoni Fischer APRN Pager #[phone] * Med Student Progress Note - Mathew Hodges - 10/17/2016 7:01 AM EDT Patient Name: Chencho Barrett Patient Age: 30 y.o. Birthdate: 1985 Admit date: 10/15/2016 Attending Physician: Tania Sandy MD Delivery Note Patient ID: Chencho Barrett is a 30 y.o. year old who is postop day # 2 after pC/S performed in [facility] at 26w3d gestation for breech presentation [...] POD 2 for a pC/S performed at [facility]. She continues to complain of persistent [...] was seen and discussed on rounds. Mathew [place] Medical Student 10/17/2016 * Plan of Care [...] support. She is currently receiving treatment at [facility], which includes Methadone assisted group and individual therapy, which she plans to continue. She reports receiving mental health services with [facility] in the past and plans to contact them for re-intake. Ms Barrett is also considering the need for residential treatment and plans to contact [facility] for intake instructions. She is aware that bed availability in residential treatment programs are limited. She was encouraged to dial [facility] for access to a men's swim coach and more immediate access to appropriate treatment-resources given. She was also encouraged to access [facility] and the [facility] program for immediate access to treatment, 25/02, as a relapse prevention plan. Additional treatment resources given for review and placed in her discharge summary. [facility] Mental Health, Substance Abuse, and Developmental Services [address] Call [phone] for a confidential assessment Assessment: Ms Barrett is a 30-year-old woman admitted with labor, now s/p . History of emotionaltrauma, anxiety, depression, SI, heroin and cocaine use. Endorses depressed mood and anxiety. No acute safety concerns. Plans to abstain from heroin and cocaine use with continuing clinical support. She is currently receiving treatment at [facility], which includes Methadone assisted group and individual therapy, which sheplans to continue. Plans to restart mental health services with [facility]. Considering the need for residential treatment and plans to contact [facility] for intake instructions. Encouraged to contact [facility] for access to a men's swim coach and more immediate access to appropriate treatment and as a relapse prevention plan-resources given. Additional treatment resources given for review and placed in her discharge summary. Plan: 1. Patient plans to maintain abstinence from heroin and cocaine with ongoing clinical support. 2. Patient plans to continue to receive Methadone assisted therapy at [facility]. 3. Patient plans to restart mental health services at [facility]. 4. Patient is considering residential treatment and plans to contact [facility] for intake instructions. 5. Patient encouraged to access [facility] and [facility] for immediate access to recovery coaching and appropriate treatment and as 25/02 relapse prevention plan. 6. Patient plans to review additional treatment resources as needed. Nickolas Pool RN BIT pager #[phone] * Consult Note - Antoni Fischer APRN [...] as a history of depression. This life underwriter reviewed the patient's chart and spoke to her primary nurse. This life underwriter introduced self and role to Chencho [...] hypervigilent and cautious around others. #Psychoes No [facility] Psychiatric Review of Systems: Sustained Depressed Mood: [...] assessed, saw a psychiatrist and counselors at [facility] a few years ago. Suicide attempts: States that a few weeks ago she was driving and closed her eyes and increased the speed, but immediately opened her eyes and thought what am I doing and pulled over to the side of the road. Past psychiatric medications (include dose, length of use, response, reason for stopping): [place]- seemed to work the best Xanax Prozac Zoloft Celexa Seroquel Wellbutrin Remeron Ritalin Substance Use History/Treatment: Addiction started 9 years ago Heroin is substance of choice- has not used in 9 months Recent cocaine use Smokes marijuana frequently Currently enrolled in [facility] program where she receives her methadone as [...] Cardiovascular: Respiratory: No SOB or cough GI: /STAMPING DIE MAKER (include LMP if applicable): Lafleur removed, voiding on own Endocrine: Musculoskeletal: Integumentary: No rashes, redness observed Neurological: No dizziness or headache Hematologic/Lymphatic: No bleeding or bruising observed Allergic/Immunologic: NKA Psychiatric: See above Social History: Originally from [place], moved to [place] for 6 months before returning to [place]. Mother, father, brother, and sister are all [...] in the past with a prescriber from [facility]. Of all the trials, Chencho has relayed that she felt the most stable while she was on [place]. Since this is a medication that has worked for the patient in the past and she has confirmed that she will not be , it is recommended to restart the medication at a low dose while she is admitted. [place] can be useful in patient's who have [...] attend an inpatient rehab program. This life underwriter will plan to have Nickolas Ulloa RN part of the BIT team meet with the patient to review resources. Diagnosis: Ames I : Depressive Disorder Unspecified, Anxiety Disorder Unspecified Ames II : Borderline Personality Disorder (per patient report) Ames III : Patient Active Problem List Diagnosis Code ??? Substance abuse F19.10 ??? Cigarette smoker F17.210 ??? Late care O09.30 ??? Rubella non-immune status, antepartum O99.89, Z28.3 ??? Depression F32.9 ??? Hepatitis C B19.20 ??? care following delivery Z39.2 Ames IV : Psychosocial stressors Plan/Recommendations: 1) Start [place] 300mg QHS 2) Will have Nickolas Ulloa RN meet with the patient for [place] to provide substance use resources 3) Psychiatry CL will continue to follow the patient during admission Recommendations were communicated to primary steam roller operator Dr. Lay. Coding Determination Complexity of MDM [...] CPT CODE PF PF Straightforward 3200 / [id number] EPF EPF Straightforward 3210 / 40758 D D Low 3220 / 03906 C C Moderate x 3230 / 00413 C C High 3240 / [id number] * Initial Assessments - Bree Potter MSW [...] environment. Chencho's mother is currently caring for Roman Catholic while Chencho remains inpatient on the . Chencho reports that she hopes to eventually re locate with her children to [place], where her fivivi/FOB Homer Rodriguez resides. Homer is the father to her new baby and to Roman Catholic. Chencho has a 10 year old daughter, [...] and from her counselor, Kiara, at the [facility] in [facility]. Chencho also reports having a good relationship with her air force senior officer, David, who works at the [facility] [employer] office. Chencho feels that [facility], where juani Coronel resides, is a betterenvironment for herself and her children and hopes to eventually relocate there. Chencho is currently unemployed. She receives [employer] and intends to apply for WIC. Homer is employed multimedia services manager for [employer] in [place] and sends money to Chencho each week. [...] with MAT/Suboxone through a private physician in [place], where he resides. Chencho has struggled with substance use for the last ~9 years and has received both inpatient and outpatient care throughout that time. She and Homer met three years ago in a transitional living home in [place], [place] after both completed inpatient treatment. Chencho has been engaged in MAT/methadone at [facility] since her with her older son, although not consistently. She reports a very good/[facility]ive [facility]. Despite this, she has continued to use cocaine and THC during and feels that her illicit use is connected with her mental health difficulties, which she reports have worsened in the recent weeks. Her GILDARDO on admission to the [facility] was +THC and Cocaine, in addition to her prescribed methadone and opiates that were given during . Other Pertinent/Service Specific Information: DCF report will be made due to maternal substance useand other psychosocial concerns. Chencho is aware. Health/Prescription Coverage: Primary Insurance: [place] Medicaid Secondary Insurance: None Prescription Coverage: Yes Preferred Pharmacy: [facility] in [place] Other: None Primary Care Provider: Dr. Hong at [facility] in [facility] Patient/Caregiver Goals of Treatment: For a healthy baby Potential Needs for Transition of Care: Rehab/SNF: No Home Health: No DME: No Dialysis: No Community Resources: [facility], [facility], Probation involved. Provided info re: [facility], [facility], and possibility of guest dosing at [place]. Transportation: Private car Other: None Anticipated Barriers to Discharge/Special Considerations: None Plan: A member of the Care Management team will continue to monitor progress, follow for continuityof care and assist with transition of care planning. MENDEZ ARREAGA Pager: [phone] * Plan of Care - Janis Limon [...] OUTCOME EVALUATION NOTE: OUTCOME SUMMARY: PPT from [facility]. VSS, incision WNL, fundus firm, lochia light. [...] White Blood Cell 15.1(H) 4.0 - 9.5 x10(3)/[facility] Red Blood Cell 3.33(L) 4.00 - 5.21 x10(6)/mc L [facility] Hemoglobin 10.1(L) 11.7 - 15.5 gm/dL [facility] Hematocrit 29.0(L) 35.7 - 45.8 % [facility] Mean Cell Volume 87.1 82.6 - 94.[address] [facility] Mean Cell Hemoglobin 30.3 27.1 - 32.[address] [facility] Mean Cell Hemoglobin Concentration 34.8 31.7 - 35.0 gm/dL [facility] Platelet 228 145 - 357 x10(3)/mc L [facility] RDW Standard Deviation 46.0 37.0 - 46.0 [facility] RDW coefficient of variation 14.6(H) 11.5 - 14.1 % [facility] Mean Platelet Volume 10.2 7.6 - 12.9 [facility] NRBC% auto 0.0 % [facility] NRBC Absolute 0.000 0.000 - 0.000 x10(3)/mc L [facility] Blood specimen (specimen) 10/16/2016 8:45 AM EDT 10/16/2016 8:51 AM EDT Narrative Resulting Agency Comment Spec In Lab Tania Sandy MD HEMATOLOGY ORDERABLE S Performing Organization Address City/State/[facility] Co de Phone Number [facility] [place] [place] [address] * Opiate, Urine Quantitative (10/16/2016 6:45 AM [...] developed and its performance characteristics ?determined by [facility] in a manner consistent with CLIA ?requirements. This test has not been cleared or approved by ?the U.S. Food and Drug Administration. ?Test Performed by: ?[facility] [address] ?[address] [place] [address] [facility] Urine specimen (specimen) 10/16/2016 6:45 AM EDT 10/16/2016 8:27 AM EDT Narrative Resulting Agency Comment Spec In Lab Malvin Gregorio MD URINE ORDERABLES [facility] [place] [address] * Methadone, Urine Confirmation (10/16/2016 6:45 AM EDT) U Meth Conf Test ?Result ? Flag ??Unit ?? RefValue ------- Methadone Confirmation, U ??EDDP-by GC-MS ? 4319 ? ng/mL ??Cutoff: 100 ??Methadone-by GC-MS ?302 ?ng/mL ??Cutoff: 100 ??Methadone Interpretation ?Positive. ? ---ADDITIONAL INFORMATION------- ?This test was developed and its performance characteristics ?determined by [facility] in a manner consistent with CLIA ?requirements. This test has not been cleared or approved by ?the U.S. Food and Drug Administration. ?Test Performed by: ?[facility] ?[address] [place] [address] [facility] Urine specimen (specimen) 10/16/2016 6:45 AM EDT 10/16/2016 8:27 AM EDT Narrative Resulting Agency Comment Spec In Lab Malvin Gregorio MD URINE ORDERABLES [facility] [place] [address] * THC (Marijuana), Urine Confirmation (10/16/2016 6:45 [...] developed and its performance characteristics ?determined by [facility] in a manner consistent with CLIA ?requirements. This test has not been cleared or approved by ?the U.S. Food and Drug Administration. ?Test Performed by: ?[facility] ?[address] [place], [place] [id number] [place] [address] LABORATORY Urine specimen (specimen) 10/16/2016 6:45 AM EDT 10/16/2016 8:27 AM EDT Narrative Resulting Agency Comment Spec In Lab Malvin Gregorio MD LAB SEND OUT ORDER ELIZABETH [facility] [place] [address] * Cocaine, Urine Confirmation (10/16/2016 6:45 AM [...] developed and its performance characteristics ?determined by [facility] in a manner consistent with CLIA ?requirements. This test has not been cleared or approved by ?the U.S. Food and Drug Administration. ?Test Performed by: ?[facility] - [facility] [facility] [address] ?[address] [place], [place] [id number] [place] [address] LABORATORY Urine specimen (specimen) 10/16/2016 6:45 AM EDT 10/16/2016 8:27 AM EDT Narrative Resulting Agency Comment Spec In Lab Malvin Gregorio MD LAB SEND OUT ORDER ELIZABETH [facility] [place] [address] * (ABNORMAL) Rapid Drug Screen, Urine with Confirm (10/16/2016 6:45 AM EDT) GILDARDO Marijuana Metabolites Screen Presumptive Pos(A) None Detected [facility] Comment: The marijuana metabolites screen detects the THC Metabolite (31-xgg-0-carboxy-delta 9-THC) at concentrations >50 ng/mL. Qualitative Drug screens are reported as ? None Detected? or ? Presumptive Positive? as the results are not routinely confirmed by highly-specific methods. As with any screen occasional false positive results from cross-reacting substances can occur. Not for Medico-Legal Purposes. Phencyclidine Screen, Urine None Detected None Detected [facility] Comment: The phencyclidine screen detects phencyclidine at concentrations >25 ng/mL. Qualitative Drug screens are reported as ? None Detected? or ? Presumptive Positive? as the results are not routinely confirmed by highly-specific methods. As with any screen occasional false positive results from cross-reacting substances can occur. Not for Medico-Legal Purposes. GILDARDO Cocaine Metabolites Screen Presumptive Pos(A) None Detected [facility] Comment: The cocaine metabolites screen detects benzoylecgonine (Cocaine Metabolite) at concentrations >150 ng/mL. Qualitative Drug screens are reported as ? None Detected? or ? Presumptive Positive? as the results are not routinely confirmed by highly-specific methods. As with any screen occasional false positive results from cross-reacting substances can occur. Not for Medico-Legal Purposes. Methamphetamines Screen, Urine None Detected None Detected [facility] Comment: The methamphetamine screen detects d-methamphetamine at concentrations >500 ng/mL. Qualitative Drug screens are reported as ? None Detected? or ? Presumptive Positive? as the results are not routinely confirmed by highly-specific methods. As with any screen occasional false positive results from cross-reacting substances can occur. Not for Medico-Legal Purposes. GILDARDO Opiates Screen Presumptive Pos(A) None Detected [facility] Comment: The opiates screen detects [...] GILDARDO Amphetamines Screen None Detected None Detected [facility] Comment: The amphetamine screen detects d-amphetamine at concentrations >500 ng/mL. Qualitative Drug screens are reported as ? None Detected? or ? Presumptive Positive? as the results are not routinely confirmed by highly-specific methods. As with any screen occasional false positive results from cross-reacting substances can occur. Not for Medico-Legal Purposes. GILDARDO Benzodiazepines Screen None Detected None Detected [facility] Comment: The benzodiazepines screen detects [...] GILDARDO Tricyclics Screen None Detected None Detected [facility] Comment: The tricyclics screen detects [...] GILDARDO Methadone Screen Presumptive Pos(A) None Detected [facility] Comment: The methadone screen detects methadone at concentrations >200 ng/mL. Qualitative Drug screens are reported as ? None Detected? or ? Presumptive Positive? as the results are not routinely confirmed by highly-specific methods. As with any screen occasional false positive results from cross-reacting substances can occur. Not for Medico-Legal Purposes. GILDARDO Barbiturates Screen None Detected None Detected [facility] Comment: The barbiturates screen detects [...] GILDARDO Oxycodone Srceen Presumptive Pos(A) None Detected [facility] Comment: The oxycodone screen detects oxycodone at concentrations >100 ng/mL and oxymorphone >250 ng/ml. Qualitative Drug screens are reported as ? None Detected? or ? Presumptive Positive? as the results are not routinely confirmed by highly-specific methods. As with any screen occasional false positive results from cross-reacting substances can occur. Not for Medico-Legal Purposes. Propoxyphene Screen, Urine None Detected None Detected [facility] Comment: The propoxyphene screen detects propoxyphene at concentrations >300 ng/mL. Qualitative Drug screens are reported as ? None Detected? or ? Presumptive Positive? as the results are not routinely confirmed by highly-specific methods. As with any screen occasional false positive results from cross-reacting substances can occur. Not for Medico-Legal Purposes. GILDARDO Buprenorphine Screen None Detected None Detected [facility] Comment: The buprenorphine screen detects buprenorphine at concentrations >10 ng/mL. Qualitative Drug screens are reported as ? None Detected? or ? Presumptive Positive? as the results are not routinely confirmed by highly-specific methods. As with any screen occasional false positive results from cross-reacting substances can occur. Not for Medico-Legal Purposes. GILDARDO Adulterants Screen None Detected None Detected [facility] Comment: No adulteration or dilution of this urine sample was detected. All urine samples submitted for urine drugs of abuse analysis are tested for Creatinine and pH and for the presence of oxidants, nitrites, chromate and aldehydes (glutaraldehyde). Urine specimen (specimen) 10/16/2016 6:45 AM EDT 10/16/2016 6:58 AM EDT Narrative Resulting Agency Comment Spec In Lab Tania Sandy MD URINE ORDERABLES [facility] [place] [address] * ABORH Recheck Status (10/16/2016 6:30 AM EDT) ABORH Recheck Order Order Placed [facility] ABORH Type Recheck Complete [facility] Blood specimen (specimen) 10/16/2016 6:30 AM EDT 10/16/2016 6:44 AM EDT Narrative Resulting Agency Comment Spec In Lab Tania Sandy MD BLOOD BANK LAB ORDER ELIZABETH Performing Organization Address City/[facility]/ZIP Co de Phone Number [facility] [place] [address] * Antibody screen (10/16/2016 6:30 AM EDT) Ab Screen Interp Negative [facility] Expires at 2359 on: 10/19/2016 [facility] Blood specimen (specimen) 10/16/2016 6:30 AM EDT 10/16/2016 6:44 AM EDT Narrative Resulting Agency Comment Spec In Lab Tania Sandy MD BLOOD BANK LAB ORDER ELIZABETH Performing Organization Address City/[facility]/ZIP Co de Phone Number [facility] [place] [address] * ABO/Rh Typing (10/16/2016 6:30 AM EDT) ABORH Type B Pos [facility] Blood specimen (specimen) 10/16/2016 6:30 AM EDT 10/16/2016 6:44 AM EDT Narrative Resulting Agency Comment Spec In Lab Tania Sandy MD BLOOD BANK LAB [place] [address] documented in this encounter Visit Diagnoses Diagnosis [...] Name of patient's Methadone clinic? [facility], Methadone clinic phone: , Date last Methadone [...] Name of patient's Methadone clinic? [facility], Methadone clinic phone: , Date last Methadone [...] Routine documented in this encounter Care Teams Triage Rn Relationship Specialty Start Date End Date Unknown None PCP - General 10/03/16 05/27/21 documented as of this encounter
--- OUTSIDE RECORDS SUMMARY | 2024-07-01 13:14 | XMS_ITS | Encounter Summary ---
Author Organization [facility] [place] [address] Care Team Providers Care Senior Information Systems Architect Name Role Phone Shweta Sykes GERTRUDE Primary Care Provider [phone] Reason for Referral * Consultation (Routine) - Closed Specialty Diagnoses / Procedures Referred By Nohemi acevedo Referred To Contact Gastroenterology Diagnoses Chronic hepatitis C without hepatic coma Amelie Berrios [facility] [place] [address] [facility] [address] [place] [address] Referral ID Status Reason Start Date Expiration Date V isits Requested Visits Authorized [id number] Closed Consult, Test & Treat 12/20/2021 12/20/2022 1 1 Encounter Details Date Type Department Care Team (Late st Contact Info) Description 12/20/2021 Orders Only [place] [address] Amelie Berrios [facility] [place] [address] Chronic hepatitis C without hepatic coma Social [...] coma documented in this encounter Care Teams Senior Information Systems Architect Relationship Specialty Start Date End Date Shweta Sykes APRN [address] [place] [address] [address] [place] [address] PCP - General Family Medicine 05/28/21 11/01/22 documented as of this encounter
--- OUTSIDE RECORDS SUMMARY | 2024-07-01 13:14 | XMS_ITS | Encounter Summary ---
Author Organization [facility] [place] [address] Care Team Providers Care Shrimper Name Role Phone Kendrick Aranda DNP Primary Care Provider [phone] Encounter Details Date Type Department Care Team (Late st Contact Info) Description 03/26/2023 Telephone [place] [id number] Katy Yanez Social History Tobacco Use Types [...] on filedocumented in this encounter Care Teams Shrimper Relationship Specialty Start Date End Date Kendrick Aranda DNP [address] [place] [address] PCP - General Family Medicine 11/02/22 documented as of this encounter
--- OUTSIDE RECORDS SUMMARY | 2024-07-01 13:14 | XMS_ITS | Encounter Summary ---
Author Organization [facility] [place] [address] Care Team Providers Care Director Of Cloud Services Name Role Phone Zack Sanchez APRN Primary Care Provider [phone] Reason for Visit * Reason Onset Date Comments Other 11/23/2014 Encounter Details Date Type Department Care Team (Late st Contact Info) Description 11/23/2014 Telephone Obstetrics [place] [address] Destiney Lopez MD [facility] [address] OBSTETRICS [place] [address] Other Social History Tobacco Use Types Packs/Day [...] ? pm) Patient Info ID #: ? [id number] ?: ??[birth year] (28 yrs) Name: ? TR JULIAN ?Visit Date: 11/26/2014 03:53 pm Performed By Performed By: ?Suzy BECERRA, Chacha Attending: ? Juanita STRONG, Shankar Barth Referred By: ? KALANI REECE CNM Service(s) Provided ??[facility] - Targeted Morphology - Genetics - ? [id number] ??[id number] Indications ??Hx OF STRESS SEIZURES, METHADONE USE, [...] Outflow Tract: ?Visualized Aortic Arch: ?Visualized Cardiac [place]: ? Visualized 3 Vessel View: ?Visualized Diaphragm: [...] 11/26/2014 04:39 pm) Patient Info ID #: [id number] : [birth year] (28 yrs) Name: TR JULIAN Visit Date: 11/26/2014 03:53 pm Performed By Performed By: Chacha Almonte RDMS Attending: Shankar Grant MD Referred By: KALANI REECE [facility] Service(s) Provided [facility] - Targeted Morphology - Genetics - [id number] Indications Hx OF STRESS SEIZURES, METHADONE USE, [...] Outflow Tract: Visualized Aortic Arch: Visualized Cardiac [place]: Visualized 3 Vessel View: Visualized Diaphragm: Visualized [...] high-risk documented in this encounter Care Teams Director Of Cloud Services Relationship Specialty Start Date End Date Zack Sanchez APRN [address] [place] [address] PCP - General 06/27/10 10/02/16 documented as of this encounter
--- OUTSIDE RECORDS SUMMARY | 2024-07-01 13:14 | XMS_ITS | Encounter Summary ---
Author Organization [facility] [address] Care Team Providers Care Keeper Helper Name Role Phone Shweta Sykes APRN Primary Care Provider [phone] Encounter Details Date Type Department Care Team (Late st Contact Info) Description 11/30/2021 Telephone Gastroenterology at [facility] [place] [address] Stuart Torres Social History Tobacco Use Types [...] on filedocumented in this encounter Care Teams Keeper Helper Relationship Specialty Start Date End Date Shweta Sykes APRN [address] [place], [place] [address] PCP - General Family Medicine 05/28/21 11/01/22 documented as of this encounter
--- OUTSIDE RECORDS SUMMARY | 2024-07-01 13:14 | XMS_ITS | Encounter Summary ---
Author Organization [facility] Address [address] [place] [address] Care Team Providers Care Director Of Workforce Development Name Role Phone Unavailable Primary Care Provider Unavailabl e Encounter Details Date Type Department Care Team (Late st Contact Info) Description 07/20/2003 Results Only [facility] conversion [address] [place] [address] Sylvia Roque MD [address] [place] [address] [place] [id number] Social History Tobacco Use Types Packs/Day Years [...] ? TR JULIAN ? Accession #: ? [id number] ? : ? 1985 (Age: 17) ??F [...] cervicitis. 3. ?Transformation zone present. Comment: ? Counter Roller sections have been reviewed at intradepartmental consultation conference. (Dr. Meek) Document reviewed and electronically signed by: DEIDRE MEEK MD Report ??Date: 07/26/2003 14:52 By the signature above, the attending physician certifies that he/she has personally conducted a gross and/or microscopic examination of the described specimens and rendered or confirmed the above diagnosis. Specimen(s) Received: ? Bx cx 11:00 Clinical History: ? ASCUS Pap ([id number]); (+) HPV Gross Description: ? Received in formalin labeled Julian and cervical is a moore-white, 0.5 x 0.3 x 0.2 cm soft tissue fragment. ??The specimen is entirely submitted in one cassette. ??(Apryl Kuhn)/aure End of Report [facility] 07/20/2003 07/22/2003 10: 32 EST us Sylvia Roque MD PATHOLOGY ORDERABLES Final Resu lt [facility] [address] [place] [address] documented in this encounter Visit Diagnoses Not on filedocumented in this encounter
--- OUTSIDE RECORDS SUMMARY | 2024-07-01 13:14 | XMS_ITS | Encounter Summary ---
Author Organization [facility] [place] [address] Care Team Providers Care Cigarette Vendor Name Role Phone Zack Sanchez APRN Primary Care Provider [phone] Encounter Details Date Type Department Care Team (Late st Contact Info) Description 06/26/2016 Telephone [place] [phone] Clare Boss Social History Tobacco Use Types [...] on filedocumented in this encounter Care Teams Cigarette Vendor Relationship Specialty Start Date End Date Zack Sanchez APRN [address] [place], [place] [address] PCP - General 06/27/10 10/02/16 documented as of this encounter
--- OUTSIDE RECORDS SUMMARY | 2024-07-01 13:14 | XMS_ITS | Encounter Summary ---
Author Organization [facility] [place] [address] Care Team Providers Care Professor Of Biblical Studies Name Role Phone Unknown Primary Care Provider Unavailabl e Encounter Details Date Type Department Care Team (Late st Contact Info) Description 10/19/2016 Telephone Obstetrics [place] [address] Madeleine Aquino MD [facility] [address] OBSTETRICS [place] [address] Social History Tobacco Use Types Packs/Day Years [...] Call Elena from the Methadone clinic in [facility] called to confirm Chencho's last dose. Reported that it was 60mg at [facility] yesterday morning. MADELEINE AQUINO MD PGY4 10/19/2016 documented in this encounter Plan of Treatment Not on file documented as of this encounter Visit Diagnoses Not on filedocumented in this encounter Care Teams Professor Of Biblical Studies Relationship Specialty Start Date End Date Unknown None PCP - General 10/03/16 05/27/21 documented as of this encounter
--- OUTSIDE RECORDS SUMMARY | 2024-07-01 13:14 | XMS_ITS | Encounter Summary ---
Author Organization [facility] Address [address] [place] [address] Care Team Providers Care Nuclear Security Officer Name Role Phone Unavailable Primary Care Provider Unavailabl e Encounter Details Date Type Department Care Team (Late st Contact Info) Description 06/26/2005 Results Only [facility] - Map conversion [address] [place] [address] Saran Reece CNM [address] [place], [place] [id number] Social History Tobacco Use Types Packs/Day Years [...] reading/interpreti ng unformatted reports. Name: ? TR JLUIAN ? Accession #: ? [id number] : ? 1985 (Age: 19) ??F ?Collect Date: ? 06/26/2005 Location: ? [facility] ? Receive Date: ? 06/27/2005 Provider: ?SARAN REECE CNM Copy to: ? Specimen/Source: ?ThinPrep Pap Test, Cervix/Endocervix, processed on [employer] ThinPrep Imaging System, with manual evaluation Last [...] cells, undetermined significance. EDUCATIONAL NOTES/RECOMMENDATI ONS ? [facility] recommends following the 2001 Consensus Guidelines for the Management of Women with Cervical Cytological Abnormalities (ERIKA,2002;287:212 0-9). Management algorithms have been distributed by [facility] and are available online at [email or web address]. ? Document reviewed and electronically signed by: ? BILLY WHITAKER MD ? Report Date: ??07/06/2005 08:16 End of Report [facility] 06/26/2005 06/27/2005 us Saran Reece CNM PATHOLOGY ORDERABLES Final Resul t [facility] [address] [place] [address] documented in this encounter Visit Diagnoses Not on filedocumented in this encounter
--- OUTSIDE RECORDS SUMMARY | 2024-07-01 13:14 | XMS_ITS | Encounter Summary ---
Author Organization [facility] Address [address] [place] [address] Care Team Providers Care Rn Clinical Documentation Specialist Name Role Phone Unavailable Primary Care Provider Unavailabl e Encounter Details Date Type Department Care Team (Late st Contact Info) Description 05/28/2003 Results Only [facility] - Map conversion [address] [place] [address] Chacha Avila, [facility] [address] [place] [address] Social History Tobacco Use Types [...] cancers. [facility] Report Status Final [id number] [facility] 05/28/2003 13:4 3 EDT 06/08/2003 13:43 EST Chacha Avila [employer] MICROBIOLOGY - GENERAL ORDER ELIZABETH Final Result [facility] [address] [place] [address] * CYTOPATHOLOGY (05/28/2003 0:00 EDT) Pathology Report: CYTOPATHOLOGY REPORT Reports generated via electronic interface contain original data; however they are lacking the format of the original report. Caution should be taken when reading/interpreti ng unformatted reports. Name: ? TR JULIAN ? Accession #: ? [id number] : ? 1985 (Age: 17) ??F ?Collect Date: ? 05/28/2003 Location: ? [facility] ? Receive Date: ? 06/01/2003 Provider: ?CHACHA AVILA [employer] [facility] Copy to: ? Specimen/Source: ?ThinPrep Pap Test, [...] [facility] 05/28/2003 06/01/2003 us Chacha Avila [employer] [facility] PATHOLOGY ORDERABLES Final R esult [facility] [address] [place] [address] documented in this encounter Visit Diagnoses Not on filedocumented in this encounter
--- OUTSIDE RECORDS SUMMARY | 2024-07-01 13:14 | XMS_ITS | Encounter Summary ---
Author Organization [facility] [place] [address] Care Team Providers Care Supervisor Carding Name Role Phone Shweta Sykes GERTRUDE Primary Care Provider [phone] Encounter Details Date Type Department Care Team (Late st Contact Info) Description 12/19/2021 1:36 PM EDT Anesthesia [place] [address] Danilo Stanton MD [facility] [place] [address] Pattie Lara CRNA [facility] [place] [address] Anesthesia Record Procedure Summary Procedure Name Responsible [...] 1308; median cubital vein (antecubital fossa), right; [id number]-[id number]-gymjmz catheter system; Anatomical Landmarks; 22 gauge; raji [...] Procedure Summary Date: 12/19/21 Room / Location: [facility] 1 / [facility] Anesthesia Start: 1336 Anesthesia Stop: [...] All Anesthesia Providers: Anesthesiologist: Danilo Stanton MD TASSEL MAKER: Pattie Persaud CRNA Vitals Value Taken Time BP 95/58 12/19/21 1410 Temp Pulse Resp 18 12/19/21 1410 SpO2 99 % 12/19/21 1415 Pain Level 0 12/19/21 1415 Patient Location: PACU/[facility] Level of Consciousness: Awake and Alert Pain [...] risks discussed with patient. Plan discussed with TASSEL MAKER. Anesthesia Screening documented in this encounter Plan [...] mg documented in this encounter Care Teams Supervisor Carding Relationship Specialty Start Date End Date Shweta Sykes APRN [address] [place] [address] [address] [place] [address] PCP - General Family Medicine 05/28/21 11/01/22 documented as of this encounter
--- OUTSIDE RECORDS SUMMARY | 2024-07-01 13:14 | XMS_ITS | Clinical Summary ---
Author Organization [facility] Address [facility] [place] [address] Care Team Providers Care Band Sawing Machine Operator Name Role Phone Kendrick Aranda DNP Primary Care Provider Allergies No known active allergies Medications Medication Sig Dispensed Refills Start Date End Date Status Frvdwwsxdzcgz-Px-Ouyw -Minerals 27-0.4 mg Tablet Take by mouth. [...] (11/26/2014): Had a free US at a [facility], does not know if measurements were done. She did not truly receive care. She does not know the date of her LMP but that it occurred in June when she was in [place]. Assessment & Plan (11/26/2014 5:41 PM EDT): The patient states she essentially had no care until 19 weeks. She states shehHad a free US at a [facility] in [place] and just a picture was taken. She does not know if measurements were done. She states she told the [facility] that her LMP was in June when [...] referral locally for an intake with a [facility]. As no medication, other than lithium, [...] capacity to make decision: Yes Care Teams Band Sawing Machine Operator Relationship Specialty Start Date End Date Kendrick Aranda DNP [address] [place] [address] PCP - General Family Medicine 11/02/22
--- OUTSIDE RECORDS SUMMARY | 2024-07-01 13:14 | XMS_ITS | Encounter Summary ---
Author Organization [facility] Address [facility] [place] [address] Care Team Providers Care Spring Tacker Name Role Phone Zack Sanchez APRN Primary Care Provider [phone] Encounter Details Date Type Department Care Team (Latest Contact Info) Description 11/26/2014 1:45 PM EDT - 11/26/2014 11:59 PM EDT Hospital Encounter Ultrasound at [facility] [place] [phone] Supervision of high risk in second trimester [...] ? pm) Patient Info ID #: ? [id number] ?: ??[birth year] (28 yrs) Name: ? TR JULIAN ?Visit Date: 11/26/2014 03:53 pm Performed By Performed By: ?Chacha Almonte RDMS Attending: ? Juanita STRONG, Shankar Barth Referred By: ? KALANI REECE CNM Service(s) Provided ??[facility] - Targeted Morphology - Genetics - ? [id number] ??[id number] Indications ??Hx OF STRESS SEIZURES, METHADONE USE, [...] Outflow Tract: ?Visualized Aortic Arch: ?Visualized Cardiac Richmond: ? Visualized 3 Vessel View: ?Visualized Diaphragm: [...] 11/26/2014 04:39 pm) Patient Info ID #: [id number] : [birth year] (28 yrs) Name: TR JULIAN Visit Date: 11/26/2014 03:53 pm Performed By Performed By: Chacha Almonte RDMS Attending: Shankar Grant MD Referred By: KALANI REECE [facility] Service(s) Provided [facility] - Targeted Morphology - Genetics - [phone] [id number] Indications Hx OF STRESS SEIZURES, METHADONE USE, [...] Outflow Tract: Visualized Aortic Arch: Visualized Cardiac Richmond: Visualized 3 Vessel View: Visualized Diaphragm: Visualized [...] 11/26/2014 04:39 pm E [facility] Lopez [facility] documented in this encounter Visit Diagnoses Diagnosis Supervision of high risk in second trimester Unspecified high-risk documented in this encounter Care Teams Spring Tacker Relationship Specialty Start Date End Date Zack Sanchez APRN [address] [place] [address] PCP - General 06/27/10 10/02/16 documented as of this encounter
--- OUTSIDE RECORDS SUMMARY | 2024-07-01 13:14 | XMS_ITS | Encounter Summary ---
Author Organization [facility] [place] [address] Care Team Providers Care Demolition Expert Name Role Phone Shweta Sykes GERTRUDE Primary Care Provider [phone] Encounter Details Date Type Department Care Team (Late st Contact Info) Description 08/21/2021 Telephone Gastroenterology at [facility] [place] [address] Martin Enriquez Social History Tobacco Use Types [...] calls can be handled by: Motility Lab Supervisor Nut Processing * Telephone Encounter - Martin Enriquez - 09/06/2021 9:34 AM EST Inbound/Outbound: Outbound Spoke to Patient/Left Message: Left message Notes: Outbound call to patient to schedule motility lab testing from referral. Left message askingfor callback to schedule. Return calls can be handled by: Motility Lab Supervisor Nut Processing * Telephone Encounter - Martin Enriquez - 08/21/2021 4:49 PM EST Inbound/Outbound: Outbound Spoke to Patient/Left Message: Left message Notes: Outbound call to patient to schedule motility lab testing from referral. Left message askingfor callback to schedule. Return calls can be handled by: Motility Lab Supervisor Nut Processing documented in this encounter Plan of Treatment Not on file documented as of this encounter Visit Diagnoses Not on filedocumented in this encounter Care Teams Demolition Expert Relationship Specialty Start Date End Date Shweta Sykes APRN [address] [place] [address] PCP - General Family Medicine 05/28/21 11/01/22 documented as of this encounter
--- OUTSIDE RECORDS SUMMARY | 2024-07-01 13:14 | XMS_ITS | Encounter Summary ---
Author Organization [facility] Address [facility] [place] [address] Care Team Providers Care Hose Wrapper Name Role Phone Shweta Sykes GERTRUDE Primary Care Provider [phone] Reason for Referral * Consultation (Routine) - [...] whether serious comorbidity present Amelie Berrios APRN [facility] [place] [address] [facility] [address] [place] [address] Referral ID Status Reason Start Date Expiration Date V isits Requested Visits Authorized [id number] Closed Consult, Test & Treat 06/28/2021 06/28/2022 1 1 Reason for Visit * Consultation (Routine) - Closed Specialty Diagnoses / Procedures Referred By Nohemi acevedo Referred To Contact Gastroenterology Diagnoses Unspecified abdominal pain abd pain Nicholas Ba MD [address] [place] [phone] [facility] [address] [place] [address] Referral ID Status Reason Start Date Expiration Date V isits Requested Visits Authorized [id number] Closed Consult, Test & Treat [facility] PCP Updated and/or Approved 05/17/2021 06/21/2021 6 6 Encounter Details Date Type Department Care Team (Latest Contact Info) Description 06/28/2021 8:00 AM EST Office Visit [place] [address] Amelie Berrios APRN [facility] [place] [address] Heartburn; Gastroesophageal reflux disease, unspecified [...] not hear from us within 1-2 weeks: [phone]. Please note: given the ongoing COVID-19 pandemic, [...] Berrios APRN Department of Gastroenterology and Hepatology [facility] Here is some information on the [...] disease, or Ulcerative colitis. Also if the utility forester sees any polyps, they will be removed [...] Jenni Lopez APRN + Amelie Berrios APRN [facility] What are functional bowel disorders? These are the most common type of gastrointestinal disorders in the [facility] ??? The most common functional bowel disorder in the [facility] is irritable bowel syndrome (IBS) ??? Irritable [...] what is the impact? 15-20% of general [place] population has IBS or FD or both ??? 2nd most common cause for lost work days (after common cold) in [place] ??? Estimated $30 billion dollar cost to [place] economy per year ??? These disorders can [...] patients withimmediate onset of symptoms after infection); senior care symptoms are expected in most patients however [...] to you primary care provider and/or local utility forester and share this document. Treatment of functional [...] this approach benefits most patients ??? OTC (vvjz-qos-rjpokag) medications can be used for ongoing bothersome symptoms as listed below ??? Your provider (PCP or local Gastroenterology provider or [facility] Gastroenterology provider) may decide to use prescription [...] All-Bran psyllium buds, Metamucil, Konsyl, bulk psyllium ([employer] stores and bulk stores) ??? Specifically we [...] convincing medical evidence is still lacking ??? Rfyu-mey-jgqocwd supplements including probiotics are not typically evaluated [...] to decrease antibiotic-associated diarrhea and antibiotic-related infections Obvt-sae-Mjkldze Medications for Functional Gut Disorders Based on [...] a stool softener that is safe for senior care usage (no risk of dependency)and the dosage [...] ??? Often a combination of anti-nausea medications (htji-xbp-pvjtdcu or prescription) works better than high doses [...] for misuse/misinterpretation of this information Patient Resources [place] [employer] https://www.gastro.org/practice-guidance/ny-lzaszhf-eewvui/ topic/nvfbrwmpn-foifq-lypnqquq-ibs Badgut.org https://badgut.org/information-centre/e-a-bwakbxbuh-topics/ibs/ AboutIBS.org https://www.aboutibs.org/ Uptodate.com https://www.uptodate.com/contents/ihlwlxjzr-ayppu-bmtxpyvp-mcxzss-cco-kldhel documented in this encounter Progress Notes * [...] omeprazole works well BM: every 3 days [place]: bristol 1-2, BRBPR (increasing frequency), melena, Unable [...] by mouth daily. 14 each 0 ??? Hkgordatrdoyr-Qo-Umjq-Minerals 27-0.4 mg Tablet Take by mouth. ??? [...] has a past surgical history that includes [place] tooth extraction and section (10/15/2016). Family History: [...] office visit: 15 minutes Amelie Berrios [place] [facility] [place] [address] documented in this encounter Plan of Treatment [...] stool documented in this encounter Care Teams Hose Wrapper Relationship Specialty Start Date End Date Shweta Sykes APRN [address] [place] [address] PCP - General Family Medicine 05/28/21 11/01/22 documented as of this encounter
--- OUTSIDE RECORDS SUMMARY | 2024-07-01 13:14 | XMS_ITS | Encounter Summary ---
Author Organization [facility] [place] [address] Care Team Providers Care Bilingual Customer Service Name Role Phone Shweta Sykes APRN Primary Care Provider [phone] Encounter Details Date Type Department Care Team (Late st Contact Info) Description 09/12/2021 Telephone Gastroenterology at [facility] [place] [address] aMrtin Enriquez Social History Tobacco Use Types Packs/Day [...] CHECKLIST 09/12/2021 Martin Barrett [address] [facility] [address] [id number] : 1985 REFERRING PROVIDER: Amelie Berrios PRIMARY [...] their provider to consider alternative testing. The retail leader should also contact the provider's office directly tonotify them that we are unable to schedule due to a contraindication to testing. Then, delete the remainder of this checklist and close out the referral. QUESTIONS TO THE PATIENT PATIENT AGREE TO IN-PERSON RETURN OF PHYSICAL MEDICINE TEACHER WITHIN 72H OF CAPSULE PLACEMENT: Yes PT [...] DOES PT KNOW HE/SHE MUST HAVE A PRESIDENT & CEO FOR AFTER PROCEDURE: Yes documented in this encounter Plan of Treatment Not on file documented as of this encounter Visit Diagnoses Not on filedocumented in this encounter Care Teams Bilingual Customer Service Relationship Specialty Start Date End Date Shweta Sykes APRN [address] [place], [place] [address]Y [facility] [address] [place] [address] PCP - General Family Medicine 05/28/21 11/01/22 documented as of this encounter
--- OUTSIDE RECORDS SUMMARY | 2024-07-01 13:14 | XMS_ITS | Encounter Summary ---
Author Organization [facility] Address [facility] [place] [address] Care Team Providers Care Operations Section Manager Name Role Phone Shweta Sykes GERTRUDE Primary Care Provider [phone] Encounter Details Date Type Department Care Team (Late st Contact Info) Description 12/19/2021 12:08 PM EDT - 12/19/2021 2:38 PM EDT Hospital En[place] [phone] López Sosa MD [facility] [place] [address] Discharge Disposition: Home Social History Tobacco Use [...] the day after the procedure, use an bvfd-byp-sqrxjtc spray to numb your throat. Sucking on [...] occurs, please contact your Doctor. Please call [phone] before 8pm Mon-Fri with problems, questions or concerns. If you call after 8pm or on weekends, call the Hospital at [phone] and ask to speak to the Foster Parent manager loss prevention and the harvester operator will contact that person for you. [...] any problems. Where can you learn more? [facility] View your After Visit Summary and more online at [email or web address] If you would like to provide feedback about your hospital experience, please call the Office of Patient and Family Relations at . If you have received this After Visit Summary in error, please immediately return it in person to the department, or notify the [facility] Privacy Office by calling toll free at between the hours of 8AM and 5PM to arrange for our retrieval of the documents at no cost to you. Content Version: 12.2 ?? 5813-5387 [employer]. Care instructions adapted under license by [facility]. If you have questions about a medical condition or this instruction, always ask your healthcare professional. [employer] disclaims any warranty or liability for your [...] g by mouth daily. 14 each 10/18/2016 Fdfbialsxjfcq-Sf-Xtff-Mi nerals 27-0.4 mg Tablet Take by mouth. [...] complication. Informed Consent signed by patient (or architectural representative). documented in this encounter Plan of [...] per rectum) Melena Upper Gi Endoscopy, Biopsy ([id number]) 12/19/2021 1:35 PM EDT Heartburn Gastroesophageal reflux [...] Report (12/19/2021 1:54 PM EDT) Final Diagnosis [id number] ? Location: 4T; EA06; A The signing [...] MD Verified: ??12/22/2021 19:35 ??Pathologist Performed at: ??[facility], [place], [place] SPECIMEN(S) SUBMITTED A - Duodenum, biopsy [...] B1-B2. ??mnd 12/22/2021 7:35 PM EDT [facility] GI Biopsy 12/19/2021 1:54 PM EDT 12/19/2021 1:54 PM EDT GI Biopsy 12/19/2021 1:54 PM EDT 12/19/2021 1:54 PM EDT López Sosa MD PATHOLOGY/[place] [address] * Specimen to Pathology (12/19/2021 1:54 PM EDT) AP Specimen 12/19/2021 1:54 PM EDT 12/19/2021 1:54 PM EDT Narrative [facility] - 12/19/2021 1:54 PM EDT Specimen requisition ordered. ??Separate Pathology report to follow López Sosa MD PATHOLOGY/CYTOLOG Y ORDERABLES Performing Organization Address City/[facility]/[place] [address] * Specimen to Pathology (12/19/2021 1:54 PM EDT) AP Specimen 12/19/2021 1:54 PM EDT 12/19/2021 1:54 PM EDT Narrative [facility] - 12/19/2021 1:54 PM EDT Specimen requisition ordered. ??Separate Pathology report to follow López Sosa MD PATHOLOGY/CYTOLOG Y ORDERABLES Performing Organization Address City/[facility]/[place] [address] * UPPER GI ENDOSCOPY (12/19/2021 1:23 PM EDT) UPPER GI ENDOSCOPY [facility] Endoscopy Procedure Date: 12/19/2021 1:23 PM ? Patient Name: Chencho Barrett ? Date of : 1985 ? Age: 35 ? Order #: [id number] ? Instrument Name: [id number] ? Procedure: ? Upper GI endoscopy Indications: ? Epigastric abdominal pain, ? Functional Dyspepsia, Nausea with ? vomiting Patient Profile: ? This is a 35 year old female. Providers: ? López Sosa MD, Mckenzie ? Homer Gordillo, Blacksmith Hammer Operator Referring MD: ?Nicholas Ba MD, Shweta Lange [...] CRNA) documented in this encounter Care Teams Operations Section Manager Relationship Specialty Start Date End Date Shweta Sykes APRN [address] [place] [address] PCP - General Family Medicine 05/28/21 11/01/22 documented as of this encounter
--- OUTSIDE RECORDS SUMMARY | 2024-07-01 13:14 | XMS_ITS | Encounter Summary ---
Author Organization [facility] Address [address] [place] [address] Care Team Providers Care Cable Installation Technician Name Role Phone Unavailable Primary Care Provider Unavailabl e Encounter Details Date Type Department Care Team (Late st Contact Info) Description 12/14/2003 Results Only [facility] conversion [address] [place] [address] Chacha Avila, [facility] [address] [place] [address] [place] [address] Social History Tobacco Use Types [...] ? TR JULIAN ? Accession #: ? [id number] : ? 1985 (Age: 17) ??F ?Collect Date: ? 12/14/2003 Location: ? [facility] ? Receive Date: ? 12/15/2003 Provider: ?CHACHA AVILA MAINFRAME APPLICATIONS DEVELOPER Copy to: ? Specimen/Source: ?ThinPrep Pap Test, [...] KEYANA THOMAS 12/14/2003 12/15/2003 us Chacha Avila MAINFRAME APPLICATIONS DEVELOPER PATHOLOGY ORDERABLES Final R esult KEYANA THOMAS [address] [place] [address] documented in this encounter Visit Diagnoses Not on filedocumented in this encounter
--- OUTSIDE RECORDS SUMMARY | 2024-07-01 13:14 | XMS_ITS | Encounter Summary ---
Author Organization [facility] [place] [address] Care Team Providers Care Cco Name Role Phone Shweta Sykes APRN Primary Care Provider [phone] Encounter Details Date Type Department Care Team (Late st Contact Info) Description 12/18/2021 Telephone Gastroenterology at [facility] [place] [phone] Felicitas Singleton Social History Tobacco Use Types [...] on filedocumented in this encounter Care Teams Cco Relationship Specialty Start Date End Date Shweta Sykes APRN [address] [place], [place] [address] PCP - General Family Medicine 05/28/21 11/01/22 documented as of this encounter
[2024-07-01 13:17] LABS: Abs Immature Grans 0.02 10^3/uL (0.0-0.06); Absolute Basophil Count 0.07 10^3/uL (0.0-0.2); Absolute Lymphocyte Count 3.93 10^3/uL (1.2-3.4); Basophils % 0.6 %; Eosinophils % 0.9 %; HCT 47.7 % (36.0-46.0); HGB 16.3 g/dL (11.2-15.7); Immature Grans % 0.2 %; Lymphocytes % 35.3 %; MCH 28.7 pg (27.0-33.0); MCHC 34.2 % (32.0-36.0); MCV 84 fL (80-95); MPV 10.2 fL (8.0-11.0); Monocytes % 5.4 %; Neutrophils % 57.6 %; Platelet Count 367 10^3/uL (130-400); RBC 5.67 10^6/uL (3.93-5.22); RDW 12.6 % (11.7-14.6); RDW-SD 38.7 fL; WBC 11.12 10^3/uL (4.4-10.8)
[2024-07-01 13:19] LABS: Absolute Neutrophil Count 6.41 10^3/uL (1.2-6.7)
== END 2024-07-01 13:11 | disposition home or self-care (01) ==
LOC: LBO 13:11
PROVIDERS: PCP Nurse Practitioner Family; Visit Provider Nurse Practitioner Family
DX: R10.30 Lower abdominal pain, unspecified (principal)
CPT/HCPCS: 36415; 85025

== ENCOUNTER 2024-08-21 23:56 | Emergency (ER) | payer MEDICAID, SELFPAY ==
[2024-08-21 23:59] VITALS: BP 157/89; PULSE 110; RESP 16; TEMP 36.2; O2SAT 96
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
[2024-08-22] MEDS: Buprenorphine/Naloxone 2 mg/0.5 mg FILM 2 EACH SL (00:32)
== END 2024-08-22 00:32 | disposition home or self-care (01) ==
PROVIDERS: Emergency Provider Student in an Organized Health Care Education/Training Program; PCP Nurse Practitioner Family
DX: F11.13 Opioid abuse with withdrawal (principal); F12.90 Cannabis use, unspecified, uncomplicated
CPT/HCPCS: 99283

== ENCOUNTER 2024-09-21 10:00 | Emergency (ER) | payer MEDICAID, SELFPAY ==
[2024-09-21 10:37] VITALS: BP 137/92; PULSE 95; RESP 16; TEMP 36.8; O2SAT 97
[2024-09-21 13:12] LABS: COVID-19 PCR Negative (Negative); Influenza A PCR Positive (Negative); Influenza B PCR Negative (Negative); RSV PCR Negative (Negative)
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
[2024-09-21 13:21] LABS: Source Nasopharynx
[2024-09-21 13:29] VITALS: BP 122/84; PULSE 92; TEMP 36.6; O2SAT 93
[2024-09-21 13:53] VITALS: BP 129/98; PULSE 95; RESP 16; TEMP 37.1; O2SAT 100
[2024-09-21] MEDS: Albuterol HFA 8 GM 60 PUFF INH IH (13:56)
[2024-09-21] MEDS: Inhaler, Assist Device 1 EACH MC (13:57)
[2024-09-21 14:00] VITALS: BP 129/98; PULSE 96; RESP 16; TEMP 37.1; O2SAT 100
== END 2024-09-21 14:01 | disposition home or self-care (01) ==
PROVIDERS: Emergency Provider Physician Assistant; PCP Nurse Practitioner Family
DX: F17.290 Nicotine dependence, other tobacco product, uncomplicated; J10.1 Influenza due to other identified influenza virus with other respiratory manifestations; S00.212A Abrasion of left eyelid and periocular area, initial encounter; L08.9 Local infection of the skin and subcutaneous tissue, unspecified; X58.XXXA Exposure to other specified factors, initial encounter
CPT/HCPCS: 87637; 99283; 99284

== ENCOUNTER 2024-10-19 10:04 | Emergency (ER) | payer MEDICAID, SELFPAY ==
[2024-10-19 10:08] VITALS: BP 143/100; PULSE 85; RESP 15; TEMP 36.8; O2SAT 96
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
[2024-10-19 11:06] LABS: Abs Immature Grans 0.05 10^3/uL (0.0-0.06); Absolute Basophil Count 0.08 10^3/uL (0.0-0.2); Absolute Eosinophil Count 0.09 10^3/uL (0.0-0.7); Absolute Lymphocyte Count 3.52 10^3/uL (1.2-3.4); Absolute Monocyte Count 0.75 10^3/uL (0.1-0.8); Absolute Neutrophil Count 8.23 10^3/uL (1.2-6.7); Basophils % 0.6 %; Eosinophils % 0.7 %; HCT 45.9 % (36.0-46.0); HGB 15.5 g/dL (11.2-15.7); Immature Grans % 0.4 %; Lymphocytes % 27.7 %; MCH 29.5 pg (27.0-33.0); MCHC 33.8 % (32.0-36.0); MCV 87 fL (80-95); MPV 10.6 fL (8.0-11.0); Monocytes % 5.9 %; Neutrophils % 64.7 %; Platelet Count 316 10^3/uL (130-400); RBC 5.25 10^6/uL (3.93-5.22); RDW 14.1 % (11.7-14.6); RDW-SD 45.1 fL; WBC 12.72 10^3/uL (4.4-10.8)
[2024-10-19 11:39] LABS: Anion Gap 7.9 mmol/L (3-11); BUN 13 mg/dL (7-18); CO2 26.1 mmol/L (21.0-32.0); CREATININE 0.8 mg/dL (0.55-1.02); Calcium 9.7 mg/dL (8.5-10.1); Chloride 104 mmol/L (98-107); Estimated GFR 96.66 (mL/min/1.73m2); Glucose 89 mg/dL (74-106); Potassium 4.4 mmol/L (3.5-5.1); Sodium 138 mmol/L (136-145); TSH (W/Ref FT4) 2.81 uIU/mL (0.36-3.74)
[2024-10-19 11:40] LABS: ETHANOL BLOOD < 3.0 mg/dL (<10)
[2024-10-19 11:41] LABS: Salicylate < 2.8 mg/dL (<2.8)
[2024-10-19 11:42] LABS: HCG Qual (Serum) Negative
[2024-10-19 11:46] LABS: Acetaminophen < 2 ug/mL (10-30); Lithium 0.3 mmol/L (0.6-1.2)
[2024-10-19 11:53] LABS: Bilirubin Negative (Negative); Blood Negative (Negative); Clarity Clear (Clear); Glucose Negative (Negative); Ketones Negative (Negative); Leukocyte Esterase Negative (Negative); Nitrite Negative (Negative); Urobilinogen 0.2 mg/dL (Up to 0.2)
[2024-10-19 12:03] LABS: *AMPHETAMINES SCREEN URINE Negative (Negative); *BARBITURATES SCREEN URINE Negative (Negative); *BENZODIAZEPINES SCREEN URINE Negative (Negative); Cannabinoids THC Positive (Negative); Cocaine Screen,Urine Negative (Negative); METHADONE URINE SCREEN Negative (Negative); OPIATES URINE SCREEN Negative (Negative)
[2024-10-19 12:04] LABS: Tricyclic Antidepressants Negative (Negative)
--- NOTE | 2024-10-19 12:49 | PDOC.CMSAFE ---
Date of service: 10/19/24 Time of Service: 12:49 Care Management Safety Plan Status Status: Voluntary Reason for Wait Reason for Wait: Inpatient Admission Safety Plan Safety Plan: VOLUNTARY FOR INPATIENT PSYCHIATRIC STABILIZATION.? Patient is appropriate in all interactions since arriving at [facility]; Pt has demonstrated appropriate coping and communication skills, has articulated his or her needs and concerns and is fully engaged during staff interactions. Safety plan has been established with patient, and care team, to adhere to patient goals, identify restrictions based on behavioral status, address nutrition, and determine allowed personal belongings, tools for hygiene and personal care. Determine level of activity including ambulation, level of supervision, visitors, and determine privileges based on behaviors and level of engagement by pt. VOLUNTARY SAFETY PLAN: 1. Will remain on suicide precautions, in paper clothes 2. Will remain in Zone B under direct supervision of one-on-one staff at all times provided by [employer]; [employer], SEDIMENT REMEDIATION CONSULTANT wireworker. 3. May have paper cups, plates, finger foods as well as a cardboard spoon with which to eat meals. 4. Follow [facility] Management of the Admitted Behavioral Health Patient policy. 5. Shower available in Zone B without restriction. 6. Personal belongings-soft items permitted at RN discretion. 7. Visitors-none at this time. 8. Activities: soft cart items approved per RN discretion. 9.? Bathroom available in Zone B without restriction. 10. Phone: limited to [facility] cordless phone at RN discretion. Due to VOLUNTARY status, if patient wishes to leave [facility], staff will contact [facility] Crisis Screener ([phone]) and Ramp Supervisor ([phone]) as soon as possible. In the event of elopement, notify [facility] Police ([phone]). Patient is currently voluntarily at [facility] and seeking inpatient admission when a bed becomes available. [facility] Frontline Billing Supervisor will continue seeking placement. Please contact the Ramp Supervisor ([phone]) and [facility] Billing Supervisor ([phone]) for any needed changes in the Safety Plan. Safety plan has been provided to interdepartmental care team.
--- NOTE | 2024-10-20 13:27 | PDOC.MHCN ---
Date of service: 10/19/24 Time of Service: 12:00 PHQ-9 Over the last 2 weeks, how often have you been bothered by any of the following problems? 1. Little interest or pleasure in doing things: several days 2. Feeling down, depressed, or hopeless: several days 3. Trouble falling or staying asleep, or sleeping too much: not at all 4. Feeling tired or having little energy: not at all 5. Poor appetite or overeating: several days 6. Feeling bad about yourself - or that you are a failure or have let yourself and your family down: not at all 7. Trouble concentrating on things, such as reading the newspaper or watching television: several days 8. Moving or speaking so slowly that other people could have noticed? - Or the opposite - being so fidgety or restless that you have been moving around a lot more than usual: not at all 9. Thoughts that you would be better off or of hurting yourself in some way: not at all Total score: 4 Source: Developed by Drs. Adan Chaudhary, Dana Sanchez, Samuel Page and colleagues, with an educational brenda from [employer]. Suicide Severity Rate CSSRS Have you wished you were or wished you could go to sleep and not wake up?: No Have you actually had any thoughts of killing yourself?: No CSSRS2 Have you been thinking about how you might do this?: No Have you had these thoughts and had some intention of acting on them?: No Have you started to work out or worked out the details of how to kill yourself? Do you intend to carry out this plan?: No CSSRS3 Have you ever done anything, started to do anything or prepared to do anything to end your life?: Yes Screening Score Total Score: 2 Screening: Positive Mental Health Emergency Note Release [facility] release signed:: No Reason for Visit medically feeling ill due to stopping suboxone In the last 2 weeks has the pt presented for ES prior to today?: No Client Information Client is: Adult Outpatient Well Housed: Yes Non Suicidal Self Injury Current: No History: No Safety Risk/Harm to Self or Others Current Ideation to Harm Self or Others: No Risk: Does risk to harm exist?: yes. Access to means: Yes. Types of Means: Medication. Risk: Low Risk Duty to warn indicated: No Asssessment/Mental Status Appearance: Other Attitude: Cooperative, Demanding and Friendly Behavior: Hyperactivity, Poor impulse control, Agitated and Repetitive movements Speech: Pressured Affect: Cogruent with mood Mood: Elevated, Expansive, Stressed and Anxious Thought process: Loose associations, Flight of ideas and Poverty of content Hallucinations: No Delusions: No Attention: Wandering Perception: Not impaired Orientation: Fully orientated Memory: Intact Insight: Poor Judgement: Poor Neurovegetative Symptoms Sleep: Decrease Appetitie: Disordered Interests: No change Energy: Decrease Libido: Not applicable Substance Use: Other (none) Drug Issues: Other (prescribed medications) Do you use nicotine?: Yes Have you used substances in the last 7 days?: No Additional Issues: Assaultive/Threatening Behavior: No Medical Concerns: No Client engaged in active self harm w/weapon: No Threatening to run away: No Child reported abuse/neglect: No Voluntarily presenting for services: Yes Domestic violence is a concern: No Extreme Psychosis or extreme behavior is present: No Impression Client wants help for feeling ill due to stopping suboxone but refuses to accept help now if she has to stay in the hospital Resources Reosurces reviewed and given:: 988 and [facility] Plan/Disposition Recommended Disposition: Hospitalization No, Therapy and Med management. Plan: Since client is unwilling to stay at this point she will be safetry palnned home with follow up services Person reported agreement to plan: Yes Reports/communication Outcome discussed with: ED/Personnel (ER doctor Sarah)
== END 2024-10-19 14:02 | disposition home or self-care (01) ==
PROVIDERS: Emergency Provider Emergency Medicine; PCP Nurse Practitioner Family
DX: R45.851 Suicidal ideations (principal); F32.A Depression, unspecified; Z79.899 Other long term (current) drug therapy; F17.290 Nicotine dependence, other tobacco product, uncomplicated
CPT/HCPCS: 00123; 36415; 80048; 80307; 81025; 96127; 99285; 80178; 80320; 80329; 81003; 84443; 84703; 85025; 99284

== ENCOUNTER 2024-12-10 10:56 | Outpatient (CLI) | payer MEDICAID, SELFPAY ==
[2024-12-10 12:26] LABS: HCT 45.9 % (36.0-46.0); HGB 15.5 g/dL (11.2-15.7); MCH 29.9 pg (27.0-33.0); MCHC 33.8 % (32.0-36.0); MCV 89 fL (80-95); MPV 10.4 fL (8.0-11.0); Platelet Count 414 10^3/uL (130-400); RBC 5.18 10^6/uL (3.93-5.22); RDW 13.1 % (11.7-14.6); RDW-SD 42.8 fL; WBC 11.67 10^3/uL (4.4-10.8)
[2024-12-10 12:46] LABS: ALT 16 U/L (14-59); AST 13 U/L (15-37); Albumin 3.9 g/dL (3.4-5.0); Alkaline Phosphatase 96 U/L (46-116); Amylase 77 U/L (25-115); Anion Gap 9.5 mmol/L (3-11); BUN 20 mg/dL (7-18); Bilirubin, Total 0.3 mg/dL (0.2-1.0); CO2 26.5 mmol/L (21.0-32.0); CREATININE 0.9 mg/dL (0.55-1.02); Calcium 9.3 mg/dL (8.5-10.1); Chloride 105 mmol/L (98-107); Estimated GFR 83.92 (mL/min/1.73m2); Glucose 94 mg/dL (74-106); Lipase 36 U/L (<78); Potassium 4.2 mmol/L (3.5-5.1); Sodium 141 mmol/L (136-145); Total Protein 7.9 g/dL (6.4-8.2)
[2024-12-11 11:56] LABS: IgA 191 mg/dL (85-499); Interpretation (See Note); Tissue Transglutaminase IgA <4.0 CU (<20.0)
== END 2024-12-10 10:57 | disposition home or self-care (01) ==
LOC: LOS 10:56
PROVIDERS: PCP Nurse Practitioner Family; Visit Provider Nurse Practitioner Family
DX: R10.9 Unspecified abdominal pain (principal)
CPT/HCPCS: 36415; 80053; 82784; 83516; 83690; 85027; 82150

== ENCOUNTER 2024-12-10 14:25 | Outpatient (REF) | payer MEDICAID, SELFPAY ==
[2024-12-10 15:57] LABS: Bilirubin Negative (Negative); Blood Negative (Negative); Clarity Cloudy (Clear); Glucose Negative (Negative); Ketones Negative (Negative); Leukocyte Esterase Negative (Negative); Nitrite Negative (Negative); Urobilinogen 0.2 mg/dL (Up to 0.2)
[2024-12-10 16:09] LABS: *AMPHETAMINES SCREEN URINE Negative (Negative); *BARBITURATES SCREEN URINE Negative (Negative); *BENZODIAZEPINES SCREEN URINE Negative (Negative); Cannabinoids THC Positive (Negative); Cocaine Screen,Urine Negative (Negative); METHADONE URINE SCREEN Negative (Negative); OPIATES URINE SCREEN Negative (Negative)
[2024-12-10 16:10] LABS: Tricyclic Antidepressants Negative (Negative)
== END 2024-12-10 14:26 | disposition home or self-care (01) ==
LOC: LBN 14:25
PROVIDERS: PCP Nurse Practitioner Family; Visit Provider Nurse Practitioner Family
DX: R10.9 Unspecified abdominal pain (principal)
CPT/HCPCS: 80307; 81003

== ENCOUNTER 2024-12-12 08:37 | Outpatient (REF) | payer MEDICAID, SELFPAY ==
[2024-12-13 11:12] LABS: Campylobacter PCR Negative (Negative); Salmonella PCR Negative (Negative); Shiga Toxin PCR Negative (Negative); Shigella/Enteroinvasive Ecoli Negative (Negative)
== END 2024-12-12 08:38 | disposition home or self-care (01) ==
LOC: LBN 08:37
PROVIDERS: PCP Nurse Practitioner Family; Visit Provider Nurse Practitioner Family
DX: R10.9 Unspecified abdominal pain (principal)
CPT/HCPCS: 87505

== ENCOUNTER 2025-06-18 12:51 | Emergency (ER) | payer MEDICAID, SELFPAY ==
[2025-06-18 13:02] VITALS: BP 135/75; PULSE 98; RESP 18; TEMP 37; O2SAT 98
[2025-06-18 13:43] LABS: Glucose Negative (Negative)
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
[2025-06-18 15:08] LABS: Abs Immature Grans 0.02 10^3/uL (0.0-0.06); HCT 40.1 % (36.0-46.0); HGB 14.0 g/dL (11.2-15.7); Immature Grans % 0.2 %; MCH 29.5 pg (27.0-33.0); MCHC 34.9 % (32.0-36.0); MCV 85 fL (80-95); MPV 10.7 fL (8.0-11.0); Platelet Count 288 10^3/uL (130-400); RBC 4.74 10^6/uL (3.93-5.22); RDW 12.4 % (11.7-14.6); RDW-SD 38.3 fL; WBC 9.47 10^3/uL (4.4-10.8)
[2025-06-18 15:27] LABS: Lipase 31 U/L (<53)
[2025-06-18 15:29] LABS: ALT 13 U/L (10-49); AST 15 U/L (<34); Albumin 4.4 g/dL (3.4-5.0); Alkaline Phosphatase 89 U/L (46-116); Anion Gap 7.9 mmol/L (3-11); BUN 16 mg/dL (9-23); Bilirubin, Total 0.30 mg/dL (0.2-1.2); CO2 29.1 mmol/L (20.0-31.0); Calcium 9.0 mg/dL (8.3-10.6); Chloride 105 mmol/L (98-107); Glucose 86 mg/dL (74-106); Potassium 4.0 mmol/L (3.5-5.1); Sodium 142 mmol/L (136-145); Total Protein 7.1 g/dL (5.7-8.2)
[2025-06-18] MEDS: Nicotine 14 MG/24 HR PATCH TD (15:56)
--- NOTE | 2025-06-18 18:03 | CMSP_ITS ---
Date of service: 06/18/25 Time of Service: 18:03 Care Management Safety Plan Status Status: Voluntary Reason for Wait Reason for Wait: Inpatient Admission Safety Plan Safety Plan: VOLUNTARY FOR INPATIENT PSYCHIATRIC STABILIZATION. Patient is appropriate in all interactions since arriving at [facility]; Pt has demonstrated appropriate coping and communication skills, has articulated his or her needs and concerns and is fully engaged during staff interactions. Safety plan has been established with patient, and care team, to adhere to patient goals, identify restrictions based on behavioral status, address nutrition, and determine allowed personal belongings, tools for hygiene and personal care. Determine level of activity including ambulation, level of supervision, visitors, and determine privileges based on behaviors and level of engagement by pt. VOLUNTARY SAFETY PLAN: 1. Will remain on suicide precautions, in paper clothes. 2. Will remain in Zone B under direct supervision of one-on-one staff at all times provided by [employer]; CRESCENCIO, [employer] homicide investigator. 3. May have paper cups, plates, finger foods as well as a cardboard spoon with which to eat meals. 4. Follow [facility] Management of the Admitted Behavioral Health Patient policy. 5. Shower available in Zone B without restriction. 6. Personal belongings-soft items permitted at RN discretion. 7. Visitors- supportive visitors, at RN discretion. 8. Activities: soft cart items approved per RN discretion. 9. Bathroom available in Zone B without restriction. 10. Phone: limited to [facility] cordless phone at RN discretion. Due to VOLUNTARY status, if patient wishes to leave [facility], staff will contact [facility] Crisis Screener ([phone]) and Associate Professor Of Engineering ([phone]) as soon as possible. In the event of elopement, notify [facility] Police ([phone]). Patient is currently voluntarily at [facility] and seeking inpatient admission when a bed becomes available. [facility] [employer] will continue seeking placement. Please contact the Associate Professor Of Engineering ([phone]) and [facility] Steel Finisher ([phone]) for any needed changes in the Safety Plan. Safety plan has been provided to interdepartmental care team.
[2025-06-18] MEDS: clonazePAM 1 MG TAB PO (19:44)
--- NOTE | 2025-06-19 00:55 | PDOC.MHCN_ITS ---
Date of service: 06/18/25 Time of Service: 16:45 Suicide Severity Rate CSSRS Have you wished you were or wished you could go to sleep and not wake up?: No Have you actually had any thoughts of killing yourself?: Yes CSSRS2 Have you been thinking about how you might do this?: Yes Have you had these thoughts and had some intention of acting on them?: No Have you started to work out or worked out the details of how to kill yourself? Do you intend to carry out this plan?: No CSSRS3 Have you ever done anything, started to do anything or prepared to do anything to end your life?: No CSSRS4 Was this within the past three months?: No Screening Score Total Score: 2 Screening: Positive Mental Health Emergency Note Release [facility] release signed:: No Reason for Visit Medical, Medication, Suicidal ideation In the last 2 weeks has the pt presented for ES prior to today?: Unknown Client Information Client is: Substance use and New Well Housed: Yes Non Suicidal Self Injury Current: No History: No Safety Risk/Harm to Self or Others Current Ideation to Harm Self or Others: Yes to self. Intent: no, has no intent. Plan: no.does not have a plan. History of suicide attempt: No history of suicide attempt reported CALM/Risk Level Does risk to harm exist?: yes. Access to means: Yes. Types of Means: Medication. Details: Client reports she is currently purchasing clonazepam from street sources . Counseling provided: No Risk: Low Risk Duty to warn indicated: No Asssessment/Mental Status Appearance: Unremarkable Attitude: Cooperative, Demanding and Friendly Behavior: Unremarkable and Agitated Speech: Normal, Pressured and Loud Affect: Cogruent with mood Mood: Stressed, Anxious and Irritable Thought process: Goal directed and Circumstational Hallucinations: No evidence Delusions: No evidence Attention: Unremarkable Perception: Not impaired Orientation: Fully orientated Memory: Intact Insight: Good Judgement: Fair Neurovegetative Symptoms Sleep: Decrease Appetitie: Increase Interests: Decrease Energy: Decrease Libido: No change Substance Use: Do you use nicotine?: Yes Have you used substances in the last 7 days?: yes, Incomplete Additional Issues: Assaultive/Threatening Behavior: No Medical Concerns: Yes Client engaged in active self harm w/weapon: No Threatening to run away: Yes Child reported abuse/neglect: No Voluntarily presenting for services: Yes Domestic violence is a concern: No Extreme Psychosis or extreme behavior is present: No Impression Client is a 39-year-old female, currently unemployed and living with her partner in [place], [place]. She is known to [facility] but is inactive with the agency at the time of this assessment due to previous disengagement. This session is her initial assessment with the clinician, conducted in person at [facility] Zone B following the client's report of abdominal pain, which has led to passive suicidal ideation. Client arrived at the emergency department dressed in hospital blue scrubs and yellow grippy socks. She initially demonstrated a calm and cooperative demeanor during discussions and assessments; however, she exhibited demanding and agitated behavior once it became evident that she did not meet the criteria for inpatient treatment. Upon arrival, the client expressed frustration about not being immediately transported to [facility] for medication stabilization, declaring, Carebed sounds like a joke. Although she denied homicidal ideation, non-suicidal self-injury, or hallucinations, she expressed passive suicidal thought without significant plan, access to means, or intent. Client reports she has a history of heroin addiction and is currently in recovery. The client reported self-medicating with illicit clonazepam, revealing a goal-directed yet circumstantial thought process. She was unable to articulate specific mental health goals or her intent behind desiring inpatient treatment beyond addressing abdominal pain and achieving medication stabilization. Despite demonstrating good insight and fair judgment, she reported a significant increase in appetite due to her abdominal pain and ADHD, contributing to weight gain. Client stated that she spends twenty hours in bed but only achieves approximately four hours of sleep per day, indicating her inability to engage in daily life activities. While she was able to define deterrents to self-harm, a passive plan for suicide was revealed, although she claimed no access to means or intent. Client is future oriented and expresses desire to engage more as a grandmother. The clinician offered a Carebed referral, which the client dismissed then agreed to consider overnight. Client does not meet the criteria for inpatient mental health treatment to address mental health issues, but may benefit from medication review and stabilization. Client threatened to leave the facility during the night to drive directly to an inpatient mental health facility for assistance. Resources Reos[employer]ces reviewed and given:: Crisis Bed Plan/Disposition Recommended Disposition: Crisis bed, (Carebed offered, client has not accepted but considering for a limited time) facility contacted. Status of Crisis Bed acceptance: Other, Therapy and Community resources. Plan: Client will be reassessed prior to discharge from [facility]. If client accepts Carebed placement, daily assessments and resources will be provided to address client goals for stabilization. Reports/communication Outcome discussed with: ED/Personnel
--- NOTE | 2025-06-19 07:20 | ED.PSYCHBOAR ---
Date of service: 06/19/25 Time of Service: 07:20 Psychiatric Border Handoff Update Brief Story: Patient currently seeking voluntary placement for thoughts of self-harm. No reported issues on prior shift. Will continue to monitor until safe disposition found. Status: voluntary Able to leave: would need physician/IRINA and crisis evaluation prior to leaving Mediation Reconciliation performed: Yes Code Status ordered: Yes Diet ordered: Yes Discharge Plan Discharge Details Chief Complaint: PsychEval Clinical Impression: Abdominal pain, Suicidal ideation Primary Care Provider: Kendrick Feliz ED Provider: Jad Mcmahan Home Meds and New Rx's Prescriptions: No Action albuterol sulfate 90 mcg/actuation aerosol powdr breath activated 2 inh inhalation Q4H PRN (Reason: shortness of breath or wheezing) Qty: 1 1RF omeprazole 20 mg capsule,delayed release(DR/EC) 20 mg PO DAILY Patient Comments: TAKE ONE CAPSULE BY MOUTH EVERY DAY Caplyta 42 mg capsule 42 mg PO DAILY Patient Comments: TAKE ONE CAPSULE BY MOUTH EVERY DAY
[2025-06-19] MEDS: clonazePAM 1 MG TAB PO ×2 (07:28→14:03)
[2025-06-19 10:19] VITALS: BP 127/75; PULSE 67; TEMP 36.7; O2SAT 95
[2025-06-19] MEDS: Omeprazole 20 MG CAPCR PO (10:27)
--- NOTE | 2025-06-19 12:00 | ED.PSYCHBOAR ---
Date of service: 06/19/25 Time of Service: 12:01 Psychiatric Border Handoff Update Brief Story: Patient was reassessed and plan is to go to the care bed which patient was comfortable with. Will provide her with 3 days worth of clonazepam as well. Discharge Plan Disposition Specific Psychiatric Facility: Care Bed Condition: Stable Discharge Details Chief Complaint: PsychEval Clinical Impression: Depressive disorder Primary Care Provider: Kendrick Feliz ED Provider: Jad Mcmahan Home Meds and New Rx's Prescriptions: Continued albuterol sulfate 90 mcg/actuation aerosol powdr breath activated 2 inh inhalation Q4H PRN (Reason: shortness of breath or wheezing) Qty: 1 1RF omeprazole 20 mg capsule,delayed release(DR/EC) 20 mg PO DAILY Patient Comments: TAKE ONE CAPSULE BY MOUTH EVERY DAY No Action Caplyta 42 mg capsule 42 mg PO DAILY Patient Comments: TAKE ONE CAPSULE BY MOUTH EVERY DAY Discharge Instructions Additional Instructions: Follow-up with your primary care provider as needed, if you have worsening thoughts of self-harm return to the emergency department for reevaluation.
--- NOTE | 2025-06-19 13:43 | CMPROGNOTE_ITS ---
Date of service: 06/19/25 Time of Service: 13:44 Care Management Progress Note Progress Note Text Progress Note Text: CM huddled with [facility] ED RN, MD CRESCENCIO, as well as [facility] clinician to discuss Chencho's plan of care. Per report, Chencho has been accepted at the [facility], and meets criteria for this level of care. She will follow up with [facility] providers, and will transport via private vehicle by [facility] staff. She is agreeable to this plan. CM will continue to follow. Social Determinants of Health Screening Will the Patient Participate in the Screening?: Unable to obtain
--- NOTE | 2025-06-19 13:43 | PDOC.CMPRO ---
Date of service: 06/19/25 Time of Service: 13:44 Care Management Progress Note Progress Note Text Progress Note Text: CM huddled with [facility] ED RN, MD CRESCENCIO, as well as [facility] clinician to discuss Chencho's plan of care. Per report, Chencho has been accepted at the [facility], and meets criteria for this level of care. She will follow up with [facility] providers, and will transport via private vehicle by [facility] staff. She is agreeable to this plan. CM will continue to follow. Social Determinants of Health Screening Will the Patient Participate in the Screening?: Unable to obtain
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
== END 2025-06-19 16:10 | disposition other institution (70) ==
PROVIDERS: Physician Assistant; Emergency Provider Emergency Medicine; PCP Nurse Practitioner Family
DX: F41.9 Anxiety disorder, unspecified (principal); R10.84 Generalized abdominal pain; R45.851 Suicidal ideations
CPT/HCPCS: 99285 ×3; 81025; 00123; 36415; 80053; 83690; H0046; 80320; 81003; 85025

== ENCOUNTER 2025-07-02 12:17 | Emergency (ER) | payer MEDICAID, SELFPAY ==
[2025-07-02 12:22] VITALS: BP 140/106; PULSE 125; RESP 18; TEMP 36.9; O2SAT 98
--- NOTE | 2025-07-02 12:30 | DI.CT_ITS ---
Exam(s) CT CHEST/ABD/PEL W EXAM: CT CHEST/ABD/PEL W CLINICAL HISTORY: shortness of breath, abdominal pain. TECHNIQUE: Imaging Protocol: Axial computed tomography images with coronal and sagittal reformatted images were created and reviewed. Computer aided detection (CAD) was utilized. CONTRAST MATERIAL: Intravenous: Omnipaque 350 Contrast volume:100 ml Oral: no COMPARISON: No exams were available for comparison FINDINGS: CHEST: Pulmonary parenchyma: No consolidation. No dominant measurable mass. Tracheobronchial tree: No bronchiectasis. No mucous plugging.No bronchial wall thickening. Pleura: No effusion or pneumothorax. Mediastinum: Within normal limits. Pulmonary arteries: Suboptimal opacification. no visible emboli. Cardiovascular: No pericardial effusion. Thoracic aorta non-dilated. Bones: Unremarkable for age. No lytic or blastic lesions. No compression fractures. Soft tissues: Unremarkable. ABDOMEN and PELVIS: Liver: Normal density. No suspicious mass. Gallbladder and biliary tract: No evidence of stones or wall thickening. No biliary dilatation. Pancreas: Normal density, no abnormal calcifications or inflammatory process. Spleen: Normal. Kidneys: Normal size, contour and axis. No radiodense stones. No obstructive uropathy. No suspicious masses seen. Adrenal glands: No masses seen. Aorta: Abdominal portion non-dilated. Lymph nodes: Within normal limits. Soft tissues: Unremarkable. Bladder: Unremarkable. Bowel: No obstruction or bowel wall thickening. Peritoneal cavity: No ascites. No focal collection. No mesenteric inflammatory response. No free air. Bones: Unremarkable for age. Reproductive organs: Unremarkable for age. IMPRESSION: No acute abnormality in the chest, abdomen or pelvis. RADIATION DOSE DELIVERED: 491.66mGy.cm Total DLP DATA REPOSITORY: All CT scans at this facility are submitted to the National Radiology Data Registry (NRDR) Dose Index Registry (DIR) with the [employer] (A[employer]). RADIATION OPTIMIZATION: All CT scans at this facility use at least one of these dose optimization techniques: automated exposure control; mA and/or kV adjustment per patient size (includes targeted exams where dose is matched to clinical indication); or iterative reconstruction.
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
[2025-07-02 13:27] LABS: Abs Immature Grans 0.03 10^3/uL (0.0-0.06); HCT 42.2 % (36.0-46.0); HGB 14.9 g/dL (11.2-15.7); Immature Grans % 0.3 %; MCH 29.4 pg (27.0-33.0); MCHC 35.3 % (32.0-36.0); MCV 83 fL (80-95); MPV 10.4 fL (8.0-11.0); Platelet Count 287 10^3/uL (130-400); RBC 5.07 10^6/uL (3.93-5.22); RDW 12.2 % (11.7-14.6); RDW-SD 37.2 fL; WBC 10.35 10^3/uL (4.4-10.8)
[2025-07-02 13:36] VITALS: BP 144/78; PULSE 91; RESP 18; O2SAT 96
[2025-07-02 13:41] LABS: ESR 20 mm/hr (0-20)
[2025-07-02 13:46] LABS: Lipase 30 U/L (<53)
[2025-07-02 13:47] LABS: C-Reactive Protein < 0.50 mg/dL (<=0.50); Magnesium 1.9 mg/dL (1.6-2.6)
[2025-07-02 13:49] LABS: ALT 15 U/L (10-49); AST 15 U/L (<34); Albumin 4.7 g/dL (3.2-5.0); Alkaline Phosphatase 93 U/L (46-116); Anion Gap 10.6 mmol/L (3-11); BUN 14 mg/dL (9-23); Bilirubin, Total 0.60 mg/dL (0.2-1.2); CO2 24.4 mmol/L (20.0-31.0); Calcium 9.1 mg/dL (8.3-10.6); Chloride 105 mmol/L (98-107); Glucose 94 mg/dL (74-106); Potassium 3.8 mmol/L (3.5-5.1); Sodium 140 mmol/L (136-145); Total Protein 7.6 g/dL (5.7-8.2)
[2025-07-02] MEDS: Normal Saline - Diluent 50 ML VIAL IJ (13:53)
[2025-07-02] MEDS: Omnipaque 350 MG/ML 100 ML BTL IJ (13:53)
[2025-07-02] MEDS: Normal Saline Flush 10 ML SYR IVP (13:54)
[2025-07-02 14:36] LABS: Glucose Negative (Negative)
[2025-07-02 14:48] VITALS: BP 134/88; PULSE 90; RESP 20; O2SAT 96
== END 2025-07-02 14:50 | disposition home or self-care (01) ==
PROVIDERS: Emergency Provider Physician Assistant; PCP Nurse Practitioner Family
DX: R10.9 Unspecified abdominal pain (principal); R19.7 Diarrhea, unspecified; R63.5 Abnormal weight gain
CPT/HCPCS: 99283; 99285; 81025; 74177; 80053; 83690; 85652; 71260; 81003; 83605; 83735; 85025; 86140; J3490

== ENCOUNTER 2025-07-07 15:18 | Outpatient (REF) | payer MEDICAID, SELFPAY ==
--- NOTE | 2025-07-07 14:45 | PAPFT_PTH ---
PATIENT: Chencho Barrett LOC: [facility] U#:[id number] AGE/SX: 39/F ROOM: RE07/07/[address]: Felicitas Montiel MD : [id number] BED: DIS: 07/07/2025 SPEC #: [id number] RECD: 07/07/25 18:35 STATUS: MALIK RESamanta #: [id number] CASPER: 07/07/25 14:[address]: Felicitas Montiel DEPT: [facility] Cytology RECD BY: Nehal Lockett ENTERED: 07/07/25 18:36 SP TYPE: PAPFT OTHR DR: Kendrick Emery DNP Tissues: 1 - CX/ENDOCX FOR PAP SMEARS Procedures: PAP THIN PREP/[facility] Screening HPV DNA PROBE Comments: [id number] (HPV 16 & 18/45)
== END 2025-07-07 15:19 | disposition home or self-care (01) ==
LOC: LBN 15:18
PROVIDERS: PCP Nurse Practitioner Family; Visit Provider Obstetrics & Gynecology
DX: Z12.4 Encounter for screening for malignant neoplasm of cervix (principal)
CPT/HCPCS: 88142; 87624

== ENCOUNTER 2025-07-09 10:45 | Outpatient (CLI) | payer MEDICAID, SELFPAY ==
[2025-07-09 15:07] LABS: ESR 15 mm/hr (0-20)
[2025-07-09 16:20] LABS: TSH (W/Ref FT4) 0.99 uIU/mL (0.55-4.78)
[2025-07-09 17:14] LABS: C-Reactive Protein < 0.50 mg/dL (<=0.50)
[2025-07-09 17:20] LABS: ALT 18 U/L (10-49); AST 19 U/L (<34); Albumin 4.7 g/dL (3.2-5.0); Alkaline Phosphatase 87 U/L (46-116); Anion Gap 14.8 mmol/L (3-11); BUN 22 mg/dL (9-23); Bilirubin, Total 0.30 mg/dL (0.2-1.2); CO2 21.2 mmol/L (20.0-31.0); Calcium 9.7 mg/dL (8.3-10.6); Chloride 106 mmol/L (98-107); Cholesterol 209 mg/dL (<200); Glucose 134 mg/dL (74-106); HDL Cholesterol 69 mg/dL (>40); Potassium 4.2 mmol/L (3.5-5.1); Sodium 142 mmol/L (136-145); Total Protein 7.5 g/dL (5.7-8.2)
[2025-07-09 23:11] LABS: FSH 13.6 mIU/mL (See Note)
[2025-07-10 00:48] LABS: Hepatitis C Ab w Rflx HCV PCR Reactive (Negative)
[2025-07-16 15:38] LABS: Testosterone, Free 0.60 ng/dL (<0.13-1.00)
== END 2025-07-09 10:46 | disposition home or self-care (01) ==
PROVIDERS: Obstetrics & Gynecology; PCP Nurse Practitioner Family; Visit Provider Nurse Practitioner Family
DX: N91.5 Oligomenorrhea, unspecified (principal); N92.6 Irregular menstruation, unspecified; R10.30 Lower abdominal pain, unspecified; R10.9 Unspecified abdominal pain; G89.29 Other chronic pain
CPT/HCPCS: 36415; 80053; 80061; 82784; 83516; 84402; 84403; 85652; 86803; 87522; 82670; 83001; 84146; 84443; 86038; 86140